=== PATIENT | female | born 1955 | race Caucasian/White ===

== ENCOUNTER → 2016-04-07 | Outpatient (CLI) | payer MEDICARE, OTHER ==
--- NOTE | 2016-04-07 12:29 | FL ---
EXAMINATION TYPE: FL barium swallow w video DATE OF EXAM: 04/07/2016 11:42 AM COMPARISON: NONE HISTORY: Cough, cerebral palsy. The patient was evaluated in the lateral projection during real-time fluoroscopy, during ingestion of barium mixed with solids and liquids. No aspiration or laryngeal penetration. See report from [facility].
== END | disposition home or self-care (01) ==
LOC: RADFLMAIN 10:54
PROVIDERS: ATTEND Family Medicine
DX: R05 Cough (principal); E66.9 Obesity, unspecified
CPT/HCPCS: 74230

== ENCOUNTER 2016-05-28 10:50 | Inpatient (IN) | payer MEDICARE, OTHER ==
[2016-05-28] MEDS ORDERED: SODIUM CHLORIDE 0.9% 1,000 ML IV STA (11:36)
--- NOTE | 2016-05-28 12:16 | ED ---
General Adult HPI - General Chief complaint: Recheck/Abnormal Lab/Rx Stated complaint: SENT BY TO CHECK LIVER ENZYMES Time Seen by Provider: 05/28/16 11:35 Source: family, RN notes reviewed, old records reviewed Mode of arrival: wheelchair Limitations: language barrier, physical limitation - History of Present Illness Initial comments: This is a 52-year-old female here for evaluation of abnormal outpatient lab tests. Is brought in for unknown elevated lab tests. Patient's primary caregiver, states that they were called this morning is patient will return yesterday and was found to be abnormal. Patient office in no acute distress, he also stated patient was told to stop the medication, spironolactone. The patient has stopped taking that medication at this time. Otherwise again no complaints - Related Data Home Medications Medication Instructions Recorded Confirmed Aspirin EC [Ecotrin Low Dose] 81 mg PO DAILY 05/28/16 05/28/16 Famotidine [Pepcid] 20 mg PO DAILY 05/28/16 05/28/16 Fluocinolone Acetonide Oil 5 drops LEFT EAR DAILY 05/28/16 05/28/16 [Fluocinolone Acetonide Oil (Otic)] Fluocinonide 0.05% [Fluocinonide] 1 applic TOPICAL DAILY 05/28/16 05/28/16 Furosemide [Lasix] 20 mg PO DAILY 05/28/16 05/28/16 Hydrocortisone 1% Lotion 1 applic TOPICAL HS 05/28/16 05/28/16 Ketoconazole 2% Shampoo [Nizoral] 1 applic TOPICAL Q3D 05/28/16 05/28/16 Multivitamins, Thera [Multivitamin 1 tab PO DAILY 05/28/16 05/28/16 (formulary)] Sertraline HCl [Zoloft] 50 mg PO HS 05/28/16 05/28/16 Spironolactone [Aldactone] 50 mg PO BID 05/28/16 05/28/16 Allergies Allergy/AdvReac Type Severity Reaction Status Date / Time corn Allergy Unknown Verified 05/28/16 12:06 Sulfa (Sulfonamide Allergy Unknown Verified 05/28/16 12:06 Antibiotics) Review of Systems ROS Statement: Those systems with pertinent positive or pertinent negative responses have been documented in the HPI. ROS Other: All systems not noted in ROS Statement are negative. Past Medical History Past Medical History: Heart Failure Additional Past Medical History / Comment(s): mental retardation, cerebral palsy , quadropalegia History of Any Multi-Drug Resistant Organisms: None Reported Past Psychological History: No Psychological Hx Reported Smoking Status: Never smoker Past Alcohol Use History: None Reported Past Drug Use History: None Reported General Exam Limitations: language barrier, physical limitation General appearance: alert, in no apparent distress Head exam: Present: atraumatic, normocephalic, normal inspection Eye exam: Present: normal appearance, PERRL, EOMI. Absent: scleral icterus, conjunctival injection, periorbital swelling ENT exam: Present: normal exam, mucous membranes moist Neck exam: Present: normal inspection. Absent: tenderness, meningismus, lymphadenopathy Respiratory exam: Present: normal lung sounds bilaterally. Absent: respiratory distress, wheezes, rales, rhonchi, stridor Cardiovascular Exam: Present: regular rate, normal rhythm, normal heart sounds. Absent: systolic murmur, diastolic murmur, rubs, gallop, clicks GI/Abdominal exam: Present: soft, normal bowel sounds. Absent: distended, tenderness, guarding, rebound, rigid Extremities exam: Present: normal inspection, full ROM, normal capillary refill. Absent: tenderness, pedal edema, joint swelling, calf tenderness Back exam: Present: normal inspection Neurological exam: Present: alert, oriented X3, CN II-XII intact Psychiatric exam: Present: normal affect, normal mood Skin exam: Present: warm, dry, intact, normal color. Absent: rash Course Vital Signs 05/28/16 11:04 Temperature 97.5 F L Pulse Rate 58 L Respiratory 20 Rate Blood Pressure 131/90 O2 Sat by Pulse 100 Oximetry - Reevaluation(s) Reevaluation #1: 05/28/16 12:15 Lab tests do reveal potassium of 6.1 05/28/16 12:15 Patient again re-encouraged to continue to stop spironolactone Medical Decision Making - Medical Decision Making 60 female here for evaluation of elevated potassium, patient's potassium has gone up 1 since prior check, patient hasn't also 0.1, patient be treated for hyperkalemia and admitted for recheck her potassium, continue to hold spironolactone - Lab Data Result diagrams: 05/28/16 12:08 05/28/16 12:08 Lab Results 04/05/17 04/05/17 Range/Units 12:08 12:08 WBC 7.3 (3.8-10.6) k/uL RBC 3.87 (3.80-5.40) m/uL Hgb 12.2 (11.4-16.0) gm/dL Hct 36.8 (34.0-46.0) % MCV 95.1 (80.0-100.0) fL MCH 31.5 (25.0-35.0) pg MCHC 33.1 (31.0-37.0) g/dL RDW 15.7 H (11.5-15.5) % Plt Count 246 (150-450) k/uL Sodium 138 (137-145) mmol/L Potassium 7.2 H* (3.5-5.1) mmol/L Chloride 100 (98-107) mmol/L Carbon Dioxide 26 (22-30) mmol/L Anion Gap 12 mmol/L BUN 49 H (7-17) mg/dL Creatinine 0.62 (0.52-1.04) mg/dL Est GFR (MDRD) Af Amer >60 (>60 ml/min/1.73 sqM) Est GFR (MDRD) Non-Af >60 (>60 ml/min/1.73 sqM) Glucose 83 (74-99) mg/dL Calcium 10.3 H (8.4-10.2) mg/dL Phosphorus 4.5 (2.5-4.5) mg/dL Magnesium 2.0 (1.6-2.3) mg/dL Total Bilirubin 0.8 (0.2-1.3) mg/dL AST 58 H (14-36) U/L ALT 48 (9-52) U/L Alkaline Phosphatase 111 (38-126) U/L Total Protein 8.1 (6.3-8.2) g/dL Albumin 4.3 (3.5-5.0) g/dL Disposition Clinical Impression: Hyperkalemia, Medication reaction Disposition: ADMITTED IP TO THIS HOSP Condition: Good Instructions: Hyperkalemia (ED) Referrals: Joseph Sol MD [Primary Care Provider] - 1-2 days
[2016-05-28 12:42] LABS: Basophils % (A) 1 %; Eosinophils % (A) 1 %; HCT 36.8 % (34.0-46.0); HDW 3.37; HGB 12.2 gm/dL (11.4-16.0); Luc # (Auto) 0.19; Luc % (Auto) 3; Lymphocytes % (A) 13 %; MCH 31.5 pg (25.0-35.0); MCHC 33.1 g/dL (31.0-37.0); MCV 95.1 fL (80.0-100.0); Mean Platelet Volume 9.3; Monocytes # (A) 1.3 k/uL (0-1.0); Monocytes % (A) 18 %; Neutrophils # (A) 4.8 k/uL (1.3-7.7); Neutrophils % (A) 66 %; RBC 3.87 m/uL (3.80-5.40); RDW 15.7 % (11.5-15.5); WBC 7.3 k/uL (3.8-10.6)
[2016-05-28 12:48] LABS: ALT 48 U/L (9-52); AST 58 U/L (14-36); Alkaline Phosphatase 111 U/L (38-126); Anion Gap 12 mmol/L; Blood Urea Nitrogen 49 mg/dL (7-17); Calcium 10.3 mg/dL (8.4-10.2); Carbon Dioxide 26 mmol/L (22-30); Chloride 100 mmol/L (98-107); Glucose 83 mg/dL (74-99); Manual Review Performed; Non-African American GFR(MDRD) >60 (>60 ml/min/1.73 sqM); Phosphorous 4.5 mg/dL (2.5-4.5); Sodium 138 mmol/L (137-145); Total Bilirubin 0.8 mg/dL (0.2-1.3); Total Protein 8.1 g/dL (6.3-8.2)
[2016-05-28 12:49] LABS: Potassium 7.2 mmol/L (3.5-5.1)
[2016-05-28] MEDS ORDERED: SODIUM POLYSTYRENE SULFONATE 15 GM/60 ML BOTTLE PO STA (12:51)
[2016-05-28] MEDS ORDERED: DEXTROSE 50%-WATER 50 ML SYRINGE IVP STA ×2 (12:51→15:56)
[2016-05-28] MEDS ORDERED: INSULIN REGULAR 100 UNIT/ML VIAL IV ONE (12:51)
[2016-05-28] MEDS ORDERED: CALCIUM GLUCONATE 1,000 MG in SODIUM CHLORIDE 0.9% 100 ML IVPB ONE (12:51)
[2016-05-28] MEDS ORDERED: SODIUM BICARB 8.4% 50 ML SYR (1 MEQ/ML) IV STA (12:51)
[2016-05-28] MEDS ORDERED: SODIUM CHLORIDE 0.9% 1,000 ML IV ONE ×2 (12:53→15:04)
[2016-05-28 12:54] LABS: Toxic Granulation Present
[2016-05-28 15:57] LABS: Glucose,Whole Blood 42 mg/dL (75-99)
[2016-05-28 16:26] LABS: Glucose,Whole Blood 160 mg/dL (75-99)
[2016-05-28 16:26] LABS: Glucose,Whole Blood 229 mg/dL (75-99)
[2016-05-28 16:33] LABS: Glucose,Whole Blood 120 mg/dL (75-99)
--- NOTE | 2016-05-28 16:58 | XR ---
EXAMINATION TYPE: XR chest 1V portable DATE OF EXAM: 05/28/2016 4:50 PM COMPARISON: NONE INDICATION: History of cerebral palsy shortness of breath and congestive heart failure TECHNIQUE: Single frontal view of the chest is obtained. FINDINGS: The heart size is mildly prominent. The pulmonary vasculature is prominent. There is diffuse increased lung markings. Early pulmonary edema could be considered. Clinical correla tion is recommended. IMPRESSION: 1. Clinical correlation recommended for early congestive heart failure.
[2016-05-28 17:06] LABS: Glucose,Whole Blood 87 mg/dL (75-99)
[2016-05-28] MEDS ORDERED: HYDROCORTISONE SUCCINATE 100 MG/2 ML VIAL IV STA (17:26)
[2016-05-28] MEDS ORDERED: methylPREDNISolone SOD SUCCI 125 MG/2 ML VIAL IV STA (17:26)
[2016-05-28 17:29] LABS: Basophils % (A) 0 %; CH 33.3; CHCM 34.5; Eosinophils % (A) 0 %; HCT 29.1 % (34.0-46.0); HDW 3.32; HGB 10.1 gm/dL (11.4-16.0); Luc # (Auto) 0.15; Luc % (Auto) 1; Lymphocytes # (A) 0.7 k/uL (1.0-4.8); Lymphocytes % (A) 6 %; MCH 33.6 pg (25.0-35.0); MCHC 34.6 g/dL (31.0-37.0); MCV 97.1 fL (80.0-100.0); Macrocytosis Slight; Mean Platelet Volume 8.4; Monocytes # (A) 0.5 k/uL (0-1.0); Monocytes % (A) 4 %; Neutrophils # (A) 9.6 k/uL (1.3-7.7); Neutrophils % (A) 88 %; RDW 15.5 % (11.5-15.5); WBC 10.9 k/uL (3.8-10.6); WBC (Perox) 10.81
[2016-05-28] MEDS ORDERED: EPINEPHrine 1 MG/ML 1 ML AMP IM STA (17:31)
[2016-05-28 17:32] LABS: ALT 40 U/L (9-52); AST 33 U/L (14-36); Alkaline Phosphatase 92 U/L (38-126); Anion Gap 10 mmol/L; Blood Urea Nitrogen 41 mg/dL (7-17); Carbon Dioxide 22 mmol/L (22-30); Chloride 107 mmol/L (98-107); Glucose 89 mg/dL (74-99); Magnesium 1.7 mg/dL (1.6-2.3); Non-African American GFR(MDRD) >60 (>60 ml/min/1.73 sqM); Potassium 5.2 mmol/L (3.5-5.1); Sodium 139 mmol/L (137-145); Total Bilirubin 0.4 mg/dL (0.2-1.3)
[2016-05-28] MEDS ORDERED: diphenhydrAMINE 50 MG/ML 1 ML VIAL IVP STA (18:02)
[2016-05-28] MEDS: EPINEPHrine 2 MG in DEXTROSE 5% IN WATER 250 ML IV SCH ×2 (18:54)
[2016-05-28] MEDS: PIPERACILLIN-TAZOBACTAM 3.375 GM in DEXTROSE/WATER 1 50ML.BAG IVPB SCH (19:13)
[2016-05-28] MEDS ORDERED: HYDROCORTISONE SUCCINATE 100 MG/2 ML VIAL IV SCH (20:00)
[2016-05-28] MEDS: FAMOTIDINE 20 MG/2 ML VIAL IV SCH (20:02)
--- NOTE | 2016-05-28 20:18 | P.CNPUL ---
History of Present Illness Consult date: 05/28/16 Chief complaint: Acute hypotension History of present illness: This is a 60-year-old female patient with history of cerebral palsy and she is morbidly obese who [facility]. The patient was referred to the burst department this afternoon because of abnormal blood work and labs. Specifically the patient had a elevated potassium. Upon arrival to the burst department, the patient was noted to have a potassium of 7.2. The rest of the electrolytes are within normal limits. BUN was slightly elevated at 49. The creatinine is at 0.62. Note that the patient was receiving Aldactone on an outpatient basis. The patient had some hyperacute T-wave changes on the EKG. The patient was also sinus bradycardia with a heart rate of 54. Based on this, the patient was given the hyperkalemia cocktail which included bicarb, D50 with insulin, calcium gluconate and Kayexalate. Following this cocktail, the patient developed an acute rash that involved entire body and she became acutely hypotensive. She was also having some increased wheezing. Based on that, acute anaphylactic reaction/ALLERGIC reaction was suspected and the patient was given epinephrine 0.3 mg IM. The rash subsequently improved yet the patient continued to be hypotensive with a systolic blood pressure in the mid 70s. The patient got moved to the intensive care unit. I was asked to. This patient this regard The patient was seen in the ICU. She had already received a total of 3 L of IV fluid in the form of normal saline. Most recent systolic blood pressure was in the mid 90s. It was very difficult to obtain any history from this patient due to her cerebral palsy. She did not seem to be in respiratory distress. No reported cardiac history or chest pain. No reported DVT or pulmonary embolism. The patient had no active rash on her body. No tongue swelling. No lip swelling. Prior history of drug ALLERGIES other than sulfa and the patient has not taken any sulfa medication no she has taken any antibiotics. She was noted to be hypothermic and the patient was given external warming. She is currently pulse oxing 98% on oxygen nasal cannula chest x-ray showed some mild congestion. Review of Systems ROS unobtainable: due to mental status Past Medical History Past Medical History: Heart Failure, Sleep Apnea/CPAP/BIPAP Additional Past Medical History / Comment(s): Mental retardation, cerebral palsy , quadriplegia, lower leg and pedal edema, RICHAR with CPAP use, bronchitis. History of Any Multi-Drug Resistant Organisms: None Reported Past Surgical History: Orthopedic Surgery Additional Past Surgical History / Comment(s): L shoulder surgery, L cheek cyst removed, D&C Past Anesthesia/Blood Transfusion Reactions: No Reported Reaction Past Psychological History: Depression Additional Psychological History / Comment(s): Pt resides at [facility]. She is nonambulatory and wheelchair bound. She has quadriplegia. She needs assist with ADLs but can feed herself with a scoop plate/spoon. She needs a cup with a handle. Her mother, Aleida is her legal guardian and is heading home from [place] today-should be to hospital 05/29/16 afternoon. Smoking Status: Never smoker Past Alcohol Use History: None Reported Past Drug Use History: None Reported - Past Family History Mother Family Medical History: No Reported History Additional Family Medical History / Comment(s): Mother is healthy. Medications and Allergies Home Medications Medication Instructions Recorded Confirmed Type Aspirin EC [Ecotrin Low Dose] 81 mg PO DAILY 05/28/16 05/28/16 History Famotidine [Pepcid] 20 mg PO DAILY 05/28/16 05/28/16 History Fluocinolone Acetonide Oil 5 drops LEFT EAR DAILY 05/28/16 05/28/16 History [Fluocinolone Acetonide Oil (Otic)] Fluocinonide 0.05% [Fluocinonide] 1 applic TOPICAL DAILY 05/28/16 05/28/16 History Furosemide [Lasix] 20 mg PO DAILY 05/28/16 05/28/16 History Hydrocortisone 1% Lotion 1 applic TOPICAL HS 05/28/16 05/28/16 History Ketoconazole 2% Shampoo [Nizoral] 1 applic TOPICAL Q3D 05/28/16 05/28/16 History Multivitamins, Thera [Multivitamin 1 tab PO DAILY 05/28/16 05/28/16 History (formulary)] Sertraline HCl [Zoloft] 50 mg PO HS 05/28/16 05/28/16 History Spironolactone [Aldactone] 50 mg PO BID 05/28/16 05/28/16 History Allergies Allergy/AdvReac Type Severity Reaction Status Date / Time corn Allergy Unknown Verified 05/28/16 12:06 Sulfa (Sulfonamide Allergy Unknown Verified 05/28/16 12:06 Antibiotics) Physical Exam Vitals: Vital Signs Temp Pulse Pulse Resp BP Pulse Ox 05/28/16 19:10 84 32 H 78/53 98 05/28/16 19:00 81 19 78/53 98 05/28/16 18:50 79 34 H 85/47 95 05/28/16 18:40 72 41 H 84/53 98 05/28/16 18:30 68 20 84/53 97 05/28/16 18:20 62 36 H 67/41 94 L 05/28/16 18:10 63 23 48/34 94 L 05/28/16 18:00 67 25 H 150/68 92 L 05/28/16 17:50 55 L 22 64/45 94 L 05/28/16 17:40 59 L 13 87/49 91 L 05/28/16 17:30 66 14 87/49 94 L 05/28/16 17:20 92.1 F L 64 23 81/49 94 L 05/28/16 17:10 64 15 95 05/28/16 17:00 66 05/28/16 16:58 69 05/28/16 15:47 95 F L 73 16 95 05/28/16 15:08 98.4 F 62 20 96/49 97 05/28/16 13:58 76 18 131/71 95 Intake and Output 05/28/16 05/28/16 05/28/16 06:59 14:59 22:59 Intake Total 2001.41 Output Total 280 Balance 1722.41 Intake: Intake, IV Titration 2001.41 Amount EPINEPHrine 2 mg In 4.41 Dextrose 5% in Water 250 ml @ 0.5 MCG/MIN 3.78 mls /hr IV .Q24H KIRK Rx#: [id number] Sodium Chloride 0.9% 1, 999 000 ml @ 999 mls/hr IV . Q1H1M ONE Rx#:[id number] Sodium Chloride 0.9% 1, 999 000 ml @ 999 mls/hr IV . Q1H1M STA Rx#:[id number] Output: Urine 280 Other: Voiding Method Indwelling Catheter Head exam was generally normal. There was no scleral icterus or corneal arcus. Mucous membranes were moist. Neck is short and supple and there is significant crowding of the posterior pharynx. There is no goiter or neck masses. Lungs sounds are diminished in lung bases bilaterally otherwise there are some few scattered expiratory wheezes.Cardiac exam revealed the PMI to be normally situated and sized. The rhythm was regular and no extrasystoles were noted during several minutes of auscultation. The first and second heart sounds were normal and physiologic splitting of the second heart sound was noted. There were no murmurs, rubs, clicks, or gallops. Abdomen is obese soft nontender there is no direct tenderness abundant since or guarding. Extremities ischemic process or clubbing. Neurologically no major motor function in lower extremities and the patient has complications of cerebral palsy and she's been bedridden for many years. Skin no evidence of any open wounds or ulcers or lesions. Results - Laboratory Findings CBC and BMP: 05/28/16 17:02 05/28/16 17:02 Abnormal lab findings: Abnormal Labs 05/28/16 05/28/16 05/28/16 13:35 15:47 16:00 WBC RBC Hgb Hct Neutrophils # Lymphocytes # Potassium 6.5 H* BUN Creatinine POC Glucose (mg/dL) 42 L 229 H Total Protein Albumin 05/28/16 05/28/16 05/28/16 16:14 16:31 17:02 WBC 10.9 H RBC 3.00 L Hgb 10.1 L Hct 29.1 L Neutrophils # 9.6 H Lymphocytes # 0.7 L Potassium BUN Creatinine POC Glucose (mg/dL) 160 H 120 H Total Protein Albumin 05/28/16 17:02 WBC RBC Hgb Hct Neutrophils # Lymphocytes # Potassium 5.2 H BUN 41 H Creatinine 0.50 L POC Glucose (mg/dL) Total Protein 6.0 L Albumin 3.0 L - Diagnostic Findings Chest x-ray: image reviewed Assessment and Plan Plan: Assessment 1 suspected acute anaphylactic reaction with a distributive shock with secondary hypotension. The patient is currently on a combination of IV fluids and pressors. We opted to put her on low-dose epinephrine to improve her systemic vascular resistance the blood pressure. Her baseline blood pressure is not known. 2 acute hyperkalemia probably related to Aldactone. The patient had some limited EKG changes at time of admission with hyperacute T waves which got treated in the patient's follow-up potassium level is down to 5.2. 3 morbid obesity 4 obstructive sleep apnea. 5 cerebral palsy 6 quadriplegia, bedridden 7 chronic lower extremity edema and questionable heart failure 8 hypothermia Plan Continue IV fluids at the rate of 100 mL an hour of normal saline. On a bit concerned of congestion heart failure knowing that the chest x-ray shows limited pulmonary vascular congestion. We'll monitor this and monitor the oxygenation. The patient is wheezing at this point and the patient will be given duoneb [id number]. The patient would have an echocardiographic testing in the morning. Continue epinephrine drip. Stop the hydrocortisone and give the patient IV Solu Medrol regarding acute anaphylactic reaction/ ALLERGIC reaction. Check cardiac enzymes. Check BNP level. DVT and GI prophylaxis. We'll continue to follow. Keep the patient in ICU to monitor blood pressure. Check thyroid function tests. 3
[2016-05-28] MEDS: methylPREDNISolone SOD SUCCI 125 MG/2 ML VIAL IV SCH (23:24)
[2016-05-29] MEDS: PIPERACILLIN-TAZOBACTAM 3.375 GM in DEXTROSE/WATER 1 50ML.BAG IVPB SCH ×3 (04:20→16:00)
[2016-05-29 05:08] LABS: Basophils % (A) 0 %; CH 32.8; CHCM 33.4; Eosinophils % (A) 0 %; HDW 3.26; HGB 10.6 gm/dL (11.4-16.0); Luc # (Auto) 0.04; Luc % (Auto) 0; Lymphocytes # (A) 0.3 k/uL (1.0-4.8); Lymphocytes % (A) 3 %; MCH 33.9 pg (25.0-35.0); MCHC 34.2 g/dL (31.0-37.0); Macrocytosis Slight; Mean Platelet Volume 7.8; Monocytes # (A) 0.2 k/uL (0-1.0); Monocytes % (A) 2 %; Neutrophils % (A) 94 %; RBC 3.13 m/uL (3.80-5.40); RDW 15.6 % (11.5-15.5); WBC 9.6 k/uL (3.8-10.6); WBC (Perox) 10.63
[2016-05-29 05:31] LABS: ALT 45 U/L (9-52); AST 31 U/L (14-36); Alkaline Phosphatase 108 U/L (38-126); Anion Gap 9 mmol/L; Blood Urea Nitrogen 29 mg/dL (7-17); Calcium 8.9 mg/dL (8.4-10.2); Carbon Dioxide 23 mmol/L (22-30); Chloride 109 mmol/L (98-107); Glucose 108 mg/dL (74-99); Magnesium 1.7 mg/dL (1.6-2.3); Non-African American GFR(MDRD) >60 (>60 ml/min/1.73 sqM); Potassium 4.8 mmol/L (3.5-5.1); Sodium 141 mmol/L (137-145); Total Bilirubin 0.3 mg/dL (0.2-1.3); Total Protein 6.3 g/dL (6.3-8.2)
--- NOTE | 2016-05-29 05:35 | HP ---
DATE OF ADMISSION: REASON FOR ADMISSION: Abnormal labs, was sent in from [facility]. This is a 60-year-old female who was sent in due to an abnormal elevation of potassium. Patient was noted to have a potassium greater than 7.1. Patient was on spironolactone prior to admission. This is apparently for a remote history of heart failure. Most of the history is obtained from the emergency room note. There was no prior documentation in our system. Patient thereafter was given insulin, dextrose, calcium gluconate and Kayexalate and triaged to the third floor. Patient immediately was noted to have hypoglycemia, hypotension, hypothermia and bradycardia. Patient was given 2 L of IV crystalloids on the third floor after an A Team was called. Thereafter, she was triaged to the intensive care unit. Patient was seen in the ICU, is still arousable, answers some questions. States that she feels weak. No allergic reactions were reported in the past. Patient was apparently in good health, was only brought to the hospital for the abnormal lab. Fourteen-point review of systems was done; none pertinent other than what was mentioned above. Medications include: 1. Aspirin. 2. Pepcid. 3. Otic. 4. Lasix. 5. Hydrocortisone. 6. Ketoconazole. 7. Multivitamin. 8. Zoloft. 9. Aldactone. ALLERGIES: CORN and SULFA. Medications above doses were reviewed and appropriately reconciled. Past medical history includes remote history of heart failure unknown if it systolic or diastolic; mental retardation, cerebral palsy, functional quadriplegia. SURGICAL HISTORY: None documented unsure if there was any procedures in the past. SOCIAL HISTORY: Currently lives at a foster care. Lifelong nonsmoker. No alcohol or illicit drug use genera. PHYSICAL EXAMINATION: Vitals include temperature 95, heart rate 73, respiratory rate 16, blood pressure during my evaluation is 80 systolic over 50 diastolic, saturating 95% on 2 L supplemental oxygen. GENERAL APPEARANCE: Some distress, slightly tachypneic. Neck is supple. No JVD. Pupils are equal, round, and react to light and accommodation. LUNGS: Some rhonchi mostly transmitted from the hypopharynx. Trace crackles appreciated at the bases. HEART: S1, S2 heard. Slightly bradycardic. No murmurs appreciated. ABDOMEN: Soft, diffusely tender to palpation. No organomegaly. EXTREMITIES: Trace edema appreciated diffusely unsure if this is chronic or acute. NEURO EXAM: Is able to move all 4 extremities; however, diminished strength in all extremities and this appears to the baseline from the previous documentation. Laboratory data include hemoglobin 10.1, hematocrit 29.1, white count of 10, platelets 160. Sodium 139, potassium 6.1 and 7.3 and currently 5.2. Bicarb 107. BUN 41, creatinine of 0.5. ASSESSMENT AND PLAN: 1. Hypotension that was associated with flushing and hypothermia. There is some signs suggestive of an acute anaphylactic reaction. Drugs that could be attributed to that were given prior were calcium gluconate, Kayexalate, insulin and dextrose. Unsure of the timing of each of the medications on review of APR. 2. Hyperkalemia. This is secondary to use of spironolactone which is discontinued and it is treated appropriately. 3. Moderate protein calorie malnutrition. 4. Cerebral palsy. 5. Functional quadriplegia. 6. Heart failure unknown if systolic or diastolic. 7. Gastroesophageal reflux disease. PLAN: With odd episode and the etiology and unknown allergy or anaphylactic history, patient will be given one dose of 0.3 mg epi, a dose of Solu-Medrol 100 mg IV and will be started on Solu-Cortef due to hypotension. Patient will also be started on Pepcid 20 mg IV q.12 hours. Will hold off on H1 blockers at this time. A total of 3 L of crystalloids were given from my direction as care was managed at bedside. Patient did show some improvement within. Will continue ICU monitoring. Heat Treat Supervisor will also be consulted. The patient appears to be critically ill. Patient's family was also informed at that this time. Patient is to be a FULL CODE until the family arrives. Thereafter another discussion is to be made according to their direction. Empirically, culture will also be done and a lactic acid was also sent. If there is any infectious etiology for the shock state. Will start the patient on Zosyn as the patient is critically ill and thereafter could be deescalated in the next 24 hours depending on the laboratory results and the initial cultures.
[2016-05-29] MEDS: methylPREDNISolone SOD SUCCI 125 MG/2 ML VIAL IV SCH ×3 (06:21→18:48)
[2016-05-29] MEDS: MAGNESIUM SULFATE-D5W PMX 1 GM in DEXTROSE/WATER 1 100ML.BAG IVPB SCH ×2 (06:57→08:37)
--- NOTE | 2016-05-29 07:29 | XR ---
EXAMINATION TYPE: XR chest 1V portable DATE OF EXAM: 05/29/2016 6:49 AM COMPARISON: 05/28/2016 INDICATION: CHF TECHNIQUE: Single frontal view of the chest is obtained. FINDINGS: The heart size is at the upper limits of normal for size.. The pulmonary vasculature is slightly prominent. Some mild increased lung markings are present may be improved from prior study. Clinical correlation for CHF is recommended. IMPRESSION: 1. Clinical correlation recommended for improving CHF.
[2016-05-29] MEDS: IPRATROPIUM-ALBUTEROL 3 ML NEB INHALATION SCH ×4 (09:12→20:58)
[2016-05-29] MEDS: FAMOTIDINE 20 MG/2 ML VIAL IV SCH ×2 (09:26→21:51)
[2016-05-29] MEDS: ENOXAPARIN 40 MG/0.4 ML SYRINGE SQ SCH (09:55)
--- NOTE | 2016-05-29 10:19 | ECHOF ---
Referral Reason:function MEASUREMENTS -------- HEIGHT: 149.9 cm WEIGHT: 80.3 kg BP: 100/55 RVIDd: 2.6 cm (< 3.3) IVSd: 1.1 cm (0.6 - 1.1) LVIDd: 3.5 cm (3.9 - 5.3) LVPWd: 0.9 cm (0.6 - 1.1) IVSs: 1.6 cm LVIDs: 2.3 cm LVPWs: 1.6 cm LA Diam: 2.7 cm (2.7 - 3.8) LAESV Index (A-L): 14.55 ml/m Ao Diam: 2.4 cm (2.0 - 3.7) AV Cusp: 1.3 cm (1.5 - 2.6) LA Diam: 2.7 cm (2.7 - 3.8) MV EXCURSION: 12.148 mm (> 18.000) MV EF SLOPE: 62 mm/s (70 - 150) EPSS: 0.4 cm MV E Patrice: 0.90 m/s MV DecT: 265 ms MV A Patrice: 1.18 m/s MV E/A Ratio: 0.76 RAP: 5.00 mmHg RVSP: 30.98 mmHg FINDINGS -------- Sinus rhythm. This was a technically difficult study with suboptimal views. Left ventricular wall thickness is normal. Overall left ventricular systolic function is normal with, an EF between 55 - 60 %. The diastolic filling pattern is normal for the age of the patient 10.38. The right ventricle is normal in size and function. Normal LA size by volume 22+/-6 ml/m2. The right atrium is normal in size. The aortic valve is trileaflet and appears structurally normal. Mild mitral annular calcification present. There is trace mitral regurgitation. Mild tricuspid regurgitation present. Right ventricular systolic pressure is normal at < 35 mmHg. Pulmonic valve appears structurally normal. The aortic root size is normal. IVC Not well visulized, due to Pt. Obesity. There is no pericardial effusion. CONCLUSIONS -------- 1. Sinus rhythm. 2. Mild mitral annular calcification present. 3. There is trace mitral regurgitation. 4. Mild tricuspid regurgitation present. 5. Right ventricular systolic pressure is normal at < 35 mmHg. 6. Pulmonic valve appears structurally normal. 7. The aortic root size is normal. 8. IVC Not well visulized, due to Pt. Obesity. 9. There is no pericardial effusion. 10. This was a technically difficult study with suboptimal views. 11. Left ventricular wall thickness is normal. 12. Overall left ventricular systolic function is normal with, an EF between 55 - 60 %. 13. The diastolic filling pattern is normal for the age of the patient 10.38 14. The right ventricle is normal in size and function. 15. Normal LA size by volume 22+/-6 ml/m2. 16. The right atrium is normal in size. 17. The aortic valve is trileaflet and appears structurally normal. CNC SET UP OPERATOR: Cathy Reed RDCS
[2016-05-29] MEDS ORDERED: FUROSEMIDE 10 MG/ML 2 ML VIAL IV ONE (15:25)
[2016-05-29] MEDS: SODIUM CHLORIDE 0.9% 1,000 ML IV SCH (16:00)
--- NOTE | 2016-05-29 17:44 | P.PN ---
Subjective This is a 60-year-old female patient with history of cerebral palsy and she is morbidly obese who lives in a halfway. The patient was referred to the burst department this afternoon because of abnormal blood work and labs. Specifically the patient had a elevated potassium. Upon arrival to the burst department, the patient was noted to have a potassium of 7.2. The rest of the electrolytes are within normal limits. BUN was slightly elevated at 49. The creatinine is at 0.62. Note that the patient was receiving Aldactone on an outpatient basis. The patient had some hyperacute T-wave changes on the EKG. The patient was also sinus bradycardia with a heart rate of 54. Based on this, the patient was given the hyperkalemia cocktail which included bicarb, D50 with insulin, calcium gluconate and Kayexalate. Following this cocktail, the patient developed an acute rash that involved entire body and she became acutely hypotensive. She was also having some increased wheezing. Based on that, acute anaphylactic reaction/ALLERGIC reaction was suspected and the patient was given epinephrine 0.3 mg IM. The rash subsequently improved yet the patient continued to be hypotensive with a systolic blood pressure in the mid 70s. The patient got moved to the intensive care unit. I was asked to. This patient this regard The patient was seen in the ICU. She had already received a total of 3 L of IV fluid in the form of normal saline. Most recent systolic blood pressure was in the mid 90s. It was very difficult to obtain any history from this patient due to her cerebral palsy. She did not seem to be in respiratory distress. No reported cardiac history or chest pain. No reported DVT or pulmonary embolism. The patient had no active rash on her body. No tongue swelling. No lip swelling. Prior history of drug ALLERGIES other than sulfa and the patient has not taken any sulfa medication no she has taken any antibiotics. She was noted to be hypothermic and the patient was given external warming. She is currently pulse oxing 98% on oxygen nasal cannula chest x-ray showed some mild congestion. On 05/29/2016 the patient is being seen in follow-up in the intensive care unit. The patient was admitted to the ICU because of a diffuse body rash and hypotension which was thought to be an ALLERGIC/anaphylactic reaction. During her ICU stay, the patient was given IV fluids. The patient also required pressors and he was placed on norepinephrine infusion. The highest dose was around 4 mics and ultimately the patient was weaned off the pressors and the pressors were discontinued more than 6 hours ago. Meanwhile, the patient is able to maintain adequate urine output. No reported body rash. No tongue swelling. No stridor. Chest x-ray from today shows some increased vascular markings and congestion. Patient is currently on high fraction 6 L/m nasal cannula and her pulse ox is around 93-94%. She is normothermic at this point and the hypothermia has recovered. She had swallow evaluation and she failed on 2 separate occasions. This is unusual for her knowing that the patient was able to swallow without any major difficulties. Neurologically, she is at her baseline according to the caregivers and her aunt who is at the bedside. She is able to speak of few sentences and interact with her family members. No open sores or wounds. She has developed some edema in lower extremities bilaterally and she would benefit from diuretics. The thyroid function tests came back normal. Hemoglobin stable at 10.6. The cardiac enzymes are also within normal limits. The echocardiogram was also completed and the patient is a preserved LV function without any significant valvular abnormalities. Objective - Vital Signs Vital signs: Vital Signs Temp 98.2 F 05/29/16 16:00 Pulse 108 H 05/29/16 17:00 Resp 16 05/29/16 17:00 BP 107/71 05/29/16 17:00 Pulse Ox 93 L 05/29/16 17:00 Intake & Output 05/28/16 05/29/16 05/29/16 18:59 06:59 18:59 Intake Total 2719.442 750 Output Total 2200 1215 Balance 519.442 -465 Weight 90.2 kg Intake: Intake, IV Titration 2719.442 750 Amount EPINEPHrine 2 mg In 71.442 Dextrose 5% in Water 250 ml @ 0.5 MCG/MIN 3.78 mls /hr IV .Q24H [facility] Rx#: [id number] Magnesium Sulfate-D5w Pmx 200 1 gm In Dextrose/Water 1 100ml.bag @ 100 mls/hr IVPB Q1H [facility] Rx#: [id number] Piperacillin-Tazobactam 3 50 .375 gm In Dextrose/Water 1 50ml.bag @ 12.5 mls/hr IVPB Q8HR [facility] Rx#: [id number] Sodium Chloride 0.9% 1, 650 460 000 ml @ 100 mls/hr IV . Q10H [facility] Rx#:[id number] Sodium Chloride 0.9% 1, 40 000 ml @ 20 mls/hr IV . Q24H [facility] Rx#:[id number] Sodium Chloride 0.9% 1, 999 000 ml @ 999 mls/hr IV . Q1H1M [facility] Rx#:[id number] Sodium Chloride 0.9% 1, 999 000 ml @ 999 mls/hr IV . Q1H1M [facility] Rx#:[id number] Output: Urine 2200 1215 Other: Voiding Method Indwelling Catheter Indwelling Catheter Indwelling Catheter - Exam Head exam was generally normal. There was no scleral icterus or corneal arcus. Mucous membranes were moist. Neck is short and supple and there is significant crowding of the posterior pharynx. There is no goiter or neck masses. Lungs sounds are diminished in lung bases bilaterally otherwise there are some few scattered expiratory wheezes.Cardiac exam revealed the PMI to be normally situated and sized. The rhythm was regular and no extrasystoles were noted during several minutes of auscultation. The first and second heart sounds were normal and physiologic splitting of the second heart sound was noted. There were no murmurs, rubs, clicks, or gallops. Abdomen is obese soft nontender there is no direct tenderness abundant since or guarding. Extremities ischemic process or clubbing. Neurologically no major motor function in lower extremities and the patient has complications of cerebral palsy and she's been bedridden for many years. Skin no evidence of any open wounds or ulcers or lesions. - Labs CBC & Chem 7: 05/29/16 04:44 05/29/16 04:44 Labs: Abnormal Lab Results - Last 24 Hours (Table) 05/28/16 05/29/16 05/29/16 Range/Units 17:02 04:44 04:44 RBC 3.13 L (3.80-5.40) m/uL Hgb 10.6 L (11.4-16.0) gm/dL Hct 31.0 L (34.0-46.0) % RDW 15.6 H (11.5-15.5) % Neutrophils # 9.0 H (1.3-7.7) k/uL Lymphocytes # 0.3 L (1.0-4.8) k/uL Potassium 5.2 H (3.5-5.1) mmol/L Chloride 109 H (98-107) mmol/L BUN 41 H 29 H (7-17) mg/dL Creatinine 0.50 L (0.52-1.04) mg/dL Glucose 108 H (74-99) mg/dL Total Protein 6.0 L (6.3-8.2) g/dL Albumin 3.0 L 3.3 L (3.5-5.0) g/dL Microbiology - Last 24 Hours (Table) 05/28/16 17:30 Urine Culture - Preliminary Urine,Catheterized Assessment and Plan Plan: Assessment 1 suspected acute anaphylactic reaction with a distributive shock with secondary hypotension. The patient is currently on a combination of IV fluids and pressors. We opted to put her on low-dose epinephrine to improve her systemic vascular resistance the blood pressure. Her baseline blood pressure is not known. On 05/29/2016, the patient was weaned off the pressors and currently she is maintaining a normal blood pressure. She has an adequate urine output. She has adequate mentation. The patient has developed some increased edema in lower extremities bilaterally and some in the upper extremities. The chest x- ray showed some pulmonary vessel congestion. Otherwise no fever, no hypothermia , no leukocytosis, no other major electrodes imbalance. Echocardiogram was noted and the results are essentially within normal limits. 2 acute hyperkalemia probably related to Aldactone, recovered 3 morbid obesity 4 obstructive sleep apnea. 5 cerebral palsy 6 quadriplegia, bedridden 7 chronic lower extremity edema without signs of congestion heart failure and echocardiogram showed a preserved LV function without pulmonary hypertension 8 hypothermia Plan Cut down the IV fluids to 50 mL an hour. Give the patient 20 mg of IV Lasix. Monitor the blood pressure. Monitored hemodynamics. Echocardiogram results were noted. No need for pressors at this point. Continued IV Solu-Medrol. Continue the empiric antibiotic coverage with IV Zosyn. The patient failed a swallow evaluation. This will be repeated in a.m. If she fails again, further workup will be needed including a CAT scan of the brain
[2016-05-29] MEDS: EPINEPHrine 2 MG in DEXTROSE 5% IN WATER 250 ML IV SCH ×2 (18:42)
[2016-05-29] MEDS: SERTRALINE 50 MG TAB PO SCH (21:51)
[2016-05-29] MEDS: FUROSEMIDE 10 MG/ML 2 ML VIAL IV SCH (21:51)
[2016-05-29] MEDS: KETOCONAZOLE 2% SHAMPOO 1 APPLIC/ML TOPICAL SCH (21:54)
[2016-05-30] MEDS: PIPERACILLIN-TAZOBACTAM 3.375 GM in DEXTROSE/WATER 1 50ML.BAG IVPB SCH ×4 (00:13→23:16)
[2016-05-30] MEDS: methylPREDNISolone SOD SUCCI 125 MG/2 ML VIAL IV SCH ×5 (00:13→23:15)
[2016-05-30 05:23] LABS: Appearance,Urine Clear (Clear); Bilirubin,Urine Negative (Negative); Glucose,Urine (UA) Negative (Negative); Ketones,Urine Negative (Negative); Leukocyte Esterase,Urine Negative (Negative); Nitrite,Urine Negative (Negative); Protein,Urine Negative (Negative); Specific Gravity,Urine 1.022 (1.001-1.035); UA Billing (MACRO vs. MICRO) CHEM; Urobilinogen,Urine <2.0 mg/dL (<2.0)
[2016-05-30 05:41] LABS: Basophils % (A) 0 %; CH 32.7; CHCM 32.3; Eosinophils % (A) 0 %; HCT 28.4 % (34.0-46.0); HDW 3.07; HGB 9.5 gm/dL (11.4-16.0); Hypochromasia Slight; Luc % (Auto) 1; Lymphocytes # (A) 0.4 k/uL (1.0-4.8); Lymphocytes % (A) 4 %; MCHC 33.4 g/dL (31.0-37.0); Macrocytosis Slight; Mean Platelet Volume 7.7; Monocytes # (A) 0.3 k/uL (0-1.0); Monocytes % (A) 3 %; Neutrophils # (A) 10.7 k/uL (1.3-7.7); Neutrophils % (A) 93 %; RBC 2.79 m/uL (3.80-5.40); RDW 15.7 % (11.5-15.5); WBC 11.5 k/uL (3.8-10.6); WBC (Perox) 11.77
[2016-05-30 06:09] LABS: Anion Gap 10 mmol/L; Blood Urea Nitrogen 26 mg/dL (7-17); Calcium 8.8 mg/dL (8.4-10.2); Carbon Dioxide 24 mmol/L (22-30); Chloride 109 mmol/L (98-107); Glucose 158 mg/dL (74-99); Magnesium 2.4 mg/dL (1.6-2.3); Non-African American GFR(MDRD) >60 (>60 ml/min/1.73 sqM); Sodium 143 mmol/L (137-145)
--- NOTE | 2016-05-30 08:33 | PN ---
DATE OF SERVICE: 05/29/2016 This is a 60-year-old woman who was admitted with respiratory difficulties, also hypotension and hypothermia, was thought to have acute anaphylactic reaction. The possibility of sepsis also a consideration. Patient continues to be hypotensive. Patient had an epinephrine drip last night. A 2-D echo was ordered. Patient remains slightly confused, slightly worse than the baseline and the 2-D echo showed ejection fraction about 55% to 60% and no significant wall abnormalities also. Otherwise, past medical history reviewed. REVIEW OF SYSTEMS: Could not be obtained at length because of the patient's baseline mental status. Current medications are reviewed, include DuoNeb q.i.d. and p.r.n., Lovenox 40 mg subQ daily, epinephrine drip, Pepcid 20 mg daily, Lasix, Solu-Medrol 60 IV q.6, Zosyn IV. PHYSICAL EXAM: Patient is alert, oriented x2. Pulse is 101, blood pressure 97/61, respirations 17, temperature is 98.4, pulse ox 94% on room air. HEENT: Conjunctivae normal, oral mucosa moist. Neck is no jugular venous enlargement. CARDIOVASCULAR: S1, S2, muffled. RESPIRATORY: Breath sounds diminished at bases, bilateral scattered rhonchi, no crackles. Abdomen is soft, obese, nontender. EXTREMITIES: Legs no swelling, no edema. NERVOUS SYSTEM: Unchanged. Labs are WBC is 9.6, hemoglobin is 10.6, sodium 140, potassium noted. Albumin is 3.3. TSH is 4.370. Troponins are noted. BNP is only 72. ASSESSMENT: 1. Hypotension and hypothermia and difficulty in breathing, possible acute anaphylactic reaction. 2. Possible aspiration pneumonia and sepsis with hypertension, septic shock and severe sepsis. 3. Hyperkalemia secondary to medication. 4. Moderate protein calorie malnutrition. 5. Cerebral palsy. 6. Functional quadriplegia. 7. History of heart failure. 8. History of gastroesophageal reflux disease. 9. Increased WBC. 10. Anemia, normocytic anemia of chronic disease. 11. History of sleep apnea. 12. History of CPAP usage. 13. History of depression, not otherwise specified. 14. FULL CODE. 15. Obesity, body mass index of 40.2. RECOMMENDATION: In this 60-year-old woman who presented with multiple medical issues, will monitor the patient closely, continue with the current medications, continue with the symptomatic treatment. I would recommend to continue monitor blood pressure closely. Patient is still on epinephrine drip; otherwise, continue the bronchodilators and broad-spectrum IV antibiotics. Follow cultures. Steroids have been ordered. Will check Accu-Cheks. Otherwise, continue to monitor cultures. The overall prognosis extremely guarded because of multiple complex medical issues. Further recommendations to follow. The patient also had hyperkalemia present on admission. Patient is being followed by Dr. Sol from [facility] in the outpatient setting.
[2016-05-30] MEDS: ENOXAPARIN 40 MG/0.4 ML SYRINGE SQ SCH (08:34)
[2016-05-30] MEDS: BETAMETHASONE DIPROPIONATE 0.05% CREAM 15 GM TUBE TOPICAL SCH (08:34)
[2016-05-30] MEDS: FAMOTIDINE 20 MG/2 ML VIAL IV SCH (08:34)
[2016-05-30] MEDS: HYDROCORTISONE 1% CREAM 30 GM TUBE TOPICAL SCH ×2 (08:34→20:20)
[2016-05-30] MEDS: FUROSEMIDE 10 MG/ML 2 ML VIAL IV SCH ×2 (08:34→20:19)
[2016-05-30] MEDS: MULTIVITAMINS, THERA 1 EACH TAB PO SCH (08:35)
[2016-05-30] MEDS: IPRATROPIUM-ALBUTEROL 3 ML NEB INHALATION SCH ×4 (08:53→20:01)
--- NOTE | 2016-05-30 10:23 | XR ---
EXAMINATION TYPE: XR chest 1V DATE OF EXAM: 05/30/2016 10:15 AM COMPARISON: 05/29/2016 HISTORY: 60-year-old female with hypoxia TECHNIQUE: Single frontal view of the chest is obtained. FINDINGS: Heart is mildly enlarged. Diffuse perihilar and interstitial opacities and patchy airspace opacity. N o significant pleural effusion seen on the frontal view. Findings are stable to slightly increased fr om prior. IMPRESSION: Correlate for slight worsening in patient's CHF and interstitial pulmonary edema.
--- NOTE | 2016-05-30 13:28 | P.PN ---
Subjective This is a 60-year-old female patient with history of cerebral palsy and she is morbidly obese who [place]. The patient was referred to the burst department this afternoon because of abnormal blood work and labs. Specifically the patient had a elevated potassium. Upon arrival to the burst department, the patient was noted to have a potassium of 7.2. The rest of the electrolytes are within normal limits. BUN was slightly elevated at 49. The creatinine is at 0.62. Note that the patient was receiving Aldactone on an outpatient basis. The patient had some hyperacute T-wave changes on the EKG. The patient was also sinus bradycardia with a heart rate of 54. Based on this, the patient was given the hyperkalemia cocktail which included bicarb, D50 with insulin, calcium gluconate and Kayexalate. Following this cocktail, the patient developed an acute rash that involved entire body and she became acutely hypotensive. She was also having some increased wheezing. Based on that, acute anaphylactic reaction/ALLERGIC reaction was suspected and the patient was given epinephrine 0.3 mg IM. The rash subsequently improved yet the patient continued to be hypotensive with a systolic blood pressure in the mid 70s. The patient got moved to the intensive care unit. I was asked to. This patient this regard The patient was seen in the ICU. She had already received a total of 3 L of IV fluid in the form of normal saline. Most recent systolic blood pressure was in the mid 90s. It was very difficult to obtain any history from this patient due to her cerebral palsy. She did not seem to be in respiratory distress. No reported cardiac history or chest pain. No reported DVT or pulmonary embolism. The patient had no active rash on her body. No tongue swelling. No lip swelling. Prior history of drug ALLERGIES other than sulfa and the patient has not taken any sulfa medication no she has taken any antibiotics. She was noted to be hypothermic and the patient was given external warming. She is currently pulse oxing 98% on oxygen nasal cannula chest x-ray showed some mild congestion. On 05/29/2016 the patient is being seen in follow-up in the intensive care unit. The patient was admitted to the ICU because of a diffuse body rash and hypotension which was thought to be an ALLERGIC/anaphylactic reaction. During her ICU stay, the patient was given IV fluids. The patient also required pressors and he was placed on norepinephrine infusion. The highest dose was around 4 mics and ultimately the patient was weaned off the pressors and the pressors were discontinued more than 6 hours ago. Meanwhile, the patient is able to maintain adequate urine output. No reported body rash. No tongue swelling. No stridor. Chest x-ray from today shows some increased vascular markings and congestion. Patient is currently on high fraction 6 L/m nasal cannula and her pulse ox is around 93-94%. She is normothermic at this point and the hypothermia has recovered. She had swallow evaluation and she failed on 2 separate occasions. This is unusual for her knowing that the patient was able to swallow without any major difficulties. Neurologically, she is at her baseline according to the caregivers and her aunt who is at the bedside. She is able to speak of few sentences and interact with her family members. No open sores or wounds. She has developed some edema in lower extremities bilaterally and she would benefit from diuretics. The thyroid function tests came back normal. Hemoglobin stable at 10.6. The cardiac enzymes are also within normal limits. The echocardiogram was also completed and the patient is a preserved LV function without any significant valvular abnormalities. On 05/30/2016, the patient is awake and alert. Chest x-ray still showing bibasilar pulmonary infiltrates and this raises the suspicion for pneumonia versus fluid overload. The patient is already on Lasix. The patient's sodium IV Zosyn. She is producing adequate amount of urine output. No hypotension. No major x-ray disturbance. No fever or chills. No further drop or change in mental status. Echo cardiac that was noted and the patient has a preserved LV function. She is awake and interactive. She is still on high flow oxygen 6 L per minute nasal cannula with a pulse ox ranging between 91-94%. Objective - Vital Signs Vital signs: Vital Signs Temp 98.5 F 05/30/16 05:00 Pulse 100 05/30/16 12:53 Resp 20 05/30/16 07:00 BP 115/57 05/30/16 07:00 Pulse Ox 94 L 05/30/16 07:00 Intake & Output 05/29/16 05/30/16 05/30/16 18:59 06:59 18:59 Intake Total 770 340 20 Output Total 1415 1238 45 Balance -645 -898 -25 Weight 90.2 kg Intake: Intake, IV Titration 770 340 20 Amount Magnesium Sulfate-D5w Pmx 200 1 gm In Dextrose/Water 1 100ml.bag @ 100 mls/hr IVPB Q1H [facility] Rx#: [id number] Piperacillin-Tazobactam 3 50 100 .375 gm In Dextrose/Water 1 50ml.bag @ 12.5 mls/hr IVPB Q8HR [facility] Rx#: [id number] Sodium Chloride 0.9% 1, 460 000 ml @ 100 mls/hr IV . Q10H [facility] Rx#:[id number] Sodium Chloride 0.9% 1, 60 240 20 000 ml @ 20 mls/hr IV . Q24H [facility] Rx#:[id number] Output: Urine 1415 1238 45 Other: Voiding Method Indwelling Catheter Indwelling Catheter - Exam Head exam was generally normal. There was no scleral icterus or corneal arcus. Mucous membranes were moist. Neck is short and supple and there is significant crowding of the posterior pharynx. There is no goiter or neck masses. Lungs sounds are diminished in lung bases bilaterally otherwise there are some few scattered expiratory wheezes.Cardiac exam revealed the PMI to be normally situated and sized. The rhythm was regular and no extrasystoles were noted during several minutes of auscultation. The first and second heart sounds were normal and physiologic splitting of the second heart sound was noted. There were no murmurs, rubs, clicks, or gallops. Abdomen is obese soft nontender there is no direct tenderness abundant since or guarding. Extremities ischemic process or clubbing. Neurologically no major motor function in lower extremities and the patient has complications of cerebral palsy and she's been bedridden for many years. Skin no evidence of any open wounds or ulcers or lesions. - Labs CBC & Chem 7: 05/30/16 05:06 05/30/16 05:06 Labs: Abnormal Lab Results - Last 24 Hours (Table) 05/30/16 05/30/16 Range/Units 05:06 05:06 WBC 11.5 H (3.8-10.6) k/uL RBC 2.79 L (3.80-5.40) m/uL Hgb 9.5 L (11.4-16.0) gm/dL Hct 28.4 L (34.0-46.0) % MCV 102.0 H (80.0-100.0) fL RDW 15.7 H (11.5-15.5) % Neutrophils # 10.7 H (1.3-7.7) k/uL Lymphocytes # 0.4 L (1.0-4.8) k/uL Chloride 109 H (98-107) mmol/L BUN 26 H (7-17) mg/dL Glucose 158 H (74-99) mg/dL Magnesium 2.4 H (1.6-2.3) mg/dL Microbiology - Last 24 Hours (Table) 05/30/16 05:05 Urine Culture - Preliminary Urine,Catheterized 05/28/16 17:30 Urine Culture - Final Urine,Catheterized 05/28/16 17:02 Blood Culture - Preliminary Blood No Growth after 24 hours Assessment and Plan Plan: Assessment 1 suspected acute anaphylactic reaction with a distributive shock with secondary hypotension. The patient is currently on a combination of IV fluids and pressors. We opted to put her on low-dose epinephrine to improve her systemic vascular resistance the blood pressure. Her baseline blood pressure is not known. On 05/29/2016, the patient was weaned off the pressors and currently she is maintaining a normal blood pressure. She has an adequate urine output. She has adequate mentation. The patient has developed some increased edema in lower extremities bilaterally and some in the upper extremities. The chest x- ray showed some pulmonary vessel congestion. Otherwise no fever, no hypothermia , no leukocytosis, no other major electrodes imbalance. Echocardiogram was noted and the results are essentially within normal limits. On 05/30/2016, the patient remains hemodynamically stable on no pressors. She is being diuresis knowing that she has developed significant amount of edema both in the upper and lower extremities. No hemodynamic instability. She is tolerating diuresis well and she has not developed any hypotension. 2 acute hyperkalemia probably related to Aldactone, recovered 3 morbid obesity 4 obstructive sleep apnea. 5 cerebral palsy 6 quadriplegia, bedridden 7 chronic lower extremity edema without signs of congestion heart failure and echocardiogram showed a preserved LV function without pulmonary hypertension 8 hypothermia 9 bilateral pulmonary infiltrates with some worsening in left lung base. Plan IV fluids to KVO. Continued IV Zosyn. Continued IV Lasix. Aspiration precautions. Wean off FiO2 as tolerated. Obtain a sputum Gram stain and culture. Transfer this patient to a medical surgical floor with telemetry. We' ll continue to follow make further recommendations based on the progress.
[2016-05-30] MEDS: SODIUM CHLORIDE 0.9% 1,000 ML IV SCH (18:55)
--- NOTE | 2016-05-30 19:12 | CT ---
EXAMINATION TYPE: CT brain wo con DATE OF EXAM: 05/30/2016 6:50 PM COMPARISON: NONE HISTORY: Medication reaction. History of cerebral palsy. Possible stroke. CT DLP: 925.00 mGycm Automated exposure control for dose reduction was used. FINDINGS: Ventricles are within normal limits. There is no mass effect nor midline shift. There is no sign of i ntracranial hemorrhage. The calvarium is intact. There is mild mucosal thickening in the ethmoid and sphenoid sinus. There is calcification in the posterior longitudinal ligament at the C2 level there i s probably upper cervical bony spinal stenosis. There are prominent sulci in the right posterior collin etal lobe and left mid parietal lobe consistent with focal atrophy or encephalomalacia. IMPRESSION: Mild sinusitis. No acute intracranial abnormality. Upper cervical bony spinal stenosis. There is foca l cortical thinning in the right posterior parietal lobe and left mid parietal lobe consistent with f ocal atrophy.
[2016-05-30] MEDS: SERTRALINE 50 MG TAB PO SCH (20:19)
[2016-05-30] MEDS: FAMOTIDINE 20 MG TAB PO SCH (20:19)
--- NOTE | 2016-05-30 20:24 | PN ---
DATE OF SERVICE: 05/30/2016 This 60-year-old woman was admitted with acute respiratory distress. She also had hypotension and hypothermia, possibly anaphylaxis also. Patient also had aspiration pneumonia and possible sepsis. Patient is being closely monitored. The most recent chest x-ray shows some worsening CHF and pulmonary edema. Dr. Hearn is following the patient closely. Patient had possible CHF, also. Past medical history reviewed. Review of systems could not be taken. The current medications are reviewed and include: 1. DuoNeb q.i.d. and p.r.n. 2. Betamethasone b.i.d. 3. Lovenox 40 mg subcutaneously daily. 4. Pepcid 20 mg b.i.d. 5. Lasix 20 mg IV b.i.d. 6. Hydrocortisone 1 application topically. 7. Nizoral 1 application q.3 days. 8. Solu-Medrol 60 IV q.6. 9. Multivitamins. 10. Zoloft 3.375 IV q.8. 11. Zoloft. PHYSICAL EXAMINATION: Pulse is 84. Blood pressure is 108/60. Respiration 20. Temperature 98.4, pulse ox 94% on 3 L. HEENT: Conjunctivae normal. NECK: No jugular venous distention. CARDIOVASCULAR SYSTEM: S1, S2 muffled. RESPIRATORY SYSTEM: Breath sounds diminished at the bases. A few scattered rhonchi and crackles. ABDOMEN: Soft, obese, non-tender. LEGS: Minimal edema. NERVOUS SYSTEM: Unchanged. LABS: WBC 11.5, hemoglobin 9.5. Sodium 143. Magnesium is 2.4. UA noted. The urine drug screen is negative. Influenza is negative. ASSESSMENT: 1. Hypotension with hypothermia and difficulty breathing, possibly acute anaphylaxic allergic reaction. 2. Possible aspiration pneumonia bilaterally with sepsis and hypotension, septic shock and severe sepsis. 3. Congestive heart failure with possible acute diastolic dysfunction. 4. Hyperkalemia secondary to medications. 5. Moderate protein-calorie malnutrition. 6. Cerebral palsy. 7. Change in mental status, metabolic encephalopathy, acute on chronic. 8. Functional quadriplegia. 9. History of congestive heart failure. 10. History of gastroesophageal reflux disease. 11. Increased white count. 12. Anemia, normocytic; anemia of chronic disease. 13. History of sleep apnea. 14. History of CPAP usage. 15. History of depression not otherwise specified. 16. Obesity; body mass index of 40.2. 17. FULL CODE. RECOMMENDATIONS AND DISCUSSION: I recommend to continue with the current medications, continue with the monitoring, symptomatic treatment. Otherwise, at this time I would recommend continuing with careful dose of Lasix, bronchodilators, empiric antibiotics. Also obtain a 2-D echo and a CT scan also to complete the workup. Further recommendations to follow.
[2016-05-31] MEDS: methylPREDNISolone SOD SUCCI 125 MG/2 ML VIAL IV SCH ×2 (05:25→11:48)
[2016-05-31] MEDS: IPRATROPIUM-ALBUTEROL 3 ML NEB INHALATION SCH ×4 (07:33→19:43)
[2016-05-31] MEDS: PIPERACILLIN-TAZOBACTAM 3.375 GM in DEXTROSE/WATER 1 50ML.BAG IVPB SCH ×3 (08:37→23:25)
[2016-05-31] MEDS: MULTIVITAMINS, THERA 1 EACH TAB PO SCH (08:38)
[2016-05-31] MEDS: FAMOTIDINE 20 MG TAB PO SCH ×2 (08:38→20:41)
[2016-05-31] MEDS: ENOXAPARIN 40 MG/0.4 ML SYRINGE SQ SCH (08:38)
[2016-05-31] MEDS: FUROSEMIDE 10 MG/ML 2 ML VIAL IV SCH ×2 (08:38→20:41)
[2016-05-31] MEDS: BETAMETHASONE DIPROPIONATE 0.05% CREAM 15 GM TUBE TOPICAL SCH (08:39)
[2016-05-31 09:21] LABS: Anisocytosis Slight; Basophils % (A) 0 %; CH 33.3; CHCM 32.6; Eosinophils % (A) 0 %; HCT 29.8 % (34.0-46.0); HDW 3.01; HGB 9.3 gm/dL (11.4-16.0); Luc # (Auto) 0.05; Luc % (Auto) 1; Lymphocytes # (A) 0.4 k/uL (1.0-4.8); Lymphocytes % (A) 4 %; MCHC 31.1 g/dL (31.0-37.0); Macrocytosis Moderate; Mean Platelet Volume 8.1; Monocytes # (A) 0.2 k/uL (0-1.0); Monocytes % (A) 2 %; Neutrophils # (A) 9.4 k/uL (1.3-7.7); Neutrophils % (A) 93 %; RBC 2.89 m/uL (3.80-5.40); WBC 10.2 k/uL (3.8-10.6)
[2016-05-31] MEDS: NON-FORMULARY DRUG (Fluocinolone Acetonide Oil [Fluocinolone Acetonide Oil (Otic)] 5 DROPS LEFT EAR SCH (09:23)
[2016-05-31 09:52] LABS: Anion Gap 10 mmol/L; Blood Urea Nitrogen 31 mg/dL (7-17); Calcium 8.9 mg/dL (8.4-10.2); Carbon Dioxide 29 mmol/L (22-30); Chloride 108 mmol/L (98-107); Glucose 183 mg/dL (74-99); Non-African American GFR(MDRD) >60 (>60 ml/min/1.73 sqM); Potassium 3.3 mmol/L (3.5-5.1); Sodium 147 mmol/L (137-145)
--- NOTE | 2016-05-31 12:29 | P.PN ---
Subjective This is a 60-year-old female patient with history of cerebral palsy and she is morbidly obese who lives in a intermediate. The patient was referred to the burst department this afternoon because of abnormal blood work and labs. Specifically the patient had a elevated potassium. Upon arrival to the burst department, the patient was noted to have a potassium of 7.2. The rest of the electrolytes are within normal limits. BUN was slightly elevated at 49. The creatinine is at 0.62. Note that the patient was receiving Aldactone on an outpatient basis. The patient had some hyperacute T-wave changes on the EKG. The patient was also sinus bradycardia with a heart rate of 54. Based on this, the patient was given the hyperkalemia cocktail which included bicarb, D50 with insulin, calcium gluconate and Kayexalate. Following this cocktail, the patient developed an acute rash that involved entire body and she became acutely hypotensive. She was also having some increased wheezing. Based on that, acute anaphylactic reaction/ALLERGIC reaction was suspected and the patient was given epinephrine 0.3 mg IM. The rash subsequently improved yet the patient continued to be hypotensive with a systolic blood pressure in the mid 70s. The patient got moved to the intensive care unit. I was asked to. This patient this regard The patient was seen in the ICU. She had already received a total of 3 L of IV fluid in the form of normal saline. Most recent systolic blood pressure was in the mid 90s. It was very difficult to obtain any history from this patient due to her cerebral palsy. She did not seem to be in respiratory distress. No reported cardiac history or chest pain. No reported DVT or pulmonary embolism. The patient had no active rash on her body. No tongue swelling. No lip swelling. Prior history of drug ALLERGIES other than sulfa and the patient has not taken any sulfa medication no she has taken any antibiotics. She was noted to be hypothermic and the patient was given external warming. She is currently pulse oxing 98% on oxygen nasal cannula chest x-ray showed some mild congestion. On 05/29/2016 the patient is being seen in follow-up in the intensive care unit. The patient was admitted to the ICU because of a diffuse body rash and hypotension which was thought to be an ALLERGIC/anaphylactic reaction. During her ICU stay, the patient was given IV fluids. The patient also required pressors and he was placed on norepinephrine infusion. The highest dose was around 4 mics and ultimately the patient was weaned off the pressors and the pressors were discontinued more than 6 hours ago. Meanwhile, the patient is able to maintain adequate urine output. No reported body rash. No tongue swelling. No stridor. Chest x-ray from today shows some increased vascular markings and congestion. Patient is currently on high fraction 6 L/m nasal cannula and her pulse ox is around 93-94%. She is normothermic at this point and the hypothermia has recovered. She had swallow evaluation and she failed on 2 separate occasions. This is unusual for her knowing that the patient was able to swallow without any major difficulties. Neurologically, she is at her baseline according to the caregivers and her aunt who is at the bedside. She is able to speak of few sentences and interact with her family members. No open sores or wounds. She has developed some edema in lower extremities bilaterally and she would benefit from diuretics. The thyroid function tests came back normal. Hemoglobin stable at 10.6. The cardiac enzymes are also within normal limits. The echocardiogram was also completed and the patient is a preserved LV function without any significant valvular abnormalities. On 05/30/2016, the patient is awake and alert. Chest x-ray still showing bibasilar pulmonary infiltrates and this raises the suspicion for pneumonia versus fluid overload. The patient is already on Lasix. The patient's sodium IV Zosyn. She is producing adequate amount of urine output. No hypotension. No major x-ray disturbance. No fever or chills. No further drop or change in mental status. Echo cardiac that was noted and the patient has a preserved LV function. She is awake and interactive. She is still on high flow oxygen 6 L per minute nasal cannula with a pulse ox ranging between 91-94%. The patient was seen again today 05/31/2016 in follow-up on the regular medical floor. Her mom is at the bedside. The patient has been stable and maintaining good O2 saturations in the 90s on 4 L/m per nasal cannula. She does seem to be taking shallow panting type respirations however. Her mom feels this is different than what she usually does. She has been maintained on IV Zosyn. Sputum culture is pending. Objective - Vital Signs Vital signs: Vital Signs Temp 99.3 F 05/31/16 07:19 Pulse 80 05/31/16 11:36 Resp 22 05/31/16 07:19 BP 124/66 05/31/16 07:19 Pulse Ox 91 L 05/31/16 07:19 Intake & Output 05/30/16 05/31/16 05/31/16 18:59 06:59 18:59 Intake Total 250.0 Output Total 1020 75 Balance -770.0 -75 Weight 84.5 kg Intake: Intake, IV Titration 250.0 Amount Piperacillin-Tazobactam 3 50.0 .375 gm In Dextrose/Water 1 50ml.bag @ 12.5 mls/hr IVPB Q8HR [facility] Rx#: [id number] Sodium Chloride 0.9% 1, 200 000 ml @ 20 mls/hr IV . Q24H [facility] Rx#:[id number] Output: Urine 1020 75 Other: Voiding Method Indwelling Catheter Incontinent Diaper Incontinent # Voids 1 - Exam Head exam was generally normal. There was no scleral icterus or corneal arcus. Mucous membranes were moist. Neck is short and supple and there is significant crowding of the posterior pharynx. There is no goiter or neck masses. Lungs sounds are diminished in lung bases bilaterally otherwise there are some few scattered expiratory wheezes.Cardiac exam revealed the PMI to be normally situated and sized. The rhythm was regular and no extrasystoles were noted during several minutes of auscultation. The first and second heart sounds were normal and physiologic splitting of the second heart sound was noted. There were no murmurs, rubs, clicks, or gallops. Abdomen is obese soft nontender there is no direct tenderness abundant since or guarding. Extremities ischemic process or clubbing. Neurologically no major motor function in lower extremities and the patient has complications of cerebral palsy and she's been bedridden for many years. Skin no evidence of any open wounds or ulcers or lesions. - Labs CBC & Chem 7: 05/31/16 08:37 05/31/16 08:37 Labs: Abnormal Lab Results - Last 24 Hours (Table) 05/31/16 05/31/16 Range/Units 08:37 08:37 RBC 2.89 L (3.80-5.40) m/uL Hgb 9.3 L (11.4-16.0) gm/dL Hct 29.8 L (34.0-46.0) % MCV 103.0 H (80.0-100.0) fL RDW 16.0 H (11.5-15.5) % Neutrophils # 9.4 H (1.3-7.7) k/uL Lymphocytes # 0.4 L (1.0-4.8) k/uL Sodium 147 H (137-145) mmol/L Potassium 3.3 L (3.5-5.1) mmol/L Chloride 108 H (98-107) mmol/L BUN 31 H (7-17) mg/dL Glucose 183 H (74-99) mg/dL Microbiology - Last 24 Hours (Table) 05/30/16 10:55 Gram Stain - Preliminary Sputum 05/28/16 17:02 Blood Culture - Preliminary Blood No Growth after 48 hours 05/30/16 05:05 Urine Culture - Preliminary Urine,Catheterized Assessment and Plan Plan: Assessment 1 suspected acute anaphylactic reaction with a distributive shock with secondary hypotension. The patient is currently on a combination of IV fluids and pressors. We opted to put her on low-dose epinephrine to improve her systemic vascular resistance the blood pressure. Her baseline blood pressure is not known. On 05/29/2016, the patient was weaned off the pressors and currently she is maintaining a normal blood pressure. She has an adequate urine output. She has adequate mentation. The patient has developed some increased edema in lower extremities bilaterally and some in the upper extremities. The chest x- ray showed some pulmonary vessel congestion. Otherwise no fever, no hypothermia , no leukocytosis, no other major electrodes imbalance. Echocardiogram was noted and the results are essentially within normal limits. On 05/30/2016, the patient remains hemodynamically stable on no pressors. She is being diuresis knowing that she has developed significant amount of edema both in the upper and lower extremities. No hemodynamic instability. She is tolerating diuresis well and she has not developed any hypotension. On 05/31/2016 she has been decreased to 4 L of high flow nasal cannula and maintaining good O2 saturations in the 90s. However she does have a short shallow respirations which is different as compared to her usual according to her mom was at the bedside. No leukocytosis. Current temp 99.3. Sputum cultures pending. 2 acute hyperkalemia probably related to Aldactone, recovered 3 morbid obesity 4 obstructive sleep apnea. 5 cerebral palsy 6 quadriplegia, bedridden 7 chronic lower extremity edema without signs of congestion heart failure and echocardiogram showed a preserved LV function without pulmonary hypertension 8 hypothermia 9 bilateral pulmonary infiltrates with some worsening in left lung base. Plan The patient was seen and evaluated by Dr. Hearn. We will repeat a chest x- ray today. She remains on aspiration precautions. We'll continue with antibiotics. We'll continue with bronchodilators. We'll discontinue her Solu- Medrol. Continue diuretics. We'll continue to follow.
--- NOTE | 2016-05-31 13:42 | XR ---
EXAMINATION TYPE: XR chest 1V DATE OF EXAM: 05/31/2016 1:06 PM COMPARISON: 05/30/2016 HISTORY: 60 year-old female follow-up CHF TECHNIQUE: Single frontal view of the chest is obtained. FINDINGS: Heart remains mildly enlarged. Diffuse interstitial and confluent airspace opacity persists and is sl ightly worsened. No significant pleural effusion seen on the frontal view. IMPRESSION: Worsening diffuse interstitial and airspace disease. Correlate for worsening pulmonary edema.
[2016-05-31] MEDS: SODIUM CHLORIDE 0.9% 1,000 ML IV SCH (16:50)
[2016-05-31] MEDS: HYDROCORTISONE 1% CREAM 30 GM TUBE TOPICAL SCH (20:41)
[2016-05-31] MEDS: SERTRALINE 50 MG TAB PO SCH (20:42)
[2016-06-01] MEDS: IPRATROPIUM-ALBUTEROL 3 ML NEB INHALATION SCH ×4 (07:14→19:13)
[2016-06-01] MEDS: PIPERACILLIN-TAZOBACTAM 3.375 GM in DEXTROSE/WATER 1 50ML.BAG IVPB SCH ×3 (07:59→23:17)
[2016-06-01] MEDS: ENOXAPARIN 40 MG/0.4 ML SYRINGE SQ SCH (08:05)
[2016-06-01] MEDS: FAMOTIDINE 20 MG TAB PO SCH ×2 (08:06→20:34)
[2016-06-01] MEDS: BETAMETHASONE DIPROPIONATE 0.05% CREAM 15 GM TUBE TOPICAL SCH (08:06)
[2016-06-01] MEDS: FUROSEMIDE 10 MG/ML 2 ML VIAL IV SCH (08:06)
[2016-06-01] MEDS: MULTIVITAMINS, THERA 1 EACH TAB PO SCH (08:06)
[2016-06-01 08:17] LABS: Anion Gap 8 mmol/L; Blood Urea Nitrogen 36 mg/dL (7-17); Calcium 8.6 mg/dL (8.4-10.2); Carbon Dioxide 34 mmol/L (22-30); Chloride 105 mmol/L (98-107); Glucose 89 mg/dL (74-99); Non-African American GFR(MDRD) >60 (>60 ml/min/1.73 sqM); Potassium 3.4 mmol/L (3.5-5.1); Sodium 147 mmol/L (137-145)
[2016-06-01 08:25] LABS: Basophils % (A) 0 %; CH 33.1; CHCM 32.5; Eosinophils % (A) 0 %; HCT 28.5 % (34.0-46.0); Luc # (Auto) 0.24; Luc % (Auto) 3; Lymphocytes # (A) 1.6 k/uL (1.0-4.8); Lymphocytes % (A) 17 %; MCH 32.5 pg (25.0-35.0); MCHC 31.7 g/dL (31.0-37.0); MCV 102.6 fL (80.0-100.0); Macrocytosis Moderate; Mean Platelet Volume 7.9; Monocytes # (A) 0.8 k/uL (0-1.0); Monocytes % (A) 8 %; Neutrophils # (A) 7.1 k/uL (1.3-7.7); Neutrophils % (A) 73 %; RBC 2.78 m/uL (3.80-5.40); RDW 15.7 % (11.5-15.5); WBC 9.7 k/uL (3.8-10.6); WBC (Perox) 10.35
--- NOTE | 2016-06-01 08:45 | XR ---
EXAMINATION TYPE: XR chest 1V portable DATE OF EXAM: 06/01/2016 8:35 AM Comparison: 05/31/2016 Clinical History: 60-year-old female follow-up CHF. Findings: The heart remains borderline to mildly enlarged. Continued diffuse interstitial and airspace opacitie s. No significant pleural effusion seen on the frontal view. Impression: Overall stable exam with diffuse bilateral interstitial and airspace disease. Correlate for continued pulmonary edema.
--- NOTE | 2016-06-01 11:05 | PN ---
DATE OF SERVICE: 05/31/2016 This 60-year-old woman was admitted with acute respiratory distress. Also had hypotension and possible anaphylaxis or aspiration pneumonia with sepsis. The patient was confused apparently to the baseline at this time. A CT scan did not show acute abnormalities. Most recent chest x-ray done today showed some worsening interstitial infiltrate also, worsening pulmonary edema is also a consideration. Dr. Hearn is following the patient closely. The patient was started on a small dose of IV Lasix at this time. PAST MEDICAL HISTORY: Reviewed. REVIEW OF SYSTEMS: Could not be taken. Current medications are reviewed and include: 1. DuoNeb q.i.d. and p.r.n. 2. Betamethasone. 3. Lovenox 40 mg. 4. Pepcid. 5. Lasix. 7. Zosyn. 8. Zoloft. PHYSICAL EXAMINATION: The patient is minimal verbal. Pulse 84, blood pressure 115/52, respirations 20, temperature 98.3, pulse ox 98% on 4 L. HEENT: Conjunctivae normal. Oral mucosa moist. NECK: No jugular venous distention. No carotid bruit. No lymph node enlargement. CARDIOVASCULAR: S1, S2 muffled. No S3, no S4. RESPIRATORY: Breath sounds diminished at the bases. Bilateral scattered rhonchi and crackles. ABDOMEN: Soft, nontender. LEGS: No edema. No swelling. LABS: WBC is 10.2, hemoglobin 9.3. Sodium 147, potassium 3.3. ASSESSMENT: 1. Hypertension with difficulty breathing possible acute anaphylaxis allergic reaction, present on admission. 2. Possible aspiration pneumonia bilaterally with sepsis and hypertension, septic shock and severe sepsis. 3. Congestive heart failure with possible acute diastolic dysfunction and acute exacerbation. 4. Hyperkalemia secondary to medications. 5. Moderate protein calorie malnutrition. 6. Cerebral palsy. 7. Change in mental status, metabolic encephalopathy, acute on chronic. 8. Functional quadriplegia. 9. History of congestive heart failure. 10. History of gastroesophageal reflux disease. 11. Increased WBC. 12. Anemia, normocytic anemia of chronic disease. 13. History of sleep apnea. 14. History of CPAP usage. 15. History of depression, not otherwise specified. 16. Obesity, body mass index of 40.2. 17. FULL CODE. RECOMMENDATIONS AND DISCUSSION: Recommend to continue current medications, continue with monitoring, symptomatic treatment. Continue diuresis. Continue the rest of the medications. Chest x-ray was reviewed personally. Closely follow with Dr. Hearn. Otherwise, repeat labs will be ordered. Prognosis guarded. Discussed with the family at the bedside. Understands and agrees. GRETEL
[2016-06-01] MEDS: methylPREDNISolone SOD SUCCI 40 MG/ML 1 ML VIAL IV SCH ×3 (15:14→23:17)
--- NOTE | 2016-06-01 16:15 | P.PN ---
Subjective his is a 60-year-old female patient with history of cerebral palsy and she is morbidly obese who lives in a fpc. The patient was referred to the burst department this afternoon because of abnormal blood work and labs. Specifically the patient had a elevated potassium. Upon arrival to the burst department, the patient was noted to have a potassium of 7.2. The rest of the electrolytes are within normal limits. BUN was slightly elevated at 49. The creatinine is at 0.62. Note that the patient was receiving Aldactone on an outpatient basis. The patient had some hyperacute T-wave changes on the EKG. The patient was also sinus bradycardia with a heart rate of 54. Based on this, the patient was given the hyperkalemia cocktail which included bicarb, D50 with insulin, calcium gluconate and Kayexalate. Following this cocktail, the patient developed an acute rash that involved entire body and she became acutely hypotensive. She was also having some increased wheezing. Based on that, acute anaphylactic reaction/ALLERGIC reaction was suspected and the patient was given epinephrine 0.3 mg IM. The rash subsequently improved yet the patient continued to be hypotensive with a systolic blood pressure in the mid 70s. The patient got moved to the intensive care unit. I was asked to. This patient this regard The patient was seen in the ICU. She had already received a total of 3 L of IV fluid in the form of normal saline. Most recent systolic blood pressure was in the mid 90s. It was very difficult to obtain any history from this patient due to her cerebral palsy. She did not seem to be in respiratory distress. No reported cardiac history or chest pain. No reported DVT or pulmonary embolism. The patient had no active rash on her body. No tongue swelling. No lip swelling. Prior history of drug ALLERGIES other than sulfa and the patient has not taken any sulfa medication no she has taken any antibiotics. She was noted to be hypothermic and the patient was given external warming. She is currently pulse oxing 98% on oxygen nasal cannula chest x-ray showed some mild congestion. On 05/29/2016 the patient is being seen in follow-up in the intensive care unit. The patient was admitted to the ICU because of a diffuse body rash and hypotension which was thought to be an ALLERGIC/anaphylactic reaction. During her ICU stay, the patient was given IV fluids. The patient also required pressors and he was placed on norepinephrine infusion. The highest dose was around 4 mics and ultimately the patient was weaned off the pressors and the pressors were discontinued more than 6 hours ago. Meanwhile, the patient is able to maintain adequate urine output. No reported body rash. No tongue swelling. No stridor. Chest x-ray from today shows some increased vascular markings and congestion. Patient is currently on high fraction 6 L/m nasal cannula and her pulse ox is around 93-94%. She is normothermic at this point and the hypothermia has recovered. She had swallow evaluation and she failed on 2 separate occasions. This is unusual for her knowing that the patient was able to swallow without any major difficulties. Neurologically, she is at her baseline according to the caregivers and her aunt who is at the bedside. She is able to speak of few sentences and interact with her family members. No open sores or wounds. She has developed some edema in lower extremities bilaterally and she would benefit from diuretics. The thyroid function tests came back normal. Hemoglobin stable at 10.6. The cardiac enzymes are also within normal limits. The echocardiogram was also completed and the patient is a preserved LV function without any significant valvular abnormalities. On 05/30/2016, the patient is awake and alert. Chest x-ray still showing bibasilar pulmonary infiltrates and this raises the suspicion for pneumonia versus fluid overload. The patient is already on Lasix. The patient's sodium IV Zosyn. She is producing adequate amount of urine output. No hypotension. No major x-ray disturbance. No fever or chills. No further drop or change in mental status. Echo cardiac that was noted and the patient has a preserved LV function. She is awake and interactive. She is still on high flow oxygen 6 L per minute nasal cannula with a pulse ox ranging between 91-94%. The patient was seen again today 05/31/2016 in follow-up on the regular medical floor. Her mom is at the bedside. The patient has been stable and maintaining good O2 saturations in the 90s on 4 L/m per nasal cannula. She does seem to be taking shallow panting type respirations however. Her mom feels this is different than what she usually does. She has been maintained on IV Zosyn. Sputum culture is pending. On 06/01/2016 the patient is being seen in follow-up. The patient is still on oxygen at 4 L/m nasal cannula and his saturations around 90%. Chest x-ray still showing diffuse but the pulmonary infiltrates. O2 sat condition essentially the same as yesterday. There is no worsening shortness of breath. Nevertheless there is no further improvement in her oxygenation and there is no further improvement in the chest x-ray findings. She is resting comfortably in bed. She is able to tolerate her food and there is no reported aspiration nor there has been any reported difficulty in swallowing food material. She is afebrile for now. Objective - Vital Signs Vital signs: Vital Signs Temp 98.3 F 06/01/16 16:11 Pulse 90 06/01/16 16:11 Resp 20 06/01/16 16:11 BP 105/61 06/01/16 16:11 Pulse Ox 91 L 06/01/16 16:11 Intake & Output 05/31/16 06/01/16 06/01/16 18:59 06:59 18:59 Weight 86 kg Other: Voiding Method Diaper Diaper Diaper Incontinent Incontinent Incontinent # Voids 3 2 4 # Bowel Movements 1 - Exam Head exam was generally normal. There was no scleral icterus or corneal arcus. Mucous membranes were moist. Neck is short and supple and there is significant crowding of the posterior pharynx. There is no goiter or neck masses. Lungs sounds are diminished in lung bases bilaterally otherwise there are some few scattered expiratory wheezes.Cardiac exam revealed the PMI to be normally situated and sized. The rhythm was regular and no extrasystoles were noted during several minutes of auscultation. The first and second heart sounds were normal and physiologic splitting of the second heart sound was noted. There were no murmurs, rubs, clicks, or gallops. Abdomen is obese soft nontender there is no direct tenderness abundant since or guarding. Extremities ischemic process or clubbing. Neurologically no major motor function in lower extremities and the patient has complications of cerebral palsy and she's been bedridden for many years. Skin no evidence of any open wounds or ulcers or lesions. - Labs CBC & Chem 7: 06/01/16 07:31 06/01/16 07:31 Labs: Abnormal Lab Results - Last 24 Hours (Table) 06/01/16 06/01/16 Range/Units 07:31 07:31 RBC 2.78 L (3.80-5.40) m/uL Hgb 9.0 L (11.4-16.0) gm/dL Hct 28.5 L (34.0-46.0) % MCV 102.6 H (80.0-100.0) fL RDW 15.7 H (11.5-15.5) % Sodium 147 H (137-145) mmol/L Potassium 3.4 L (3.5-5.1) mmol/L Carbon Dioxide 34 H (22-30) mmol/L BUN 36 H (7-17) mg/dL Microbiology - Last 24 Hours (Table) 05/30/16 10:55 Gram Stain - Final Sputum Sputum Culture - Final 05/28/16 17:02 Blood Culture - Preliminary Blood No Growth after 72 hours 05/30/16 05:05 Urine Culture - Final Urine,Catheterized Assessment and Plan Plan: Assessment 1 suspected acute anaphylactic reaction with a distributive shock with secondary hypotension, recovered 2 acute hyperkalemia probably related to Aldactone, recovered 3 morbid obesity 4 obstructive sleep apnea. 5 cerebral palsy 6 quadriplegia, bedridden 7 chronic lower extremity edema without signs of congestion heart failure and echocardiogram showed a preserved LV function without pulmonary hypertension 8 hypothermia 9 bilateral pulmonary infiltrates with hypoxic respiratory failure which has been the ongoing active issue on this patient. I suspect this may be a noncardiogenic pulmonary edema probably an acute lung injury type of pattern from either aspiration or an underlying pneumonia. The patient has been diuresed with IV Lasix with limited or modest improvement. She is also on IV Zosyn. Plan IV fluids to KVO. Continued IV Zosyn. Continued IV Lasix. Aspiration precautions. Wean off FiO2 as tolerated. Swallow evaluation the morning. Add IV Solu-Medrol. Repeat chest x-ray in the morning. The IV Lasix to 00 Mg Once a Day As the Patient Is Showing Some Signs of Hyponatremia and Prerenal Picture. We'll continue to follow.
[2016-06-01] MEDS: SODIUM CHLORIDE 0.9% 1,000 ML IV SCH (16:57)
--- NOTE | 2016-06-01 19:19 | PN ---
DATE OF SERVICE: 06/01/2016 This 60-year-old woman was admitted with acute possible acute anaphylaxis; also had aspiration pneumonia and possible CHF also. The patient was closely monitored since then and was improved significantly. The patient was able to breathe better. The chest x-ray showed significant lesions, probably slightly better. The patient has multimodality treatment. Dr. Hearn is following the patient closely. PAST MEDICAL HISTORY: Reviewed. REVIEW OF SYSTEMS: Could not be taken at length because of the patient's baseline mental status. Current medications are reviewed and include: 1. Tylenol 650. 2. DuoNeb q.i.d. and p.r.n. 3. Betamethasone daily. 4. Lovenox 40 mg subcu. 5. Pepcid 20 mg b.i.d. 6. Lasix 20 mg IV b.i.d. 7. Hydrocortisone topically. 9. Solu-Medrol 30 IV q6. 10. Zosyn 3.75 q6. 11. Zoloft. 12. P.r.n. medications. PHYSICAL EXAMINATION: Pulse is 75, blood pressure 117/70, respiratory rate 22, temperature 97.7, pulse ox 98% on is noted. HEENT: Conjunctivae normal. Oral mucosa moist. NECK: No jugular venous distention. No carotid bruit. No lymph node enlargement. CARDIOVASCULAR: S1, S2 muffled. No S3, no S4. RESPIRATORY: Breath sounds diminished at the bases. Bilateral scattered rhonchi and expiratory wheezing. ABDOMEN: Soft, nontender. LEGS: No edema. No swelling. LABS: WBC is 9.6, hemoglobin 9. Sodium 147, potassium 3.4. ASSESSMENT: 1. Hypotension with a rash with difficulty breathing, possible acute anaphylaxis and allergic reaction, present on admission. 2. Possible bilateral aspiration pneumonia with sepsis and hypotension, septic shock and severe sepsis. 3. Congestive heart failure with possible acute diastolic dysfunction and acute exacerbation with hypoxic respiratory failure. 4. Hyperkalemia secondary to medications. 5. Moderate protein calorie malnutrition. 6. Change in mental status, metabolic encephalopathy, multifactorial, acute on chronic. 7. Cerebral palsy. 8. Functional quadriplegia. 9. History of congestive heart failure. 10. History of gastroesophageal reflux disease. 11. Increased WBC. 12. Anemia, normocytic anemia of chronic disease. 13. History of sleep apnea. 14. History of CPAP usage. 15. History of depression, not otherwise specified. 16. Obesity, body mass index of 40.2. 17. FULL CODE. RECOMMENDATIONS AND DISCUSSION: This 60-year-old woman presents with multiple complex medical issues, monitor the patient closely, continue the current medication, continue symptomatic treatment. Seems like the patient has multifactorial etiology causing significant lung lesions in the chest x-ray. I would recommend at this point to continue the IV antibiotics, IV diuretics, monitor closely, further aspiration precautions and bronchodilators. Closely follow with Dr. Hearn. Prognosis guarded because of multiple complex medical issues. Discussed with the family. Further recommendations to follow. See orders for details. MTDD
[2016-06-01] MEDS: SERTRALINE 50 MG TAB PO SCH (20:34)
[2016-06-01] MEDS: HYDROCORTISONE 1% CREAM 30 GM TUBE TOPICAL SCH (20:34)
[2016-06-01] MEDS: KETOCONAZOLE 2% SHAMPOO 1 APPLIC/ML TOPICAL SCH (21:17)
[2016-06-01] MEDS: ACETAMINOPHEN TAB 325 MG TAB PO PRN (22:13)
[2016-06-02] MEDS: methylPREDNISolone SOD SUCCI 40 MG/ML 1 ML VIAL IV SCH ×4 (05:23→23:07)
--- NOTE | 2016-06-02 07:28 | XR ---
EXAMINATION TYPE: XR chest 1V DATE OF EXAM: 06/02/2016 7:22 AM COMPARISON: 06/01/2016 HISTORY: 60-year-old female with pneumonia and CHF, history of cerebral palsy TECHNIQUE: Single frontal view of the chest is obtained. FINDINGS: Heart remains related to mildly enlarged. Patchy and confluent bilateral diffuse airspace opacity per sists. No significant pleural effusion seen on the frontal view. IMPRESSION: Continued diffuse bilateral patchy and confluent airspace disease.
[2016-06-02] MEDS: PIPERACILLIN-TAZOBACTAM 3.375 GM in DEXTROSE/WATER 1 50ML.BAG IVPB SCH ×3 (07:55→23:06)
[2016-06-02] MEDS: MULTIVITAMINS, THERA 1 EACH TAB PO SCH (07:56)
[2016-06-02] MEDS: ENOXAPARIN 40 MG/0.4 ML SYRINGE SQ SCH (07:56)
[2016-06-02] MEDS: FAMOTIDINE 20 MG TAB PO SCH ×2 (07:56→21:03)
[2016-06-02] MEDS: BETAMETHASONE DIPROPIONATE 0.05% CREAM 15 GM TUBE TOPICAL SCH ×2 (07:56→21:04)
[2016-06-02] MEDS: ACETAMINOPHEN TAB 325 MG TAB PO PRN (07:58)
[2016-06-02] MEDS: IPRATROPIUM-ALBUTEROL 3 ML NEB INHALATION SCH ×4 (08:31→21:30)
[2016-06-02] MEDS ORDERED: FUROSEMIDE 10 MG/ML 2 ML VIAL IV SCH (09:00)
[2016-06-02 09:19] LABS: Anion Gap 12 mmol/L; Blood Urea Nitrogen 33 mg/dL (7-17); Calcium 8.7 mg/dL (8.4-10.2); Carbon Dioxide 29 mmol/L (22-30); Chloride 104 mmol/L (98-107); Glucose 166 mg/dL (74-99); Non-African American GFR(MDRD) >60 (>60 ml/min/1.73 sqM); Potassium 3.7 mmol/L (3.5-5.1); Sodium 145 mmol/L (137-145)
[2016-06-02 09:24] LABS: Basophils % (A) 0 %; CH 33.3; CHCM 32.1; Eosinophils % (A) 0 %; HCT 28.8 % (34.0-46.0); HDW 2.78; Hypochromasia Slight; Luc # (Auto) 0.04; Luc % (Auto) 1; Lymphocytes # (A) 0.4 k/uL (1.0-4.8); Lymphocytes % (A) 6 %; MCH 32.7 pg (25.0-35.0); MCHC 31.3 g/dL (31.0-37.0); MCV 104.4 fL (80.0-100.0); Macrocytosis Moderate; Mean Platelet Volume 7.8; Monocytes # (A) 0.2 k/uL (0-1.0); Monocytes % (A) 3 %; Neutrophils # (A) 6.5 k/uL (1.3-7.7); Neutrophils % (A) 90 %; RBC 2.76 m/uL (3.80-5.40); RDW 15.7 % (11.5-15.5); WBC 7.2 k/uL (3.8-10.6); WBC (Perox) 7.48
--- NOTE | 2016-06-02 15:08 | P.PN ---
Subjective Principal diagnosis: Acute noncardiogenic pulmonary edema and acute lung injury. his is a 60-year-old female patient with history of cerebral palsy and she is morbidly obese who lives in a residential. The patient was referred to the burst department this afternoon because of abnormal blood work and labs. Specifically the patient had a elevated potassium. Upon arrival to the burst department, the patient was noted to have a potassium of 7.2. The rest of the electrolytes are within normal limits. BUN was slightly elevated at 49. The creatinine is at 0.62. Note that the patient was receiving Aldactone on an outpatient basis. The patient had some hyperacute T-wave changes on the EKG. The patient was also sinus bradycardia with a heart rate of 54. Based on this, the patient was given the hyperkalemia cocktail which included bicarb, D50 with insulin, calcium gluconate and Kayexalate. Following this cocktail, the patient developed an acute rash that involved entire body and she became acutely hypotensive. She was also having some increased wheezing. Based on that, acute anaphylactic reaction/ALLERGIC reaction was suspected and the patient was given epinephrine 0.3 mg IM. The rash subsequently improved yet the patient continued to be hypotensive with a systolic blood pressure in the mid 70s. The patient got moved to the intensive care unit. I was asked to. This patient this regard The patient was seen in the ICU. She had already received a total of 3 L of IV fluid in the form of normal saline. Most recent systolic blood pressure was in the mid 90s. It was very difficult to obtain any history from this patient due to her cerebral palsy. She did not seem to be in respiratory distress. No reported cardiac history or chest pain. No reported DVT or pulmonary embolism. The patient had no active rash on her body. No tongue swelling. No lip swelling. Prior history of drug ALLERGIES other than sulfa and the patient has not taken any sulfa medication no she has taken any antibiotics. She was noted to be hypothermic and the patient was given external warming. She is currently pulse oxing 98% on oxygen nasal cannula chest x-ray showed some mild congestion. On 05/29/2016 the patient is being seen in follow-up in the intensive care unit. The patient was admitted to the ICU because of a diffuse body rash and hypotension which was thought to be an ALLERGIC/anaphylactic reaction. During her ICU stay, the patient was given IV fluids. The patient also required pressors and he was placed on norepinephrine infusion. The highest dose was around 4 mics and ultimately the patient was weaned off the pressors and the pressors were discontinued more than 6 hours ago. Meanwhile, the patient is able to maintain adequate urine output. No reported body rash. No tongue swelling. No stridor. Chest x-ray from today shows some increased vascular markings and congestion. Patient is currently on high fraction 6 L/m nasal cannula and her pulse ox is around 93-94%. She is normothermic at this point and the hypothermia has recovered. She had swallow evaluation and she failed on 2 separate occasions. This is unusual for her knowing that the patient was able to swallow without any major difficulties. Neurologically, she is at her baseline according to the caregivers and her aunt who is at the bedside. She is able to speak of few sentences and interact with her family members. No open sores or wounds. She has developed some edema in lower extremities bilaterally and she would benefit from diuretics. The thyroid function tests came back normal. Hemoglobin stable at 10.6. The cardiac enzymes are also within normal limits. The echocardiogram was also completed and the patient is a preserved LV function without any significant valvular abnormalities. On 05/30/2016, the patient is awake and alert. Chest x-ray still showing bibasilar pulmonary infiltrates and this raises the suspicion for pneumonia versus fluid overload. The patient is already on Lasix. The patient's sodium IV Zosyn. She is producing adequate amount of urine output. No hypotension. No major x-ray disturbance. No fever or chills. No further drop or change in mental status. Echo cardiac that was noted and the patient has a preserved LV function. She is awake and interactive. She is still on high flow oxygen 6 L per minute nasal cannula with a pulse ox ranging between 91-94%. The patient was seen again today 05/31/2016 in follow-up on the regular medical floor. Her mom is at the bedside. The patient has been stable and maintaining good O2 saturations in the 90s on 4 L/m per nasal cannula. She does seem to be taking shallow panting type respirations however. Her mom feels this is different than what she usually does. She has been maintained on IV Zosyn. Sputum culture is pending. On 06/01/2016 the patient is being seen in follow-up. The patient is still on oxygen at 4 L/m nasal cannula and his saturations around 90%. Chest x-ray still showing diffuse but the pulmonary infiltrates. O2 sat condition essentially the same as yesterday. There is no worsening shortness of breath. Nevertheless there is no further improvement in her oxygenation and there is no further improvement in the chest x-ray findings. She is resting comfortably in bed. She is able to tolerate her food and there is no reported aspiration nor there has been any reported difficulty in swallowing food material. She is afebrile for now. On 06/02/2016, patient is about the same, remains on 4 L nasal cannula, chest x- ray continues to show diffuse bilateral infiltrates. Hence I increased her diuretic dose today. No documented aspiration noted. CBC is relatively normal hemoglobin is 9 basic metabolic profile is normal. BUN is 33 creatinine 0.68. Objective - Vital Signs Vital signs: Vital Signs Temp 100.1 F H 06/02/16 08:00 Pulse 86 06/02/16 12:42 Resp 20 06/02/16 08:00 BP 115/71 06/02/16 08:00 Pulse Ox 91 L 06/02/16 08:00 Intake & Output 06/01/16 06/02/16 06/02/16 18:59 06:59 18:59 Weight 84.5 kg Other: Voiding Method Diaper Diaper Diaper Incontinent Incontinent Incontinent # Voids 4 1 3 # Bowel Movements 1 1 - Exam Head exam was generally normal. There was no scleral icterus or corneal arcus. Mucous membranes were moist. Neck is short and supple and there is significant crowding of the posterior pharynx. There is no goiter or neck masses. Lungs sounds are diminished in lung bases bilaterally otherwise there are some few scattered expiratory wheezes.Cardiac exam revealed the PMI to be normally situated and sized. The rhythm was regular and no extrasystoles were noted during several minutes of auscultation. The first and second heart sounds were normal and physiologic splitting of the second heart sound was noted. There were no murmurs, rubs, clicks, or gallops. Abdomen is obese soft nontender there is no direct tenderness abundant since or guarding. Extremities ischemic process or clubbing. Neurologically no major motor function in lower extremities and the patient has complications of cerebral palsy and she's been bedridden for many years. Skin no evidence of any open wounds or ulcers or lesions. - Labs CBC & Chem 7: 06/02/16 08:22 06/02/16 08:22 Labs: Abnormal Lab Results - Last 24 Hours (Table) 06/02/16 06/02/16 Range/Units 08:22 08:22 RBC 2.76 L (3.80-5.40) m/uL Hgb 9.0 L (11.4-16.0) gm/dL Hct 28.8 L (34.0-46.0) % MCV 104.4 H (80.0-100.0) fL RDW 15.7 H (11.5-15.5) % Lymphocytes # 0.4 L (1.0-4.8) k/uL BUN 33 H (7-17) mg/dL Glucose 166 H (74-99) mg/dL Microbiology - Last 24 Hours (Table) 05/28/16 17:02 Blood Culture - Preliminary Blood No Growth after 96 hours Assessment and Plan Plan: 1 bilateral pulmonary infiltrates with hypoxic respiratory failure which has been the ongoing active issue on this patient. I suspect this may be a noncardiogenic pulmonary edema probably an acute lung injury type of pattern from either aspiration or an underlying pneumonia. The patient has been diuresed with IV Lasix with limited or modest improvement. She is also on IV Zosyn. 2 suspected acute anaphylactic reaction with a distributive shock with secondary hypotension, recovered 3 acute hyperkalemia probably related to Aldactone, recovered 4 obstructive sleep apnea. 5 cerebral palsy 6 quadriplegia, bedridden 7 chronic lower extremity edema without signs of congestion heart failure and echocardiogram showed a preserved LV function without pulmonary hypertension 8 hypothermia Recommendation: Continue antibiotics, diuretics, aspiration precautions, wean FiO2 as tolerated, consider swallow evaluation. Time with Patient: Less than 30
--- NOTE | 2016-06-02 16:22 | CT ---
EXAMINATION TYPE: CT chest wo con DATE OF EXAM: 06/02/2016 4:16 PM COMPARISON: NONE HISTORY: pulm fibrosis CT DLP: 484.2 mGycm, Automated exposure control for dose reduction was used. CONTRAST: Performed injected with 0 mL of Omnipaque 300. TECHNIQUE: Axial images were obtained at 1 mm thick sections at 5 mm intervals. Reconstructed images are reviewed on the computer in the coronal plane. Exam is limited due to beam hardening artifact fr om EKG leads. FINDINGS: Portion of the thyroid visualized is normal. Diffuse patchy infiltrates within the bilateral lungs. Differential is nonspecific but could include pulmonary edema, ARDS, infectious etiologies. No enlarged mediastinal or hilar adenopathy is evident. The ascending aorta diameter at the level o f the main pulmonary artery is 3.3 cm. The main pulmonary artery diameter at the bifurcation is 3.[address] sections are obtained through the upper abdomen. Cholelithiasis is evident. IMPRESSIONS: 1. Patchy bilateral lung infiltrates. Correlate for pulmonary edema. Differential could include an in fectious etiology. ARDS may be present.
[2016-06-02] MEDS: SODIUM CHLORIDE 0.9% 1,000 ML IV SCH (19:03)
[2016-06-02] MEDS: FUROSEMIDE 10 MG/ML 4 ML VIAL IV SCH (21:03)
[2016-06-02] MEDS: SERTRALINE 50 MG TAB PO SCH (21:04)
[2016-06-02] MEDS: HYDROCORTISONE 1% CREAM 30 GM TUBE TOPICAL SCH ×2 (21:04→21:07)
[2016-06-03] MEDS: methylPREDNISolone SOD SUCCI 40 MG/ML 1 ML VIAL IV SCH ×4 (06:14→23:15)
[2016-06-03] MEDS: PIPERACILLIN-TAZOBACTAM 3.375 GM in DEXTROSE/WATER 1 50ML.BAG IVPB SCH ×3 (07:47→23:15)
[2016-06-03] MEDS: MULTIVITAMINS, THERA 1 EACH TAB PO SCH (07:47)
[2016-06-03] MEDS: FAMOTIDINE 20 MG TAB PO SCH ×2 (07:47→21:05)
[2016-06-03] MEDS: FUROSEMIDE 10 MG/ML 4 ML VIAL IV SCH ×2 (07:47→21:05)
[2016-06-03] MEDS: ENOXAPARIN 40 MG/0.4 ML SYRINGE SQ SCH (07:47)
[2016-06-03] MEDS: IPRATROPIUM-ALBUTEROL 3 ML NEB INHALATION SCH ×4 (09:48→20:01)
[2016-06-03 09:50] LABS: Basophils % (A) 0 %; CHCM 32.3; Eosinophils % (A) 0 %; HCT 28.1 % (34.0-46.0); Luc # (Auto) 0.16; Luc % (Auto) 2; Lymphocytes # (A) 0.8 k/uL (1.0-4.8); Lymphocytes % (A) 8 %; MCH 32.9 pg (25.0-35.0); MCV 102.9 fL (80.0-100.0); Macrocytosis Moderate; Mean Platelet Volume 7.7; Monocytes # (A) 0.4 k/uL (0-1.0); Monocytes % (A) 5 %; Neutrophils % (A) 85 %; RBC 2.73 m/uL (3.80-5.40); RDW 15.8 % (11.5-15.5); WBC 9.4 k/uL (3.8-10.6); WBC (Perox) 9.52
[2016-06-03 10:08] LABS: Anion Gap 12 mmol/L; Blood Urea Nitrogen 38 mg/dL (7-17); Calcium 9.1 mg/dL (8.4-10.2); Carbon Dioxide 32 mmol/L (22-30); Chloride 100 mmol/L (98-107); Glucose 125 mg/dL (74-99); Non-African American GFR(MDRD) >60 (>60 ml/min/1.73 sqM); Potassium 3.8 mmol/L (3.5-5.1); Sodium 144 mmol/L (137-145)
--- NOTE | 2016-06-03 10:13 | PN ---
DATE OF SERVICE: 06/02/2016 PRESENTING COMPLAINT: Short of breath. INTERVAL HISTORY: This is a patient with known cerebral palsy admitted with shortness of breath. The patient's mother is at bedside. The patient on this admission is rather acute. Patient was not requiring any oxygen at home. Having tolerating a diet. Patient has been requiring oxygen. Patient has been put on Lasix earlier, but patient's BNP is very low making at least cardiogenic pulmonary edema extremely unlikely. Patient does use a walker at the baseline. Review of systems attempted for constitutional, cardiovascular, GI, pulmonary. Current medications are reviewed including IV Zosyn. On examination, temperature 100.6, pulse 93, respirations 20, blood pressure 144/55, pulse ox 92% on 2 liters. GENERAL APPEARANCE: Lying in bed, tired-appearing but arousable. EYES: Pupils equal normal. NECK: JVD unable to assess. Mass not palpable. RESPIRATORY: Effort increased. LUNGS: Some scattered crackles. CARDIOVASCULAR: First and second sounds normal. No edema. ABDOMEN: Soft, nontender. Liver and spleen not palpable. PSYCHIATRY: Patient is answering some simple questions slowly. INVESTIGATIONS: White count 7.2, hemoglobin 9. Potassium 3.7. BUN 33, creatinine 0.68. Chest x-ray reviewed by me shows patchy infiltrates in a nonvascular pattern. ASSESSMENT: 1. Acute hypoxic respiratory failure, appears to be more likely acute lung injury, probably from recurrent aspiration. Highly doubt this to be fluid overload. Given that patient's BNP was only 72. 2. Hyperkalemia, improved. 3. Acute metabolic encephalopathy, underlying sepsis. 4. Chronic cerebral palsy. 5. Functional quadriplegia. 6. Gastroesophageal reflux disease. 7. Chronic sleep apnea. The patient does use CPAP. 8. Chronic depression, not otherwise specified. 9. Morbid obesity, body mass index 40.2. 10. CODE STATUS: FULL CODE. PLAN: Patient is already getting Zosyn and this may be more of a chemical pneumonitis and in that case, antibiotics really may not help. Will get a swallow evaluation by Speech Therapy and will discuss with Dr. Mendoza. Aspiration precautions are strongly to be maintained in the meantime. Continue with oxygen support. Overall prognosis guarded. Total time spent today was about 40 minutes with over 25 minutes discussion with the mother.
--- NOTE | 2016-06-03 11:44 | P.PN ---
Subjective This is a 60-year-old female patient with history of cerebral palsy and she is morbidly obese who lives in a fpc. The patient was referred to the burst department this afternoon because of abnormal blood work and labs. Specifically the patient had a elevated potassium. Upon arrival to the burst department, the patient was noted to have a potassium of 7.2. The rest of the electrolytes are within normal limits. BUN was slightly elevated at 49. The creatinine is at 0.62. Note that the patient was receiving Aldactone on an outpatient basis. The patient had some hyperacute T-wave changes on the EKG. The patient was also sinus bradycardia with a heart rate of 54. Based on this, the patient was given the hyperkalemia cocktail which included bicarb, D50 with insulin, calcium gluconate and Kayexalate. Following this cocktail, the patient developed an acute rash that involved entire body and she became acutely hypotensive. She was also having some increased wheezing. Based on that, acute anaphylactic reaction/ALLERGIC reaction was suspected and the patient was given epinephrine 0.3 mg IM. The rash subsequently improved yet the patient continued to be hypotensive with a systolic blood pressure in the mid 70s. The patient got moved to the intensive care unit. I was asked to. This patient this regard The patient was seen in the ICU. She had already received a total of 3 L of IV fluid in the form of normal saline. Most recent systolic blood pressure was in the mid 90s. It was very difficult to obtain any history from this patient due to her cerebral palsy. She did not seem to be in respiratory distress. No reported cardiac history or chest pain. No reported DVT or pulmonary embolism. The patient had no active rash on her body. No tongue swelling. No lip swelling. Prior history of drug ALLERGIES other than sulfa and the patient has not taken any sulfa medication no she has taken any antibiotics. She was noted to be hypothermic and the patient was given external warming. She is currently pulse oxing 98% on oxygen nasal cannula chest x-ray showed some mild congestion. On 05/29/2016 the patient is being seen in follow-up in the intensive care unit. The patient was admitted to the ICU because of a diffuse body rash and hypotension which was thought to be an ALLERGIC/anaphylactic reaction. During her ICU stay, the patient was given IV fluids. The patient also required pressors and he was placed on norepinephrine infusion. The highest dose was around 4 mics and ultimately the patient was weaned off the pressors and the pressors were discontinued more than 6 hours ago. Meanwhile, the patient is able to maintain adequate urine output. No reported body rash. No tongue swelling. No stridor. Chest x-ray from today shows some increased vascular markings and congestion. Patient is currently on high fraction 6 L/m nasal cannula and her pulse ox is around 93-94%. She is normothermic at this point and the hypothermia has recovered. She had swallow evaluation and she failed on 2 separate occasions. This is unusual for her knowing that the patient was able to swallow without any major difficulties. Neurologically, she is at her baseline according to the caregivers and her aunt who is at the bedside. She is able to speak of few sentences and interact with her family members. No open sores or wounds. She has developed some edema in lower extremities bilaterally and she would benefit from diuretics. The thyroid function tests came back normal. Hemoglobin stable at 10.6. The cardiac enzymes are also within normal limits. The echocardiogram was also completed and the patient is a preserved LV function without any significant valvular abnormalities. On 05/30/2016, the patient is awake and alert. Chest x-ray still showing bibasilar pulmonary infiltrates and this raises the suspicion for pneumonia versus fluid overload. The patient is already on Lasix. The patient's sodium IV Zosyn. She is producing adequate amount of urine output. No hypotension. No major x-ray disturbance. No fever or chills. No further drop or change in mental status. Echo cardiac that was noted and the patient has a preserved LV function. She is awake and interactive. She is still on high flow oxygen 6 L per minute nasal cannula with a pulse ox ranging between 91-94%. The patient was seen again today 05/31/2016 in follow-up on the regular medical floor. Her mom is at the bedside. The patient has been stable and maintaining good O2 saturations in the 90s on 4 L/m per nasal cannula. She does seem to be taking shallow panting type respirations however. Her mom feels this is different than what she usually does. She has been maintained on IV Zosyn. Sputum culture is pending. On 06/01/2016 the patient is being seen in follow-up. The patient is still on oxygen at 4 L/m nasal cannula and his saturations around 90%. Chest x-ray still showing diffuse but the pulmonary infiltrates. O2 sat condition essentially the same as yesterday. There is no worsening shortness of breath. Nevertheless there is no further improvement in her oxygenation and there is no further improvement in the chest x-ray findings. She is resting comfortably in bed. She is able to tolerate her food and there is no reported aspiration nor there has been any reported difficulty in swallowing food material. She is afebrile for now. On 06/02/2016, patient is about the same, remains on 4 L nasal cannula, chest x- ray continues to show diffuse bilateral infiltrates. Hence I increased her diuretic dose today. No documented aspiration noted. CBC is relatively normal hemoglobin is 9 basic metabolic profile is normal. BUN is 33 creatinine 0.68. The patient is seen again today 06/03/2016 in follow-up on the regular medical floor. Her mom remains at the bedside. The patient is awake and alert in no acute distress. She is due for a repeat swallow evaluation today. There remains concern regarding possible aspiration. She remains on Zosyn. Her most recent x-ray did reveal some diffuse bilateral infiltrates. Her diuretics were increased yesterday. Creatinine remains within normal limits. Her hemoglobin remains stable at 9.0. Objective - Vital Signs Vital signs: Vital Signs Temp 97.0 F L 06/03/16 07:00 Pulse 76 06/03/16 07:00 Resp 18 06/03/16 07:00 BP 111/63 06/03/16 07:00 Pulse Ox 92 L 06/03/16 07:00 Intake & Output 06/02/16 06/03/16 06/03/16 18:59 06:59 18:59 Weight 80.5 kg Other: Voiding Method Diaper Diaper Diaper Incontinent Incontinent Incontinent # Voids 3 2 # Bowel Movements 1 1 - Exam Head exam was generally normal. There was no scleral icterus or corneal arcus. Mucous membranes were moist. Neck is short and supple and there is significant crowding of the posterior pharynx. There is no goiter or neck masses. Lungs sounds are diminished in lung bases bilaterally otherwise there are some few scattered expiratory wheezes.Cardiac exam revealed the PMI to be normally situated and sized. The rhythm was regular and no extrasystoles were noted during several minutes of auscultation. The first and second heart sounds were normal and physiologic splitting of the second heart sound was noted. There were no murmurs, rubs, clicks, or gallops. Abdomen is obese soft nontender there is no direct tenderness abundant since or guarding. Extremities ischemic process or clubbing. Neurologically no major motor function in lower extremities and the patient has complications of cerebral palsy and she's been bedridden for many years. Skin no evidence of any open wounds or ulcers or lesions. - Labs CBC & Chem 7: 06/03/16 09:14 06/03/16 09:14 Labs: Abnormal Lab Results - Last 24 Hours (Table) 06/03/16 06/03/16 Range/Units 09:14 09:14 RBC 2.73 L (3.80-5.40) m/uL Hgb 9.0 L (11.4-16.0) gm/dL Hct 28.1 L (34.0-46.0) % MCV 102.9 H (80.0-100.0) fL RDW 15.8 H (11.5-15.5) % Neutrophils # 8.0 H (1.3-7.7) k/uL Lymphocytes # 0.8 L (1.0-4.8) k/uL Carbon Dioxide 32 H (22-30) mmol/L BUN 38 H (7-17) mg/dL Glucose 125 H (74-99) mg/dL Microbiology - Last 24 Hours (Table) 05/28/16 17:02 Blood Culture - Preliminary Blood No Growth after 120 hours Assessment and Plan Plan: Assessment 1 suspected acute anaphylactic reaction with a distributive shock with secondary hypotension. The patient is currently on a combination of IV fluids and pressors. We opted to put her on low-dose epinephrine to improve her systemic vascular resistance the blood pressure. Her baseline blood pressure is not known. Recovered. 2 acute hyperkalemia probably related to Aldactone, recovered 3 morbid obesity 4 obstructive sleep apnea. 5 cerebral palsy 6 quadriplegia, bedridden 7 chronic lower extremity edema without signs of congestion heart failure and echocardiogram showed a preserved LV function without pulmonary hypertension 8 hypothermia 9 bilateral pulmonary infiltrates. Plan The patient was seen and evaluated by Dr. Mendoza. She remains on aspiration precautions. We'll continue with antibiotics. We'll continue with bronchodilators. We will continue her Solu-Medrol. Continue diuretics. We will await results of the swallow evaluation. We'll continue to follow.
--- NOTE | 2016-06-03 11:49 | XR ---
EXAMINATION TYPE: XR chest 1V portable DATE OF EXAM: 06/03/2016 11:40 AM CLINICAL HISTORY: Difficulty breathing progress study. Pneumonia and CHF. History of cerebral palsy. TECHNIQUE: Single AP portable frontal view of the chest is obtained. COMPARISON: Chest x-ray from one day earlier FINDINGS: Underlying scoliosis is present. There is persistent cardiomegaly with bilateral opacities felt to reflect edema and/or infiltrates. Slight improvement is felt present versus prior. No large pleural effusion or pneumothorax is seen. IMPRESSION: Cardiomegaly with bilateral edema and/or infiltrates, some improvement is felt present pa rticularly left upper lobe and right lower lobes versus most recent prior.
--- NOTE | 2016-06-03 13:40 | CDI ---
In responding to this query, please exercise your independent professional judgment. The [facility] Coding Staff and Clinical Documentation Specialists appreciate your assistance in clarifying documentation, maintaining compliance with coding guidelines, accurately documenting patients condition and capturing severity of illness. The fact that a question is asked does not imply that any particular answer is desired or expected. Communication forms are a method of clarifying documentation and are not made part of the Legal Health Record. Thank you in advance for your clarification. Last Revision, December 2014 Arvind Car [address] [facility] [place] [address] Documentation Clarification Form Date: 06/03/2016 1:22:00 PM From: Nhung Bates RN, CCDS Admit Date: 05/28/2016 12:53:00 PM Patient Name: Nella Dowling Visit Number: [id number] Dr. Zeke Huang Sepsis was documented in the attending Progress Notes on 05/28 History/Risk Factors: CHF, CP, Functional Quadriplegia Clinical Indicators: H&P: "This is a 60-year-old female who was sent in due to an abnormal elevation of potassium. Patient was noted to have potassium greater than 7.1. . Patient immediately was noted to have hypoglycemia, hypotension, hypothermia and bradycardia. Patient was given 2 L of IV crystalloids on the third floor after an A Team was called. Thereafter, she was triaged to the intensive care unit." V/S on Admission: Temp 97.5, HR 58, RR 20, B/P 131/90, spo2 1005 ra V/S 05/28 1720: Temp 92.1, hr 55-64, RR 25-36, spo2 94% 4l Labs: WBC 7.3/10.9/9.6/11.5 Treatment: IVF Bolus IV Zosyn 3.375gm IVPB q 8 hrs Epi Gtt Definition of Present on Admission (POA): A diagnosis present at the time the order for admission to inpatient status was written. For each diagnosis, documentation must be clear to determine if the condition was present at the time of the patients inpatient admission or developed during the hospital stay. Please clarify in progress notes and discharge summary as to whether Sepsis was POA: Yes, the condition was present at the time of the order for inpatient admission. No, the condition was not present at the time of the order for inpatient admission. Clinically undetermined if the condition was present at the time of the order for inpatient admission. Please continue to document in your progress notes and discharge summary in order to capture severity of illness and risk of mortality. Include clinical findings that support your diagnosis. FYI: Press F11 to launch patient chart. GRETEL
[2016-06-03] MEDS: SODIUM CHLORIDE 0.9% 1,000 ML IV SCH (15:19)
--- NOTE | 2016-06-03 15:34 | FL ---
Modified barium swallow. HISTORY: Dysphagia. Modified barium swallow was performed with the department of speech pathology. The patient was prese nted with various consistencies of barium. There is no evidence for aspiration or penetration. Full report is to follow from the department of speech pathology. Impression: Normal study.
[2016-06-03] MEDS: SERTRALINE 50 MG TAB PO SCH (21:05)
[2016-06-03] MEDS: HYDROCORTISONE 1% CREAM 30 GM TUBE TOPICAL SCH (21:05)
--- NOTE | 2016-06-03 22:24 | PN ---
DATE OF SERVICE: 06/03/2016 PRESENTING COMPLAINT: Short of breath. INTERVAL HISTORY: Patient with cerebral palsy admitted with shortness of breath. Patient did have a repeat modified barium swallow today that did not show any obvious aspiration. Diet has been modified by Speech. Still felt to be possible aspiration. Patient may still have infective component ( ) for antibiotics. Discussed the case earlier with Dr. Mendoza from Pulmonary. Review of systems attempted for constitutional, cardiovascular, GI, pulmonary. Current medications are reviewed that include IV Zosyn and IV Lasix. On examination, temperature 97, pulse 76, respiration 18, blood pressure 101/63, pulse ox 92% on 4 L. GENERAL APPEARANCE: Lying in bed. A bit more awake but tired-appearing. EYES: Pupils equal. Conjunctivae normal. NECK: JVD unable to assess. Mass not palpable. RESPIRATORY: Effort increased. LUNGS: Basal crackles. CARDIOVASCULAR: First and second sounds normal. No edema. ABDOMEN: Soft, nontender. Liver and spleen not palpable. PSYCHIATRY: Answers simple questions. INVESTIGATIONS: Modified barium swallow negative for obvious aspiration. CT scan of the chest shows patchy bilateral lung infiltrates. ASSESSMENT: 1. Acute hypoxic respiratory failure; could be acute lung injury, including could be pneumonia with sepsis-like picture initially. Still recurrent aspiration cannot be ruled out. 2. Hyperkalemia, improving. 3. Acute metabolic encephalopathy from underlying sepsis, slowly improving. 4. Chronic cerebral palsy. 5. Functional quadriplegia. 6. Gastroesophageal reflux disease. 7. Chronic sleep apnea. Patient does use a CPAP. 8. Chronic depression not otherwise specified. 9. Morbid obesity; body mass index of 40.2. 10. CODE STATUS: FULL. PLAN: Continue with oxygen, Zosyn. If this is early ARDS, keeping the patient dry will help, as discussed with Dr. Mendoza. Aspiration precautions to be maintained. Feeding as per Speech. Care was discussed with the mother in detail. Prognosis guarded. Slow to respond.
[2016-06-04] MEDS: methylPREDNISolone SOD SUCCI 40 MG/ML 1 ML VIAL IV SCH ×4 (05:55→23:53)
[2016-06-04] MEDS: PIPERACILLIN-TAZOBACTAM 3.375 GM in DEXTROSE/WATER 1 50ML.BAG IVPB SCH ×3 (07:43→23:53)
[2016-06-04] MEDS: IPRATROPIUM-ALBUTEROL 3 ML NEB INHALATION SCH ×4 (08:01→20:12)
[2016-06-04] MEDS: MULTIVITAMINS, THERA 1 EACH TAB PO SCH (08:32)
[2016-06-04] MEDS: ENOXAPARIN 40 MG/0.4 ML SYRINGE SQ SCH (08:33)
[2016-06-04] MEDS: FAMOTIDINE 20 MG TAB PO SCH ×2 (08:33→20:40)
[2016-06-04] MEDS: BETAMETHASONE DIPROPIONATE 0.05% CREAM 15 GM TUBE TOPICAL SCH (08:33)
[2016-06-04] MEDS: FUROSEMIDE 10 MG/ML 4 ML VIAL IV SCH (08:33)
[2016-06-04 10:29] LABS: Basophils % (A) 0 %; CH 33.8; CHCM 32.7; Eosinophils % (A) 0 %; HCT 29.9 % (34.0-46.0); HDW 2.72; HGB 9.6 gm/dL (11.4-16.0); Luc # (Auto) 0.18; Luc % (Auto) 2; Lymphocytes # (A) 0.7 k/uL (1.0-4.8); Lymphocytes % (A) 6 %; MCH 33.3 pg (25.0-35.0); Macrocytosis Moderate; Mean Platelet Volume 7.8; Monocytes # (A) 0.5 k/uL (0-1.0); Monocytes % (A) 4 %; Neutrophils # (A) 10.4 k/uL (1.3-7.7); Neutrophils % (A) 88 %; RBC 2.87 m/uL (3.80-5.40); RDW 15.7 % (11.5-15.5); WBC 11.8 k/uL (3.8-10.6)
[2016-06-04 11:12] LABS: Anion Gap 13 mmol/L; Blood Urea Nitrogen 46 mg/dL (7-17); Calcium 9.3 mg/dL (8.4-10.2); Carbon Dioxide 33 mmol/L (22-30); Chloride 95 mmol/L (98-107); Glucose 157 mg/dL (74-99); Non-African American GFR(MDRD) >60 (>60 ml/min/1.73 sqM); Potassium 3.7 mmol/L (3.5-5.1); Sodium 141 mmol/L (137-145)
[2016-06-04 11:36] VITALS: BMI 31.4
--- NOTE | 2016-06-04 12:42 | P.PN ---
Subjective This is a 60-year-old female patient with history of cerebral palsy and she is morbidly obese who lives in a long term. The patient was referred to the burst department this afternoon because of abnormal blood work and labs. Specifically the patient had a elevated potassium. Upon arrival to the burst department, the patient was noted to have a potassium of 7.2. The rest of the electrolytes are within normal limits. BUN was slightly elevated at 49. The creatinine is at 0.62. Note that the patient was receiving Aldactone on an outpatient basis. The patient had some hyperacute T-wave changes on the EKG. The patient was also sinus bradycardia with a heart rate of 54. Based on this, the patient was given the hyperkalemia cocktail which included bicarb, D50 with insulin, calcium gluconate and Kayexalate. Following this cocktail, the patient developed an acute rash that involved entire body and she became acutely hypotensive. She was also having some increased wheezing. Based on that, acute anaphylactic reaction/ALLERGIC reaction was suspected and the patient was given epinephrine 0.3 mg IM. The rash subsequently improved yet the patient continued to be hypotensive with a systolic blood pressure in the mid 70s. The patient got moved to the intensive care unit. I was asked to. This patient this regard The patient was seen in the ICU. She had already received a total of 3 L of IV fluid in the form of normal saline. Most recent systolic blood pressure was in the mid 90s. It was very difficult to obtain any history from this patient due to her cerebral palsy. She did not seem to be in respiratory distress. No reported cardiac history or chest pain. No reported DVT or pulmonary embolism. The patient had no active rash on her body. No tongue swelling. No lip swelling. Prior history of drug ALLERGIES other than sulfa and the patient has not taken any sulfa medication no she has taken any antibiotics. She was noted to be hypothermic and the patient was given external warming. She is currently pulse oxing 98% on oxygen nasal cannula chest x-ray showed some mild congestion. On 05/29/2016 the patient is being seen in follow-up in the intensive care unit. The patient was admitted to the ICU because of a diffuse body rash and hypotension which was thought to be an ALLERGIC/anaphylactic reaction. During her ICU stay, the patient was given IV fluids. The patient also required pressors and he was placed on norepinephrine infusion. The highest dose was around 4 mics and ultimately the patient was weaned off the pressors and the pressors were discontinued more than 6 hours ago. Meanwhile, the patient is able to maintain adequate urine output. No reported body rash. No tongue swelling. No stridor. Chest x-ray from today shows some increased vascular markings and congestion. Patient is currently on high fraction 6 L/m nasal cannula and her pulse ox is around 93-94%. She is normothermic at this point and the hypothermia has recovered. She had swallow evaluation and she failed on 2 separate occasions. This is unusual for her knowing that the patient was able to swallow without any major difficulties. Neurologically, she is at her baseline according to the caregivers and her aunt who is at the bedside. She is able to speak of few sentences and interact with her family members. No open sores or wounds. She has developed some edema in lower extremities bilaterally and she would benefit from diuretics. The thyroid function tests came back normal. Hemoglobin stable at 10.6. The cardiac enzymes are also within normal limits. The echocardiogram was also completed and the patient is a preserved LV function without any significant valvular abnormalities. On 05/30/2016, the patient is awake and alert. Chest x-ray still showing bibasilar pulmonary infiltrates and this raises the suspicion for pneumonia versus fluid overload. The patient is already on Lasix. The patient's sodium IV Zosyn. She is producing adequate amount of urine output. No hypotension. No major x-ray disturbance. No fever or chills. No further drop or change in mental status. Echo cardiac that was noted and the patient has a preserved LV function. She is awake and interactive. She is still on high flow oxygen 6 L per minute nasal cannula with a pulse ox ranging between 91-94%. The patient was seen again today 05/31/2016 in follow-up on the regular medical floor. Her mom is at the bedside. The patient has been stable and maintaining good O2 saturations in the 90s on 4 L/m per nasal cannula. She does seem to be taking shallow panting type respirations however. Her mom feels this is different than what she usually does. She has been maintained on IV Zosyn. Sputum culture is pending. On 06/01/2016 the patient is being seen in follow-up. The patient is still on oxygen at 4 L/m nasal cannula and his saturations around 90%. Chest x-ray still showing diffuse but the pulmonary infiltrates. O2 sat condition essentially the same as yesterday. There is no worsening shortness of breath. Nevertheless there is no further improvement in her oxygenation and there is no further improvement in the chest x-ray findings. She is resting comfortably in bed. She is able to tolerate her food and there is no reported aspiration nor there has been any reported difficulty in swallowing food material. She is afebrile for now. On 06/02/2016, patient is about the same, remains on 4 L nasal cannula, chest x- ray continues to show diffuse bilateral infiltrates. Hence I increased her diuretic dose today. No documented aspiration noted. CBC is relatively normal hemoglobin is 9 basic metabolic profile is normal. BUN is 33 creatinine 0.68. The patient is seen again today 06/03/2016 in follow-up on the regular medical floor. Her mom remains at the bedside. The patient is awake and alert in no acute distress. She is due for a repeat swallow evaluation today. There remains concern regarding possible aspiration. She remains on Zosyn. Her most recent x-ray did reveal some diffuse bilateral infiltrates. Her diuretics were increased yesterday. Creatinine remains within normal limits. Her hemoglobin remains stable at 9.0. The patient is seen again today 06/04/2016 in follow-up on the regular medical floor. She remains awake and alert in no acute distress. A modified barium swallow revealed no evidence of aspiration. Her chest x-ray showed improvement. Sputum, urine and blood cultures were all negative. Objective - Vital Signs Vital signs: Vital Signs Temp 98.2 F 06/04/16 07:00 Pulse 84 06/04/16 11:14 Resp 24 06/04/16 07:00 BP 92/53 06/04/16 07:00 Pulse Ox 92 L 06/04/16 07:00 Intake & Output 06/03/16 06/04/16 06/04/16 18:59 06:59 18:59 Intake Total 360 Balance 360 Weight 70.5 kg 70.5 kg Intake: Intake, IV Titration 160 Amount Piperacillin-Tazobactam 3 50 .375 gm In Dextrose/Water 1 50ml.bag @ 12.5 mls/hr IVPB Q8HR [facility] Rx#: [id number] Sodium Chloride 0.9% 1, 110 000 ml @ 20 mls/hr IV . Q24H [facility] Rx#:[id number] Oral 200 Other: Voiding Method Diaper Diaper Diaper Incontinent Incontinent Incontinent # Voids 2 1 # Bowel Movements 1 - Exam Head exam was generally normal. There was no scleral icterus or corneal arcus. Mucous membranes were moist. Neck is short and supple and there is significant crowding of the posterior pharynx. There is no goiter or neck masses. Lungs sounds are diminished in lung bases bilaterally otherwise there are some few scattered expiratory wheezes.Cardiac exam revealed the PMI to be normally situated and sized. The rhythm was regular and no extrasystoles were noted during several minutes of auscultation. The first and second heart sounds were normal and physiologic splitting of the second heart sound was noted. There were no murmurs, rubs, clicks, or gallops. Abdomen is obese soft nontender there is no direct tenderness abundant since or guarding. Extremities ischemic process or clubbing. Neurologically no major motor function in lower extremities and the patient has complications of cerebral palsy and she's been bedridden for many years. Skin no evidence of any open wounds or ulcers or lesions. - Labs CBC & Chem 7: 06/04/16 09:37 06/04/16 09:37 Labs: Abnormal Lab Results - Last 24 Hours (Table) 06/04/16 06/04/16 Range/Units 09:37 09:37 WBC 11.8 H (3.8-10.6) k/uL RBC 2.87 L (3.80-5.40) m/uL Hgb 9.6 L (11.4-16.0) gm/dL Hct 29.9 L (34.0-46.0) % MCV 104.0 H (80.0-100.0) fL RDW 15.7 H (11.5-15.5) % Neutrophils # 10.4 H (1.3-7.7) k/uL Lymphocytes # 0.7 L (1.0-4.8) k/uL Chloride 95 L (98-107) mmol/L Carbon Dioxide 33 H (22-30) mmol/L BUN 46 H (7-17) mg/dL Glucose 157 H (74-99) mg/dL Microbiology - Last 24 Hours (Table) 05/28/16 17:02 Blood Culture - Final Blood No Growth after 144 hours Assessment and Plan Plan: Assessment 1 suspected acute anaphylactic reaction with a distributive shock with secondary hypotension. The patient is currently on a combination of IV fluids and pressors. We opted to put her on low-dose epinephrine to improve her systemic vascular resistance the blood pressure. Her baseline blood pressure is not known. Recovered. 2 acute hyperkalemia probably related to Aldactone, recovered 3 morbid obesity 4 obstructive sleep apnea utilizing CPAP. 5 cerebral palsy 6 quadriplegia, bedridden 7 chronic lower extremity edema without signs of congestion heart failure and echocardiogram showed a preserved LV function without pulmonary hypertension 8 hypothermia 9 bilateral pulmonary infiltrates. Plan The patient was seen and evaluated by Dr. Mendoza. She did have a normal modified barium swallow. Most recent x-ray showed improvement. She remains on diuretics. We will continue to titrate down her FiO2 as tolerated. We'll continue to follow.
[2016-06-04] MEDS: SODIUM CHLORIDE 0.9% 1,000 ML IV SCH (16:41)
--- NOTE | 2016-06-04 19:44 | PN ---
DATE OF SERVICE: 06/04/2016 PRESENTING COMPLAINT: Short of breath. INTERVAL HISTORY: This patient has cerebral palsy. She was admitted with shortness of breath. Modified barium swallow did not show any obvious aspiration. Patient is being fed a modified diet with supervision. Sitting up, following simple commands. Mother is at the bedside. Review of systems was attempted for constitutional, cardiovascular, GI, pulmonary; relevant findings as above. Current medications are reviewed that include IV Lasix and Zosyn. On examination, temperature 99.4, pulse 72, respiration 22, blood pressure 114/59, pulse ox 92% on 5 L. GENERAL APPEARANCE: Lying in bed. Lethargic but arousable. EYES: Pupils equal. Conjunctivae normal. NECK: JVD unable to assess. Mass not palpable. RESPIRATORY: Effort increased. LUNGS: Decreased breath sounds. CARDIOVASCULAR: First and second sounds normal. No edema. ABDOMEN: Soft, nontender. Liver and spleen not palpable. PSYCHIATRY: Answering simple questions. NEUROLOGICAL: Some contraction of the distal limbs. INVESTIGATIONS: White count 11.8, hemoglobin 9.6. Potassium 3.7. Bicarb 33. BUN 46. ASSESSMENT: 1. Acute hypoxic respiratory failure, probably acute lung injury; could be from pneumonia causing sepsis, present on admission. Aspiration entirely cannot be ruled out. 2. Hyperkalemia, improved. 3. Acute metabolic encephalopathy with underlying sepsis with some improvement. 4. Chronic cerebral palsy. 5. Functional quadriplegia. 6. Gastroesophageal reflux disease. 7. Chronic sleep apnea. Patient does use CPAP. 8. Chronic depression not otherwise specified. 9. Moderate obesity, body mass index of 40.2. 10. CODE STATUS: FULL. PLAN: Continue current medication and treatment plan. Care was discussed with her mother at the bedside. Patient has shown some improvement. Patient is becoming alkalotic. Will switch to p.o. Lasix.
[2016-06-04] MEDS: KETOCONAZOLE 2% SHAMPOO 1 APPLIC/ML TOPICAL SCH (20:38)
[2016-06-04] MEDS: HYDROCORTISONE 1% CREAM 30 GM TUBE TOPICAL SCH (20:39)
[2016-06-04] MEDS: SERTRALINE 50 MG TAB PO SCH (20:40)
[2016-06-05] MEDS: IPRATROPIUM-ALBUTEROL 3 ML NEB INHALATION SCH ×4 (08:29→20:53)
[2016-06-05] MEDS: methylPREDNISolone SOD SUCCI 40 MG/ML 1 ML VIAL IV SCH ×2 (08:44→16:43)
[2016-06-05] MEDS: BETAMETHASONE DIPROPIONATE 0.05% CREAM 15 GM TUBE TOPICAL SCH (08:44)
[2016-06-05] MEDS: PIPERACILLIN-TAZOBACTAM 3.375 GM in DEXTROSE/WATER 1 50ML.BAG IVPB SCH ×2 (08:44→16:43)
[2016-06-05] MEDS: FUROSEMIDE 40 MG TAB PO SCH (08:44)
[2016-06-05] MEDS: ENOXAPARIN 40 MG/0.4 ML SYRINGE SQ SCH (08:44)
[2016-06-05] MEDS: FAMOTIDINE 20 MG TAB PO SCH ×2 (08:44→21:39)
[2016-06-05] MEDS: MULTIVITAMINS, THERA 1 EACH TAB PO SCH (08:45)
[2016-06-05 09:11] LABS: Anion Gap 12 mmol/L; Blood Urea Nitrogen 41 mg/dL (7-17); Calcium 9.3 mg/dL (8.4-10.2); Carbon Dioxide 32 mmol/L (22-30); Chloride 98 mmol/L (98-107); Glucose 179 mg/dL (74-99); Non-African American GFR(MDRD) >60 (>60 ml/min/1.73 sqM); Potassium 3.6 mmol/L (3.5-5.1); Sodium 142 mmol/L (137-145)
--- NOTE | 2016-06-05 15:37 | P.PN ---
Subjective This is a 60-year-old female patient with history of cerebral palsy and she is morbidly obese who lives in a senior care. The patient was referred to the burst department this afternoon because of abnormal blood work and labs. Specifically the patient had a elevated potassium. Upon arrival to the burst department, the patient was noted to have a potassium of 7.2. The rest of the electrolytes are within normal limits. BUN was slightly elevated at 49. The creatinine is at 0.62. Note that the patient was receiving Aldactone on an outpatient basis. The patient had some hyperacute T-wave changes on the EKG. The patient was also sinus bradycardia with a heart rate of 54. Based on this, the patient was given the hyperkalemia cocktail which included bicarb, D50 with insulin, calcium gluconate and Kayexalate. Following this cocktail, the patient developed an acute rash that involved entire body and she became acutely hypotensive. She was also having some increased wheezing. Based on that, acute anaphylactic reaction/ALLERGIC reaction was suspected and the patient was given epinephrine 0.3 mg IM. The rash subsequently improved yet the patient continued to be hypotensive with a systolic blood pressure in the mid 70s. The patient got moved to the intensive care unit. I was asked to. This patient this regard The patient was seen in the ICU. She had already received a total of 3 L of IV fluid in the form of normal saline. Most recent systolic blood pressure was in the mid 90s. It was very difficult to obtain any history from this patient due to her cerebral palsy. She did not seem to be in respiratory distress. No reported cardiac history or chest pain. No reported DVT or pulmonary embolism. The patient had no active rash on her body. No tongue swelling. No lip swelling. Prior history of drug ALLERGIES other than sulfa and the patient has not taken any sulfa medication no she has taken any antibiotics. She was noted to be hypothermic and the patient was given external warming. She is currently pulse oxing 98% on oxygen nasal cannula chest x-ray showed some mild congestion. On 05/29/2016 the patient is being seen in follow-up in the intensive care unit. The patient was admitted to the ICU because of a diffuse body rash and hypotension which was thought to be an ALLERGIC/anaphylactic reaction. During her ICU stay, the patient was given IV fluids. The patient also required pressors and he was placed on norepinephrine infusion. The highest dose was around 4 mics and ultimately the patient was weaned off the pressors and the pressors were discontinued more than 6 hours ago. Meanwhile, the patient is able to maintain adequate urine output. No reported body rash. No tongue swelling. No stridor. Chest x-ray from today shows some increased vascular markings and congestion. Patient is currently on high fraction 6 L/m nasal cannula and her pulse ox is around 93-94%. She is normothermic at this point and the hypothermia has recovered. She had swallow evaluation and she failed on 2 separate occasions. This is unusual for her knowing that the patient was able to swallow without any major difficulties. Neurologically, she is at her baseline according to the caregivers and her aunt who is at the bedside. She is able to speak of few sentences and interact with her family members. No open sores or wounds. She has developed some edema in lower extremities bilaterally and she would benefit from diuretics. The thyroid function tests came back normal. Hemoglobin stable at 10.6. The cardiac enzymes are also within normal limits. The echocardiogram was also completed and the patient is a preserved LV function without any significant valvular abnormalities. On 05/30/2016, the patient is awake and alert. Chest x-ray still showing bibasilar pulmonary infiltrates and this raises the suspicion for pneumonia versus fluid overload. The patient is already on Lasix. The patient's sodium IV Zosyn. She is producing adequate amount of urine output. No hypotension. No major x-ray disturbance. No fever or chills. No further drop or change in mental status. Echo cardiac that was noted and the patient has a preserved LV function. She is awake and interactive. She is still on high flow oxygen 6 L per minute nasal cannula with a pulse ox ranging between 91-94%. The patient was seen again today 05/31/2016 in follow-up on the regular medical floor. Her mom is at the bedside. The patient has been stable and maintaining good O2 saturations in the 90s on 4 L/m per nasal cannula. She does seem to be taking shallow panting type respirations however. Her mom feels this is different than what she usually does. She has been maintained on IV Zosyn. Sputum culture is pending. On 06/01/2016 the patient is being seen in follow-up. The patient is still on oxygen at 4 L/m nasal cannula and his saturations around 90%. Chest x-ray still showing diffuse but the pulmonary infiltrates. O2 sat condition essentially the same as yesterday. There is no worsening shortness of breath. Nevertheless there is no further improvement in her oxygenation and there is no further improvement in the chest x-ray findings. She is resting comfortably in bed. She is able to tolerate her food and there is no reported aspiration nor there has been any reported difficulty in swallowing food material. She is afebrile for now. On 06/02/2016, patient is about the same, remains on 4 L nasal cannula, chest x- ray continues to show diffuse bilateral infiltrates. Hence I increased her diuretic dose today. No documented aspiration noted. CBC is relatively normal hemoglobin is 9 basic metabolic profile is normal. BUN is 33 creatinine 0.68. The patient is seen again today 06/03/2016 in follow-up on the regular medical floor. Her mom remains at the bedside. The patient is awake and alert in no acute distress. She is due for a repeat swallow evaluation today. There remains concern regarding possible aspiration. She remains on Zosyn. Her most recent x-ray did reveal some diffuse bilateral infiltrates. Her diuretics were increased yesterday. Creatinine remains within normal limits. Her hemoglobin remains stable at 9.0. The patient is seen again today 06/04/2016 in follow-up on the regular medical floor. She remains awake and alert in no acute distress. A modified barium swallow revealed no evidence of aspiration. Her chest x-ray showed improvement. Sputum, urine and blood cultures were all negative. The patient is seen again today 06/05/2016 in follow-up on the regular medical floor. She is awake and alert in no acute distress. She is answering yes no questions appropriately. Her mom remains at the bedside. She feels she is doing better today as compared to yesterday. She is tolerating a liquid diet. She is still on 5 L/m per nasal cannula to maintain O2 saturations in the 90s. She is utilizing her CPAP at night. Objective - Vital Signs Vital signs: Vital Signs Temp 97.7 F 06/05/16 07:00 Pulse 84 06/05/16 08:42 Resp 24 06/05/16 08:00 BP 117/67 06/05/16 07:00 Pulse Ox 93 L 06/05/16 08:30 Intake & Output 06/04/16 06/05/16 06/05/16 18:59 06:59 18:59 Intake Total 120 Balance 120 Weight 70.5 kg 77.5 kg Intake: Oral 120 Other: Voiding Method Incontinent Incontinent Incontinent # Voids 1 2 1 # Bowel Movements 1 - Exam Head exam was generally normal. There was no scleral icterus or corneal arcus. Mucous membranes were moist. Neck is short and supple and there is significant crowding of the posterior pharynx. There is no goiter or neck masses. Lungs sounds are diminished in lung bases bilaterally otherwise there are some few scattered expiratory wheezes.Cardiac exam revealed the PMI to be normally situated and sized. The rhythm was regular and no extrasystoles were noted during several minutes of auscultation. The first and second heart sounds were normal and physiologic splitting of the second heart sound was noted. There were no murmurs, rubs, clicks, or gallops. Abdomen is obese soft nontender there is no direct tenderness abundant since or guarding. Extremities ischemic process or clubbing. Neurologically no major motor function in lower extremities and the patient has complications of cerebral palsy and she's been bedridden for many years. Skin no evidence of any open wounds or ulcers or lesions. - Labs CBC & Chem 7: 06/04/16 09:37 06/05/16 08:30 Labs: Abnormal Lab Results - Last 24 Hours (Table) 06/05/16 Range/Units 08:30 Carbon Dioxide 32 H (22-30) mmol/L BUN 41 H (7-17) mg/dL Glucose 179 H (74-99) mg/dL Assessment and Plan Plan: Assessment 1 suspected acute anaphylactic reaction with a distributive shock with secondary hypotension. The patient is currently on a combination of IV fluids and pressors. We opted to put her on low-dose epinephrine to improve her systemic vascular resistance the blood pressure. Her baseline blood pressure is not known. Recovered. 2 acute hyperkalemia probably related to Aldactone, recovered 3 morbid obesity 4 obstructive sleep apnea utilizing CPAP. 5 cerebral palsy 6 quadriplegia, bedridden 7 chronic lower extremity edema without signs of congestion heart failure and echocardiogram showed a preserved LV function without pulmonary hypertension 8 hypothermia 9 bilateral pulmonary infiltrates. Plan The patient was seen and evaluated by Dr. Mendzoa. She did have a normal modified barium swallow which did not reveal any evidence of aspiration. Would recommend continued aspiration precautions. Most recent x-ray showed improvement. She remains on oral diuretics. We will continue to titrate down her FiO2 as tolerated. We'll continue to follow.
--- NOTE | 2016-06-05 21:06 | PN ---
DATE OF SERVICE: 06/05/2016 PRESENTING COMPLAINT: Short of breath. INTERVAL HISTORY: This patient with cerebral palsy, admitted to the hospital with acute lung injury, probably infectious etiology as modified barium swallow has been negative x2 once previously. Patient is eating a modified diet, supervised, sitting up, following simple commands. Mother at the bedside. Spoke to the speech therapist. Patient is eating well. Review of systems attempted. Current medications are reviewed that include IV Zosyn and IV Solu-Medrol. On examination, temperature 99.1, pulse 69, respiratory rate 24, blood pressure 114/70, pulse ox 93% on 5 liters. GENERAL APPEARANCE: Propped in bed, more awake. EYES: Pupils equal. Conjunctivae normal. NECK: JVD not raised. Mass not palpable. RESPIRATORY: Effort increased. LUNGS: Decreased breath sounds. CARDIOVASCULAR: First and second sounds normal. No edema. ABDOMEN: Soft, nontender. PSYCHIATRY: Following commands. INVESTIGATIONS: Potassium 3.6. ASSESSMENT: 1. Acute hypoxic failure, probably from acute lung injury could be from pneumonia, status post sepsis, present on admission. 2. Hyperkalemia, improving. 3. Acute metabolic encephalopathy from sepsis with improvement. 4. Cerebral palsy. 5. Functional quadriplegia. 6. Gastroesophageal reflux disease. 7. Chronic sleep apnea. The patient does use CPAP. 8. Chronic depression, not otherwise specified. 9. Morbid obesity, body mass index 40.2. 10. CODE STATUS: FULL. PLAN: Care was discussed with mother at the bedside. Continue current medication and treatment plan. Follow with pulmonary.
[2016-06-05] MEDS: SERTRALINE 50 MG TAB PO SCH (21:39)
[2016-06-05] MEDS: HYDROCORTISONE 1% CREAM 30 GM TUBE TOPICAL SCH (21:40)
[2016-06-06] MEDS ORDERED: methylPREDNISolone SOD SUCCI 40 MG/ML 1 ML VIAL ONE
[2016-06-06] MEDS: PIPERACILLIN-TAZOBACTAM 3.375 GM in DEXTROSE/WATER 1 50ML.BAG IVPB SCH ×4 (06:08→23:25)
[2016-06-06] MEDS: methylPREDNISolone SOD SUCCI 40 MG/ML 1 ML VIAL IV SCH ×4 (06:08→23:25)
[2016-06-06] MEDS: SODIUM CHLORIDE 0.9% 1,000 ML IV SCH ×2 (06:30→17:49)
[2016-06-06] MEDS: ENOXAPARIN 40 MG/0.4 ML SYRINGE SQ SCH (07:37)
[2016-06-06] MEDS: FUROSEMIDE 40 MG TAB PO SCH (07:37)
[2016-06-06] MEDS: BETAMETHASONE DIPROPIONATE 0.05% CREAM 15 GM TUBE TOPICAL SCH (07:37)
[2016-06-06] MEDS: FAMOTIDINE 20 MG TAB PO SCH ×2 (07:37→20:31)
[2016-06-06] MEDS: MULTIVITAMINS, THERA 1 EACH TAB PO SCH (07:37)
--- NOTE | 2016-06-06 07:56 | XR ---
EXAMINATION TYPE: XR chest 1V portable DATE OF EXAM: 06/06/2016 7:21 AM HISTORY: pneumonia. REFERENCE: Previous study dated 06/03/2016. FINDINGS: There continues to be alveolar airspace disease bilaterally. The heart is enlarged. Pleural spaces are clear. IMPRESSION: FINDINGS MOST CONSISTENT WITH CONGESTIVE HEART FAILURE. THE OVERALL APPEARANCE IS VERY SIMILAR TO PRE VIOUS.
[2016-06-06] MEDS: IPRATROPIUM-ALBUTEROL 3 ML NEB INHALATION SCH ×4 (08:35→19:12)
--- NOTE | 2016-06-06 13:48 | P.PN ---
Subjective This is a 60-year-old female patient with history of cerebral palsy and she is morbidly obese who lives in a nursing home. The patient was referred to the burst department this afternoon because of abnormal blood work and labs. Specifically the patient had a elevated potassium. Upon arrival to the burst department, the patient was noted to have a potassium of 7.2. The rest of the electrolytes are within normal limits. BUN was slightly elevated at 49. The creatinine is at 0.62. Note that the patient was receiving Aldactone on an outpatient basis. The patient had some hyperacute T-wave changes on the EKG. The patient was also sinus bradycardia with a heart rate of 54. Based on this, the patient was given the hyperkalemia cocktail which included bicarb, D50 with insulin, calcium gluconate and Kayexalate. Following this cocktail, the patient developed an acute rash that involved entire body and she became acutely hypotensive. She was also having some increased wheezing. Based on that, acute anaphylactic reaction/ALLERGIC reaction was suspected and the patient was given epinephrine 0.3 mg IM. The rash subsequently improved yet the patient continued to be hypotensive with a systolic blood pressure in the mid 70s. The patient got moved to the intensive care unit. I was asked to. This patient this regard The patient was seen in the ICU. She had already received a total of 3 L of IV fluid in the form of normal saline. Most recent systolic blood pressure was in the mid 90s. It was very difficult to obtain any history from this patient due to her cerebral palsy. She did not seem to be in respiratory distress. No reported cardiac history or chest pain. No reported DVT or pulmonary embolism. The patient had no active rash on her body. No tongue swelling. No lip swelling. Prior history of drug ALLERGIES other than sulfa and the patient has not taken any sulfa medication no she has taken any antibiotics. She was noted to be hypothermic and the patient was given external warming. She is currently pulse oxing 98% on oxygen nasal cannula chest x-ray showed some mild congestion. On 05/29/2016 the patient is being seen in follow-up in the intensive care unit. The patient was admitted to the ICU because of a diffuse body rash and hypotension which was thought to be an ALLERGIC/anaphylactic reaction. During her ICU stay, the patient was given IV fluids. The patient also required pressors and he was placed on norepinephrine infusion. The highest dose was around 4 mics and ultimately the patient was weaned off the pressors and the pressors were discontinued more than 6 hours ago. Meanwhile, the patient is able to maintain adequate urine output. No reported body rash. No tongue swelling. No stridor. Chest x-ray from today shows some increased vascular markings and congestion. Patient is currently on high fraction 6 L/m nasal cannula and her pulse ox is around 93-94%. She is normothermic at this point and the hypothermia has recovered. She had swallow evaluation and she failed on 2 separate occasions. This is unusual for her knowing that the patient was able to swallow without any major difficulties. Neurologically, she is at her baseline according to the caregivers and her aunt who is at the bedside. She is able to speak of few sentences and interact with her family members. No open sores or wounds. She has developed some edema in lower extremities bilaterally and she would benefit from diuretics. The thyroid function tests came back normal. Hemoglobin stable at 10.6. The cardiac enzymes are also within normal limits. The echocardiogram was also completed and the patient is a preserved LV function without any significant valvular abnormalities. On 05/30/2016, the patient is awake and alert. Chest x-ray still showing bibasilar pulmonary infiltrates and this raises the suspicion for pneumonia versus fluid overload. The patient is already on Lasix. The patient's sodium IV Zosyn. She is producing adequate amount of urine output. No hypotension. No major x-ray disturbance. No fever or chills. No further drop or change in mental status. Echo cardiac that was noted and the patient has a preserved LV function. She is awake and interactive. She is still on high flow oxygen 6 L per minute nasal cannula with a pulse ox ranging between 91-94%. The patient was seen again today 05/31/2016 in follow-up on the regular medical floor. Her mom is at the bedside. The patient has been stable and maintaining good O2 saturations in the 90s on 4 L/m per nasal cannula. She does seem to be taking shallow panting type respirations however. Her mom feels this is different than what she usually does. She has been maintained on IV Zosyn. Sputum culture is pending. On 06/01/2016 the patient is being seen in follow-up. The patient is still on oxygen at 4 L/m nasal cannula and his saturations around 90%. Chest x-ray still showing diffuse but the pulmonary infiltrates. O2 sat condition essentially the same as yesterday. There is no worsening shortness of breath. Nevertheless there is no further improvement in her oxygenation and there is no further improvement in the chest x-ray findings. She is resting comfortably in bed. She is able to tolerate her food and there is no reported aspiration nor there has been any reported difficulty in swallowing food material. She is afebrile for now. On 06/02/2016, patient is about the same, remains on 4 L nasal cannula, chest x- ray continues to show diffuse bilateral infiltrates. Hence I increased her diuretic dose today. No documented aspiration noted. CBC is relatively normal hemoglobin is 9 basic metabolic profile is normal. BUN is 33 creatinine 0.68. The patient is seen again today 06/03/2016 in follow-up on the regular medical floor. Her mom remains at the bedside. The patient is awake and alert in no acute distress. She is due for a repeat swallow evaluation today. There remains concern regarding possible aspiration. She remains on Zosyn. Her most recent x-ray did reveal some diffuse bilateral infiltrates. Her diuretics were increased yesterday. Creatinine remains within normal limits. Her hemoglobin remains stable at 9.0. The patient is seen again today 06/04/2016 in follow-up on the regular medical floor. She remains awake and alert in no acute distress. A modified barium swallow revealed no evidence of aspiration. Her chest x-ray showed improvement. Sputum, urine and blood cultures were all negative. The patient is seen again today 06/05/2016 in follow-up on the regular medical floor. She is awake and alert in no acute distress. She is answering yes no questions appropriately. Her mom remains at the bedside. She feels she is doing better today as compared to yesterday. She is tolerating a liquid diet. She is still on 5 L/m per nasal cannula to maintain O2 saturations in the 90s. She is utilizing her CPAP at night. The patient is seen again today 06/06/2016 in follow-up. She continues to improve daily. She is maintaining good O2 saturations in the 90s now on 4 L/m per nasal cannula. Her chest x-ray is overall stable. She remains more alert and interactive today. Objective - Vital Signs Vital signs: Vital Signs Temp 96.9 F L 06/06/16 07:59 Pulse 72 06/06/16 12:20 Resp 20 06/06/16 08:00 BP 101/71 06/06/16 07:59 Pulse Ox 91 L 06/06/16 07:59 Intake & Output 06/05/16 06/06/16 06/06/16 18:59 06:59 18:59 Intake Total 120 240 Balance 120 240 Weight 78 kg Intake: Oral 120 240 Other: Voiding Method Incontinent Incontinent Incontinent # Voids 3 1 # Bowel Movements 1 0 - Exam Head exam was generally normal. There was no scleral icterus or corneal arcus. Mucous membranes were moist. Neck is short and supple and there is significant crowding of the posterior pharynx. There is no goiter or neck masses. Lungs sounds are diminished in lung bases bilaterally otherwise there are some few scattered expiratory wheezes.Cardiac exam revealed the PMI to be normally situated and sized. The rhythm was regular and no extrasystoles were noted during several minutes of auscultation. The first and second heart sounds were normal and physiologic splitting of the second heart sound was noted. There were no murmurs, rubs, clicks, or gallops. Abdomen is obese soft nontender there is no direct tenderness abundant since or guarding. Extremities ischemic process or clubbing. Neurologically no major motor function in lower extremities and the patient has complications of cerebral palsy and she's been bedridden for many years. Skin no evidence of any open wounds or ulcers or lesions. - Labs CBC & Chem 7: 06/04/16 09:37 06/05/16 08:30 Assessment and Plan Plan: Assessment 1 suspected acute anaphylactic reaction with a distributive shock with secondary hypotension. Recovered. 2 acute hyperkalemia probably related to Aldactone, recovered 3 morbid obesity 4 obstructive sleep apnea utilizing CPAP. 5 cerebral palsy 6 quadriplegia, bedridden 7 chronic lower extremity edema without signs of congestion heart failure and echocardiogram showed a preserved LV function without pulmonary hypertension 8 hypothermia 9 bilateral pulmonary infiltrates. Plan The patient was seen and evaluated by Dr. Mendoza. Most recent x-ray remains stable. We will continue to titrate down her FiO2 as tolerated. May need to continue with home oxygen to go along with her CPAP.
[2016-06-06] MEDS: SERTRALINE 50 MG TAB PO SCH (20:31)
[2016-06-06] MEDS: HYDROCORTISONE 1% CREAM 30 GM TUBE TOPICAL SCH (20:31)
--- NOTE | 2016-06-06 22:29 | PN ---
DATE OF SERVICE: 06/06/2016 PRESENTING COMPLAINT: Short of breath. INTERVAL HISTORY: This patient with cerebral palsy admitted with acute lung injury felt to be now infectious etiology. Patient is day by day getting better. Oxygen requirement is coming down. Mother is feeding her. Review of systems is attempted. Current medications include: 1. IV Zosyn and 2. IV Solu-Medrol. On examination, temperature 97.5, pulse 56, respirations 22, blood pressure 92/50, pulse ox 92% on 5L. GENERAL APPEARANCE: Lying in bed, more awake, said hello as soon as I walked in. EYES: Pupils equal. Conjunctivae normal. NECK: JVD not raised. Mass not palpable. RESPIRATORY: Effort increased. LUNGS: Diminished breath sounds. CARDIOVASCULAR: First and second sounds normal. No edema. ABDOMEN: Soft, nontender. Liver and spleen not palpable. PSYCHIATRY: Following commands. INVESTIGATIONS: Potassium 3.6, bicarb 32, BUN 41, creatinine 0.73. ASSESSMENT: 1. Acute hypoxic failure, probably acute lung injury, could be from pneumonia status post sepsis, present on admission. 2. Hyperkalemia, improved. 3. Acute metabolic encephalopathy from sepsis with much improvement. 4. Cerebral palsy. 5. Functional quadriplegia. 6. Gastroesophageal reflux disease. 7. Chronic sleep apnea. The patient does use a continuous positive airway pressure. 8. Chronic depression, not otherwise specified. 9. Moderate obesity, body mass index of 40.2. 10. CODE STATUS FULL. PLAN: Care was discussed with mother at the bedside. Continue current medication and treatment plan. Follow.
[2016-06-07] MEDS: IPRATROPIUM-ALBUTEROL 3 ML NEB INHALATION SCH ×4 (06:53→19:51)
[2016-06-07] MEDS: methylPREDNISolone SOD SUCCI 40 MG/ML 1 ML VIAL IV SCH ×3 (08:22→23:48)
[2016-06-07] MEDS: MULTIVITAMINS, THERA 1 EACH TAB PO SCH (08:23)
[2016-06-07] MEDS: FUROSEMIDE 20 MG TAB PO SCH (08:23)
[2016-06-07] MEDS: FAMOTIDINE 20 MG TAB PO SCH ×2 (08:23→20:59)
[2016-06-07] MEDS: ENOXAPARIN 40 MG/0.4 ML SYRINGE SQ SCH (08:23)
[2016-06-07] MEDS: PIPERACILLIN-TAZOBACTAM 3.375 GM in DEXTROSE/WATER 1 50ML.BAG IVPB SCH ×3 (08:23→23:48)
[2016-06-07] MEDS: BETAMETHASONE DIPROPIONATE 0.05% CREAM 15 GM TUBE TOPICAL SCH ×2 (08:23→08:25)
[2016-06-07 08:33] LABS: Anisocytosis Slight; Basophils % (A) 0 %; CH 34.2; CHCM 34.7; Eosinophils % (A) 0 %; HCT 28.3 % (34.0-46.0); HDW 2.99; HGB 9.9 gm/dL (11.4-16.0); Luc # (Auto) 0.07; Luc % (Auto) 1; Lymphocytes # (A) 0.6 k/uL (1.0-4.8); Lymphocytes % (A) 5 %; MCH 34.5 pg (25.0-35.0); MCHC 34.8 g/dL (31.0-37.0); MCV 99.1 fL (80.0-100.0); Macrocytosis Slight; Mean Platelet Volume 7.8; Monocytes # (A) 0.5 k/uL (0-1.0); Monocytes % (A) 4 %; Neutrophils # (A) 11.9 k/uL (1.3-7.7); Neutrophils % (A) 91 %; RBC 2.86 m/uL (3.80-5.40); RDW 16.2 % (11.5-15.5); WBC 13.2 k/uL (3.8-10.6); WBC (Perox) 13.32
[2016-06-07 09:20] LABS: Anion Gap 10 mmol/L; Blood Urea Nitrogen 35 mg/dL (7-17); Carbon Dioxide 29 mmol/L (22-30); Chloride 102 mmol/L (98-107); Glucose 153 mg/dL (74-99); Non-African American GFR(MDRD) >60 (>60 ml/min/1.73 sqM); Potassium 3.7 mmol/L (3.5-5.1); Sodium 141 mmol/L (137-145)
--- NOTE | 2016-06-07 12:14 | P.PN ---
Subjective This is a 60-year-old female patient with history of cerebral palsy and she is morbidly obese who lives in a longterm. The patient was referred to the burst department this afternoon because of abnormal blood work and labs. Specifically the patient had a elevated potassium. Upon arrival to the burst department, the patient was noted to have a potassium of 7.2. The rest of the electrolytes are within normal limits. BUN was slightly elevated at 49. The creatinine is at 0.62. Note that the patient was receiving Aldactone on an outpatient basis. The patient had some hyperacute T-wave changes on the EKG. The patient was also sinus bradycardia with a heart rate of 54. Based on this, the patient was given the hyperkalemia cocktail which included bicarb, D50 with insulin, calcium gluconate and Kayexalate. Following this cocktail, the patient developed an acute rash that involved entire body and she became acutely hypotensive. She was also having some increased wheezing. Based on that, acute anaphylactic reaction/ALLERGIC reaction was suspected and the patient was given epinephrine 0.3 mg IM. The rash subsequently improved yet the patient continued to be hypotensive with a systolic blood pressure in the mid 70s. The patient got moved to the intensive care unit. I was asked to. This patient this regard The patient was seen in the ICU. She had already received a total of 3 L of IV fluid in the form of normal saline. Most recent systolic blood pressure was in the mid 90s. It was very difficult to obtain any history from this patient due to her cerebral palsy. She did not seem to be in respiratory distress. No reported cardiac history or chest pain. No reported DVT or pulmonary embolism. The patient had no active rash on her body. No tongue swelling. No lip swelling. Prior history of drug ALLERGIES other than sulfa and the patient has not taken any sulfa medication no she has taken any antibiotics. She was noted to be hypothermic and the patient was given external warming. She is currently pulse oxing 98% on oxygen nasal cannula chest x-ray showed some mild congestion. On 05/29/2016 the patient is being seen in follow-up in the intensive care unit. The patient was admitted to the ICU because of a diffuse body rash and hypotension which was thought to be an ALLERGIC/anaphylactic reaction. During her ICU stay, the patient was given IV fluids. The patient also required pressors and he was placed on norepinephrine infusion. The highest dose was around 4 mics and ultimately the patient was weaned off the pressors and the pressors were discontinued more than 6 hours ago. Meanwhile, the patient is able to maintain adequate urine output. No reported body rash. No tongue swelling. No stridor. Chest x-ray from today shows some increased vascular markings and congestion. Patient is currently on high fraction 6 L/m nasal cannula and her pulse ox is around 93-94%. She is normothermic at this point and the hypothermia has recovered. She had swallow evaluation and she failed on 2 separate occasions. This is unusual for her knowing that the patient was able to swallow without any major difficulties. Neurologically, she is at her baseline according to the caregivers and her aunt who is at the bedside. She is able to speak of few sentences and interact with her family members. No open sores or wounds. She has developed some edema in lower extremities bilaterally and she would benefit from diuretics. The thyroid function tests came back normal. Hemoglobin stable at 10.6. The cardiac enzymes are also within normal limits. The echocardiogram was also completed and the patient is a preserved LV function without any significant valvular abnormalities. On 05/30/2016, the patient is awake and alert. Chest x-ray still showing bibasilar pulmonary infiltrates and this raises the suspicion for pneumonia versus fluid overload. The patient is already on Lasix. The patient's sodium IV Zosyn. She is producing adequate amount of urine output. No hypotension. No major x-ray disturbance. No fever or chills. No further drop or change in mental status. Echo cardiac that was noted and the patient has a preserved LV function. She is awake and interactive. She is still on high flow oxygen 6 L per minute nasal cannula with a pulse ox ranging between 91-94%. The patient was seen again today 05/31/2016 in follow-up on the regular medical floor. Her mom is at the bedside. The patient has been stable and maintaining good O2 saturations in the 90s on 4 L/m per nasal cannula. She does seem to be taking shallow panting type respirations however. Her mom feels this is different than what she usually does. She has been maintained on IV Zosyn. Sputum culture is pending. On 06/01/2016 the patient is being seen in follow-up. The patient is still on oxygen at 4 L/m nasal cannula and his saturations around 90%. Chest x-ray still showing diffuse but the pulmonary infiltrates. O2 sat condition essentially the same as yesterday. There is no worsening shortness of breath. Nevertheless there is no further improvement in her oxygenation and there is no further improvement in the chest x-ray findings. She is resting comfortably in bed. She is able to tolerate her food and there is no reported aspiration nor there has been any reported difficulty in swallowing food material. She is afebrile for now. On 06/02/2016, patient is about the same, remains on 4 L nasal cannula, chest x- ray continues to show diffuse bilateral infiltrates. Hence I increased her diuretic dose today. No documented aspiration noted. CBC is relatively normal hemoglobin is 9 basic metabolic profile is normal. BUN is 33 creatinine 0.68. The patient is seen again today 06/03/2016 in follow-up on the regular medical floor. Her mom remains at the bedside. The patient is awake and alert in no acute distress. She is due for a repeat swallow evaluation today. There remains concern regarding possible aspiration. She remains on Zosyn. Her most recent x-ray did reveal some diffuse bilateral infiltrates. Her diuretics were increased yesterday. Creatinine remains within normal limits. Her hemoglobin remains stable at 9.0. The patient is seen again today 06/04/2016 in follow-up on the regular medical floor. She remains awake and alert in no acute distress. A modified barium swallow revealed no evidence of aspiration. Her chest x-ray showed improvement. Sputum, urine and blood cultures were all negative. The patient is seen again today 06/05/2016 in follow-up on the regular medical floor. She is awake and alert in no acute distress. She is answering yes no questions appropriately. Her mom remains at the bedside. She feels she is doing better today as compared to yesterday. She is tolerating a liquid diet. She is still on 5 L/m per nasal cannula to maintain O2 saturations in the 90s. She is utilizing her CPAP at night. The patient is seen again today 06/06/2016 in follow-up. She continues to improve daily. She is maintaining good O2 saturations in the 90s now on 4 L/m per nasal cannula. Her chest x-ray is overall stable. She remains more alert and interactive today. The patient is seen again today 06/07/2016 in follow-up in the regular medical floor. She continues to become more awake and alert and interactive. When asked she does deny that she has any shortness of breath. She does have a loose nonproductive cough. She remains on 4 L/m per nasal cannula. She is maintaining O2 saturations in the low 90s. She is afebrile. Hemodynamically stable. She denies any pain. Objective - Vital Signs Vital signs: Vital Signs Temp 97.7 F 06/07/16 07:00 Pulse 50 L 06/07/16 11:00 Resp 22 06/07/16 07:00 BP 115/67 06/07/16 07:00 Pulse Ox 92 L 06/07/16 07:00 Intake & Output 06/06/16 06/07/16 06/07/16 18:59 06:59 18:59 Intake Total 300 Balance 300 Weight 78.5 kg Intake: Oral 300 Other: Voiding Method Incontinent Incontinent # Voids 2 1 - Exam GENERAL EXAM: Alert, comfortable in no apparent distress. HEAD: Normocephalic. EYES: Normal reaction of pupils, equal size. NOSE: Clear with pink turbinates. THROAT: There is crowding the posterior pharynx. No erythema or exudates. NECK: Short. No masses, no JVD. CHEST: No chest wall deformity. LUNGS: Equal air entry with few scattered rhonchi.. CVS: S1 and S2 normal with no audible murmurs, regular rhythm. ABDOMEN: No hepatosplenomegaly, normal bowel sounds, no guarding or rigidity. Extremities: Contractures. Trace peripheral edema. Peripheral pulses are intact. - Labs CBC & Chem 7: 06/07/16 08:04 06/07/16 08:04 Labs: Abnormal Lab Results - Last 24 Hours (Table) 06/07/16 06/07/16 Range/Units 08:04 08:04 WBC 13.2 H (3.8-10.6) k/uL RBC 2.86 L (3.80-5.40) m/uL Hgb 9.9 L (11.4-16.0) gm/dL Hct 28.3 L (34.0-46.0) % RDW 16.2 H (11.5-15.5) % Neutrophils # 11.9 H (1.3-7.7) k/uL Lymphocytes # 0.6 L (1.0-4.8) k/uL BUN 35 H (7-17) mg/dL Glucose 153 H (74-99) mg/dL Assessment and Plan Plan: Assessment 1 suspected acute anaphylactic reaction with a distributive shock with secondary hypotension. Recovered. 2 acute hyperkalemia probably related to Aldactone, recovered 3 morbid obesity 4 obstructive sleep apnea utilizing CPAP. 5 cerebral palsy 6 quadriplegia, bedridden 7 chronic lower extremity edema without signs of congestion heart failure and echocardiogram showed a preserved LV function without pulmonary hypertension 8 hypothermia 9 bilateral pulmonary infiltrates. Plan The patient was seen and evaluated by Dr. Mendoza. We will continue to titrate down her FiO2 as tolerated. She remains on bronchodilators, IV Solu-Medrol, Zosyn and diuretics. She has been slow to progress. May need to continue with home oxygen to go along with her CPAP.
[2016-06-07] MEDS: SODIUM CHLORIDE 0.9% 1,000 ML IV SCH (15:21)
[2016-06-07] MEDS: KETOCONAZOLE 2% SHAMPOO 1 APPLIC/ML TOPICAL SCH (20:59)
[2016-06-07] MEDS: HYDROCORTISONE 1% CREAM 30 GM TUBE TOPICAL SCH (20:59)
[2016-06-07] MEDS: SERTRALINE 50 MG TAB PO SCH (20:59)
[2016-06-08] MEDS: IPRATROPIUM-ALBUTEROL 3 ML NEB INHALATION SCH ×4 (08:00→19:49)
[2016-06-08] MEDS: BETAMETHASONE DIPROPIONATE 0.05% CREAM 15 GM TUBE TOPICAL SCH (08:16)
[2016-06-08] MEDS: PIPERACILLIN-TAZOBACTAM 3.375 GM in DEXTROSE/WATER 1 50ML.BAG IVPB SCH ×2 (08:17→16:10)
[2016-06-08] MEDS: ENOXAPARIN 40 MG/0.4 ML SYRINGE SQ SCH (08:17)
[2016-06-08] MEDS: FUROSEMIDE 20 MG TAB PO SCH (08:18)
[2016-06-08] MEDS: MULTIVITAMINS, THERA 1 EACH TAB PO SCH (08:18)
[2016-06-08] MEDS: methylPREDNISolone SOD SUCCI 40 MG/ML 1 ML VIAL IV SCH ×2 (08:18→16:11)
[2016-06-08] MEDS: FAMOTIDINE 20 MG TAB PO SCH ×2 (08:18→20:56)
--- NOTE | 2016-06-08 08:46 | PN ---
DATE OF SERVICE: 06/07/2016 PRESENTING COMPLAINT: Short of breath. INTERVAL HISTORY: Patient with cerebral palsy, presented with acute lung injury felt not to be infectious. Improvement is slow. Propped up, said "hello" again when I walked in the room. Patient is being fed lunch by her mother. Pat is down to 4 liters of oxygen. Review of systems was attempted. Current medications include IV Zosyn, p.o. Lasix, IV Solu-Medrol. On examination, temperature is 97.5, pulse 88, respiration 18, blood pressure 109/62, pulse ox 94% on 4 liters. GENERAL APPEARANCE: Sitting up, more awake. EYES: Pupils equal. Conjunctivae normal. NECK: JVD not raised. Mass not palpable. RESPIRATORY: Effort increased. LUNGS: Decreased breath sounds. CARDIOVASCULAR: First and second sounds normal. No edema. ABDOMEN: Soft, nontender. Liver and spleen not palpable. PSYCHIATRY: Awake following commands. INVESTIGATIONS: White count 13.2, hemoglobin 9.9. Potassium 3.7. ASSESSMENT: 1. Acute hypoxic respiratory failure probably from acute lung injury likely pneumonia causing sepsis on presentation. 2. Hyperkalemia, improved. 3. Acute metabolic encephalopathy from sepsis with much improvement. 4. Cerebral palsy. 5. Functional quadriplegia. 6. Gastroesophageal reflux disease. 7. Chronic sleep apnea. Patient does use a CPAP machine. 8. Chronic depression, not otherwise specified. 9. Moderate obesity, body mass index 40.2. 10. CODE STATUS is FULL. PLAN: Continue medication and treatment plan. Oxygen at 4-L is being scaled back. I expect another day or 2 in the hospital.
--- NOTE | 2016-06-08 11:07 | P.PN ---
Subjective Principal diagnosis: Acute noncardiogenic pulmonary edema and acute lung injury. This is a 60-year-old female patient with history of cerebral palsy and she is morbidly obese [place]. The patient was referred to the burst department this afternoon because of abnormal blood work and labs. Specifically the patient had a elevated potassium. Upon arrival to the burst department, the patient was noted to have a potassium of 7.2. The rest of the electrolytes are within normal limits. BUN was slightly elevated at 49. The creatinine is at 0.62. Note that the patient was receiving Aldactone on an outpatient basis. The patient had some hyperacute T-wave changes on the EKG. The patient was also sinus bradycardia with a heart rate of 54. Based on this, the patient was given the hyperkalemia cocktail which included bicarb, D50 with insulin, calcium gluconate and Kayexalate. Following this cocktail, the patient developed an acute rash that involved entire body and she became acutely hypotensive. She was also having some increased wheezing. Based on that, acute anaphylactic reaction/ALLERGIC reaction was suspected and the patient was given epinephrine 0.3 mg IM. The rash subsequently improved yet the patient continued to be hypotensive with a systolic blood pressure in the mid 70s. The patient got moved to the intensive care unit. I was asked to. This patient this regard The patient was seen in the ICU. She had already received a total of 3 L of IV fluid in the form of normal saline. Most recent systolic blood pressure was in the mid 90s. It was very difficult to obtain any history from this patient due to her cerebral palsy. She did not seem to be in respiratory distress. No reported cardiac history or chest pain. No reported DVT or pulmonary embolism. The patient had no active rash on her body. No tongue swelling. No lip swelling. Prior history of drug ALLERGIES other than sulfa and the patient has not taken any sulfa medication no she has taken any antibiotics. She was noted to be hypothermic and the patient was given external warming. She is currently pulse oxing 98% on oxygen nasal cannula chest x-ray showed some mild congestion. On 05/29/2016 the patient is being seen in follow-up in the intensive care unit. The patient was admitted to the ICU because of a diffuse body rash and hypotension which was thought to be an ALLERGIC/anaphylactic reaction. During her ICU stay, the patient was given IV fluids. The patient also required pressors and he was placed on norepinephrine infusion. The highest dose was around 4 mics and ultimately the patient was weaned off the pressors and the pressors were discontinued more than 6 hours ago. Meanwhile, the patient is able to maintain adequate urine output. No reported body rash. No tongue swelling. No stridor. Chest x-ray from today shows some increased vascular markings and congestion. Patient is currently on high fraction 6 L/m nasal cannula and her pulse ox is around 93-94%. She is normothermic at this point and the hypothermia has recovered. She had swallow evaluation and she failed on 2 separate occasions. This is unusual for her knowing that the patient was able to swallow without any major difficulties. Neurologically, she is at her baseline according to the caregivers and her aunt who is at the bedside. She is able to speak of few sentences and interact with her family members. No open sores or wounds. She has developed some edema in lower extremities bilaterally and she would benefit from diuretics. The thyroid function tests came back normal. Hemoglobin stable at 10.6. The cardiac enzymes are also within normal limits. The echocardiogram was also completed and the patient is a preserved LV function without any significant valvular abnormalities. On 05/30/2016, the patient is awake and alert. Chest x-ray still showing bibasilar pulmonary infiltrates and this raises the suspicion for pneumonia versus fluid overload. The patient is already on Lasix. The patient's sodium IV Zosyn. She is producing adequate amount of urine output. No hypotension. No major x-ray disturbance. No fever or chills. No further drop or change in mental status. Echo cardiac that was noted and the patient has a preserved LV function. She is awake and interactive. She is still on high flow oxygen 6 L per minute nasal cannula with a pulse ox ranging between 91-94%. The patient was seen again today 05/31/2016 in follow-up on the regular medical floor. Her mom is at the bedside. The patient has been stable and maintaining good O2 saturations in the 90s on 4 L/m per nasal cannula. She does seem to be taking shallow panting type respirations however. Her mom feels this is different than what she usually does. She has been maintained on IV Zosyn. Sputum culture is pending. On 06/01/2016 the patient is being seen in follow-up. The patient is still on oxygen at 4 L/m nasal cannula and his saturations around 90%. Chest x-ray still showing diffuse but the pulmonary infiltrates. O2 sat condition essentially the same as yesterday. There is no worsening shortness of breath. Nevertheless there is no further improvement in her oxygenation and there is no further improvement in the chest x-ray findings. She is resting comfortably in bed. She is able to tolerate her food and there is no reported aspiration nor there has been any reported difficulty in swallowing food material. She is afebrile for now. On 06/02/2016, patient is about the same, remains on 4 L nasal cannula, chest x- ray continues to show diffuse bilateral infiltrates. Hence I increased her diuretic dose today. No documented aspiration noted. CBC is relatively normal hemoglobin is 9 basic metabolic profile is normal. BUN is 33 creatinine 0.68. The patient is seen again today 06/03/2016 in follow-up on the regular medical floor. Her mom remains at the bedside. The patient is awake and alert in no acute distress. She is due for a repeat swallow evaluation today. There remains concern regarding possible aspiration. She remains on Zosyn. Her most recent x-ray did reveal some diffuse bilateral infiltrates. Her diuretics were increased yesterday. Creatinine remains within normal limits. Her hemoglobin remains stable at 9.0. The patient is seen again today 06/04/2016 in follow-up on the regular medical floor. She remains awake and alert in no acute distress. A modified barium swallow revealed no evidence of aspiration. Her chest x-ray showed improvement. Sputum, urine and blood cultures were all negative. The patient is seen again today 06/05/2016 in follow-up on the regular medical floor. She is awake and alert in no acute distress. She is answering yes no questions appropriately. Her mom remains at the bedside. She feels she is doing better today as compared to yesterday. She is tolerating a liquid diet. She is still on 5 L/m per nasal cannula to maintain O2 saturations in the 90s. She is utilizing her CPAP at night. The patient is seen again today 06/06/2016 in follow-up. She continues to improve daily. She is maintaining good O2 saturations in the 90s now on 4 L/m per nasal cannula. Her chest x-ray is overall stable. She remains more alert and interactive today. The patient is seen again today 06/07/2016 in follow-up in the regular medical floor. She continues to become more awake and alert and interactive. When asked she does deny that she has any shortness of breath. She does have a loose nonproductive cough. She remains on 4 L/m per nasal cannula. She is maintaining O2 saturations in the low 90s. She is afebrile. Hemodynamically stable. She denies any pain. Reevaluated on , patient is basically about the same, her last chest x- ray did not show significant improvement, patient continues to have bilateral interstitial infiltrates, I am becoming more convinced that this is a noncardiogenic pulmonary edema, and a picture of acute lung injury. Could very well be related to aspiration. However patient passed the swallow evaluation tests. Objective - Vital Signs Vital signs: Vital Signs Temp 96.9 F L 06/08/16 07:00 Pulse 68 06/08/16 08:12 Resp 18 06/08/16 07:00 BP 99/55 06/08/16 07:00 Pulse Ox 94 L 06/08/16 08:02 Intake & Output 06/07/16 06/08/16 06/08/16 18:59 06:59 18:59 Intake Total 200 Balance 200 Weight 79 kg Intake: Oral 200 Other: # Voids 3 1 1 - Exam Head exam was generally normal. There was no scleral icterus or corneal arcus. Mucous membranes were moist. Neck is short and supple and there is significant crowding of the posterior pharynx. There is no goiter or neck masses. Lungs sounds are diminished in lung bases bilaterally otherwise there are some few scattered expiratory wheezes.Cardiac exam revealed the PMI to be normally situated and sized. The rhythm was regular and no extrasystoles were noted during several minutes of auscultation. The first and second heart sounds were normal and physiologic splitting of the second heart sound was noted. There were no murmurs, rubs, clicks, or gallops. Abdomen is obese soft nontender there is no direct tenderness abundant since or guarding. Extremities ischemic process or clubbing. Neurologically no major motor function in lower extremities and the patient has complications of cerebral palsy and she's been bedridden for many years. Skin no evidence of any open wounds or ulcers or lesions. - Labs CBC & Chem 7: 06/07/16 08:04 06/07/16 08:04 Assessment and Plan Plan: 1 suspected acute anaphylactic reaction with a distributive shock with secondary hypotension. Recovered. 2 acute hyperkalemia probably related to Aldactone, recovered 3 morbid obesity 4 obstructive sleep apnea utilizing CPAP. 5 cerebral palsy 6 quadriplegia, bedridden 7 chronic lower extremity edema without signs of congestion heart failure and echocardiogram showed a preserved LV function without pulmonary hypertension 8 hypothermia 9 bilateral pulmonary infiltrates. Strongly suspect acute lung injury, patient is a poor candidate for bronchoscopy without having to intubate the patient. We 'll repeat chest x-ray in a.m., consider discharge planning over the next couple of days. Time with Patient: Less than 30
[2016-06-08] MEDS: SODIUM CHLORIDE 0.9% 1,000 ML IV SCH (16:10)
[2016-06-08] MEDS: ACETAMINOPHEN TAB 325 MG TAB PO PRN (16:41)
[2016-06-08] MEDS: SERTRALINE 50 MG TAB PO SCH (20:56)
[2016-06-08] MEDS: HYDROCORTISONE 1% CREAM 30 GM TUBE TOPICAL SCH (20:57)
[2016-06-08] MEDS: predniSONE 20 MG TAB PO SCH (20:59)
[2016-06-08] MEDS: AMOXIC-POT CLAV 875-125MG 1 EACH TAB PO SCH (20:59)
[2016-06-09] MEDS: IPRATROPIUM-ALBUTEROL 3 ML NEB INHALATION SCH ×2 (07:08→11:48)
--- NOTE | 2016-06-09 08:08 | PN ---
DATE OF SERVICE: 06/08/2016 PRESENTING COMPLAINT: Short of breath. INTERVAL HISTORY: This patient with cerebral palsy presented with acute lung injury felt to be infectious, responded well to steroids, antibiotics. Eating rather well. Mother at the bedside. Oxygen is on 4 L. Review of systems is attempted. Current medications include IV Zosyn, p.o. Lasix, IV Solu-Medrol. On examination, temperature 97.9, pulse 76, respiration 18, blood pressure 113/63, pulse ox 93% on 4 L. GENERAL APPEARANCE: Lying in bed, propped up, awake. EYES: Pupils equal. Conjunctivae normal. NECK: JVD not raised. Mass not palpable. RESPIRATORY: Effort increased. LUNGS: Decreased breath sounds. CARDIOVASCULAR: First and second sounds normal. No edema. ABDOMEN: Soft, nontender. Liver and spleen not palpable. PSYCHIATRY: Awake, following commands. INVESTIGATIONS: White count 13.2, hemoglobin 9.9. Potassium 3.7, bicarb 29. ASSESSMENT: 1. Acute hypoxic respiratory failure, probably from acute lung injury likely pneumonia causing sepsis on presentation, now clinically improving. 2. Hyperkalemia improved. 3. Acute metabolic encephalopathy from sepsis, resolved. 4. Cerebral palsy. 5. Functional quadriplegia. 6. Gastroesophageal reflux disease. 7. Chronic sleep apnea. Patient does use CPAP. 8. Chronic depression, not otherwise specified. 9. Moderate obesity, body mass index of 40.2. 10. CODE STATUS: FULL. PLAN: Care was discussed with the mother. Will repeat a chest x-ray in the morning. Will switch the patient to oral prednisone. Patient now been afebrile. Will also switch to oral Augmentin and will also discontinue the Lasix. Get a chest x-ray in the morning. We are looking for discharge probably in the next 24 hours.
[2016-06-09 08:16] VITALS: BP 95/52; RESP 19; TEMP 98.1
[2016-06-09] MEDS: BETAMETHASONE DIPROPIONATE 0.05% CREAM 15 GM TUBE TOPICAL SCH (08:35)
[2016-06-09] MEDS: predniSONE 20 MG TAB PO SCH (08:39)
[2016-06-09] MEDS: FAMOTIDINE 20 MG TAB PO SCH (08:39)
[2016-06-09] MEDS: ENOXAPARIN 40 MG/0.4 ML SYRINGE SQ SCH (08:39)
[2016-06-09] MEDS: MULTIVITAMINS, THERA 1 EACH TAB PO SCH (08:40)
[2016-06-09] MEDS: AMOXIC-POT CLAV 875-125MG 1 EACH TAB PO SCH (08:40)
--- NOTE | 2016-06-09 09:05 | XR ---
EXAMINATION TYPE: XR chest 1V portable DATE OF EXAM: 06/09/2016 8:59 AM Comparison: 06/06/2016 Clinical History: 60-year-old female follow-up pneumonia Findings: Patient is tilted towards the right. Left heart margin is more difficult to visualize suggesting slig ht worsening in airspace disease just adjacent. Patchy and confluent airspace opacity persists throug hout the remainder of the lungs. No significant pleural effusion seen. Impression: Diffuse bilateral airspace disease, stable to slightly worsened.
[2016-06-09 09:43] LABS: Anisocytosis Slight; Basophils # (A) 0.1 k/uL (0-0.2); Basophils % (A) 0 %; CH 34.2; Eosinophils % (A) 0 %; HCT 27.2 % (34.0-46.0); HDW 2.89; HGB 9.1 gm/dL (11.4-16.0); Luc # (Auto) 0.25; Luc % (Auto) 2; Lymphocytes # (A) 0.6 k/uL (1.0-4.8); Lymphocytes % (A) 5 %; MCH 34.8 pg (25.0-35.0); MCHC 33.3 g/dL (31.0-37.0); Macrocytosis Moderate; Mean Platelet Volume 7.4; Monocytes # (A) 0.4 k/uL (0-1.0); Monocytes % (A) 3 %; Neutrophils # (A) 10.7 k/uL (1.3-7.7); Neutrophils % (A) 89 %; RDW 16.9 % (11.5-15.5); WBC (Perox) 12.41
[2016-06-09 09:44] LABS: MCV 104.4 fL (80.0-100.0)
[2016-06-09 11:58] VITALS: PULSE 76
--- NOTE | 2016-06-09 12:38 | P.PN ---
Subjective Progress note dated 06/09/2016 60-year-old female with a diagnosis of pneumonia. She's got bilateral interstitial infiltrates. This is likely representing either acute lung injury and/or aspiration. The patient's could be discharged today. The patient looks stable. I met her mother in the room today. She seems to be not having any distress. She looks better clinically than her x-ray looks. Her current chest x-rays evaluated today. Objective - Vital Signs Vital signs: Vital Signs Temp 98.1 F 06/09/16 07:00 Pulse 76 06/09/16 11:57 Resp 19 06/09/16 07:00 BP 95/52 06/09/16 07:00 Pulse Ox 88 L 06/09/16 11:24 Intake & Output 06/08/16 06/09/16 06/09/16 18:59 06:59 18:59 Intake Total 400 250 Output Total 2 Balance 398 250 Weight 78 kg Intake: Oral 400 250 Output: Urine 2 Other: Voiding Method Incontinent # Voids 1 2 1 # Bowel Movements 1 0 1 - Exam No acute distress, difficult to evaluate her orientation because of her mental status. HEENT examination is grossly unremarkable. Mixed membranes are moist. Neck supple. Full range of motion. No adenopathy or thyromegaly. Neck veins are flat. Cardiovascular examination reveals regular rhythm rate. Heart sounds are distant. No distinct murmur noted. Lungs reveal a few scattered rhonchi. No wheezes. No crackles. Breath sounds are equal bilaterally. Abdomen soft bowel sounds are heard. Extremities are intact. - Labs CBC & Chem 7: 06/09/16 08:20 06/07/16 08:04 Labs: Abnormal Lab Results - Last 24 Hours (Table) 06/09/16 Range/Units 08:20 WBC 12.0 H (3.8-10.6) k/uL RBC 2.60 L (3.80-5.40) m/uL Hgb 9.1 L (11.4-16.0) gm/dL Hct 27.2 L (34.0-46.0) % MCV 104.4 H D (80.0-100.0) fL RDW 16.9 H (11.5-15.5) % Neutrophils # 10.7 H (1.3-7.7) k/uL Lymphocytes # 0.6 L (1.0-4.8) k/uL Assessment and Plan (1) Anaphylaxis Status: Acute (2) Cerebral palsy Status: Acute (3) Sleep apnea Status: Acute (4) Quadriplegia Status: Acute (5) Hyperkalemia Status: Acute Plan: Plan dated 06/09/2016 The patient will likely be discharged home today. No additional recommendations are made. Patient seems stable. Fact clinically she looks better than her x-ray.Patient patient was considered for bronchoscopy by Dr. Mendoza but it's unlikely that the patient will be able to tolerate that at this time. We'll continue to follow as needed. Medications x-rays and labs are reviewed. Time with Patient: Less than 30
[2016-06-10] MEDS ORDERED: LACTATED RINGERS 1,000 ML IV SCH (05:06)
--- NOTE | 2016-06-10 10:24 | DS ---
DATE OF ADMISSION: 05/28/2016 DATE OF DISCHARGE: 06/09/2016 FINAL DIAGNOSES: 1. Acute hypoxic respiratory failure, probably acute lung injury from pneumonia, causing sepsis present on admission. 2. Hyperkalemia. 3. Acute metabolic encephalopathy from sepsis on admission, resolved. 4. Cerebral palsy. 5. Functional quadriplegia. 6. Gastroesophageal reflux disease. 7. Chronic sleep apnea, patient does use CPAP 8. Chronic depression, not otherwise specified. 9. Moderate obesity, body mass index of 40.2. 10. CODE STATUS: FULL. HOSPITAL COURSE: This very pleasant cerebral palsy with functional quadriplegia admitted with acute lung injury pattern, given steroids, antibiotics. Pressure was very high but oxygen did come down to 4 L at the time of discharge and that was clinical improvement. Patient did have a modified barium swallow once now and one previously, both came out to be negative. It is felt to be acute injury, probably from infection. On exam, lungs decreased breath sounds. CARDIOVASCULAR: First and second sounds normal. Patient at the baseline, able to follow commands and speaks slow. Mother is very involved in the care, extremely pleasant lady who aids all the feeding. At the time of discharge, patient's pulse ox was 91% on 4 L, she does drop to 88% on 3 L. Hemoglobin is 9.1. CONSULTATION: Dr. Mendoza/Dr. Matthews from pulmonary who okayed her to be discharged. DISCHARGE MEDICATIONS: 1. Aspirin 81 mg a day. 2. Pepcid 20 mg a day. 3. Fluocinolone 5 drops to left ear daily. 4. Lidex 0.05% topical daily. 5. Hydrocortisone 1% topical q.h.s. 6. Ketoconazole topical q.3 days. 7. Multivitamin 1 tablet p.o. daily. 8. Zoloft 50 mg p.o. q.h.s. 9. Augmentin 875 one tablet q.12 ten tablets. 10. Aldactone 50 mg p.o. daily. 11. Prednisone taper. 12. Home oxygen 4 L at all times. Follow up with Dr. Mendoza in one week. Follow up with Dr. Sol [facility] in 3 days. Reglan. MARINELLI planning more than 35 minutes.
== END 2016-06-09 14:28 | disposition home health service (06) | DRG 871 ==
LOC: EC 10:50 → 3SUR 12:53 → 6ICU 17:02 → 4MS4W 05-30 23:18
PROVIDERS: ADMIT Hospitalist; ATTEND Hospitalist
DX: A41.9 Sepsis, unspecified organism (principal); G93.41 Metabolic encephalopathy; J96.01 Acute respiratory failure with hypoxia; J69.0 Pneumonitis due to inhalation of food and vomit; R65.21 Severe sepsis with septic shock; R53.2 Functional quadriplegia; I50.32 Chronic diastolic (congestive) heart failure; E44.0 Moderate protein-calorie malnutrition; T88.6XXA Anaphylactic reaction due to adverse effect of correct drug or medicament properly administered, initial encounter; Z68.41 Body mass index [BMI] 40.0-44.9, adult; I11.0 Hypertensive heart disease with heart failure; E66.01 Morbid (severe) obesity due to excess calories; E87.5 Hyperkalemia; E16.2 Hypoglycemia, unspecified; D63.8 Anemia in other chronic diseases classified elsewhere; F32.9 Major depressive disorder, single episode, unspecified; F79 Unspecified intellectual disabilities; G47.33 Obstructive sleep apnea (adult) (pediatric); G80.9 Cerebral palsy, unspecified; K21.9 Gastro-esophageal reflux disease without esophagitis; T50.995A Adverse effect of other drugs, medicaments and biological substances, initial encounter; Z79.899 Other long term (current) drug therapy; Z99.3 Dependence on wheelchair
CPT/HCPCS: 36415; 70450; 71010; 71250; 74230; 80048; 80053; 80306; 81003; 82550; 83605; 83735; 83880; 84100; 84132; 84443; 84484; 85025; 87040; 87070; 87086; 87205; 87502; 93005; 93306; 94640; 94660; 94760; 96365; 96375; 99285

== ENCOUNTER 2016-07-29 19:33 | Emergency (ER) | payer MEDICARE, OTHER ==
[2016-07-29] MEDS ORDERED: HYDROmorphone 1 MG/ML 1 ML SYRINGE IVP STA (20:09)
--- NOTE | 2016-07-29 20:18 | ED ---
General Adult HPI - General Stated complaint: lower back pain Time Seen by Provider: 07/29/16 19:51 Source: patient, RN notes reviewed Mode of arrival: EMS Limitations: no limitations - History of Present Illness Initial comments: 61 yo female presents to the emergency department with a chief complaint of back pain. The patient was being transferred from the lifting the chair and after she got on the chair she states that her back started to hurt. Patient is not currently complaining of back pain which is unusual. They seem a touch was more to the right side of the back in the midline. He states that she has a history of heart failure she has history of fever to the hospital with global reviewed. He states that she is unable to walk or ambulate by herself. Basically were concerned due to the fact she complains of back pains and they gave her Tylenol which helped the pain as well. They should be. The patient has had no nausea vomiting fever or chills and changes in bowel or bladder habits. The patient denies any other pain the patient is unable to give a history however the history is taken from the patient's pediatric psychiatrist her. - Related Data Home Medications Medication Instructions Recorded Confirmed Aspirin EC [Ecotrin Low Dose] 81 mg PO DAILY 05/28/16 07/29/16 Famotidine [Pepcid] 20 mg PO DAILY 05/28/16 07/29/16 Fluocinolone Acetonide Oil 5 drops LEFT EAR DAILY 05/28/16 07/29/16 [Fluocinolone Acetonide Oil (Otic)] Fluocinonide 0.05% [Lidex 0.05% 1 applic TOPICAL DAILY 05/28/16 07/29/16 cream] Hydrocortisone 1% Lotion 1 applic TOPICAL HS 05/28/16 07/29/16 Ketoconazole 2% Shampoo [Nizoral] 1 applic TOPICAL Q3D 05/28/16 07/29/16 Multivitamins, Thera [Multivitamin 1 tab PO DAILY 05/28/16 07/29/16 (formulary)] ALPRAZolam [Xanax] 0.25 mg PO TID PRN 07/29/16 07/29/16 Bumetanide [Bumex] 1 mg PO DAILY 07/29/16 07/29/16 Cholestyramine (with Sugar) 4 gm PO BID 07/29/16 07/29/16 [Cholestyramine Packet] Previous Rx's Medication Instructions Recorded Spironolactone [Aldactone] 50 mg PO DAILY #0 06/09/16 Bumetanide [Bumex] 1.5 mg PO DAILY #10 tablet 07/29/16 Hydrocodone/Acetaminophen [[place] 1 each PO Q6HR PRN #20 tab 07/29/16 5-325] Allergies Allergy/AdvReac Type Severity Reaction Status Date / Time corn Allergy Unknown Verified 07/29/16 20:10 Sulfa (Sulfonamide Allergy Unknown Verified 07/29/16 20:10 Antibiotics) GI coctail Allergy Anaphylaxis Uncoded 07/29/16 20:12 Review of Systems ROS Statement: Those systems with pertinent positive or pertinent negative responses have been documented in the HPI. ROS Other: All systems not noted in ROS Statement are negative. Past Medical History Past Medical History: Heart Failure, Sleep Apnea/CPAP/BIPAP Additional Past Medical History / Comment(s): cog impaired, cerebral palsy, quadriplegia, lower leg and pedal edema, RICHAR with CPAP use, bronchitis. History of Any Multi-Drug Resistant Organisms: None Reported Past Surgical History: Orthopedic Surgery Additional Past Surgical History / Comment(s): L shoulder surgery, L cheek cyst removed, D&C Past Anesthesia/Blood Transfusion Reactions: No Reported Reaction Past Psychological History: Depression Additional Psychological History / Comment(s): Pt resides at [facility]. She is nonambulatory and wheelchair bound. She has quadriplegia. She needs assist with ADLs but can feed herself with a scoop plate/spoon. She needs a cup with a handle. Her mother, Aleida is her legal guardian and is heading home from [place] today-should be to hospital 05/29/16 afternoon. Smoking Status: Never smoker Past Alcohol Use History: None Reported Past Drug Use History: None Reported - Past Family History Mother Family Medical History: No Reported History Additional Family Medical History / Comment(s): Mother is healthy. General Exam Limitations: no limitations General appearance: alert, in no apparent distress Head exam: Present: atraumatic, normocephalic, normal inspection Eye exam: Present: normal appearance, PERRL, EOMI. Absent: scleral icterus, conjunctival injection, periorbital swelling ENT exam: Present: normal exam, mucous membranes moist Neck exam: Present: normal inspection. Absent: tenderness, meningismus, lymphadenopathy Respiratory exam: Present: normal lung sounds bilaterally. Absent: respiratory distress, wheezes, rales, rhonchi, stridor Cardiovascular Exam: Present: regular rate, normal rhythm, normal heart sounds. Absent: systolic murmur, diastolic murmur, rubs, gallop, clicks GI/Abdominal exam: Present: distended, normal bowel sounds. Absent: tenderness , guarding, rebound, rigid Back exam: Present: normal inspection, tenderness (Over the lower lumbar area and over the right paraspinal region.). Absent: full ROM (Unable to assess due to patient unable to sit up by herself), muscle spasm, rash noted Neurological exam: Present: alert Skin exam: Present: warm, dry, intact, normal color. Absent: rash Course Vital Signs 07/29/16 19:35 Temperature 96.3 F L Pulse Rate 77 Respiratory 20 Rate Blood Pressure 128/95 Medical Decision Making - Medical Decision Making 61-year-old female presents emergency department chief complaint of low back pain. At this time the patient's CAT scan is reviewed as well as blood work. This time patient does appear to have swelling in the subcutaneous area of the low back which is consistent plan patient is having pain. This time we will increase the patient's medication to help tried to relieve some of the swelling. IV Lasix for she does as well as pain medication for back pain. At this time we discussed follow-up with a Dr. rodriguez parameters all the family patient's questions. They stated that they understood and management plan. They will be discharged. This case was staffed with Dr. Lozano. - Lab Data Result diagrams: 07/29/16 20:42 07/29/16 20:42 Lab Results 07/29/16 07/29/16 07/29/16 Range/Units 20:42 20:42 20:42 WBC 14.0 H (3.8-10.6) k/uL RBC 3.16 L (3.80-5.40) m/uL Hgb 10.4 L (11.4-16.0) gm/dL Hct 31.6 L (34.0-46.0) % MCV 99.9 (80.0-100.0) fL MCH 32.7 (25.0-35.0) pg MCHC 32.8 (31.0-37.0) g/dL RDW 17.0 H (11.5-15.5) % Plt Count 117 L D (150-450) k/uL Neutrophils % 91 % Lymphocytes % 3 % Monocytes % 4 % Eosinophils % 0 % Basophils % 0 % Neutrophils # 12.8 H (1.3-7.7) k/uL Lymphocytes # 0.4 L (1.0-4.8) k/uL Monocytes # 0.5 (0-1.0) k/uL Eosinophils # 0.1 (0-0.7) k/uL Basophils # 0.0 (0-0.2) k/uL Hypochromasia Slight Poikilocytosis Slight Anisocytosis Slight Macrocytosis Slight PT (9.0-12.0) sec INR (<1.1) APTT (22.0-30.0) sec Sodium 136 L (137-145) mmol/L Potassium 5.5 H (3.5-5.1) mmol/L Chloride 104 (98-107) mmol/L Carbon Dioxide 24 (22-30) mmol/L Anion Gap 8 mmol/L BUN 27 H (7-17) mg/dL Creatinine 0.42 L (0.52-1.04) mg/dL Est GFR (MDRD) Af Amer >60 (>60 ml/min/1.73 sqM) Est GFR (MDRD) Non-Af >60 (>60 ml/min/1.73 sqM) Glucose 99 (74-99) mg/dL Plasma Lactic Acid Nate 0.9 (0.7-2.0) mmol/L Calcium 9.5 (8.4-10.2) mg/dL Total Bilirubin 0.4 (0.2-1.3) mg/dL AST 43 H (14-36) U/L ALT 54 H (9-52) U/L Alkaline Phosphatase 84 (38-126) U/L Troponin I (0.000-0.034) ng/mL NT-Pro-B Natriuret Pep pg/mL Total Protein 6.6 (6.3-8.2) g/dL Albumin 3.9 (3.5-5.0) g/dL Amylase 56 (30-110) U/L Lipase 156 (23-300) U/L Urine Color Urine Appearance (Clear) Urine pH (5.0-8.0) Ur Specific [place] (1.001-1.035) Urine Protein (Negative) Urine Glucose (UA) (Negative) Urine Ketones (Negative) Urine Blood (Negative) Urine Nitrite (Negative) Urine Bilirubin (Negative) Urine Urobilinogen (<2.0) mg/dL Ur Leukocyte Esterase (Negative) Urine RBC (0-5) /hpf Urine WBC (0-5) /hpf Ur Squamous Epith Cells (0-4) /hpf Hyaline Casts (0-2) /lpf Urine Mucus (None) /hpf 07/29/16 07/29/16 07/29/16 Range/Units 20:42 20:42 20:42 WBC (3.8-10.6) k/uL RBC (3.80-5.40) m/uL Hgb (11.4-16.0) gm/dL Hct (34.0-46.0) % MCV (80.0-100.0) fL MCH (25.0-35.0) pg MCHC (31.0-37.0) g/dL RDW (11.5-15.5) % Plt Count (150-450) k/uL Neutrophils % % Lymphocytes % % Monocytes % % Eosinophils % % Basophils % % Neutrophils # (1.3-7.7) k/uL Lymphocytes # (1.0-4.8) k/uL Monocytes # (0-1.0) k/uL Eosinophils # (0-0.7) k/uL Basophils # (0-0.2) k/uL Hypochromasia Poikilocytosis Anisocytosis Macrocytosis PT 10.2 (9.0-12.0) sec INR 1.0 (<1.1) APTT 26.0 (22.0-30.0) sec Sodium (137-145) mmol/L Potassium (3.5-5.1) mmol/L Chloride (98-107) mmol/L Carbon Dioxide (22-30) mmol/L Anion Gap mmol/L BUN (7-17) mg/dL Creatinine (0.52-1.04) mg/dL Est GFR (MDRD) Af Amer (>60 ml/min/1.73 sqM) Est GFR (MDRD) Non-Af (>60 ml/min/1.73 sqM) Glucose (74-99) mg/dL Plasma Lactic Acid Nate (0.7-2.0) mmol/L Calcium (8.4-10.2) mg/dL Total Bilirubin (0.2-1.3) mg/dL AST (14-36) U/L ALT (9-52) U/L Alkaline Phosphatase (38-126) U/L Troponin I <0.012 (0.000-0.034) ng/mL NT-Pro-B Natriuret Pep 78 pg/mL Total Protein (6.3-8.2) g/dL Albumin (3.5-5.0) g/dL Amylase (30-110) U/L Lipase (23-300) U/L Urine Color Urine Appearance (Clear) Urine pH (5.0-8.0) Ur Specific [place] (1.001-1.035) Urine Protein (Negative) Urine Glucose (UA) (Negative) Urine Ketones (Negative) Urine Blood (Negative) Urine Nitrite (Negative) Urine Bilirubin (Negative) Urine Urobilinogen (<2.0) mg/dL Ur Leukocyte Esterase (Negative) Urine RBC (0-5) /hpf Urine WBC (0-5) /hpf Ur Squamous Epith Cells (0-4) /hpf Hyaline Casts (0-2) /lpf Urine Mucus (None) /hpf 07/29/16 Range/Units 20:55 WBC (3.8-10.6) k/uL RBC (3.80-5.40) m/uL Hgb (11.4-16.0) gm/dL Hct (34.0-46.0) % MCV (80.0-100.0) fL MCH (25.0-35.0) pg MCHC (31.0-37.0) g/dL RDW (11.5-15.5) % Plt Count (150-450) k/uL Neutrophils % % Lymphocytes % % Monocytes % % Eosinophils % % Basophils % % Neutrophils # (1.3-7.7) k/uL Lymphocytes # (1.0-4.8) k/uL Monocytes # (0-1.0) k/uL Eosinophils # (0-0.7) k/uL Basophils # (0-0.2) k/uL Hypochromasia Poikilocytosis Anisocytosis Macrocytosis PT (9.0-12.0) sec INR (<1.1) APTT (22.0-30.0) sec Sodium (137-145) mmol/L Potassium (3.5-5.1) mmol/L Chloride (98-107) mmol/L Carbon Dioxide (22-30) mmol/L Anion Gap mmol/L BUN (7-17) mg/dL Creatinine (0.52-1.04) mg/dL Est GFR (MDRD) Af Amer (>60 ml/min/1.73 sqM) Est GFR (MDRD) Non-Af (>60 ml/min/1.73 sqM) Glucose (74-99) mg/dL Plasma Lactic Acid Nate (0.7-2.0) mmol/L Calcium (8.4-10.2) mg/dL Total Bilirubin (0.2-1.3) mg/dL AST (14-36) U/L ALT (9-52) U/L Alkaline Phosphatase (38-126) U/L Troponin I (0.000-0.034) ng/mL NT-Pro-B Natriuret Pep pg/mL Total Protein (6.3-8.2) g/dL Albumin (3.5-5.0) g/dL Amylase (30-110) U/L Lipase (23-300) U/L Urine Color Yellow Urine Appearance Cloudy H (Clear) Urine pH 5.0 (5.0-8.0) Ur Specific [place] 1.017 (1.001-1.035) Urine Protein Negative (Negative) Urine Glucose (UA) Negative (Negative) Urine Ketones Trace H (Negative) Urine Blood Negative (Negative) Urine Nitrite Negative (Negative) Urine Bilirubin Negative (Negative) Urine Urobilinogen <2.0 (<2.0) mg/dL Ur Leukocyte Esterase Negative (Negative) Urine RBC 2 (0-5) /hpf Urine WBC 1 (0-5) /hpf Ur Squamous Epith Cells 1 (0-4) /hpf Hyaline Casts 1 (0-2) /lpf Urine Mucus Rare H (None) /hpf - EKG Data -: EKG Interpreted by Me 07/29/16 20:54 normal sinus rhythm 71 bpm, normal axis, no atopy, no S-T depressions or elevations, Disposition Clinical Impression: Leukocytosis, Hyperkalemia, Back pain, Edema Disposition: HOME SELF-CARE Condition: Stable Instructions: Leg Edema (ED), Edema (ED) Additional Instructions: Please use medication as discussed. Please follow up with family doctor if symptoms have not improved over the next two days. Please return to the emergency room if your symptoms increase or worsen or for any other concerns. Prescriptions: Bumetanide [Bumex] 1.5 mg PO DAILY #10 tablet Hydrocodone/Acetaminophen [[place] 5-325] 1 each PO Q6HR PRN #20 tab PRN Reason: Pain Referrals: Joseph Sol MD [Primary Care Provider] - 1-2 days Time of Disposition: 22:24
[2016-07-29 21:02] LABS: Anisocytosis Slight; Basophils % (A) 0 %; CH 32.5; CHCM 32.8; Eosinophils # (A) 0.1 k/uL (0-0.7); Eosinophils % (A) 0 %; HCT 31.6 % (34.0-46.0); HDW 3.93; HGB 10.4 gm/dL (11.4-16.0); Hypochromasia Slight; Luc # (Auto) 0.23; Luc % (Auto) 2; Lymphocytes # (A) 0.4 k/uL (1.0-4.8); Lymphocytes % (A) 3 %; MCH 32.7 pg (25.0-35.0); MCHC 32.8 g/dL (31.0-37.0); MCV 99.9 fL (80.0-100.0); Macrocytosis Slight; Mean Platelet Volume 9.5; Monocytes # (A) 0.5 k/uL (0-1.0); Monocytes % (A) 4 %; Neutrophils # (A) 12.8 k/uL (1.3-7.7); Neutrophils % (A) 91 %; Poikilocytosis Slight; RBC 3.16 m/uL (3.80-5.40); WBC (Perox) 14.86
[2016-07-29 21:11] LABS: Prothrombin Time 10.2 sec (9.0-12.0)
[2016-07-29 21:16] LABS: Appearance,Urine Cloudy (Clear); Bilirubin,Urine Negative (Negative); Glucose,Urine (UA) Negative (Negative); Ketones,Urine Trace (Negative); Leukocyte Esterase,Urine Negative (Negative); Mucus,Urine Rare /hpf; Nitrite,Urine Negative (Negative); Particle Count 3200; Protein,Urine Negative (Negative); RBC,Urine 2 /hpf (0-5); Specific Gravity,Urine 1.017 (1.001-1.035); Squamous Epithelial Cell,Urine 1 /hpf (0-4); UA Billing (MACRO vs. MICRO) MICRO; Urobilinogen,Urine <2.0 mg/dL (<2.0); WBC,Urine 1 /hpf (0-5)
--- NOTE | 2016-07-29 21:30 | CT ---
EXAMINATION TYPE: CT abdomen pelvis wo con DATE OF EXAM: 07/29/2016 COMPARISON: NONE HISTORY: Patient complains of back pain tonight. CT DLP: 1062.00 mGycm Automated exposure control for dose reduction was used. TECHNIQUE: Helical acquisition of images was performed from the lung bases through the pelvis. FINDINGS: There is some mild pleural thickening at the left posterior lung base. There is coarse interstitial i nfiltrate in the lower lobes. Heart is enlarged. Liver shows no focal defect. There are calcified gallstones. Spleen and pancreas appear normal. There is no adrenal mass. Kidneys have normal size and contour. There is no hydronephrosis. There is no re troperitoneal adenopathy. There is no ascites. Bladder distends smoothly. I see no intestinal wall th ickening. There are no dilated loops. Appendix is not seen. There is no sign of appendicitis. There a re spondylotic changes in the thoracic and lumbar spine. IMPRESSION: CALCIFIED GALLSTONES. NO DILATED DUCTS. NO SIGN OF RENAL STONE OR OBSTRUCTION. NO SIGN OF ACUTE ABDOM EN AND PELVIS. MILD SUBCUTANEOUS EDEMA NOTED OVER THE LOWER LUMBAR SPINE.
[2016-07-29 21:33] LABS: ALT 54 U/L (9-52); AST 43 U/L (14-36); Alkaline Phosphatase 84 U/L (38-126); Amylase 56 U/L (30-110); Anion Gap 8 mmol/L; Blood Urea Nitrogen 27 mg/dL (7-17); Calcium 9.5 mg/dL (8.4-10.2); Carbon Dioxide 24 mmol/L (22-30); Chloride 104 mmol/L (98-107); Glucose 99 mg/dL (74-99); Non-African American GFR(MDRD) >60 (>60 ml/min/1.73 sqM); Potassium 5.5 mmol/L (3.5-5.1); Sodium 136 mmol/L (137-145); Total Bilirubin 0.4 mg/dL (0.2-1.3); Total Protein 6.6 g/dL (6.3-8.2)
[2016-07-29] MEDS ORDERED: FUROSEMIDE 10 MG/ML 4 ML VIAL IV STA (22:25)
[2016-07-29] MEDS ORDERED: HYDROcodone/APAP 5-325MG 1 EACH TAB PO STA (22:25)
[2016-07-29 22:54] VITALS: RESP 20
[2016-07-29 23:32] VITALS: BP 104/67; PULSE 79; TEMP 96.7
== END 2016-07-29 23:50 | disposition home or self-care (01) ==
LOC: EC 19:33
DX: E87.5 Hyperkalemia (principal); D72.829 Elevated white blood cell count, unspecified; M54.5 Low back pain; R60.0 Localized edema; Z88.2 Allergy status to sulfonamides; Z91.018 Allergy to other foods; Z91.09 Other allergy status, other than to drugs and biological substances; Z79.82 Long term (current) use of aspirin; Z79.899 Other long term (current) drug therapy
CPT/HCPCS: 99284; 96374; 96375; 36415; 93005; 83880; 80053; 82150; 83605; 83690; 84484; 85025; 85610; 85730; 81001; 87040; 87086; 74176; J1940; J1170

== ENCOUNTER 2016-08-11 09:45 | Inpatient (IN) | payer MEDICARE, OTHER ==
[2016-08-11] MEDS ORDERED: SODIUM CHLORIDE 0.9% 1,000 ML IV STA (10:10)
[2016-08-11] MEDS ORDERED: RX INFO: IV CONTRAST WAS GIVEN 1 EACH MISC MISCELLANE PRN (10:10)
[2016-08-11] MEDS ORDERED: SODIUM CHLORIDE 0.9% 500 ML IV STA (10:10)
[2016-08-11] MEDS ORDERED: MORPHINE SULFATE 4 MG/ML SYRINGE IV STA (10:10)
--- NOTE | 2016-08-11 10:12 | ED ---
General Adult HPI - General Chief complaint: Chest Pain Stated complaint: Chest and Back Pain Time Seen by Provider: 08/11/16 09:47 Source: patient, EMS, RN notes reviewed, old records reviewed Mode of arrival: EMS - History of Present Illness Initial comments: This is a 61-year-old female here for evaluation of chest pain. Patient has anterior chest pain back pain and shortness of breath. Patient has history of mS, complaining of back pain worsening shortness of breath. Patient does have CHF, CT negative for PE. Patient will be admitted for evaluation regarding CHF and treatment. Pain control. - Related Data Home Medications Medication Instructions Recorded Confirmed Aspirin EC [Ecotrin Low Dose] 81 mg PO DAILY 05/28/16 08/11/16 Famotidine [Pepcid] 20 mg PO DAILY 05/28/16 08/11/16 Fluocinolone Acetonide Oil 5 drops LEFT EAR BID 05/28/16 08/11/16 [Fluocinolone Acetonide Oil (Otic)] Ketoconazole 2% Shampoo [Nizoral] 1 applic TOPICAL Q3D 05/28/16 08/11/16 Multivitamins, Thera [Multivitamin 1 tab PO DAILY 05/28/16 08/11/16 (formulary)] Cholestyramine (with Sugar) 4 gm PO BID 07/29/16 08/11/16 [Cholestyramine Packet] Desonide 0.05% Lotion 1 applic TOPICAL HS 08/11/16 08/11/16 Fluticasone Nasal [place] [Flonase 1 spray EA NOSTRIL DAILY 08/11/16 08/11/16 Nasal [place]] Ibuprofen [Motrin] 400 mg PO Q6HR PRN 08/11/16 08/11/16 Propylene Glycol/Peg 400/Pf 1 drop BOTH EYES TID 08/11/16 08/11/16 [Systane 0.3-0.4% Eye Drops] diphenhydrAMINE HCL [Benadryl] 25 mg PO Q6H PRN 08/11/16 08/11/16 Previous Rx's Medication Instructions Recorded Spironolactone [Aldactone] 50 mg PO DAILY #0 06/09/16 Bumetanide [Bumex] 1.5 mg PO DAILY #10 tablet 07/29/16 Allergies Allergy/AdvReac Type Severity Reaction Status Date / Time corn Allergy Unknown Verified 08/11/16 11:28 Sulfa (Sulfonamide Allergy Unknown Verified 08/11/16 11:28 Antibiotics) GI coctail Allergy Anaphylaxis Uncoded 07/29/16 20:12 Review of Systems ROS Statement: Those systems with pertinent positive or pertinent negative responses have been documented in the HPI. ROS Other: All systems not noted in ROS Statement are negative. Past Medical History Past Medical History: Heart Failure, Sleep Apnea/CPAP/BIPAP Additional Past Medical History / Comment(s): cog impaired, cerebral palsy, quadriplegia, lower leg and pedal edema, RICHAR with CPAP use, bronchitis. History of Any Multi-Drug Resistant Organisms: None Reported Past Surgical History: Orthopedic Surgery Additional Past Surgical History / Comment(s): L shoulder surgery, L cheek cyst removed, D&C Past Anesthesia/Blood Transfusion Reactions: No Reported Reaction Past Psychological History: Depression Smoking Status: Never smoker Past Alcohol Use History: None Reported Past Drug Use History: None Reported - Past Family History Mother Family Medical History: No Reported History Additional Family Medical History / Comment(s): Mother is healthy. General Exam Limitations: altered mental status General appearance: alert, in no apparent distress Head exam: Present: atraumatic, normocephalic, normal inspection Eye exam: Present: normal appearance, PERRL, EOMI. Absent: scleral icterus, conjunctival injection, periorbital swelling ENT exam: Present: normal exam, mucous membranes moist Neck exam: Present: normal inspection. Absent: tenderness, meningismus, lymphadenopathy Respiratory exam: Present: normal lung sounds bilaterally, rales, decreased breath sounds, prolonged expiratory. Absent: respiratory distress, wheezes, rhonchi, stridor Cardiovascular Exam: Present: regular rate, normal rhythm, normal heart sounds. Absent: systolic murmur, diastolic murmur, rubs, gallop, clicks GI/Abdominal exam: Present: soft, normal bowel sounds. Absent: distended, tenderness, guarding, rebound, rigid Extremities exam: Present: normal inspection, full ROM, normal capillary refill. Absent: tenderness, pedal edema, joint swelling, calf tenderness Back exam: Present: normal inspection Neurological exam: Present: alert, oriented X3, CN II-XII intact Psychiatric exam: Present: normal affect, normal mood Skin exam: Present: warm, dry, intact, normal color. Absent: rash Course Vital Signs 08/11/16 08/11/16 08/11/16 09:53 10:00 10:30 Temperature 98.5 F 98.5 F 98.0 F Pulse Rate 98 97 95 Respiratory 16 16 16 Rate Blood Pressure 170/113 170/113 110/67 O2 Sat by Pulse 98 96 97 Oximetry 08/11/16 12:16 Temperature Pulse Rate 91 Respiratory 18 Rate Blood Pressure 119/58 O2 Sat by Pulse 95 Oximetry - Reevaluation(s) Reevaluation #1: 08/11/16 12:31 Patient is improving with oxygen therapy, and pain control. EKG Findings - EKG Comments: EKG Findings:: EKG shows normal sinus rhythm a rhythm rate of 99, MA 132, QRS 90 , QTC 420 Medical Decision Making - Medical Decision Making 61 female ER for evaluation of weakness. Chest pain, back pain, shortness of breath. Patient has CHF, patient will be admitted for evaluation by cardiology regarding CHF and back pain, chest pain. - Lab Data Result diagrams: 08/11/16 10:05 08/11/16 10:05 Lab Results 08/11/16 08/11/16 08/11/16 Range/Units 10:05 10:05 10:05 WBC 9.0 (3.8-10.6) k/uL RBC 2.75 L (3.80-5.40) m/uL Hgb 8.7 L (11.4-16.0) gm/dL Hct 26.9 L (34.0-46.0) % MCV 97.7 (80.0-100.0) fL MCH 31.7 (25.0-35.0) pg MCHC 32.5 (31.0-37.0) g/dL RDW 18.4 H (11.5-15.5) % Plt Count 414 D (150-450) k/uL Neutrophils % 73 % Lymphocytes % 14 % Monocytes % 8 % Eosinophils % 2 % Basophils % 0 % Neutrophils # 6.6 (1.3-7.7) k/uL Lymphocytes # 1.2 (1.0-4.8) k/uL Monocytes # 0.7 (0-1.0) k/uL Eosinophils # 0.1 (0-0.7) k/uL Basophils # 0.0 (0-0.2) k/uL Hypochromasia Slight Poikilocytosis Moderate Anisocytosis Slight Macrocytosis Slight PT (9.0-12.0) sec INR (<1.1) APTT (22.0-30.0) sec D-Dimer (<0.60) mg/L FEU Sodium 139 (137-145) mmol/L Potassium 4.9 (3.5-5.1) mmol/L Chloride 101 (98-107) mmol/L Carbon Dioxide 27 (22-30) mmol/L Anion Gap 11 mmol/L BUN 20 H (7-17) mg/dL Creatinine 0.53 (0.52-1.04) mg/dL Est GFR (MDRD) Af Amer >60 (>60 ml/min/1.73 sqM) Est GFR (MDRD) Non-Af >60 (>60 ml/min/1.73 sqM) Glucose 99 (74-99) mg/dL Calcium 9.6 (8.4-10.2) mg/dL Magnesium 2.1 (1.6-2.3) mg/dL Total Bilirubin 0.7 (0.2-1.3) mg/dL AST 28 (14-36) U/L ALT 54 H (9-52) U/L Alkaline Phosphatase 269 H (38-126) U/L Total Creatine Kinase <20 L (30-135) U/L CK-MB (CK-2) 1.5 (0.0-2.4) ng/mL CK-MB (CK-2) Rel Index 0.0 Troponin I <0.012 (0.000-0.034) ng/mL Total Protein 6.6 (6.3-8.2) g/dL Albumin 3.6 (3.5-5.0) g/dL Lipase 83 (23-300) U/L 08/11/ Range/Units 10:05 WBC (3.8-10.6) k/uL RBC (3.80-5.40) m/uL Hgb (11.4-16.0) gm/dL Hct (34.0-46.0) % MCV (80.0-100.0) fL MCH (25.0-35.0) pg MCHC (31.0-37.0) g/dL RDW (11.5-15.5) % Plt Count (150-450) k/uL Neutrophils % % Lymphocytes % % Monocytes % % Eosinophils % % Basophils % % Neutrophils # (1.3-7.7) k/uL Lymphocytes # (1.0-4.8) k/uL Monocytes # (0-1.0) k/uL Eosinophils # (0-0.7) k/uL Basophils # (0-0.2) k/uL Hypochromasia Poikilocytosis Anisocytosis Macrocytosis PT 9.9 (9.0-12.0) sec INR 1.0 (<1.1) APTT 26.7 (22.0-30.0) sec D-Dimer 4.69 H (<0.60) mg/L FEU Sodium (137-145) mmol/L Potassium (3.5-5.1) mmol/L Chloride (98-107) mmol/L Carbon Dioxide (22-30) mmol/L Anion Gap mmol/L BUN (7-17) mg/dL Creatinine (0.52-1.04) mg/dL Est GFR (MDRD) Af Amer (>60 ml/min/1.73 sqM) Est GFR (MDRD) Non-Af (>60 ml/min/1.73 sqM) Glucose (74-99) mg/dL Calcium (8.4-10.2) mg/dL Magnesium (1.6-2.3) mg/dL Total Bilirubin (0.2-1.3) mg/dL AST (14-36) U/L ALT (9-52) U/L Alkaline Phosphatase (38-126) U/L Total Creatine Kinase (30-135) U/L CK-MB (CK-2) (0.0-2.4) ng/mL CK-MB (CK-2) Rel Index Troponin I (0.000-0.034) ng/mL Total Protein (6.3-8.2) g/dL Albumin (3.5-5.0) g/dL Lipase (23-300) U/L - Radiology Data Radiology results: report reviewed (CT positive for CHF), image reviewed Disposition Clinical Impression: Back pain, Chest pain, CHF (congestive heart failure) Disposition: ADMITTED IP TO THIS [facility] Condition: Fair Referrals: Joseph Sol MD [Primary Care Provider] - 1-2 days
--- NOTE | 2016-08-11 10:59 | CT ---
EXAMINATION TYPE: CT angio chest DATE OF EXAM: 08/11/2016 10:49 AM COMPARISON: NONE HISTORY: Shortness of breath CT DLP: 508.9 mGycm Automated exposure control for dose reduction was used. CONTRAST: CTA scan of the thorax is performed with IV Contrast, patient injected with 100 mL of Omnipaque 350, pulmonary embolism protocol. . FINDINGS: Severe respiratory motion resulting in nearly nondiagnostic exam for pulmonary embolism. Devine boptimal opacification of pulmonary arteries There is a large left-sided pleural effusion and small p ericardial effusion with evidence of cardiomegaly. Bilateral areas of consolidation are seen however motion artifact limits exam. CHF with debris in the differential diagnosis. Hypertrophic and degenera tive change of the spine. Aorta of normal caliber. There are multiple gallstones. IMPRESSION: 1. SEVERE MOTION ARTIFACT AND SUBOPTIMAL ENHANCEMENT PULMONARY ARTERIES RESULTS IN NONDIAGNOSTIC ASSE SSMENT FOR PULMONARY EMBOLISM 2. LARGE LEFT PLEURAL EFFUSION WITH BILATERAL AREAS OF CONSOLIDATION AND GROUNDGLASS CHANGES CORRELAT E FOR PNEUMONIA VERSUS CHF. 3. CHOLELITHIASIS 4. SMALL PERICARDIAL EFFUSION
[2016-08-11 11:21] LABS: ALT 54 U/L (9-52); AST 28 U/L (14-36); Alkaline Phosphatase 269 U/L (38-126); Anion Gap 11 mmol/L; Anisocytosis Slight; Basophils % (A) 0 %; Blood Urea Nitrogen 20 mg/dL (7-17); CH 32.4; CHCM 33.4; Calcium 9.6 mg/dL (8.4-10.2); Carbon Dioxide 27 mmol/L (22-30); Chloride 101 mmol/L (98-107); Eosinophils # (A) 0.1 k/uL (0-0.7); Eosinophils % (A) 2 %; Glucose 99 mg/dL (74-99); HCT 26.9 % (34.0-46.0); HDW 4.03; HGB 8.7 gm/dL (11.4-16.0); Hypochromasia Slight; Luc # (Auto) 0.32; Luc % (Auto) 4; Lymphocytes # (A) 1.2 k/uL (1.0-4.8); Lymphocytes % (A) 14 %; MCH 31.7 pg (25.0-35.0); MCHC 32.5 g/dL (31.0-37.0); MCV 97.7 fL (80.0-100.0); Macrocytosis Slight; Magnesium 2.1 mg/dL (1.6-2.3); Mean Platelet Volume 7.5; Monocytes # (A) 0.7 k/uL (0-1.0); Monocytes % (A) 8 %; Neutrophils # (A) 6.6 k/uL (1.3-7.7); Neutrophils % (A) 73 %; Non-African American GFR(MDRD) >60 (>60 ml/min/1.73 sqM); Poikilocytosis Moderate; Potassium 4.9 mmol/L (3.5-5.1); RBC 2.75 m/uL (3.80-5.40); RDW 18.4 % (11.5-15.5); Sodium 139 mmol/L (137-145); Total Bilirubin 0.7 mg/dL (0.2-1.3); Total Protein 6.6 g/dL (6.3-8.2); WBC (Perox) 9.46
[2016-08-11 11:28] LABS: Creatine Kinase <20 U/L (30-135)
[2016-08-11 11:37] LABS: Partial Thromboplastin Time 26.7 sec (22.0-30.0); Prothrombin Time 9.9 sec (9.0-12.0)
[2016-08-11 11:41] LABS: Creatine Kinase MB 1.5 ng/mL (0.0-2.4); Troponin I <0.012 ng/mL (0.000-0.034)
[2016-08-11] MEDS ORDERED: NITROGLYCERIN SL TABS 0.4 MG TAB SUBLINGUAL PRN (12:21)
[2016-08-11] MEDS ORDERED: ASPIRIN 81 MG CHEW PO STA (12:26)
[2016-08-11] MEDS ORDERED: FUROSEMIDE 10 MG/ML 4 ML VIAL IV STA (12:29)
[2016-08-11] MEDS ORDERED: diphenhydrAMINE 25 MG CAP PO PRN (14:23)
[2016-08-11] MEDS ORDERED: IBUPROFEN 400 MG TAB PO PRN (14:23)
[2016-08-11 16:03] LABS: Creatine Kinase <20 U/L (30-135)
[2016-08-11 16:17] LABS: Creatine Kinase MB 1.3 ng/mL (0.0-2.4); Troponin I <0.012 ng/mL (0.000-0.034)
[2016-08-11] MEDS ORDERED: NON-FORMULARY DRUG (Fluocinolone Acetonide Oil [Fluocinolone Acetonide Oil (Otic)] 5 DROPS LEFT EAR SCH (21:00)
[2016-08-11] MEDS: CHOLESTYRAMINE (WITH SUGAR) 4 GM PACKET PO SCH (21:06)
[2016-08-11] MEDS: HYDROCORTISONE 1% CREAM 30 GM TUBE TOPICAL SCH (21:06)
[2016-08-11] MEDS: FUROSEMIDE 10 MG/ML 4 ML VIAL IV SCH (21:06)
[2016-08-11 22:44] LABS: Creatine Kinase <20 U/L (30-135)
[2016-08-11 22:56] LABS: Troponin I <0.012 ng/mL (0.000-0.034)
--- NOTE | 2016-08-12 07:23 | XR ---
EXAMINATION TYPE: XR chest 1V portable DATE OF EXAM: 08/12/2016 HISTORY: pneumonia. REFERENCE: Previous study dated 06/09/2016. FINDINGS: There is improved aeration of both hemithoraces. There continues to be left basilar airspac e disease. I suspect a small left effusion. There is mild vascular congestion. The heart is enlarged. IMPRESSION: IMPROVED AERATION, BOTH LUNGS.
[2016-08-12 07:31] LABS: Cholesterol 179 mg/dL (<200); HDL Cholesterol 59 mg/dL (40-60); Triglycerides 85 mg/dL (<150)
--- NOTE | 2016-08-12 08:40 | HP ---
DATE OF ADMISSION: 08/11/2016 PRESENTING COMPLAINT: Short of breath. HISTORY OF PRESENTING COMPLAINT: This is a pleasant 61-year-old patient who was here in May of this year. At that time, she had pneumonia with sepsis and had hypoxic respiratory failure. Patient has at her baseline stable conditions including cerebral palsy, functional quadriplegia, GERD, Sleep apnea, does not use CPAP, chronic depression. Patient's mother who is an extremely nice lady involved in the care of the patient, taking care of her at all times. The patient is now brought in with shortness of breath, slight cough, decreased appetite, occasional low back pain, neck pain. Patient herself can only speak a few words here and there and is able to follow commands. REVIEW OF SYSTEMS: CONSTITUTIONAL: Tired. HEENT: None. RESPIRATORY: As above. CARDIOVASCULAR: Questionable chest pain. GASTROINTESTINAL: None. GENITOURINARY: None. MUSCULOSKELETAL: Lower back pain. DERMATOLOGICAL: None. HEMATOLOGIC: None. LYMPHATICS: None. PSYCHIATRY: Patient is slow. NEUROLOGICAL: Weakness in all 4 limbs. PAST MEDICAL HISTORY: Cerebral palsy, functional quadriplegia, GERD, sleep apnea, depression, ( ) obesity, pneumonia. PAST SURGICAL HISTORY: Orthopedic surgery, left shoulder surgery. SOCIAL HISTORY: The patient lives at [facility], pretty much wheelchair bound. Needs assistance with ADLs, but is able to feed herself with a scoop like spoon. Needs a cup with a handle. Patient's mother Aleida is the legal guardian. No smoking. No alcohol. FAMILY HISTORY: Reviewed, noncontributory to the presentation per mother. HOME MEDICATIONS: 1. Benadryl 25 mg q.6 p.r.n. 2. Aldactone 50 mg a day. 3. Systane 0.3- 0.4% eyedrops one drop to both eyes t.i.d. 4. Multivitamin 1 tablet p.o. daily. 5. Nizoral 2% shampoo topical q.3 days. 6. Motrin 400 mg p.o. q.6 p.r.n. 7. Flonase one spray each nostril daily. 8. Otic 5 drops left ear b.i.d. 9. Pepcid 20 mg p.o. daily. 10. Desonide 0.5% one application topically q.h.s. 11. Cholestyramine 4 grams p.o. b.i.d. 12. Bumex 1.5 mg p.o. daily. 13. Aspirin 81 mg p.o. daily. ALLERGIES: CORN, SULFA, GI COCKTAIL. ON EXAMINATION: VITAL SIGNS ON PRESENTATION: Temperature 98.5, pulse 98, respirations 16, blood pressure 170/113, repeat blood pressure was 110/67, pulse ox 97% on 3 L. GENERAL APPEARANCE: Well built, lying in bed, awake. BMI of 38.4. EYES: Pupils equal. Conjunctivae normal. HEENT: External appearance of nose and ears normal. Oral cavity normal. NECK: Short, thick. JVD unable to assess. RESPIRATORY: Effort increased. LUNGS: Diminished breath sounds. CARDIOVASCULAR: First and second sounds normal. Mild edema. ABDOMEN: Soft, nontender. Liver and spleen not palpable. LYMPHATIC: No lymph nodes palpable in the neck or axillae. PSYCHIATRY: Patient is able to follow simple commands. Somewhat low appearing. NEUROLOGICAL: Weakness especially of the lower extremities compared to the upper extremities, but weak, but patient is able to move her upper extremities, ( ) grossly preserved. INVESTIGATIONS: White count 9, hemoglobin 8.7. Potassium 4.9, BUN 20, creatinine 0.53. Troponin negative. Chest CTA severe motion artifact, large left pleural effusion with bilateral areas of consolidation and ground-glass changes and gallstones. ASSESSMENT: 1. This is a patient who presents with shortness of breath, found to have a large left pleural effusion with bilateral areas of consolidation and ground-glass changes. Patient may be silently aspirating. The patient's last 2-D echocardiogram in May showed an EF of 55% to 60%. 2. Cerebral palsy with functional quadriplegia. 3. Gastroesophageal reflux disease. 4. Chronic sleep apnea. 5. Chronic depression. 6. Morbid obesity, body mass index close to 40. PLAN: At this point cardiology and pulmonary consultations are done. Will check patient's BNP. Home medications are resumed . Oxygen will be supplemented. Care was discussed with the mother at the bedside. Will get a portable chest x-ray. This patient was seen by me in the 377, bed 1, yesterday evening that is 08/11/2016, which is my date of service.
[2016-08-12] MEDS ORDERED: NON-FORMULARY DRUG (Aspirin Ec 81 MG) PO SCH (09:00)
[2016-08-12] MEDS: FUROSEMIDE 10 MG/ML 4 ML VIAL IV SCH ×2 (10:32→20:53)
[2016-08-12] MEDS: MULTIVITAMINS, THERA 1 EACH TAB PO SCH (10:32)
[2016-08-12] MEDS: KETOCONAZOLE 2% SHAMPOO 1 APPLIC/ML TOPICAL SCH (10:32)
[2016-08-12] MEDS: SPIRONOLACTONE 25 MG TAB PO SCH (10:32)
[2016-08-12] MEDS: FAMOTIDINE 20 MG TAB PO SCH (10:32)
[2016-08-12] MEDS: CHOLESTYRAMINE (WITH SUGAR) 4 GM PACKET PO SCH ×2 (10:32→20:53)
[2016-08-12] MEDS: ARTIFICIAL TEARS-HYPROMELLOSE DROPS 15 ML BTL BOTH EYES SCH ×4 (11:18→20:53)
--- NOTE | 2016-08-12 12:02 | US ---
EXAMINATION TYPE: US chest DATE OF EXAM: 08/12/2016 COMPARISON: NONE CLINICAL HISTORY: Left pleural effusion with marking if indicated. Technical limitations, patient unable to sit upright, exam performed with patient lying on her right side with help from Aide and RN EXAM MEASUREMENTS: Left Pleural Effusion fluid pocket: 8.2 cm Left skin to fluid thickness: 3.9 cm Left side marked for possible thoracentesis outside the dept. Pulmonologists are able to review the images in the patient?s EMR. IMPRESSIONS: Left pleural effusion
[2016-08-12] MEDS: FLUTICASONE 50MCG/SPRAY NASAL 16GM EA NOSTRIL SCH (12:38)
--- NOTE | 2016-08-12 15:13 | CONS ---
DATE OF CONSULTATION: Mrs. Dowling is a 61-year-old female with history of cerebral palsy who presented the emergency room with back discomfort and chest discomfort. The history is obtained from her and her mother. The discomfort is worse when she takes a deep breath. She was seen in the emergency room recently for back discomfort. She was in the hospital in May with respiratory distress and at that time underwent an echocardiogram that showed a preserved left ventricular size and systolic function with an with mild tricuspid regurgitation and normal right-sided pressure. Patient is not active physically because of cerebral palsy but has no prior history of cardiac disease. She has no history of myocardial infarction. There is questionable history of congestive heart failure. She has chronic peripheral edema that is on and off. She has no dizziness, palpitation or syncope. She has no prior history of diabetes. She is a nonsmoker. Her lipid is not available. Her medications include: Benadryl, Aldactone 50 mg daily, fluticasone, Pepcid, cholestyramine, Bumex 1.5 mg daily and aspirin once a day. REVIEW OF SYSTEMS: RESPIRATORY SYSTEM: She has dyspnea on exertion. No recent wheezing. GI: No recent GI bleeding. No peptic ulcer disease. SYSTEM: No dysuria or hematuria. NERVOUS SYSTEM: She has cerebral palsy. PHYSICAL EXAMINATION: A 61-year-old female, alert, answering questions. Blood pressure 105/57 with a heart in the 80s. HEAD: Normocephalic. EYES: Sclerae anicteric. NECK: No bruit. LUNGS: Clear to auscultation anteriorly with mild decreased in breath sounds at the bases. HEART: Regular rate rhythm. S1, S2, no S3, no rub appreciated. ABDOMEN: Soft, nontender, positive bowel sounds. EXTREMITIES: 2+ edema. Lab data revealed a BUN and creatinine 20 and 0.53. Troponin less than 0.012. Cholesterol 179, LDL of 103, hemoglobin of 8.7. EKG revealed a sinus mechanism with no acute ST segment changes. IMPRESSION: 1. Chest discomfort, atypical for ischemic heart disease, appears to be musculoskeletal in etiology. 2. Back discomfort. 3. History of cerebral palsy. 4. Chronic peripheral edema. 5. Anemia. RECOMMENDATION: From the cardiac standpoint, I see no evidence of any significant cardiac abnormality. I would not recommend any cardiac work-up at this time. Patient has been receiving diuretics and apparently when she received high dose of diuretics in the past she had hypotension. Will see her on an as needed basis. Please feel free to call us for any questions.
[2016-08-12] MEDS: CLINDAMYCIN 300 MG in DEXTROSE 5% IN WATER 50 ML IVPB SCH ×4 (17:23→23:45)
[2016-08-12] MEDS: ASPIRIN 325 MG TAB PO SCH (17:24)
--- NOTE | 2016-08-12 18:51 | PN ---
DATE OF SERVICE: 08/12/2016 PRESENTING COMPLAINT: Short of breath. INTERVAL HISTORY: This is a patient with multiple problems admitted with shortness of breath and found to have pleural effusion, infiltrates with question about possible aspiration pneumonia, pulmonary was consulted. Awaiting their input. The patient ate a small amount today. Consisted of a pur?ed diet. Mother is at the bedside. Review of systems done for constitutional, cardiovascular, GI, pulmonary; relevant findings as above. Current medications are reviewed. On examination, temperature 98.1, pulse 95, respiratory rate 18, blood pressure 100/57, pulse 92% on 2 L. GENERAL APPEARANCE: Lying in bed, tired appearing. EYES: Pupils equal. Conjunctivae normal. NECK: JVD unable to assess. Mass not palpable. RESPIRATORY: Effort increased. LUNGS: Decreased breath sounds. CARDIOVASCULAR: First and second sounds normal. No edema. ABDOMEN: Soft, nontender. Liver and spleen not palpable. PSYCHIATRY: Awake, answering simple questions. NEUROLOGICAL: Unchanged. INVESTIGATIONS: Troponin is negative. ProBNP is 421. ASSESSMENT: 1. Large pleural effusions bilateral areas of consolidation, ground glass changes, question about silent aspiration. ProBNP is come back to 424. 2. Cerebral palsy with functional quadriplegia. 3. Gastroesophageal reflux disease. 4. Chronic sleep apnea. 5. Chronic depression. 6. Morbid obesity; body mass index of 38.4. 7. Medical debility. Patient is pretty much in bed, bed bound, dependent. PLAN: Patient put on IV Lasix earlier, diuresing to that. Will await input from pulmonary. ( ) the patient's clindamycin until have formal input from pulmonary and go from there. Care was discussed with the mother at the bedside.
[2016-08-12] MEDS: HYDROCORTISONE 1% CREAM 30 GM TUBE TOPICAL SCH (20:53)
[2016-08-12] MEDS: MORPHINE SULFATE 4 MG/ML SYRINGE IV PRN (23:49)
[2016-08-13] MEDS: CLINDAMYCIN 300 MG in DEXTROSE 5% IN WATER 50 ML IVPB SCH ×6 (06:01→18:02)
--- NOTE | 2016-08-13 09:38 | P.PN ---
Subjective Progress Note Dated 08/13/2016 61-year-old Handicapped Female Admitted with a Diagnosis of Chest Pain Shortness of Breath and Heart Failure. We're Consulted for a Left-Sided Pleural Effusion. She Does Have a Significant Effusion on the Left Side. The Patient Had a Chest X-Ray in Another Chest X-Ray Was Ordered for Today. It'll Be Difficult to Do Her Because of the Fact That She's Handicapping May Take Number People to Sit Upright so We Can Do the Procedure. We Probably Will Try to Do That Either Today or Tomorrow. Doesn't Appear by Chest X-Ray That Much Improvement in Her Left-Sided Effusion. She Herself Cannot Really Give Any History. The Mother Gives Most of the History and States That She Is Said Doing Better from the Breathing Standpoint. She Does Not Appear to Be in Any Distress Just to Look at Her Physically. Objective - Vital Signs Vital signs: Vital Signs Temp 98.3 F 08/13/16 08:00 Pulse 87 08/13/16 08:00 Resp 16 08/13/16 08:00 BP 116/58 08/13/16 08:00 Pulse Ox 91 L 08/13/16 08:00 Intake & Output 08/12/16 08/13/16 08/13/16 18:59 06:59 18:59 Intake Total 300 300 Balance 300 300 Weight 80.5 kg Intake: Oral 300 300 Other: Voiding Method Diaper Diaper Diaper # Voids 1 3 # Bowel Movements 1 - Exam No acute distress, no respiratory distress. HEENT examination is grossly unremarkable. Mucous membranes are moist. Nasal O2 in place. Neck supple. Full range of motion. No adenopathy or thyromegaly. Cardiovascular examination reveals regular rhythm rate. S1-S2 normal. No distinct murmur. Heart sounds are distant. Lungs reveal few scattered bibasilar crackles. Some dullness at the left base. No rhonchi. No wheezes. Abdomen soft bowel sounds are heard. Extremities are intact. Slight edema. No cyanosis or clubbing. Skin is without rash. Neurologic examination is not easy to perform. - Labs CBC & Chem 7: 08/11/16 10:05 08/11/16 10:05 Assessment and Plan (1) Pleural effusion Status: Acute (2) CHF (congestive heart failure) Status: Acute (3) Chest pain Status: Acute (4) Cerebral palsy Status: Acute (5) Sleep apnea Status: Acute Plan: Plan dated 08/13/2016 The patient will likely end up needing a thoracentesis on the left side. We'll get an informed consent. We'll make sure she's not had any blood thinners or platelet Dr. Kitchen antiplatelet drugs. The patient will have to be set up at the bedside. I have by nurse practitioner help me with the procedure. Additional recommendations suggestions are forthcoming. Prognosis is guarded. Time with Patient: Greater than 30
[2016-08-13] MEDS: CHOLESTYRAMINE (WITH SUGAR) 4 GM PACKET PO SCH ×2 (09:52→20:12)
[2016-08-13] MEDS: ARTIFICIAL TEARS-HYPROMELLOSE DROPS 15 ML BTL BOTH EYES SCH ×3 (09:52→20:13)
[2016-08-13] MEDS: FUROSEMIDE 10 MG/ML 4 ML VIAL IV SCH ×2 (09:53→22:44)
[2016-08-13] MEDS: FAMOTIDINE 20 MG TAB PO SCH (09:53)
[2016-08-13] MEDS: SPIRONOLACTONE 25 MG TAB PO SCH (09:54)
[2016-08-13] MEDS: MULTIVITAMINS, THERA 1 EACH TAB PO SCH (09:54)
[2016-08-13] MEDS: FLUTICASONE 50MCG/SPRAY NASAL 16GM EA NOSTRIL SCH (10:10)
--- NOTE | 2016-08-13 10:30 | XR ---
EXAMINATION TYPE: XR chest 1V portable DATE OF EXAM: 08/13/2016 CLINICAL HISTORY: Difficulty breathing and pleural effusion progress study. TECHNIQUE: Single AP portable frontal view of the chest is obtained. COMPARISON: Chest x-ray from one day earlier. CT chest from 2 days ago. FINDINGS: There is persistent cardiomegaly with central vascular congestion. There is persistent mod erate to large size left pleural effusion with associated left lung atelectasis and/or consolidation. Right lung is clear. Underlying scoliotic curvature may be exaggerated by positioning. IMPRESSION: Overall stable findings, cardiomegaly with fairly moderate central vascular congestion a nd moderate to large size left pleural effusion all redemonstrated.
--- NOTE | 2016-08-13 10:34 | P.CNPUL ---
History of Present Illness Consult date: 08/12/16 Requesting physician: Zeke Huang Reason for consult: abnormal CXR/CT Chief complaint: Chest pain, shortness of breath. History of present illness: This is a very pleasant 61-year-old female patient who resides in adult foster care setting. She is followed by Dr. Sol a visiting physician. She has a history of cerebral palsy with quadriplegia, congestive heart failure, obstructive sleep apnea utilizing CPAP, cognitive impairment. She was brought in yesterday 08/11/2016 with complaints of chest discomfort and shortness of breath. Her chest x-ray revealed evidence of a left pleural effusion. CT angiogram revealed severe motion artifact but nondiagnostic for pulmonary embolism. There is a large left pleural effusion with bilateral areas of consolidation and ground glass changes consistent with either pneumonia versus congestive heart failure. The patient herself is a poor historian however the patient's mother is at the bedside. She feels so the patient does have more shallow respirations then usual. She is requiring 3 L/m per nasal cannula to maintain O2 saturations in the 90s. She's been afebrile. Hemodynamically stable. No leukocytosis. Her hemoglobin was 8.7. Troponins were negative 3. ProBNP 421. Patient is incontinent and no accurate output recorded. Review of Systems ROS unobtainable: due to mental status Past Medical History Past Medical History: Heart Failure, Pneumonia, Sleep Apnea/CPAP/BIPAP Additional Past Medical History / Comment(s): cog impaired, cerebral palsy, quadriplegia, lower leg and pedal edema, RICHAR with CPAP use, bronchitis, acute respiratory failure with pneumonia/sepsis. History of Any Multi-Drug Resistant Organisms: None Reported Past Surgical History: Orthopedic Surgery Additional Past Surgical History / Comment(s): L shoulder surgery, L cheek cyst removed, D&C Past Anesthesia/Blood Transfusion Reactions: No Reported Reaction Smoking Status: Never smoker - Past Family History Mother Family Medical History: No Reported History Additional Family Medical History / Comment(s): Mother is healthy. Medications and Allergies Home Medications Medication Instructions Recorded Confirmed Type Aspirin EC [Ecotrin Low Dose] 81 mg PO DAILY 05/28/16 08/11/16 History Famotidine [Pepcid] 20 mg PO DAILY 05/28/16 08/11/16 History Fluocinolone Acetonide Oil 5 drops LEFT EAR BID 05/28/16 08/11/16 History [Fluocinolone Acetonide Oil (Otic)] Ketoconazole 2% Shampoo [Nizoral] 1 applic TOPICAL Q3D 05/28/16 08/11/16 History Multivitamins, Thera [Multivitamin 1 tab PO DAILY 05/28/16 08/11/16 History (formulary)] Cholestyramine (with Sugar) 4 gm PO BID 07/29/16 08/11/16 History [Cholestyramine Packet] Desonide 0.05% Lotion 1 applic TOPICAL HS 08/11/16 08/11/16 History Fluticasone Nasal [place] [Flonase 1 spray EA NOSTRIL DAILY 08/11/16 08/11/16 History Nasal [place]] Ibuprofen [Motrin] 400 mg PO Q6HR PRN 08/11/16 08/11/16 History Propylene Glycol/Peg 400/Pf 1 drop BOTH EYES TID 08/11/16 08/11/16 History [Systane 0.3-0.4% Eye Drops] diphenhydrAMINE HCL [Benadryl] 25 mg PO Q6H PRN 08/11/16 08/11/16 History Allergies Allergy/AdvReac Type Severity Reaction Status Date / Time corn Allergy Unknown Verified 08/11/16 11:28 Sulfa (Sulfonamide Allergy Unknown Verified 08/11/16 11:28 Antibiotics) GI coctail Allergy Anaphylaxis Uncoded 07/29/16 20:12 Physical Exam Vitals: Vital Signs Temp Pulse Resp BP Pulse Ox 08/13/16 10:14 93 L 08/13/16 08:00 98.3 F 87 16 116/58 91 L 08/13/16 04:00 99.1 F 88 18 93/61 94 L 08/13/16 00:00 99.7 F H 90 16 104/59 94 L 08/12/16 20:00 99.7 F H 95 20 111/60 96 08/12/16 16:00 98.3 F 92 18 90/63 92 L 08/12/16 12:19 98.1 F 105 H 18 100/56 92 L Intake and Output 08/12/16 08/13/16 08/13/16 22:59 06:59 14:59 Intake Total 200 300 Balance 200 300 Intake: Oral 200 300 Other: Voiding Method Diaper Diaper Diaper # Voids 3 3 1 # Bowel Movements 1 GENERAL EXAM: Alert, comfortable in no apparent distress. HEAD: Normocephalic. EYES: Normal reaction of pupils, equal size. NOSE: Clear with pink turbinates. THROAT: There is crowding of the posterior pharynx. No erythema or exudates. NECK: Short. No masses, no JVD. CHEST: No chest wall deformity. LUNGS: Equal air entry crackles in the posterior bases, diminished more so on the left. CVS: S1 and S2 normal with no audible murmurs, regular rhythm. ABDOMEN: Obese, normal bowel sounds, no guarding or rigidity. Extremities: Her is trace peripheral edema. No clubbing, no cyanosis. There is complications of cerebral palsy and the patient is mainly bedridden. Results - Laboratory Findings CBC and BMP: 08/11/16 10:05 08/11/16 10:05 PT/INR, D-dimer PT 9.9 sec (9.0-12.0) 08/11/16 10:05 INR 1.0 (<1.1) 08/11/16 10:05 D-Dimer 4.69 mg/L FEU (<0.60) H 08/11/16 10:05 Abnormal lab findings: Abnormal Labs 08/11/16 08/11/16 08/11/16 10:05 10:05 10:05 RBC 2.75 L Hgb 8.7 L Hct 26.9 L RDW 18.4 H D-Dimer BUN 20 H ALT 54 H Alkaline Phosphatase 269 H Total Creatine Kinase <20 L LDL Cholesterol, Calc 08/11/16 08/11/16 08/11/16 10:05 15:35 21:59 RBC Hgb Hct RDW D-Dimer 4.69 H BUN ALT Alkaline Phosphatase Total Creatine Kinase <20 L <20 L LDL Cholesterol, Calc 08/12/16 06:43 RBC Hgb Hct RDW D-Dimer BUN ALT Alkaline Phosphatase Total Creatine Kinase LDL Cholesterol, Calc 103 H - Diagnostic Findings Chest x-ray: image reviewed CT scan - chest: image reviewed Assessment and Plan Plan: Impression: #1 Acute hypoxic respiratory failure secondary to left pleural effusion and bilateral areas of consolidation and groundglass changes secondary to suspected acute exacerbation of chronic diastolic congestive heart failure. Pneumonia remains in the differential. #2 Obstructive sleep apnea, utilizing CPAP. #3 Morbid obesity. #4 Cerebral palsy. #5 Quadriplegia, bedridden. #6 Chronic lower extremity edema secondary to diastolic congestive heart failure. Plan: The patient was seen and evaluated by Dr. Matthews. Her chest x-ray and CAT scan and labs were reviewed. We'll go ahead and order an ultrasound of the left chest. Thoracentesis would be difficult in this patient based on positioning and body habitus. Continue with diuretics in the interim. Into new empiric antibiotics in the form of clindamycin. We'll repeat a chest x-ray in the a.m. The plan of care was discussed with the patient's mother who is at the bedside and she is in agreement. We will continue to follow and make further recommendations based on her clinical status. Time with Patient: Greater than 30
[2016-08-13] MEDS: ASPIRIN 325 MG TAB PO SCH (10:35)
--- NOTE | 2016-08-13 11:50 | XR ---
EXAMINATION TYPE: XR chest 1V portable DATE OF EXAM: 08/13/2016 COMPARISON: NONE INDICATION: Post left thoracentesis TECHNIQUE: Single frontal view of the chest is obtained. FINDINGS: The heart size is normal. The pulmonary vasculature is normal. Small left pleural effusion remains. This is diminished. No pneumothorax is evident. EKG leads overli e the chest IMPRESSION: 1. No pneumothorax postthoracentesis. 2. Small left pleural effusion
[2016-08-13 12:10] LABS: Total Protein 6.2 g/dL (6.3-8.2)
[2016-08-13 14:11] LABS: RBC, Body Fluid 3980 /uL
[2016-08-13 14:14] LABS: Body Fluid Comment Many Mesothelial
[2016-08-13] MEDS: MORPHINE SULFATE 4 MG/ML SYRINGE IV PRN ×4 (14:27→20:09)
[2016-08-13 18:55] LABS: Amorphous Sediment,Urine Rare /hpf; Appearance,Urine Turbid (Clear); Bacteria,Urine Moderate /hpf; Bilirubin,Urine Negative (Negative); Glucose,Urine (UA) Negative (Negative); Ketones,Urine Negative (Negative); Leukocyte Esterase,Urine Large (Negative); Mucus,Urine Occasional /hpf; Nitrite,Urine Negative (Negative); Particle Count 184173; Protein,Urine Trace (Negative); RBC,Urine 134 /hpf (0-5); Specific Gravity,Urine 1.011 (1.001-1.035); Squamous Epithelial Cell,Urine 4 /hpf (0-4); UA Billing (MACRO vs. MICRO) MICRO; Urobilinogen,Urine <2.0 mg/dL (<2.0); WBC,Urine 76 /hpf (0-5)
[2016-08-13 18:56] LABS: Glucose, BF Source Pleural Fluid; LDH, Body Fluid Source Pleural Fluid; T. Protein, Body Fluid Source Pleural Fluid; Total Protein, Body Fluid 4200 mg/dL
[2016-08-13] MEDS: LEVALBUTEROL NEB (CONC) 1.25 MG/0.5 ML AMP INHALATION SCH (19:46)
[2016-08-13] MEDS: IPRATROPIUM 0.5 MG/2.5 ML NEBU INHALATION SCH (19:46)
[2016-08-13] MEDS: HYDROCORTISONE 1% CREAM 30 GM TUBE TOPICAL SCH (20:13)
[2016-08-13] MEDS ORDERED: HYDROmorphone 1 MG/ML 1 ML SYRINGE IVP PRN (21:32)
[2016-08-13] MEDS ORDERED: HYDROmorphone 1 MG/ML 1 ML SYRINGE IVP STA (21:33)
[2016-08-13] MEDS: ONDANSETRON 4 MG/2 ML VIAL IVP PRN (21:41)
--- NOTE | 2016-08-13 22:58 | PN ---
DATE OF SERVICE: 08/13/2016 This 61-year-old woman who was admitted with a large pleural effusion and bilateral consultation. closely monitored. Dr. Matthews performed a thoracocentesis and patient shortness of breath much better. Repeat chest x-ray reporting significant improvement. The CT scan of the chest was negative for pulmonary embolism. The patient is being closely monitored. Past medical history reviewed. Review of systems: CARDIOVASCULAR: No angina or palpitations. RESPIRATORY: As mentioned earlier. GI: No nausea. : No dysuria. CENTRAL NERVOUS SYSTEM: No numbness or weakness. Current medications are reviewed and include: 1. Artificial tears. 2. Aspirin 320 mg daily. 3. Questran 4 grams p.o. b.i.d. 4. Clindamycin. 5. Benadryl 25 mg q.6h p.r.n. 6. Pepcid 20 mg daily. 7. Flonase. 8. Lasix 40 mg b.i.d. 9. Hydrocortisone 1%. 10. Motrin 400 mg q6h p.r.n. 11. Nizoral. 12. Morphine sulfate. 13. Multivitamins. 14. Nitrostat. 15. Aldactone. PHYSICAL EXAMINATION: The patient is alert and oriented times three. Pulse 72. Blood pressure 118/68. Respiratory rate 18. Temperature 97.9. Pulse on 94% on 2 L. HEENT: Conjunctivae normal. Oral mucosa most. NECK: No jugular venous distention. No carotid bruit. No lymph node enlargement. CARDIOVASCULAR: S1, S2 muffled. RESPIRATORY: Breath sounds diminished at the bases. Bilateral scattered rhonchi and crackles. ABDOMEN: Soft and nontender. No mass palpable. LEGS: No edema. No swelling. Nervous system: Unchanged. Diffusely weak. LABS: WBC 9, hemoglobin 8.7. ASSESSMENT: 1. Left pleural effusion bilateral areas of consolidation. Possibly gram-negative pneumonia with acute hypoxic respiratory failure. 2. Congestive heart failure, acute exacerbation, with acute on chronic diastolic congestive heart failure. 3. Status post thoracocentesis. 4. Sleep apnea on CPAP. 5. Morbid obesity. 6. Cerebral palsy. 7. Quadriplegia, functional, bedridden. 8. Chronic lower extremity edema secondary to diastolic heart failure. 9. Medical debility. 10. History of cerebral palsy. 11. Anemia, normocytic anemia of chronic disease. 12. Increased get d-dimer without any evidence of pulmonary embolism. 13. Increased alkaline phosphatase. 14. Increased LDL. 15. FULL CODE. RECOMMENDATIONS AND DISCUSSION: This 61-year-old woman who presented with multiple complex medical issues, we will monitor the patient closely, continue the current medications. Continue symptomatic treatment. We would also recommend continue with diuretics. Continue with the rest of the medications. Continue with empiric antibiotics. Closely follow with Dr. Matthews, DVT prophylaxis. Further recommendations to follow. Prognosis guarded. MTDD
--- NOTE | 2016-08-13 23:01 | PCN ---
DATE OF PROCEDURE: PROCEDURE: Left thoracentesis. PREOPERATIVE DIAGNOSIS: Left pleural effusion. POSTOPERATIVE DIAGNOSIS: Left pleural effusion. There was informed consent and universal timeout. A time-out was completed verifying correct patient, procedure, site, positioning, and implant (s) or special equipment if applicable. Ultrasound guidance was used and appropriate fluid pocket was identified and marked. Patient was positioned, prepped and draped in usual sterile fashion. Lidocaine was used to anesthetize the area. A Thoracentesis catheter was introduced into the pleural space and fluid was removed. Blood loss was none. A chest x-ray was ordered to evaluate for pneumothorax. Total Fluid Removed: 600 mL from the left pleural space. Color of Fluid: Yellow. Fluid was sent for appropriate laboratory tests, including cytology, microbiology and chemistry. Patient tolerated the procedure well and there were no immediate complications. A chest x-ray will be done after the procedure to make sure there was no complication. The patient seemed to tolerate it pretty well. We needed a number of people in the room just to position her. After that was accomplished, though, we were able to drain 600 mL of yellow fluid from the left pleural space. There was no immediate complication. The patient tolerated the procedure well. Chest x-ray was ordered. A Band-Aid was placed over the site.
[2016-08-14] MEDS: CLINDAMYCIN 300 MG in DEXTROSE 5% IN WATER 50 ML IVPB SCH ×8 (01:00→18:11)
[2016-08-14] MEDS: ARTIFICIAL TEARS-HYPROMELLOSE DROPS 15 ML BTL BOTH EYES SCH ×3 (08:05→21:56)
[2016-08-14] MEDS: SPIRONOLACTONE 25 MG TAB PO SCH (08:05)
[2016-08-14] MEDS: CHOLESTYRAMINE (WITH SUGAR) 4 GM PACKET PO SCH ×2 (08:05→21:55)
[2016-08-14] MEDS: FUROSEMIDE 10 MG/ML 4 ML VIAL IV SCH ×2 (08:05→21:55)
[2016-08-14] MEDS: FLUTICASONE 50MCG/SPRAY NASAL 16GM EA NOSTRIL SCH (08:05)
[2016-08-14] MEDS: ASPIRIN 325 MG TAB PO SCH (08:06)
[2016-08-14] MEDS: FAMOTIDINE 20 MG TAB PO SCH (08:06)
[2016-08-14] MEDS: IPRATROPIUM 0.5 MG/2.5 ML NEBU INHALATION SCH ×4 (09:23→20:18)
[2016-08-14] MEDS: LEVALBUTEROL NEB (CONC) 1.25 MG/0.5 ML AMP INHALATION SCH ×4 (09:23→20:18)
[2016-08-14] MEDS: MULTIVITAMINS, THERA 1 EACH TAB PO SCH (11:59)
[2016-08-14] MEDS: ONDANSETRON 4 MG/2 ML VIAL IVP PRN ×2 (13:15→21:55)
--- NOTE | 2016-08-14 15:51 | PN ---
This patient is a 61-year-old mentally handicapped female with a left-sided pleural effusion. She had a thoracentesis done yesterday. About 600 mL of fluid was removed. The procedure went well, without a hitch. She is feeling better. The fluid analysis is underway. No cough. No wheezing. ( ) shortness of breath, since she is pretty much bedridden. No chest complaints, though. No chest pain. No fever. No chills; nothing like that. Her mother gives most of the history. I did talk to her today and yesterday. Current vital signs are reviewed. Her temperature is 96, heart rate 80, respiratory rate 21, blood pressure 116/70, mean 85, 3-liter saturation 93%. Appears in no acute distress. HEENT examination is grossly unremarkable. Mucous membranes are moist. No oral lesions. NECK: Supple. Full range of motion. No adenopathy or thyromegaly. Cardiovascular examination reveals regular rhythm and rate. S1, S2 normal. No S3, S4 or murmur. Lungs reveal diminished breath sounds at the left base. No crackles or wheezes. ABDOMEN: Obese. Bowel sounds are heard. Extremities are intact. No significant edema. Skin is without rash. Labs are reviewed. No new labs today other than the urine from yesterday which suggested bladder infection. The pleural fluid analysis showed the pleural fluid to be yellow and cloudy. There were 3980 RBCs, 690 nucleated cells, 60 PMNs, 40% mononuclear cells. Glucose level was 125. The fluid protein was 4200 mg or 4.2 grams and the LDH was high at 294. This was suggestive of an exudate. I will have to wait for the additional results. Cytology is currently pending. ASSESSMENT: 1. Left pleural effusion, status post left thoracentesis, with 600 mL of exudative fluid removed. 2. History of congestive heart failure. 3. Chest pain. 4. Cerebral palsy. 5. History of sleep apnea syndrome. PLAN: Will await the results of the analysis. No additional recommendations are made. She seems relatively comfortable. I did speak to her mother today about what the fluid will be sent for. She understands. Additional recommendations and suggestions are forthcoming.
[2016-08-14] MEDS: LEVOFLOXACIN 500MG-D5W PMX 500 MG in DEXTROSE/WATER 1 100ML.BAG IVPB SCH (15:57)
[2016-08-14] MEDS: PANTOPRAZOLE 40 MG/10 ML VIAL IVP SCH (16:02)
[2016-08-14] MEDS: MORPHINE SULFATE 4 MG/ML SYRINGE IV PRN (18:10)
--- NOTE | 2016-08-14 20:19 | PN ---
DATE OF SERVICE: 08/14/2016 This 61-year-old woman was admitted with left-sided pleural effusion and congestive heart failure. She is improving slightly. The patient is still tired. The pleural fluid culture results are awaited at this time. No chest pain or palpitations. On exam, alert, oriented x3. Pulse is 98, blood pressure 116/70, respirations 20, temperature 98.6, pulse ox 90% on 3 L. HEENT: Conjunctivae normal. NECK: No JVD. CARDIOVSCULAR:S1 and S2 muffled. LUNGS: Breath sounds diminished at the bases. Few scattered rhonchi and crackles. ABDOMEN: Soft, obese. EXTREMITIES: Legs no edema. NERVOUS SYSTEMS: Unchanged. LABS: UA noted, possible urinary tract infection. ASSESSMENT: 1. Left-sided pleural effusion with bilateral areas of consolidation, possibly gram-negative pneumonia with acute hypoxic respiratory failure, present on admission. 2. Congestive heart failure, acute exacerbation, with acute on chronic diastolic congestive heart failure. 3. Urinary tract infection. 4. Status post thoracentesis on the left sided. 5. Sleep apnea on CPAP. 6. Morbid obesity. 7. History of cerebral palsy. 8. Quadriplegia, functional, bedridden. 9. History of chronic lower extremity edema secondary to diastolic congestive heart failure. 10. Medical debility. 11. History of cerebral palsy. 12. History of anemia, normocytic anemia of chronic disease. 13. Increased D-dimer without any evidence of pulmonary embolus. 14. Increased alkaline phosphatase. 15. Increased LDH. 16. FULL CODE. RECOMMENDATIONS AND DISCUSSION: This 61-year-old woman who presented with multiple complex medical issues, we will monitor the patient closely. Continue the current medications and symptomatic treatment. Otherwise, at this time I recommend broad-spectrum IV antibiotics. Continue with the rest of the medications. Further recommendations to follow.
[2016-08-14] MEDS: HYDROCORTISONE 1% CREAM 30 GM TUBE TOPICAL SCH (21:55)
[2016-08-15] MEDS: CLINDAMYCIN 300 MG in DEXTROSE 5% IN WATER 50 ML IVPB SCH ×8 (00:07→18:02)
[2016-08-15] MEDS: IPRATROPIUM-ALBUTEROL 3 ML NEB INHALATION SCH ×4 (07:28→19:17)
[2016-08-15] MEDS: ARTIFICIAL TEARS-HYPROMELLOSE DROPS 15 ML BTL BOTH EYES SCH ×3 (09:12→22:27)
[2016-08-15] MEDS: ASPIRIN 325 MG TAB PO SCH (09:12)
[2016-08-15] MEDS: FLUTICASONE 50MCG/SPRAY NASAL 16GM EA NOSTRIL SCH (09:13)
[2016-08-15] MEDS: FUROSEMIDE 10 MG/ML 4 ML VIAL IV SCH ×2 (09:13→22:29)
[2016-08-15] MEDS: CHOLESTYRAMINE (WITH SUGAR) 4 GM PACKET PO SCH ×2 (09:13→22:29)
[2016-08-15] MEDS: SPIRONOLACTONE 25 MG TAB PO SCH (09:14)
[2016-08-15] MEDS: KETOCONAZOLE 2% SHAMPOO 1 APPLIC/ML TOPICAL SCH (09:14)
[2016-08-15] MEDS: PANTOPRAZOLE 40 MG/10 ML VIAL IVP SCH (09:14)
[2016-08-15] MEDS: MORPHINE SULFATE 4 MG/ML SYRINGE IV PRN ×2 (09:30→16:28)
--- NOTE | 2016-08-15 10:20 | P.PN ---
Subjective This is a very pleasant 61-year-old female patient who resides in adult foster care setting. She is followed by Dr. Sol a visiting physician. She has a history of cerebral palsy with quadriplegia, congestive heart failure, obstructive sleep apnea utilizing CPAP, cognitive impairment. She was brought in yesterday 08/11/2016 with complaints of chest discomfort and shortness of breath. Her chest x-ray revealed evidence of a left pleural effusion. CT angiogram revealed severe motion artifact but nondiagnostic for pulmonary embolism. There is a large left pleural effusion with bilateral areas of consolidation and ground glass changes consistent with either pneumonia versus congestive heart failure. The patient herself is a poor historian however the patient's mother is at the bedside. She feels so the patient does have more shallow respirations then usual. She is requiring 3 L/m per nasal cannula to maintain O2 saturations in the 90s. She's been afebrile. Hemodynamically stable. No leukocytosis. Her hemoglobin was 8.7. Troponins were negative 3. ProBNP 421. Patient is incontinent and no accurate output recorded. The patient is seen again today 08/15/2016 in follow-up on the regular medical floor. She remains awake and alert. She does have continued complaints of back pain. She denies any worsening shortness of breath at this time. She is status post thoracentesis. The fluid is exudative in nature with a protein of 4.2 and LDH greater than 200. Cultures thus far negative. Cytology is negative. She is maintaining good O2 saturations in the mid 90s on 3 L/m per nasal cannula. She remains afebrile. Currently on clindamycin and Levaquin. Objective - Vital Signs Vital signs: Vital Signs Temp 97.4 F L 08/15/16 07:00 Pulse 68 08/15/16 07:45 Resp 16 08/15/16 07:28 BP 109/57 08/15/16 08:30 Pulse Ox 95 08/15/16 07:00 Intake & Output 08/14/16 08/15/16 08/15/16 18:59 06:59 18:59 Intake Total 120 Balance 120 Weight 80.5 kg 82.5 kg Intake: Oral 120 Other: Voiding Method Diaper Diaper # Voids 2 1 1 # Bowel Movements 0 - Exam No acute distress, no respiratory distress. HEENT examination is grossly unremarkable. Mucous membranes are moist. Nasal O2 in place. Neck supple. Full range of motion. No adenopathy or thyromegaly. Cardiovascular examination reveals regular rhythm rate. S1-S2 normal. No distinct murmur. Heart sounds are distant. Lungs reveal few scattered bibasilar crackles. Some dullness at the left base. No rhonchi. No wheezes. Abdomen soft bowel sounds are heard. Extremities are intact. Slight edema. No cyanosis or clubbing. Skin is without rash. Neurologic examination is not easy to perform. - Labs CBC & Chem 7: 08/11/16 10:05 08/11/16 10:05 Labs: Microbiology - Last 24 Hours (Table) 08/13/16 09:00 Gram Stain - Preliminary Pleural Fluid Body Fluid Culture - Preliminary Assessment and Plan Plan: Impression: #1 Acute hypoxic respiratory failure secondary to left pleural effusion and bilateral areas of consolidation and groundglass changes secondary to suspected acute exacerbation of chronic diastolic congestive heart failure. Pneumonia remains in the differential. It is status post left thoracentesis fluid of which is exudative. Cultures are negative. Cytology is negative. #2 Obstructive sleep apnea, utilizing CPAP. #3 Morbid obesity. #4 Cerebral palsy. #5 Quadriplegia, bedridden. #6 Chronic lower extremity edema secondary to diastolic congestive heart failure. Plan: The patient was seen and evaluated by Dr. Matthews. Continue with her current medications including bronchodilators, antibiotics and diuretics. We will continue to follow and make further recommendations based on her clinical status.
[2016-08-15] MEDS: MULTIVITAMINS, THERA 1 EACH TAB PO SCH (11:10)
[2016-08-15 11:37] LABS: Anisocytosis Slight; Basophils % (A) 0 %; CH 31.9; CHCM 33.2; Eosinophils % (A) 0 %; HCT 23.8 % (34.0-46.0); HDW 4.24; HGB 7.9 gm/dL (11.4-16.0); Hypochromasia Slight; Luc # (Auto) 0.25; Luc % (Auto) 3; Lymphocytes # (A) 0.6 k/uL (1.0-4.8); Lymphocytes % (A) 8 %; MCH 32.3 pg (25.0-35.0); MCHC 33.3 g/dL (31.0-37.0); MCV 96.8 fL (80.0-100.0); Macrocytosis Slight; Mean Platelet Volume 7.4; Monocytes # (A) 0.7 k/uL (0-1.0); Monocytes % (A) 8 %; Neutrophils # (A) 6.8 k/uL (1.3-7.7); Neutrophils % (A) 81 %; Poikilocytosis Moderate; RBC 2.46 m/uL (3.80-5.40); RDW 17.5 % (11.5-15.5); WBC 8.4 k/uL (3.8-10.6); WBC (Perox) 9.04
[2016-08-15 11:54] LABS: Anion Gap 13 mmol/L; Blood Urea Nitrogen 26 mg/dL (7-17); Calcium 8.7 mg/dL (8.4-10.2); Carbon Dioxide 32 mmol/L (22-30); Chloride 92 mmol/L (98-107); Glucose 114 mg/dL (74-99); Non-African American GFR(MDRD) >60 (>60 ml/min/1.73 sqM); Potassium 3.8 mmol/L (3.5-5.1); Sodium 137 mmol/L (137-145)
[2016-08-15] MEDS: LEVOFLOXACIN 500MG-D5W PMX 500 MG in DEXTROSE/WATER 1 100ML.BAG IVPB SCH (16:28)
[2016-08-15] MEDS ORDERED: HYDROmorphone 1 MG/ML 1 ML SYRINGE IVP PRN (17:01)
[2016-08-15] MEDS: ONDANSETRON 4 MG/2 ML VIAL IVP PRN ×2 (18:02→22:29)
--- NOTE | 2016-08-15 18:46 | PN ---
DATE OF SERVICE: 08/15/2016 This 61-year-old woman with past medical history of multiple medical problems admitted with left-sided pleural effusion. The patient had thoracocentesis. The patient also had some difficulty in swallowing also. Vomiting was also noted. Modified barium swallow showed no aspiration. Cytology from the pleural fluid showing mesothelial cells and no malignant cells are noted. The patient was also running mild fever. PAST MEDICAL HISTORY: Reviewed. Review of systems could not be taken. The patient is stuporous. Current medications are reviewed and include: 1. DuoNeb q.i.d. and p.r.n. 2. Artificial Tears. 3. Aspirin 325 mg. 4. Questran 4 grams. 5. Clindamycin. 6. Benadryl. 7. Flonase. 8. Lasix. 9. Dilaudid. 10. Desyrel. 11. Levaquin. 12. Multivitamin. 13. Nitrostat. 14. Zofran 15. Protonix. 16. Aldactone. PHYSICAL EXAMINATION: The patient is alert and oriented x3. Temperature 100 degrees. Pulse is 90, blood pressure 119/50, respirations 18, pulse ox 98% on 3-L. HEENT: Conjunctivae normal. NECK: No jugular venous distention. CARDIOVASCULAR: S1 and S2. RESPIRATORY: Breath sounds diminished at the bases. A few scattered rhonchi and crackles. ABDOMEN: Soft, obese, nontender. No mass palpable. LEGS: No edema, no swelling. NERVOUS SYSTEM: Higher function as mentioned. Moves all four limbs. No focal motor deficits. LYMPHATIC: No lymphadenopathy in the neck, axillae or groin. SKIN: No ulcer, rash or bleeding. LABS: Sodium 130, potassium 3.8, hemoglobin 7.9. ASSESSMENT: 1. Left-sided pleural effusion with bilateral areas of consolidation possibly gram-negative pneumonia with acute hypoxic respiratory failure, present on admission. 2. Congestive heart failure, acute exacerbation, acute on chronic diastolic congestive heart failure. 3. Dysphagia for evaluation, rule out esophageal stricture. 4. Urinary tract infection. 5. Status post thoracocentesis of the left side. 6. Sleep apnea on CPAP. 7. Morbid obesity. 8. History of cerebral palsy. 9. Quadriplegia functional, bedridden. 10. Fever for evaluation, possibly secondary to pneumonia. 11. History of chronic lower extremity edema secondary to diastolic congestive heart failure, chronic. 12. Medical debility. 13. History of cerebral palsy. 14. History of anemia, normocytic anemia of chronic disease. 15. Increased d-dimer without any evidence of pulmonary embolism. 16. Increased alkaline phosphatase. 17. Increased ALT. 18. FULL CODE. RECOMMENDATIONS AND DISCUSSION: I recommend to continue the current medications, continue monitoring and symptomatic treatment. We will obtain Gastroenterology evaluation, otherwise continue with broad-spectrum IV antibiotics. Otherwise, closely follow with pulmonary. Further recommendations to follow. Continue the current medications including antibiotics. Guarded prognosis. Further recommendations to follow.
[2016-08-15] MEDS: HYDROCORTISONE 1% CREAM 30 GM TUBE TOPICAL SCH (22:29)
[2016-08-16] MEDS: CLINDAMYCIN 300 MG in DEXTROSE 5% IN WATER 50 ML IVPB SCH ×8 (01:19→19:15)
[2016-08-16] MEDS: IPRATROPIUM-ALBUTEROL 3 ML NEB INHALATION SCH ×4 (08:00→19:27)
[2016-08-16] MEDS ORDERED: PANTOPRAZOLE 40 MG TABLET PO SCH (09:00)
[2016-08-16 10:17] LABS: Anion Gap 11 mmol/L; Blood Urea Nitrogen 25 mg/dL (7-17); Calcium 8.9 mg/dL (8.4-10.2); Carbon Dioxide 36 mmol/L (22-30); Chloride 91 mmol/L (98-107); Glucose 104 mg/dL (74-99); Non-African American GFR(MDRD) >60 (>60 ml/min/1.73 sqM); Potassium 3.8 mmol/L (3.5-5.1); Sodium 138 mmol/L (137-145)
--- NOTE | 2016-08-16 12:37 | CONS ---
DATE OF CONSULTATION: 08/16/2016. REASON FOR CONSULTATION: Nausea and vomiting since yesterday. HISTORY OF PRESENT ILLNESS: The patient is a 61-year-old white female with a history of cerebral palsy, functional quadriplegia, severe GERD, and sleep apnea, admitted to the hospital because of some shortness of breath, decreased appetite, not feeling well for the last few days duration. She is in a prison. The reason we were consulted is because of nausea and vomiting since yesterday. Apparently she underwent a swallow evaluation by speech pathologist yesterday and she had some significant gagging. Following that, she had several episodes of emesis. According to her mother who cares for her, she has been having some issues with swallowing on and off for the last 2 months' duration. The patient denies any abdominal pain. Reports no heartburn. Denies any dysphagia or odynophagia. This morning her mother was trying to give her some Boost through a straw and she has been able to swallow slightly with no recurrence of her symptoms. PAST MEDICAL HISTORY: Significant for cerebral palsy, recent episode of pneumonia with hypoxic respiratory failure for which she was hospitalized for 10 days in May, history of GERD, sleep apnea, chronic depression, functional quadriplegia. Medications at home: 1. Benadryl. 2. Aldactone. 3. Multivitamins. 4. Motrin. 5. Flonase. 6. Pepcid. 7. ( ) 8. Bumex. 9. Aspirin. SOCIAL HISTORY: Lives in a prison. Presently wheelchair bound and mostly bedbound. FAMILY HISTORY: Unremarkable. PAST SURGICAL HISTORY: Left shoulder surgery. ALLERGIES: SULFA and GI COCKTAIL. SOCIAL HISTORY: No smoking or alcohol use. FAMILY HISTORY: Unremarkable. REVIEW OF SYSTEMS: CARDIOPULMONARY: She denies any chest pain or shortness of breath. GENITOURINARY: No dysuria or hematuria. MUSCULOSKELETAL: Functional quadriplegia. NEUROLOGY: Cerebral palsy. ENDOCRINE: Unremarkable. PSYCHIATRY: Anxiety, depression. ENT/VISION: Unremarkable. CONSTITUTIONAL: No recent weight loss. No fevers, chills or night sweats. HEMATOLOGY: Unremarkable. On physical examination, she appears comfortable, in no apparent distress. Vitals as are stable. Blood pressure 128/73, pulse 65, temperature 99. HEENT: Examination unremarkable. Conjunctivae pink. Sclerae anicteric. Oral cavity, no lesions. NECK: No JVD or lymph enlargement. CHEST: Clear to auscultation. HEART: Regular rate and rhythm. ABDOMEN: Soft. Bowel sounds are positive. It was nontender, nondistended. EXTREMITIES: No pedal edema. SKIN: No rashes. NEUROLOGIC: Alert and oriented. No focal deficits. LABS: WBC 8.4, hemoglobin 7.9, platelets are normal. Basic metabolic panel is within normal limits. IMPRESSION: This is a lady with history of cerebral palsy and functional quadriplegia who is mostly bedridden, was admitted to the hospital with shortness of breath and not feeling well; however, since yesterday just prior to discharge she was complaining of nausea and vomiting, and had about 3 episodes of emesis. She was subsequently started on Zofran and this morning still remains nauseated. She denies any abdominal pain. She has been complaining of occasional dysphagia also, but no odynophagia. Her symptoms are probably related to GERD and part of it could be medication related. RECOMMENDATIONS: 1. Advised to continue with Zofran 4 mg every 6 hours. 2. Started back on pureed diet. 3. Continue Protonix 40 mg every 12 hours. We will follow her closely and at this time, I do not plan on any endoscopic intervention unless she has progressively worsening symptoms. For now we will continue with symptomatic and supportive care and follow her closely. Thank you for this consultation.
--- NOTE | 2016-08-16 12:45 | PN ---
This is a 61-year-old mentally handicapped female who came in with pleural effusion. She is feeling better. Her major issue is chronic back pain. No shortness of breath. She is status post thoracentesis. The fluid was an exudate. Cultures are negative. Cytology was negative. She is maintaining good saturations on 3 liters nasal cannula. The patient has no other respiratory complaints at this time. She does have a history of sleep apnea syndrome, morbid obesity, cerebral palsy, quadriplegia and chronic lower extremity edema. Current vital signs are reviewed. Temperature is 99.1, heart rate 80, respiratory rate 22, blood pressure 128/73, mean 91, 3 liters saturation 95%. Appears in no acute distress. HEENT examination is grossly unremarkable. Mucous membranes are moist. No oral lesions. Neck is supple. Full range of motion. No adenopathy or thyromegaly. Neck veins are flat. Cardiovascular examination reveals distant heart sounds. S1, S2 normal. No distinct murmur. No S3, S4. Lungs reveal relatively clear breath sounds. A few scattered rhonchi. No wheezes or crackles. Abdomen is soft. Bowel sounds are heard. No masses or tenderness. Extremities are intact. There is no cyanosis, clubbing, or edema. Labs are reviewed. Sodium and potassium normal. Chloride is 91, CO2 of 36, BUN and creatinine 25 and 0.71. Microbiology thus far is completely negative. Microbiology is negative. ASSESSMENT: 1. Shortness of breath, secondary to congestive heart failure with hypoxemic respiratory failure. 2. Doubt significant pneumonia. 3. Obstructive sleep apnea syndrome, currently on nocturnal CPAP. 4. Morbid obesity. 5. Cerebral palsy. 6. Quadriplegia with diffuse extremity weakness and core muscle strength weakness. 7. Chronic lower extremity edema. PLAN: The patient seemed to be doing relatively well. I noted discharge back in the patient's reports. It may that she is going to be discharged. I am not sure of that. Cytology of the fluid was negative. Microbiology is currently negative or pending. It was an exudate. Will continue to follow. Prognosis is guarded.
[2016-08-16] MEDS: FUROSEMIDE 10 MG/ML 4 ML VIAL IV SCH ×2 (14:18→21:38)
[2016-08-16] MEDS: CHOLESTYRAMINE (WITH SUGAR) 4 GM PACKET PO SCH ×2 (14:18→21:38)
[2016-08-16] MEDS: ASPIRIN 325 MG TAB PO SCH (14:18)
[2016-08-16] MEDS: SPIRONOLACTONE 25 MG TAB PO SCH (14:20)
[2016-08-16] MEDS: FLUTICASONE 50MCG/SPRAY NASAL 16GM EA NOSTRIL SCH (14:20)
[2016-08-16] MEDS: ARTIFICIAL TEARS-HYPROMELLOSE DROPS 15 ML BTL BOTH EYES SCH ×3 (14:20→21:39)
[2016-08-16] MEDS: MULTIVITAMINS, THERA 1 EACH TAB PO SCH (14:21)
[2016-08-16] MEDS: ONDANSETRON 4 MG TAB PO SCH ×2 (14:21→18:00)
[2016-08-16] MEDS: LEVOFLOXACIN 500MG-D5W PMX 500 MG in DEXTROSE/WATER 1 100ML.BAG IVPB SCH (18:00)
[2016-08-16] MEDS: MORPHINE SULFATE 4 MG/ML SYRINGE IV PRN (19:57)
--- NOTE | 2016-08-16 20:07 | PN ---
This 61 -year-old woman was admitted to the hospital with left-sided pleural effusion, and as well as area of consolidation, also had some swallowing difficulties. The patient has baseline cerebral palsy. Dr. Wray is evaluating the patient today and recommended continue Zofran and continue to follow. PAST MEDICAL HISTORY: Reviewed. Review of systems could not be taken. Current medications are reviewed and include: 1. DuoNeb q.i.d. and p.r.n. 3. Aspirin 320 mg daily. 4. Questran. 5. Clindamycin. 6. Benadryl. 7. Flonase. 8. Lasix. 9. Dilaudid. 10. Nizoral. 11. Levaquin. 12. Nystatin. 13. Zofran. 14. Protonix. PHYSICAL EXAMINATION: Patient is stuporous. Pulse is 85, blood pressure 98/52, respiration 22. Temperature 97.7. Pulse ox 95% on 3 L. HEENT: Conjunctivae normal. NECK: No jugular venous distention. CARDIOVASCULAR: S1, S2 muffled. RESPIRATORY: Breath sounds diminished at the bases. A few scattered rhonchi and crackles. ABDOMEN: Soft, nontender. LEGS: No edema. No swelling. CENTRAL NERVOUS SYSTEM: No focal deficits. LABS: WBC 8.4, hemoglobin 7.9, hemoglobin last month was 12.2. UA noted. ASSESSMENT: 1. Left-sided pleural effusion with bilateral consolidation, possibly gram-negative pneumonia with acute hypoxic respiratory failure, present on admission. 2. Congestive heart failure, acute exacerbation, acute on chronic diastolic dysfunction. 3. Dysphagia rule out esophageal stricture. 4. Vomiting, possible acute gastritis. 5. Urinary tract infection. 6. Status post thoracocentesis on the left side. 7. Sleep apnea on CPAP. 8. Morbid obesity. 9. History of cerebral palsy. 10. Change in mental status, metabolic encephalopathy, acute, multifactorial. 11. Quadriplegia functional bedridden. 12. Fever for evaluation. Possible secondary to pneumonia. 13. History of chronic lower extremity edema secondary to diastolic congestive heart failure, chronic. 14. Medical debility. 15. History of cerebral palsy. 16. Anemia, normocytic anemia of chronic disease with probably some acute component. 17. Increased d-dimer without any evidence of pulmonary embolism. 18. Increased alkaline phosphatase. 19. Increased ALT. 20. FULL CODE. RECOMMENDATIONS AND DISCUSSION: Continue current medications and treatment. Otherwise, I would recommend to hold aspirin at this time. Continue with Protonix. Other than that symptomatic treatment provided. Dietary adjustment recommended by Dr. Wray will be followed. The prognosis is guarded because of multiple complex medical issues. Further recommendations to follow. Discussed with the family at length and the patient is not symptomatically better I would strongly favor endoscopy and further work-up as well. Further recommendations to follow. MTDD
[2016-08-16] MEDS: HYDROCORTISONE 1% CREAM 30 GM TUBE TOPICAL SCH (21:38)
[2016-08-16] MEDS: PANTOPRAZOLE 40 MG/10 ML VIAL IVP SCH (21:38)
[2016-08-17] MEDS: CLINDAMYCIN 300 MG in DEXTROSE 5% IN WATER 50 ML IVPB SCH ×8 (01:06→18:20)
[2016-08-17] MEDS: ONDANSETRON 4 MG TAB PO SCH ×3 (01:07→17:06)
[2016-08-17] MEDS: IPRATROPIUM-ALBUTEROL 3 ML NEB INHALATION SCH ×5 (07:44→20:28)
[2016-08-17] MEDS: ARTIFICIAL TEARS-HYPROMELLOSE DROPS 15 ML BTL BOTH EYES SCH ×3 (08:44→21:46)
[2016-08-17] MEDS: CHOLESTYRAMINE (WITH SUGAR) 4 GM PACKET PO SCH ×2 (08:44→21:47)
[2016-08-17] MEDS: FLUTICASONE 50MCG/SPRAY NASAL 16GM EA NOSTRIL SCH (08:44)
[2016-08-17] MEDS: FUROSEMIDE 10 MG/ML 4 ML VIAL IV SCH ×2 (08:44→21:39)
[2016-08-17] MEDS: SPIRONOLACTONE 25 MG TAB PO SCH (08:45)
[2016-08-17] MEDS: PANTOPRAZOLE 40 MG/10 ML VIAL IVP SCH ×2 (08:45→21:39)
[2016-08-17] MEDS: MORPHINE SULFATE 4 MG/ML SYRINGE IV PRN (10:02)
--- NOTE | 2016-08-17 12:59 | XR ---
EXAMINATION TYPE: XR chest 1V portable DATE OF EXAM: 08/17/2016 COMPARISON: Prior chest x-ray 08/13/2016 HISTORY: Shortness of breath TECHNIQUE: Single frontal view of the chest is obtained. FINDINGS: Patient is rotated. The heart is markedly enlarged. Lung volumes are low. Bilateral airspa ce disease suspected. Retrocardiac density is suspected. IMPRESSION: Cardiomegaly, findings could be indicative of congestive heart failure, correlate to exc lude pneumonia with associated effusion. Follow-up is recommended. Limited exam.
--- NOTE | 2016-08-17 13:07 | PN ---
DATE OF SERVICE: 08/17/2016 The patient is a 61 -year-old white female with a history of cerebral palsy and functional quadriplegia admitted to the hospital with shortness of breath. While she was being discharged from the hospital, she started having some episodes of nausea, vomiting and hence, we were consulted. She is presently on IV Zofran q.6 hours as well as Protonix 40 mg twice daily. She had a few episodes of nausea, vomiting 3 days ago, but yesterday she had only one episode. She is able to tolerate diet, but she has been eating much lesser quantity. Mother at the bedside caring for her. No abdominal pain this morning. No episodes of nausea, vomiting. On physical examination, vital signs are stable. Blood pressure is 107/57, pulse 92, temperature 97.7. HEENT: Unremarkable. Conjunctivae pink. Sclerae anicteric. Oral cavity, no lesions. NECK: No JVD or lymph node enlargement. CHEST: Clear to auscultation. HEART: Regular rate and rhythm. ABDOMEN: Soft. Bowel sounds are positive. No organomegaly. EXTREMITIES: No pedal edema. SKIN: No rashes. NEURO: Awake but very sleepy. LABS: None available today. IMPRESSION: Nausea and vomiting, for the last 2 days' duration most likely medication related and possibly compounded by gastroesophageal reflux disease. She is doing much better today and able to tolerate some of her diet well. RECOMMENDATIONS: 1. Continue pur?ed diet. 2. Continue with Protonix as well as Zofran. 3. If she continues to have persistent symptoms, we will consider an upper endoscopy tomorrow. 4. I asked the nurse to notify me if there is any change in her symptoms. Thank you for this consultation.
--- NOTE | 2016-08-17 13:37 | PN ---
61-year-old female who is mentally handicapped. She came with him in with a diagnosis of shortness of breath and pleural effusion. The patient is feeling better. She did undergo a thoracentesis. Fluid was exudative in nature. Cultures and cytology were both negative. She is maintaining good saturations on 2 to 3 liters nasal cannula. Her major issues include chronic back pain. She does have a history of sleep apnea syndrome, morbid obesity, cerebral palsy and chronic lower extremity edema. Current vital signs are stable. Temperature 97.7, heart rate 78, respiratory rate 22, blood pressure 107/57, mean 73, 3 liters saturation 99%. Appears in no acute distress. Lying almost flat. HEENT examination is grossly unremarkable. Mucous membranes are moist. No oral lesions. Neck is supple. Full range of motion. No adenopathy or thyromegaly. Neck veins are flat. Cardiovascular examination reveals regular rhythm and rate. S1, S2 normal. No distinct murmur. No S3, S4. Lungs are relatively clear. A few scattered rhonchi. No wheezes or crackles. Abdomen is soft. Bowel sounds are heard. No masses. Extremities are intact. No cyanosis, clubbing, or edema. Skin without rash. Lab data is reviewed. Nothing new to report. No new x-rays to report. ASSESSMENT: 1. Shortness of breath, likely secondary to congestive heart failure with hypoxemic respiratory failure and pleural effusion, status post thoracentesis. 2. Doubt significant pneumonia. 3. Sleep apnea, currently on nocturnal CPAP. 4. Morbid obesity. 5. Cerebral palsy. 6. Quadriplegia with diffuse extremity weakness and core muscle strength weakness. 7. Chronic lower extremity edema, improved. PLAN: Will continue to follow. The patient may be discharged. Not sure when. Will continue to watch the patient closely. Microbiology thus far is all negative from the pleural fluid. Medications are reviewed.
[2016-08-17] MEDS: MULTIVITAMINS, THERA 1 EACH TAB PO SCH (13:49)
[2016-08-17] MEDS: SODIUM CHLORIDE 0.9% 1,000 ML IV SCH (13:49)
[2016-08-17] MEDS ORDERED: IPRATROPIUM-ALBUTEROL 3 ML NEB ONE (16:00)
[2016-08-17] MEDS: LEVOFLOXACIN 500MG-D5W PMX 500 MG in DEXTROSE/WATER 1 100ML.BAG IVPB SCH (17:05)
--- NOTE | 2016-08-17 19:22 | CT ---
EXAMINATION TYPE: CT ChestAbdPelvis wo con DATE OF EXAM: 08/17/2016 COMPARISON: July 2016 HISTORY: Nausea and vomiting. CT DLP: 1527.10 mGycm. Automated Exposure Control for Dose Reduction was Utilized. TECHNIQUE: CT scan of the thorax, abdomen and pelvis is performed without IV contrast. FINDINGS: There is a moderate size left pleural effusion. Heart appears enlarged. There is diffuse edema in bot h lung louie. There is no right-sided pleural effusion. There is a small pericardial effusion. I see no focal liver defect. There are small calcified gallstones. Spleen appears normal. There is no pancreatic mass. There is no retroperitoneal adenopathy. There is no evidence of a pelvic mass. Blad hyun distends smoothly. I see no intestinal wall thickening. There are no dilated loops. There is a th oracolumbar levoscoliosis. Exam is limited by the lack of any contrast. I see no mediastinal adenopathy. There is no sign of pneumoperitoneum. There is no sign of appendicit is. There is no evidence of bowel obstruction. IMPRESSION: Large left pleural effusion and mild to moderate pericardial effusion. This appears simil ar to old CT scan of the chest of 08/11/2016. There are extensive bilateral pulmonary infiltrates dionna lar to last exam consistent with RDS and fibrosis. No evidence of acute abnormality within the abdomen and pelvis. Calcified gallstones. Abdomen and pel vis appear not significantly different than last exam of 07/29/2016.
[2016-08-17] MEDS: HYDROCORTISONE 1% CREAM 30 GM TUBE TOPICAL SCH (21:46)
[2016-08-18] MEDS: ONDANSETRON 4 MG TAB PO SCH ×3 (00:05→16:26)
--- NOTE | 2016-08-18 07:11 | PN ---
DATE OF SERVICE: 08/17/2016 This 61-year-old woman was admitted with left-sided pleural effusion, also awaiting consultation, had swallowing difficulties also. The patient continues to be stuporous. The patient is being closely monitored. The most recent chest x-ray done today, which was personally reviewed by me shows significant bilateral infiltrates, possibly CHF versus aspiration pneumonia. The patient is closely monitored at this time. The patient is seen by Gastroenterology and as well as Pulmonary also. The patient is on IV Lasix also. PAST MEDICAL HISTORY: Reviewed. REVIEW OF SYSTEMS: Could not be taken, the patient stuporous. Current medications are reviewed and include: 1. DuoNeb q.i.d. and p.r.n. 2. Artificial Tears. 3. Questran. 4. Clindamycin. 5. Benadryl. 6. Flonase. 7. Lasix. 8. Nizoral. 9. Levaquin. 10. Nitrostat. 11. Zofran. 12. Protonix. 13. Aldactone. PHYSICAL EXAM: The pulse is 78, blood pressure 120/64, respirations 22, temperature 97.8, pulse ox 98% on 2 L. HEENT: Conjunctivae normal. NECK: No jugular venous distension. CARDIOVASCULAR: S1, S2, muffled. RESPIRATORY: Breath sounds diminished at the bases, bilateral scattered rhonchi, no crackles. ABDOMEN: Soft, obese, nontender. LEGS: No edema, no swelling. NERVOUS SYSTEM: No focal deficts. LABS: WBC 8.8, hemoglobin is 7.9. UA noted. ASSESSMENT: 1. Left-sided pleural effusion with a bilateral consolidation, possibly gram-negative pneumonia with acute hypoxic respiratory failure, present on admission. 2. Change in mental status with metabolic encephalopathy, multifactorial, acute on chronic. 3. Congestive heart failure acute exacerbation, with acute on chronic diastolic dysfunction. 4. Dysphagia, rule out esophageal stricture or peptic ulcer disease. 5. Vomiting, rule out acute gastritis. 6. Urinary tract infection. 7. Status post thoracocentesis on the left side. 8. Sleep apnea, on CPAP. 9. Morbid obesity. 10. Cerebral palsy. 11. Change in mental status with metabolic encephalopathy, acute, multifactorial. 12. Quadriplegia, functional bedridden. 13. Fever, possibly secondary to pneumonia, present on admission. 14. History of chronic lower extremity edema secondary to diastolic congestive heart failure, chronic. 15. Medical debility. 16. History of cerebral palsy. 17. Anemia, normocytic anemia of chronic disease with some probably some acute component. 18. Increased d-dimer without any evidence of pulmonary embolism. 19. Increased alkaline phosphatase. 20. Increased ALT. 21. FULL CODE. RECOMMENDATION: Recommend to continue with the current medications and symptomatic treatment. I would recommend to continue the aspiration precautions. I would also recommend a CAT scan of the chest and abdomen also. Add Zosyn to the current regimen. Otherwise, proton inhibitors. Dr. Wray's input appreciated. Guarded prognosis. Further recommendations to follow. MTDD
[2016-08-18] MEDS: IPRATROPIUM-ALBUTEROL 3 ML NEB INHALATION SCH ×4 (08:05→20:16)
[2016-08-18] MEDS: SPIRONOLACTONE 25 MG TAB PO SCH (08:19)
[2016-08-18] MEDS: PANTOPRAZOLE 40 MG/10 ML VIAL IVP SCH ×2 (08:19→21:11)
[2016-08-18] MEDS: KETOCONAZOLE 2% SHAMPOO 1 APPLIC/ML TOPICAL SCH (08:19)
[2016-08-18] MEDS: FUROSEMIDE 10 MG/ML 4 ML VIAL IV SCH ×2 (08:19→21:12)
[2016-08-18] MEDS: FLUTICASONE 50MCG/SPRAY NASAL 16GM EA NOSTRIL SCH (08:20)
[2016-08-18] MEDS: ARTIFICIAL TEARS-HYPROMELLOSE DROPS 15 ML BTL BOTH EYES SCH ×3 (08:20→21:11)
[2016-08-18] MEDS: CHOLESTYRAMINE (WITH SUGAR) 4 GM PACKET PO SCH ×2 (08:20→21:12)
[2016-08-18] MEDS: MULTIVITAMINS, THERA 1 EACH TAB PO SCH (11:49)
[2016-08-18] MEDS: PIPERACILLIN-TAZOBACTAM 3.375 GM in DEXTROSE/WATER 1 50ML.BAG IVPB SCH ×3 (12:45→23:26)
[2016-08-18] MEDS: SODIUM CHLORIDE 0.9% 1,000 ML IV SCH (12:45)
--- NOTE | 2016-08-18 15:13 | PN ---
DATE OF SERVICE: 08/18/2016 Patient is from 61-year-old pleasant lady with cerebral palsy, functional quadriplegia, admitted to the hospital with pneumonia and on broad-spectrum antibiotics. For the last 3 days she has been having intermittent nausea, vomiting, dysphagia, not able to eat and decreased appetite. She is on Zofran and IV Protonix, still continues to remain symptomatic. Her mother who is at the bedside who is caring for her is very concerned about her not able to eat and apparently she is gagging and choking while she is eating. She does complain of chest pain, denies any odynophagia. On physical examination, she appears comfortable, in no apparent distress. Vitals signs are stable. Blood pressure is 130/82, pulse rate 88 per minute. HEENT EXAMINATION: Unremarkable. Conjunctivae are pink. Sclerae nonicteric. Oral cavity, no lesions. NECK: No JVD or lymph node enlargement. Chest was clear to auscultation. HEART: Regular rate and rhythm. Abdomen is soft. Bowel sounds are positive. No organomegaly. EXTREMITIES: No pedal edema. NEURO: Awake, oriented to name and place, not to time. No labs available from today. IMPRESSION: 1. Persistent nausea, vomiting, some dysphagia for the last few days duration. No improvement with empiric PPI therapy for possible gastroesophageal reflux disease. She continues to have gagging and choking episodes with solid food. 2. Pneumonia, on broad-spectrum antibiotics. 3. Cerebral palsy and functional quadriplegia. RECOMMENDATIONS: Will proceed with an upper endoscopy tomorrow. Discussed with the patient's mother who is at the bedside, agreeable to the plan. In the meantime, continue with current medications and continue with small frequent meals and will follow her closely.
[2016-08-18] MEDS: LEVOFLOXACIN 500MG-D5W PMX 500 MG in DEXTROSE/WATER 1 100ML.BAG IVPB SCH (16:25)
--- NOTE | 2016-08-18 17:06 | P.PN ---
Subjective Date of service 08/18/2016. Personal being dictated for Dr. Schreiber. Interval history: Is a 61-year-old female resident of [facility] with cerebral palsy, quadriplegia, functional-bedridden admitted with left-sided pleural effusion, possibly bilateral pneumonia, acute hypoxic respiratory failure, dysphagia and multiple other medical issues. Maintained on Zosyn , Levaquin, nebulized bronchodilators, Lasix IV. Continues on Zofran and IV Protonix, currently refusing to eat, and refusing medications. Minimally conversing. Evaluated by GI and patient is scheduled for EGD tomorrow. Denies chest pain, palpitations. Past medical history reviewed Review of systems Unable to obtain: Active Medications Albuterol/Ipratropium (Duoneb 0.5 Mg-3 Mg/3 Ml Soln) 3 ml INHALATION RT-QID [facility] Last Admin: 08/18/16 16:22 Dose: 3 ml Artificial Tears (Artificial Tear Drops) 1 drops BOTH EYES TID [facility] Last Admin: 08/18/16 16:27 Dose: 1 drops Cholestyramine Resin (Questran) 4 gm PO BID [facility] Last Admin: 08/18/16 08:20 Dose: 4 gm Diphenhydramine HCl (Benadryl) 25 mg PO Q6H PRN PRN Reason: Allergy Symptoms Fluticasone Propionate (Flonase Nasal [place]) 1 spray EA NOSTRIL DAILY [facility] Last Admin: 08/18/16 08:20 Dose: 1 spray Furosemide (Lasix) 40 mg IV Q12HR [facility] Last Admin: 08/18/16 08:19 Dose: 40 mg Hydrocortisone (Hydrocortisone 1% Cream) 1 applic TOPICAL HS [facility] Last Admin: 08/17/16 21:46 Dose: 1 applic Hydromorphone HCl (Dilaudid) 0.25 mg IVP Q6HR PRN PRN Reason: Pain Levofloxacin 500 mg/ IV (Solution) 100 mls @ 100 mls/hr IVPB Q24H [facility] Last Admin: 08/18/16 16:25 Dose: 100 mls/hr Sodium Chloride (Saline 0.9%) 1,000 mls @ 20 mls/hr IV .Q24H [facility] Last Admin: 08/18/16 12:45 Dose: Not Given Piperacillin/Tazobactam/ (Dextrose 3.375 gm/ IV Solution) 50 mls @ 12.5 mls/hr IVPB Q8HR [facility] Last Admin: 08/18/16 12:45 Dose: 12.5 mls/hr Ketoconazole (Nizoral) 1 applic TOPICAL Q3D [facility] Last Admin: 08/18/16 08:19 Dose: 1 applic Morphine Sulfate (Morphine Sulfate (Inj)) 4 mg IV Q4HR PRN PRN Reason: Chest Pain Last Admin: 08/17/16 10:02 Dose: 4 mg Multivitamins (Theragran) 1 each PO DAILY@1200 [facility] Last Admin: 08/18/16 11:49 Dose: Not Given Nitroglycerin (Nitrostat) 0.4 mg SUBLINGUAL Q5M PRN PRN Reason: Chest Pain Ondansetron HCl (Zofran) 4 mg IVP Q6HR PRN PRN Reason: Nausea And Vomiting Last Admin: 08/15/16 22:29 Dose: 4 mg Ondansetron HCl (Zofran) 4 mg PO Q8HR [facility] Last Admin: 08/18/16 16:26 Dose: 4 mg Pantoprazole Sodium (Protonix) 40 mg IVP BID [facility] Last Admin: 08/18/16 08:19 Dose: 40 mg Spironolactone (Aldactone) 50 mg PO DAILY [facility] Last Admin: 08/18/16 08:19 Dose: 50 mg Objective - Vital Signs Vital signs: Vital Signs Temp 99.2 F 08/18/16 15:00 Pulse 76 08/18/16 16:33 Resp 18 08/18/16 15:00 BP 100/58 08/18/16 15:00 Pulse Ox 93 L 08/18/16 15:00 Intake & Output 08/17/16 08/18/16 08/18/16 18:59 06:59 18:59 Weight 83 kg Other: Voiding Method Diaper Diaper Incontinent Incontinent Incontinent # Voids 3 1 3 # Bowel Movements 2 - Exam PHYSICAL EXAM: VITAL SIGNS: As above GENERAL: [Sitting up in bed, no acute distress] HEENT: [Pupils equal conjunctiva normal.] NECK: [Supple, no JVD] RESPIRATORY EFFORT:[ Normal] LUNGS: [Bilateral bases diminished, scattered rhonchi throughout, no wheezing, no crackles] CARDIOVASCULAR[ regular S1 and S2, no murmurs rubs or gallops, no edema] GI: [Abdomen soft, obese, nontender, positive bowel sounds. No guarding, no rigidity] PSYCH/NEURO: [Alert and oriented -1-2, confused, currently uncooperative refusing meds - Labs CBC & Chem 7: 08/15/16 11:08 08/16/16 09:19 Labs: Microbiology - Last 24 Hours (Table) 08/13/16 09:00 Gram Stain - Final Pleural Fluid Body Fluid Culture - Final Assessment and Plan Plan: 1. [ Large Left sided pleural effusion with bilateral consolidation, possibly gram-negative pneumonia]. Small Pericardial effusion similar to prior scan. 2. [ Acute hypoxic respiratory failure, present on admission, secondary to the above]. 3. [ Change in mental status with acute on chronic metabolic encephalopathy, multifactorial]. 4. [ Acute on chronic congestive heart failure exacerbation, diastolic dysfunction]. 5. [ Dysphagia, rule out esophageal stricture or peptic ulcer disease]. 6. [ Vomiting, rule out acute gastritis]. 7. [ Acute UTI]. 8. Status post left-sided thoracentesis, no cytologically malignant cells identified. 9. Sleep apnea on CPAP 10. Morbid obesity, BMI 39.6 11. Cerebral palsy 12. Quadriplegia, functional, bedridden 13. Fever possibly secondary to pneumonia, present on admission. 14. History of chronic lower extremity edema secondary to diastolic CHF 15. Medical debility 16. Anemia, normocytic of chronic disease with probably some acute component 17. Increased d-dimer without evidence of PE 18. Increased LFTs 19. Calcified gallstones per CT Plan: Continue on current medication regime , Zosyn, monitoring and symptomatic treatment. Pleural cultures pending .Strict aspiration precautions with head of bed up 45, discussed with staff. Scheduled for EGD tomorrow with GI. Mother at bedside and updated on plan of care, questions and concerns addressed. Prognosis guarded, given multiple complex medical issues. The impression and plan of care has been dictated as directed. : I performed a H&P examination of this patient and discussed the same with the dictator. I agree with the dictator's note. Any additional findings/opinions/ etc. will be noted.
[2016-08-18] MEDS: ONDANSETRON 4 MG/2 ML VIAL IVP PRN ×2 (17:43→23:26)
--- NOTE | 2016-08-18 18:12 | P.PN ---
Subjective This is a very pleasant 61-year-old female patient who resides in adult foster care setting. She is followed by Dr. Sol a visiting physician. She has a history of cerebral palsy with quadriplegia, congestive heart failure, obstructive sleep apnea utilizing CPAP, cognitive impairment. She was brought in yesterday 08/11/2016 with complaints of chest discomfort and shortness of breath. Her chest x-ray revealed evidence of a left pleural effusion. CT angiogram revealed severe motion artifact but nondiagnostic for pulmonary embolism. There is a large left pleural effusion with bilateral areas of consolidation and ground glass changes consistent with either pneumonia versus congestive heart failure. The patient herself is a poor historian however the patient's mother is at the bedside. She feels so the patient does have more shallow respirations then usual. She is requiring 3 L/m per nasal cannula to maintain O2 saturations in the 90s. She's been afebrile. Hemodynamically stable. No leukocytosis. Her hemoglobin was 8.7. Troponins were negative 3. ProBNP 421. Patient is incontinent and no accurate output recorded. The patient is seen again today 08/15/2016 in follow-up on the regular medical floor. She remains awake and alert. She does have continued complaints of back pain. She denies any worsening shortness of breath at this time. She is status post thoracentesis. The fluid is exudative in nature with a protein of 4.2 and LDH greater than 200. Cultures thus far negative. Cytology is negative. She is maintaining good O2 saturations in the mid 90s on 3 L/m per nasal cannula. She remains afebrile. Currently on clindamycin and Levaquin. On 08/18/2016 the patient is being seen in follow-up. The patient is resting comfortably in bed. Note that the patient had a thoracentesis of the left lung and subsequent chest x-rays showed reaccumulation of some of the pleural effusion. This was seen on the CAT scan of the chest abdomen and pelvis that was performed and the CAT scan showed a moderate-sized right-sided pleural effusion, bilateral pulmonary infiltrates and the CAT scan of the abdomen and pelvis was essentially unremarkable. There is obvious kyphoscoliosis of the thoracolumbar spine with levoscoliosis. Note that the pleural effusion was a exudate and the cytology was negative for malignancy. The patient is having some difficulties with swallowing and she is going to have an EGD tomorrow done by Dr. Kelly. Objective - Vital Signs Vital signs: Vital Signs Temp 99.2 F 08/18/16 15:00 Pulse 76 08/18/16 16:33 Resp 18 08/18/16 15:00 BP 100/58 08/18/16 15:00 Pulse Ox 93 L 08/18/16 15:00 Intake & Output 08/17/16 08/18/16 08/18/16 18:59 06:59 18:59 Weight 83 kg Other: Voiding Method Diaper Diaper Incontinent Incontinent Incontinent # Voids 3 1 3 # Bowel Movements 2 - Exam No acute distress, no respiratory distress. HEENT examination is grossly unremarkable. Mucous membranes are moist. Nasal O2 in place. Neck supple. Full range of motion. No adenopathy or thyromegaly. Cardiovascular examination reveals regular rhythm rate. S1-S2 normal. No distinct murmur. Heart sounds are distant. Lungs reveal few scattered bibasilar crackles. Some dullness at the left base. No rhonchi. No wheezes. There is an obvious levoscoliosis of the thoracolumbar spine. Breath sounds are diminished in the left lung base. Abdomen soft bowel sounds are heard. Extremities are intact. Slight edema. No cyanosis or clubbing. Skin is without rash. Neurologic examination is not easy to perform. - Labs CBC & Chem 7: 08/15/16 11:08 08/16/16 09:19 Assessment and Plan Plan: Impression: #1 Acute hypoxic respiratory failure, rule out secondary to recurrent aspiration. The patient is currently being investigated with an EGD that is scheduled to be done for tomorrow. Meanwhile, the patient went into a thoracentesis of the left lung and the pleural fluid was aspirated and the fluid cytology was negative for malignancy. The fluid itself was an exudate. Rule out parapneumonic effusion post aspiration. #2 Obstructive sleep apnea, utilizing CPAP. #3 Morbid obesity. #4 Cerebral palsy. #5 Quadriplegia, bedridden. #6 Chronic lower extremity edema secondary to diastolic congestive heart failure. #7 thoracolumbar levoscoliosis #8 dysphagia, awaiting EGD #9 chronic anemia, normocytic PLAN Continue the Zosyn as a broad-spectrum antibiotic coverage in conjunction with Levaquin. Aspiration precaution. Continue diuresis. EGD in a.m. We'll follow.
--- NOTE | 2016-08-18 19:00 | PN ---
DATE OF SERVICE: 08/18/2016 This 61 -year-old woman who was admitted with left-sided pleural effusion, bilateral consolidation being closely monitored. The patient continues to have shortness of breath and some change in mental status. Seen and evaluated the patient along with nurse practitioner. Please refer to the nurse practitioner notes and impression documented as a scribe for further information. Prognosis guarded. Discussed with family. Further recommendations to follow.
[2016-08-18] MEDS: HYDROCORTISONE 1% CREAM 30 GM TUBE TOPICAL SCH (21:11)
[2016-08-19] MEDS: ONDANSETRON 4 MG TAB PO SCH ×3 (00:11→15:20)
[2016-08-19] MEDS: ONDANSETRON 4 MG/2 ML VIAL IVP PRN ×2 (05:44→23:20)
[2016-08-19] MEDS: CHOLESTYRAMINE (WITH SUGAR) 4 GM PACKET PO SCH ×2 (07:30→21:02)
[2016-08-19] MEDS: SPIRONOLACTONE 25 MG TAB PO SCH (07:30)
[2016-08-19] MEDS: FUROSEMIDE 10 MG/ML 4 ML VIAL IV SCH ×2 (07:35→21:02)
[2016-08-19] MEDS: PANTOPRAZOLE 40 MG/10 ML VIAL IVP SCH ×2 (07:35→21:02)
[2016-08-19] MEDS: PIPERACILLIN-TAZOBACTAM 3.375 GM in DEXTROSE/WATER 1 50ML.BAG IVPB SCH ×3 (07:35→23:20)
[2016-08-19] MEDS: FLUTICASONE 50MCG/SPRAY NASAL 16GM EA NOSTRIL SCH (07:39)
[2016-08-19] MEDS: ARTIFICIAL TEARS-HYPROMELLOSE DROPS 15 ML BTL BOTH EYES SCH ×3 (07:39→21:02)
[2016-08-19] MEDS: IPRATROPIUM-ALBUTEROL 3 ML NEB INHALATION SCH ×4 (08:07→19:33)
[2016-08-19] MEDS: MULTIVITAMINS, THERA 1 EACH TAB PO SCH (11:28)
--- NOTE | 2016-08-19 14:02 | P.PN ---
Subjective Date of service 08/19/2016. Personal being dictated for Dr. Schreiber. Interval history: Is a 61-year-old female resident of [facility] with cerebral palsy, quadriplegia, functional-bedridden admitted with left-sided pleural effusion S/P thorancenteis with cytology negative for malignancy, possibly bilateral pneumonia, acute hypoxic respiratory failure, dysphagia and multiple other medical issues. CT of abdomen and pelvis reported similar findings to CT scan of 08/11/2016 including large left pleural effusion, mild to moderate pericardial effusion, extensive bilateral pulmonary infiltrates, abdomen and pelvis nonacute. Continues on Zosyn , Levaquin, nebulized bronchodilators, Lasix IV. Persistent nausea with 1 episode of emesis yesterday , maintained on Zofran and IV Protonix. Awaiting EGD today with GI. Denies chest pain, palpitations. T-max 99.2. Systolic blood pressures currently in the high 80s to 90s, maintaining MAP of 65. Past medical history reviewed Review of systems Unable to obtain: Active Medications Generic Name Dose Route Start Last Admin Trade Name Freq PRN Reason Stop Dose Admin Albuterol/Ipratropium 3 ml 08/15/16 08:00 08/19/16 11:03 Duoneb 0.5 Mg-3 Mg/3 Ml Soln INHALATION 3 ml RT-QID [facility] Administration Artificial Tears 1 drops 08/12/16 09:00 08/19/16 07:39 Artificial Tear Drops BOTH EYES 1 drops TID [facility] Administration Cholestyramine Resin 4 gm 08/11/16 21:00 08/19/16 07:30 Questran PO Not Given BID [facility] Diphenhydramine HCl 25 mg 08/11/16 14:23 Benadryl PO Q6H PRN Allergy Symptoms Fluticasone Propionate 1 spray 08/12/16 09:00 08/19/16 07:39 Flonase Nasal [place] EA NOSTRIL 1 spray DAILY [facility] Administration Furosemide 40 mg 08/11/16 21:00 08/19/16 07:35 Lasix IV 40 mg Q12HR [facility] Administration Hydrocortisone 1 applic 08/11/16 21:00 08/18/16 21:11 Hydrocortisone 1% Cream TOPICAL 1 applic HS [facility] Administration Hydromorphone HCl 0.25 mg 08/15/16 17:01 Dilaudid IVP Q6HR PRN Pain Levofloxacin 500 mg/ IV 100 mls @ 100 mls/hr 08/14/16 16:00 08/18/16 16:25 Solution IVPB 100 mls/hr Q24H [facility] Administration Sodium Chloride 1,000 mls @ 20 mls/hr 08/17/16 12:45 08/18/16 12:45 Saline 0.9% IV Not Given .Q24H [facility] Piperacillin/Tazobactam/ 50 mls @ 12.5 mls/hr 08/18/16 12:08 08/19/16 07:35 Dextrose 3.375 gm/ IV Solution IVPB 12.5 mls/hr Q8HR [facility] Administration Lactated Ringer's 1,000 mls @ 20 mls/hr 08/18/16 17:30 Lactated Ringers IV .Q24H [facility] Ketoconazole 1 applic 08/12/16 09:00 08/18/16 08:19 Nizoral TOPICAL 1 applic Q3D [facility] Administration Morphine Sulfate 4 mg 08/11/16 12:26 08/17/16 10:02 Morphine Sulfate (Inj) IV 4 mg Q4HR PRN Administration Chest Pain Multivitamins 1 each 08/12/16 12:00 08/19/16 11:28 Theragran PO Not Given DAILY@1200 [facility] Nitroglycerin 0.4 mg 08/11/16 12:21 Nitrostat SUBLINGUAL Q5M PRN Chest Pain Ondansetron HCl 4 mg 08/13/16 21:32 08/19/16 05:44 Zofran IVP 4 mg Q6HR PRN Administration Nausea And Vomiting Ondansetron HCl 4 mg 08/16/16 10:45 08/19/16 07:30 Zofran PO Not Given Q8HR [facility] Pantoprazole Sodium 40 mg 08/16/16 21:00 08/19/16 07:35 Protonix IVP 40 mg BID [facility] Administration Spironolactone 50 mg 08/12/16 09:00 08/19/16 07:30 Aldactone PO Not Given DAILY [facility] Objective - Vital Signs Vital signs: Vital Signs Temp 98.9 F 08/19/16 07:00 Pulse 76 08/19/16 11:16 Resp 22 08/19/16 07:00 BP 89/54 08/19/16 07:00 Pulse Ox 95 08/19/16 08:10 Intake & Output 08/18/16 08/19/16 08/19/16 18:59 06:59 18:59 Weight 83 kg 76.5 kg Other: Voiding Method Incontinent Incontinent Incontinent # Voids 3 2 - Exam PHYSICAL EXAM: VITAL SIGNS: As above GENERAL: [Sitting up in bed, no acute distress] HEENT: [Pupils equal conjunctiva normal.] NECK: [Supple, no JVD] RESPIRATORY EFFORT:[ Normal] LUNGS: [Bilateral bases diminished, scattered rhonchi throughout, no wheezing, occasional scattered fine crackles] CARDIOVASCULAR[ regular S1 and S2, no murmurs rubs or gallops, trace edema] GI: [Abdomen soft, obese, nontender, positive bowel sounds. No guarding, no rigidity] PSYCH/NEURO: [Alert and oriented -1-2, pleasantly confused. - Labs CBC & Chem 7: 08/15/16 11:08 08/16/16 09:19 Assessment and Plan Plan: 1. [ Large Left sided pleural effusion with bilateral consolidation, possibly gram-negative pneumonia,small Pericardial effusion similar to prior scan. 2. [ Acute hypoxic respiratory failure, present on admission, secondary to the above]. 3. [ Change in mental status with acute on chronic metabolic encephalopathy, multifactorial]. 4. [ Acute on chronic congestive heart failure exacerbation, diastolic dysfunction]. 5. [ Dysphagia, rule out esophageal stricture or peptic ulcer disease]. 6. [ Vomiting, rule out acute gastritis]. 7. [ Acute UTI]. 8. Status post left-sided thoracentesis, no cytologically malignant cells identified. 9. Sleep apnea on CPAP 10. Morbid obesity, BMI 39.6 11. Cerebral palsy 12. Quadriplegia, functional, bedridden 13. Fever possibly secondary to pneumonia, present on admission. 14. History of chronic lower extremity edema secondary to diastolic CHF 15. Medical debility 16. Anemia, normocytic of chronic disease with probably some acute component 17. Increased d-dimer without evidence of PE 18. Increased LFTs 19. Calcified gallstones per CT Plan: Continue on current medication regime , Zosyn, Lasix, monitoring and symptomatic treatment. Pleural cultures pending .Strict aspiration precautions. EGD pending. Prognosis guarded, given multiple complex medical issues. The impression and plan of care has been dictated as directed. : Meir performed a H&P examination of this patient and discussed the same with the dictator. I agree with the dictator's note. Any additional findings/opinions/ etc. will be noted.
[2016-08-19] MEDS: SODIUM CHLORIDE 0.9% 1,000 ML IV SCH (14:03)
[2016-08-19] MEDS ORDERED: IV FLUID CONTINUATION 1,000 ML IV ONE (14:03)
[2016-08-19] MEDS ORDERED: MIDAZOLAM 2 MG/2 ML VIAL ONE (14:12)
[2016-08-19] MEDS ORDERED: PROPOFOL 10 MG/ML 20 ML VIAL IV ONE (14:12)
[2016-08-19] MEDS ORDERED: LIDOCAINE 1% INJ 10MG/ML (20 ML MDV) ONE (14:12)
[2016-08-19] MEDS ORDERED: PHENYLEPHRINE-0.9% NACL SYG 1 MG/10 ML SYRINGE ONE (14:12)
--- NOTE | 2016-08-19 14:39 | P.PCN ---
Date of Procedure: 08/19/16 Preoperative Diagnosis: Postoperative Diagnosis: Procedure(s) Performed: Procedure: Esophagogastroduodenoscopy. Preoperative diagnosis: Nausea, vomiting, decreased appetite and difficulty swallowing. Postoperative diagnosis: 1. Small sliding hiatal hernia with no esophagitis or complicated reflux disease. 2. Normal stomach and duodenum. 3. No obvious abnormalities in the hypopharynx or cricopharyngeus area. Preparation and sedation: Was provided by anesthesia. Brief clinical history: The patient is a 61-year-old female with cerebral palsy and functional quadriplegia who was admitted to the hospital with pneumonia and is being treated with antibiotics. The patient has been having issues for the last 3 or 4 days with decreased appetite, nausea, vomiting and difficulties with swallowing. Because of her condition and inability to have a swallow evaluation, she was scheduled for this examination to rule out with confidence any pathology in the hypopharynx or upper GI tract. The details are summarized in the history and physical and dictated consultation and progress notes. Procedure: With the patient in the supine position and after informed consent and adequate sedation, I passed the Olympus-GIF 160 video upper endoscope through the cricopharyngeus down the esophagus. The hypopharynx and the area of the cricopharyngeus appeared healthy. GE junction was around 35 cm from the incisors and there was a small sliding hiatal hernia. The esophagus did not show any obvious abnormalities. The stomach was then insufflated with air and inspected in detail including the retroflex view in the cardia. There was no abnormalities noted in the stomach. Pyloric channel, duodenal bulb, post bulbar area and descending duodenum appeared within normal limits. The patient tolerated the procedure well. Plan: I discussed with the family the findings on this exam and the patient was reassured. Will allow a soft diet as tolerated. Further plans based on her course. Will continue to follow with interest. Implants: Indications for Procedure: Operative Findings: Description of Procedure:
[2016-08-19] MEDS: LEVOFLOXACIN 500MG-D5W PMX 500 MG in DEXTROSE/WATER 1 100ML.BAG IVPB SCH (15:06)
[2016-08-19] MEDS: LACTATED RINGERS 1,000 ML IV SCH ×2 (15:08→18:33)
[2016-08-19] MEDS ORDERED: diphenhydrAMINE 50 MG/ML 1 ML VIAL IVP PRN ×2 (19:10→19:15)
[2016-08-19] MEDS: HYDROCORTISONE 1% CREAM 30 GM TUBE TOPICAL SCH (21:02)
[2016-08-20] MEDS: ONDANSETRON 4 MG/2 ML VIAL IVP PRN
[2016-08-20] MEDS: ONDANSETRON 4 MG TAB PO SCH ×4 (01:52→23:11)
[2016-08-20] MEDS: IPRATROPIUM-ALBUTEROL 3 ML NEB INHALATION SCH ×4 (07:24→19:21)
[2016-08-20] MEDS: SPIRONOLACTONE 25 MG TAB PO SCH (08:24)
[2016-08-20] MEDS: FUROSEMIDE 10 MG/ML 4 ML VIAL IV SCH ×2 (08:25→20:45)
[2016-08-20] MEDS: CHOLESTYRAMINE (WITH SUGAR) 4 GM PACKET PO SCH ×2 (08:25→20:44)
[2016-08-20] MEDS: PIPERACILLIN-TAZOBACTAM 3.375 GM in DEXTROSE/WATER 1 50ML.BAG IVPB SCH ×3 (08:25→23:11)
[2016-08-20] MEDS: PANTOPRAZOLE 40 MG/10 ML VIAL IVP SCH ×2 (08:25→20:45)
[2016-08-20] MEDS: FLUTICASONE 50MCG/SPRAY NASAL 16GM EA NOSTRIL SCH (08:26)
[2016-08-20] MEDS: ARTIFICIAL TEARS-HYPROMELLOSE DROPS 15 ML BTL BOTH EYES SCH ×3 (08:26→20:46)
--- NOTE | 2016-08-20 08:33 | P.PN ---
Subjective Principal diagnosis: Nausea vomiting 61-year-old female status post EGD evaluation yesterday for evaluation of nausea been decreased appetite and difficulty swallowing. Findings of small sliding hiatal hernia with no evidence of complicated reflux disease. Normal- appearing stomach and duodenum. Mother at bedside this morning. Mother states she is now drinking and eating without emesis. Objective - Vital Signs Vital signs: Vital Signs Temp 96.8 F L 08/20/16 07:00 Pulse 80 08/20/16 07:40 Resp 18 08/20/16 07:00 BP 102/57 08/20/16 07:00 Pulse Ox 94 L 08/20/16 07:27 Intake & Output 08/19/16 08/20/16 08/20/16 18:59 06:59 18:59 Intake Total 100 Balance 100 Intake: IV 100 Other: Voiding Method Incontinent Incontinent # Voids 1 3 - Exam General appearance: The patient is alert, in no acute distress. Cerebral palsy. Nonverbal. HET: Head is normocephalic and atraumatic. Pupils are equal and reactive. Oropharynx is clear without lesions. Neck: Supple without lymphadenopathy. Trachea midline. Heart: S1 S2. Regular rate and rhythm. Lungs: No crackles or wheezes are heard. Abdomen: Soft, nontender, nondistended with bowel sounds. No peritoneal signs. No palpable organomegaly or masses. Extremities: Contractures. - Labs CBC & Chem 7: 08/15/16 11:08 08/16/16 09:19 Assessment and Plan Plan: Impression 1. Persistent nausea vomiting some dysphagia resolving status post EGD evaluation with no evidence of complicated reflux disease with normal-appearing stomach and duodenum now tolerating liquids and solid foods without nausea vomiting. 2. Cerebral palsy. Recommendations: 1. Continue GI prophylaxis. Small frequent meals. Aspiration precautions. No further workup at this time. We'll sign off. Assessment and plan a care discussed with Dr. Wray
[2016-08-20] MEDS ORDERED: ACETAMINOPHEN ORAL SUSP 160 MG/5 ML CUP PO PRN (11:21)
[2016-08-20 11:37] LABS: Anisocytosis Slight; Basophils # (A) 0.1 k/uL (0-0.2); Basophils % (A) 1 %; CH 31.3; CHCM 32.7; Eosinophils # (A) 0.4 k/uL (0-0.7); Eosinophils % (A) 5 %; HCT 27.2 % (34.0-46.0); HDW 4.09; HGB 8.5 gm/dL (11.4-16.0); Hypochromasia Moderate; Luc # (Auto) 0.32; Luc % (Auto) 4; Lymphocytes # (A) 0.7 k/uL (1.0-4.8); Lymphocytes % (A) 9 %; MCH 30.1 pg (25.0-35.0); MCHC 31.3 g/dL (31.0-37.0); MCV 96.2 fL (80.0-100.0); Macrocytosis Slight; Mean Platelet Volume 6.8; Monocytes # (A) 0.6 k/uL (0-1.0); Monocytes % (A) 7 %; Neutrophils % (A) 75 %; Poikilocytosis Moderate; RBC 2.82 m/uL (3.80-5.40); WBC (Perox) 8.24
[2016-08-20] MEDS: MULTIVITAMINS, THERA 1 EACH TAB PO SCH (12:05)
--- NOTE | 2016-08-20 12:07 | XR ---
EXAMINATION TYPE: XR chest 1V portable DATE OF EXAM: 08/20/2016 HISTORY: F/U. REFERENCE: Previous study dated 08/17/2016. FINDINGS: The head projects over the upper chest. The heart is enlarged. There is left basilar airspace disease. There is a small left effusion. The ov erall appearance has improved. IMPRESSION: IMPROVING CHANGES OF CONGESTIVE HEART FAILURE.
[2016-08-20] MEDS: SODIUM CHLORIDE 0.9% 1,000 ML IV SCH (13:52)
[2016-08-20] MEDS: LEVOFLOXACIN 500MG-D5W PMX 500 MG in DEXTROSE/WATER 1 100ML.BAG IVPB SCH (14:59)
--- NOTE | 2016-08-20 14:59 | P.PN ---
Subjective This is a very pleasant 61-year-old female patient who resides in adult foster care setting. She is followed by Dr. Sol a visiting physician. She has a history of cerebral palsy with quadriplegia, congestive heart failure, obstructive sleep apnea utilizing CPAP, cognitive impairment. She was brought in yesterday 08/11/2016 with complaints of chest discomfort and shortness of breath. Her chest x-ray revealed evidence of a left pleural effusion. CT angiogram revealed severe motion artifact but nondiagnostic for pulmonary embolism. There is a large left pleural effusion with bilateral areas of consolidation and ground glass changes consistent with either pneumonia versus congestive heart failure. The patient herself is a poor historian however the patient's mother is at the bedside. She feels so the patient does have more shallow respirations then usual. She is requiring 3 L/m per nasal cannula to maintain O2 saturations in the 90s. She's been afebrile. Hemodynamically stable. No leukocytosis. Her hemoglobin was 8.7. Troponins were negative 3. ProBNP 421. Patient is incontinent and no accurate output recorded. The patient is seen again today 08/15/2016 in follow-up on the regular medical floor. She remains awake and alert. She does have continued complaints of back pain. She denies any worsening shortness of breath at this time. She is status post thoracentesis. The fluid is exudative in nature with a protein of 4.2 and LDH greater than 200. Cultures thus far negative. Cytology is negative. She is maintaining good O2 saturations in the mid 90s on 3 L/m per nasal cannula. She remains afebrile. Currently on clindamycin and Levaquin. On 08/18/2016 the patient is being seen in follow-up. The patient is resting comfortably in bed. Note that the patient had a thoracentesis of the left lung and subsequent chest x-rays showed reaccumulation of some of the pleural effusion. This was seen on the CAT scan of the chest abdomen and pelvis that was performed and the CAT scan showed a moderate-sized right-sided pleural effusion, bilateral pulmonary infiltrates and the CAT scan of the abdomen and pelvis was essentially unremarkable. There is obvious kyphoscoliosis of the thoracolumbar spine with levoscoliosis. Note that the pleural effusion was a exudate and the cytology was negative for malignancy. The patient is having some difficulties with swallowing and she is going to have an EGD tomorrow done by Dr. Kelly. On 08/20/2016 the patient is being seen in follow-up. The patient is doing well. The patient has no specific complaints. The patient is able to sit up on a chair. The chest x-ray from today shows enlarged heart and left basilar airspace disease and small left-sided pleural effusion. Otherwise no oral chest x-ray pedis is improved considerably. The patient underwent EGD yesterday for symptoms of nausea and vomiting and decreased appetite and difficulty in swallowing. The patient was found to have a small sliding hernia with no evidence of esophagitis or complicated reflux disease. The stomach and the duodenum was within normal limits. For now she is gradually getting his diet and she is being closely monitored for any aspiration. She did have some diarrhea which seems to be subsiding and the patient remains on IV Zosyn. Stool for C. diff was negative. Objective - Vital Signs Vital signs: Vital Signs Temp 96.8 F L 08/20/16 07:00 Pulse 74 08/20/16 14:48 Resp 18 08/20/16 07:00 BP 102/57 08/20/16 07:00 Pulse Ox 94 L 08/20/16 07:27 Intake & Output 08/19/16 08/20/16 08/20/16 18:59 06:59 18:59 Intake Total 100 360 Balance 100 360 Intake: IV 100 360 Lactated Ringers 1,000 ml 160 @ 20 mls/hr IV .Q24H [facility] Rx#:[id number] Levofloxacin 500Mg-D5w 100 Pmx 500 mg In Dextrose/ Water 1 100ml.bag @ 100 mls/hr IVPB Q24H [facility] Rx#: [id number] Piperacillin-Tazobactam 3 100 .375 gm In Dextrose/Water 1 50ml.bag @ 12.5 mls/hr IVPB Q8HR [facility] Rx#: [id number] Other: Voiding Method Incontinent Incontinent # Voids 1 3 1 # Bowel Movements 1 - Exam No acute distress, no respiratory distress. HEENT examination is grossly unremarkable. Mucous membranes are moist. Nasal O2 in place. Neck supple. Full range of motion. No adenopathy or thyromegaly. Cardiovascular examination reveals regular rhythm rate. S1-S2 normal. No distinct murmur. Heart sounds are distant. Lungs reveal few scattered bibasilar crackles. Some dullness at the left base. No rhonchi. No wheezes. There is an obvious levoscoliosis of the thoracolumbar spine. Breath sounds are diminished in the left lung base. Abdomen soft bowel sounds are heard. Extremities are intact. Slight edema. No cyanosis or clubbing. Skin is without rash. Neurologic examination is not easy to perform. - Labs CBC & Chem 7: 08/20/16 11:07 08/16/16 09:19 Labs: Abnormal Lab Results - Last 24 Hours (Table) 08/20/16 Range/Units 11:07 RBC 2.82 L (3.80-5.40) m/uL Hgb 8.5 L (11.4-16.0) gm/dL Hct 27.2 L (34.0-46.0) % RDW 17.0 H (11.5-15.5) % Plt Count 569 H (150-450) k/uL Lymphocytes # 0.7 L (1.0-4.8) k/uL Assessment and Plan Plan: Impression: #1 Acute hypoxic respiratory failure, rule out secondary to recurrent aspiration. The EGD was completed and the patient had no evidence acute or any other significant abnormalities. The CAT scan of the abdomen and pelvis was also negative. The chest x-ray from today is showing improvement in CHF or volume status and a small left-sided pleural effusion which probably is a parapneumonic effusion. The patient is able to sit up on a chair. No signs of any significant respiratory distress at this point. No indication to repeat the thoracentesis on the left. #2 Obstructive sleep apnea, utilizing CPAP. #3 Morbid obesity. #4 Cerebral palsy. #5 Quadriplegia, bedridden. #6 Chronic lower extremity edema secondary to diastolic congestive heart failure. #7 thoracolumbar levoscoliosis #8 dysphagia, awaiting EGD #9 chronic anemia, normocytic PLAN Continue the Zosyn as a broad-spectrum antibiotic coverage in conjunction with Levaquin. Aspiration precaution. Continue diuresis. The volume status improved while the patient is on IV Lasix. The patient will continue the Zosyn and Levaquin. Chest x-ray from today shows improvement in CHF and a small left- sided pleural effusion. We'll continue to follow. No indication for repeating the thoracentesis on the left.
--- NOTE | 2016-08-20 15:40 | P.PN ---
Subjective Date of service 08/20/2016. Personal being dictated for Dr. Schreiber. Interval history: Is a 61-year-old female resident of [facility] with cerebral palsy, quadriplegia, functional-bedridden admitted with left-sided pleural effusion S/P thorancenteis,possibly bilateral aspiration pneumonia, acute hypoxic respiratory failure, dysphagia and multiple other medical issues. Maintained on Zosyn , Levaquin, nebulized bronchodilators, Lasix IV. Chest x- ray reporting improvement. Underwent EGD yesterday reporting small sliding hiatal hernia, no esophagitis or complicated reflux disease, normal stomach and duodenum; soft diet recommended. Consuming shakes with no nausea or vomiting. One loose stool, tested negative for C. difficile colitis. Denies chest pain, palpitations. Afebrile. Past medical history reviewed Review of systems Unable to obtain: Active Medications Acetaminophen (Tylenol Oral Susp) 650 mg PO Q4H PRN PRN Reason: Mild Pain Albuterol/Ipratropium (Duoneb 0.5 Mg-3 Mg/3 Ml Soln) 3 ml INHALATION RT-QID [facility] Last Admin: 08/20/16 14:48 Dose: 3 ml Artificial Tears (Artificial Tear Drops) 1 drops BOTH EYES TID [facility] Last Admin: 08/20/16 15:00 Dose: Not Given Cholestyramine Resin (Questran) 4 gm PO BID [facility] Last Admin: 08/20/16 08:25 Dose: 4 gm Diphenhydramine HCl (Benadryl) 25 mg PO Q6H PRN PRN Reason: Allergy Symptoms Diphenhydramine HCl (Benadryl) 25 mg IVP Q6HR PRN PRN Reason: Allergy Symptoms Last Admin: 08/19/16 22:05 Dose: 25 mg Fluticasone Propionate (Flonase Nasal [place]) 1 spray EA NOSTRIL DAILY [facility] Last Admin: 08/20/16 08:26 Dose: 1 spray Furosemide (Lasix) 40 mg IV Q12HR [facility] Last Admin: 08/20/16 08:25 Dose: 40 mg Hydrocortisone (Hydrocortisone 1% Cream) 1 applic TOPICAL HS [facility] Last Admin: 08/19/16 21:02 Dose: 1 applic Hydromorphone HCl (Dilaudid) 0.25 mg IVP Q6HR PRN PRN Reason: Pain Levofloxacin 500 mg/ IV (Solution) 100 mls @ 100 mls/hr IVPB Q24H [facility] Last Admin: 08/20/16 14:59 Dose: 100 mls/hr Piperacillin/Tazobactam/ (Dextrose 3.375 gm/ IV Solution) 50 mls @ 12.5 mls/hr IVPB Q8HR [facility] Last Admin: 08/20/16 08:25 Dose: 12.5 mls/hr Lactated Ringer's (Lactated Ringers) 1,000 mls @ 20 mls/hr IV .Q24H [facility] Last Admin: 08/19/16 18:33 Dose: Not Given Ketoconazole (Nizoral) 1 applic TOPICAL Q3D [facility] Last Admin: 08/18/16 08:19 Dose: 1 applic Morphine Sulfate (Morphine Sulfate (Inj)) 4 mg IV Q4HR PRN PRN Reason: Chest Pain Last Admin: 08/17/16 10:02 Dose: 4 mg Multivitamins (Theragran) 1 each PO DAILY@1200 [facility] Last Admin: 08/20/16 12:05 Dose: 1 each Nitroglycerin (Nitrostat) 0.4 mg SUBLINGUAL Q5M PRN PRN Reason: Chest Pain Ondansetron HCl (Zofran) 4 mg IVP Q6HR PRN PRN Reason: Nausea And Vomiting Last Admin: 08/20/16 00:00 Dose: 4 mg Ondansetron HCl (Zofran) 4 mg PO Q8HR [facility] Last Admin: 08/20/16 15:00 Dose: 4 mg Pantoprazole Sodium (Protonix) 40 mg IVP BID [facility] Last Admin: 08/20/16 08:25 Dose: 40 mg Spironolactone (Aldactone) 50 mg PO DAILY [facility] Last Admin: 08/20/16 08:24 Dose: 50 mg Objective - Vital Signs Vital signs: Vital Signs Temp 96.8 F L 08/20/16 07:00 Pulse 76 08/20/16 14:57 Resp 18 08/20/16 07:00 BP 102/57 08/20/16 07:00 Pulse Ox 94 L 08/20/16 07:27 Intake & Output 08/19/16 08/20/16 08/20/16 18:59 06:59 18:59 Intake Total 100 360 Balance 100 360 Intake: IV 100 360 Lactated Ringers 1,000 ml 160 @ 20 mls/hr IV .Q24H [facility] Rx#:[id number] Levofloxacin 500Mg-D5w 100 Pmx 500 mg In Dextrose/ Water 1 100ml.bag @ 100 mls/hr IVPB Q24H [facility] Rx#: [id number] Piperacillin-Tazobactam 3 100 .375 gm In Dextrose/Water 1 50ml.bag @ 12.5 mls/hr IVPB Q8HR [facility] Rx#: [id number] Other: Voiding Method Incontinent Incontinent # Voids 1 3 1 # Bowel Movements 1 - Exam PHYSICAL EXAM: VITAL SIGNS: As above GENERAL: [Sitting up in chair, no acute distress] HEENT: [Pupils equal conjunctiva normal. Oral Mucous membranes moist] NECK: [Supple, no JVD] RESPIRATORY EFFORT:[ Normal] LUNGS: [Diminished, Fine Bibasilar crackles, no rhonchi, no wheezing. CARDIOVASCULAR[ regular S1 and S2, no murmurs rubs or gallops, trace edema] GI: [Abdomen soft, obese, nontender, positive bowel sounds. No guarding, no rigidity] PSYCH/NEURO: [Alert and oriented -1-2, pleasantly confused. - Labs CBC & Chem 7: 08/20/16 11:07 08/16/16 09:19 Labs: Abnormal Lab Results - Last 24 Hours (Table) 08/20/16 Range/Units 11:07 RBC 2.82 L (3.80-5.40) m/uL Hgb 8.5 L (11.4-16.0) gm/dL Hct 27.2 L (34.0-46.0) % RDW 17.0 H (11.5-15.5) % Plt Count 569 H (150-450) k/uL Lymphocytes # 0.7 L (1.0-4.8) k/uL Assessment and Plan Plan: 1. [ Large Left sided pleural effusion with bilateral consolidation, possibly gram-negative pneumonia,small Pericardial effusion similar to prior scan, suspect recurrent aspiration. 2. [ Acute hypoxic respiratory failure, present on admission, secondary to the above]. 3. [ Change in mental status with acute on chronic metabolic encephalopathy, multifactorial]. 4. [ Acute on chronic congestive heart failure exacerbation, diastolic dysfunction, improving]. 5. [ Dysphagia, status post EGD reporting no evidence of complicated reflux disease, normal-appearing stomach and duodenum,sliding hiatal hernia. 6. [ Vomiting, rule out acute gastritis]. 7. [ Acute UTI]. 8. Status post left-sided thoracentesis, no cytologically malignant cells identified. 9. Sleep apnea on CPAP 10. Morbid obesity, BMI 39.6 11. Cerebral palsy 12. Quadriplegia, functional, bedridden 13. Fever possibly secondary to pneumonia, present on admission. 14. History of chronic lower extremity edema secondary to diastolic CHF 15. Medical debility 16. Anemia, normocytic of chronic disease with probably some acute component 17. Increased d-dimer without evidence of PE 18. Increased LFTs 19. Calcified gallstones per CT Plan: Continue on current medication regime , Zosyn, Levaquin, Lasix, monitoring and symptomatic treatment. Maintain Strict aspiration precautions.chest x-ray improving, continue on dual IV antibiotic therapy. No repeat thoracentesis recommended at this time per pulmonary. Prognosis guarded, given multiple complex medical issues. Maintain supportive care. The impression and plan of care has been dictated as directed. : I performed a H&P examination of this patient and discussed the same with the dictator. I agree with the dictator's note. Any additional findings/opinions/ etc. will be noted.
[2016-08-20] MEDS: LACTATED RINGERS 1,000 ML IV SCH (16:30)
[2016-08-20] MEDS: HYDROCORTISONE 1% CREAM 30 GM TUBE TOPICAL SCH (20:45)
[2016-08-21] MEDS: IPRATROPIUM-ALBUTEROL 3 ML NEB INHALATION SCH ×4 (08:13→19:25)
[2016-08-21] MEDS: ONDANSETRON 4 MG TAB PO SCH ×2 (08:44→17:13)
[2016-08-21] MEDS: PIPERACILLIN-TAZOBACTAM 3.375 GM in DEXTROSE/WATER 1 50ML.BAG IVPB SCH ×2 (08:44→17:11)
[2016-08-21] MEDS: FUROSEMIDE 10 MG/ML 4 ML VIAL IV SCH ×2 (08:45→20:51)
[2016-08-21] MEDS: FLUTICASONE 50MCG/SPRAY NASAL 16GM EA NOSTRIL SCH (08:45)
[2016-08-21] MEDS: ARTIFICIAL TEARS-HYPROMELLOSE DROPS 15 ML BTL BOTH EYES SCH ×3 (08:45→20:51)
[2016-08-21] MEDS: CHOLESTYRAMINE (WITH SUGAR) 4 GM PACKET PO SCH ×2 (08:45→20:52)
[2016-08-21] MEDS: KETOCONAZOLE 2% SHAMPOO 1 APPLIC/ML TOPICAL SCH (08:46)
[2016-08-21] MEDS: PANTOPRAZOLE 40 MG/10 ML VIAL IVP SCH ×2 (08:46→20:51)
[2016-08-21] MEDS: SPIRONOLACTONE 25 MG TAB PO SCH (08:46)
--- NOTE | 2016-08-21 09:34 | PN ---
DATE OF SERVICE: 08/19/2016 This 61-year-old woman admitted with multiple complex medical issues with left- sided pleural effusion and recurrent aspiration has EGD by Dr. Carey and EGD showed small sliding hiatal hernia with no esophagitis, normal stomach and ( ), no obvious abnormality. Seen and evaluated the patient along with the nurse practitioner. The patient also had a CAT scan of the abdomen and pelvis, which showed a left pleural effusion. Prognosis guarded. Discussed with family. Patient currently NO CODE. Further recommendations to follow. MTDD
[2016-08-21] MEDS: MULTIVITAMINS, THERA 1 EACH TAB PO SCH (14:35)
[2016-08-21 14:37] VITALS: BMI 34.8
[2016-08-21] MEDS: LEVOFLOXACIN 500MG-D5W PMX 500 MG in DEXTROSE/WATER 1 100ML.BAG IVPB SCH (15:56)
--- NOTE | 2016-08-21 16:07 | P.PN ---
Subjective This is a very pleasant 61-year-old female patient who resides in adult foster care setting. She is followed by Dr. Sol a visiting physician. She has a history of cerebral palsy with quadriplegia, congestive heart failure, obstructive sleep apnea utilizing CPAP, cognitive impairment. She was brought in yesterday 08/11/2016 with complaints of chest discomfort and shortness of breath. Her chest x-ray revealed evidence of a left pleural effusion. CT angiogram revealed severe motion artifact but nondiagnostic for pulmonary embolism. There is a large left pleural effusion with bilateral areas of consolidation and ground glass changes consistent with either pneumonia versus congestive heart failure. The patient herself is a poor historian however the patient's mother is at the bedside. She feels so the patient does have more shallow respirations then usual. She is requiring 3 L/m per nasal cannula to maintain O2 saturations in the 90s. She's been afebrile. Hemodynamically stable. No leukocytosis. Her hemoglobin was 8.7. Troponins were negative 3. ProBNP 421. Patient is incontinent and no accurate output recorded. The patient is seen again today 08/15/2016 in follow-up on the regular medical floor. She remains awake and alert. She does have continued complaints of back pain. She denies any worsening shortness of breath at this time. She is status post thoracentesis. The fluid is exudative in nature with a protein of 4.2 and LDH greater than 200. Cultures thus far negative. Cytology is negative. She is maintaining good O2 saturations in the mid 90s on 3 L/m per nasal cannula. She remains afebrile. Currently on clindamycin and Levaquin. On 08/18/2016 the patient is being seen in follow-up. The patient is resting comfortably in bed. Note that the patient had a thoracentesis of the left lung and subsequent chest x-rays showed reaccumulation of some of the pleural effusion. This was seen on the CAT scan of the chest abdomen and pelvis that was performed and the CAT scan showed a moderate-sized right-sided pleural effusion, bilateral pulmonary infiltrates and the CAT scan of the abdomen and pelvis was essentially unremarkable. There is obvious kyphoscoliosis of the thoracolumbar spine with levoscoliosis. Note that the pleural effusion was a exudate and the cytology was negative for malignancy. The patient is having some difficulties with swallowing and she is going to have an EGD tomorrow done by Dr. Kelly. On 08/20/2016 the patient is being seen in follow-up. The patient is doing well. The patient has no specific complaints. The patient is able to sit up on a chair. The chest x-ray from today shows enlarged heart and left basilar airspace disease and small left-sided pleural effusion. Otherwise no oral chest x-ray pedis is improved considerably. The patient underwent EGD yesterday for symptoms of nausea and vomiting and decreased appetite and difficulty in swallowing. The patient was found to have a small sliding hernia with no evidence of esophagitis or complicated reflux disease. The stomach and the duodenum was within normal limits. For now she is gradually getting his diet and she is being closely monitored for any aspiration. She did have some diarrhea which seems to be subsiding and the patient remains on IV Zosyn. Stool for C. diff was negative. On 08/21/2016 the patient is resting comfortably in bed. Her appetite is weak and she is not eating a whole lot. The mother was at the bedside says that she was able to take some shakes and applesauce today. The patient is not aspirating. She is resting comfortably in bed. Her cough is dry. She is still on IV Zosyn. No significant leukocytosis. No fever. As mentioned earlier, the pleural effusion itself is been smaller. EGD was completed. The white cell count is not elevated. She is using her CPAP overnight. Objective - Vital Signs Vital signs: Vital Signs Temp 97.0 F L 08/21/16 15:00 Pulse 80 08/21/16 15:45 Resp 16 08/21/16 15:00 BP 91/53 08/21/16 15:00 Pulse Ox 96 08/21/16 15:00 Intake & Output 08/20/16 08/21/16 08/21/16 18:59 06:59 18:59 Intake Total 360 250 Balance 360 250 Weight 73 kg Intake: IV 360 Lactated Ringers 1,000 ml 160 @ 20 mls/hr IV .Q24H [facility] Rx#:[id number] Levofloxacin 500Mg-D5w 100 Pmx 500 mg In Dextrose/ Water 1 100ml.bag @ 100 mls/hr IVPB Q24H [facility] Rx#: [id number] Piperacillin-Tazobactam 3 100 .375 gm In Dextrose/Water 1 50ml.bag @ 12.5 mls/hr IVPB Q8HR [facility] Rx#: [id number] Oral 250 Other: Voiding Method Incontinent Incontinent # Voids 1 2 3 # Bowel Movements 1 2 3 - Exam No acute distress, no respiratory distress. HEENT examination is grossly unremarkable. Mucous membranes are moist. Nasal O2 in place. Neck supple. Full range of motion. No adenopathy or thyromegaly. Cardiovascular examination reveals regular rhythm rate. S1-S2 normal. No distinct murmur. Heart sounds are distant. Lungs reveal few scattered bibasilar crackles. Some dullness at the left base. No rhonchi. No wheezes. There is an obvious levoscoliosis of the thoracolumbar spine. Breath sounds are diminished in the left lung base. Abdomen soft bowel sounds are heard. Extremities are intact. Slight edema. No cyanosis or clubbing. Skin is without rash. Neurologic examination is not easy to perform. - Labs CBC & Chem 7: 08/20/16 11:07 08/16/16 09:19 Assessment and Plan Plan: Impression: #1 Acute hypoxic respiratory failure, rule out secondary to recurrent aspiration. The EGD was completed and the patient had no evidence acute or any other significant abnormalities. The CAT scan of the abdomen and pelvis was also negative. The chest x-ray from today is showing improvement in CHF or volume status and a small left-sided pleural effusion which probably is a parapneumonic effusion. The patient is able to sit up on a chair. No signs of any significant respiratory distress at this point. No indication to repeat the thoracentesis on the left. #2 Obstructive sleep apnea, utilizing CPAP. #3 Morbid obesity. #4 Cerebral palsy. #5 Quadriplegia, bedridden. #6 Chronic lower extremity edema secondary to diastolic congestive heart failure. #7 thoracolumbar levoscoliosis #8 dysphagia, awaiting EGD #9 chronic anemia, normocytic PLAN Continue the Zosyn as a broad-spectrum antibiotic coverage in conjunction with Levaquin. Aspiration precaution. Continue diuresis. The volume status improved while the patient is on IV Lasix. The patient will continue the Zosyn and Levaquin. Continue CPAP therapy overnight. Encourage gradually increasing the oral intake as tolerated. Discharge planning as per medicine. Her condition is stable for now. As mentioned earlier there is no indication for repeating a thoracentesis on this patient for now.
[2016-08-21] MEDS: HYDROCORTISONE 1% CREAM 30 GM TUBE TOPICAL SCH (20:52)
[2016-08-22] MEDS: LACTATED RINGERS 1,000 ML IV SCH (01:37)
[2016-08-22] MEDS: PIPERACILLIN-TAZOBACTAM 3.375 GM in DEXTROSE/WATER 1 50ML.BAG IVPB SCH ×2 (01:37→08:42)
[2016-08-22] MEDS: ONDANSETRON 4 MG TAB PO SCH ×2 (01:37→08:44)
[2016-08-22 07:37] VITALS: BP 90/51; TEMP 97.3
[2016-08-22] MEDS: IPRATROPIUM-ALBUTEROL 3 ML NEB INHALATION SCH ×2 (08:27→12:25)
[2016-08-22] MEDS: MULTIVITAMINS, THERA 1 EACH TAB PO SCH (08:43)
[2016-08-22] MEDS: FLUTICASONE 50MCG/SPRAY NASAL 16GM EA NOSTRIL SCH (08:43)
[2016-08-22] MEDS: FUROSEMIDE 10 MG/ML 4 ML VIAL IV SCH (08:43)
[2016-08-22] MEDS: ARTIFICIAL TEARS-HYPROMELLOSE DROPS 15 ML BTL BOTH EYES SCH (08:43)
[2016-08-22] MEDS: CHOLESTYRAMINE (WITH SUGAR) 4 GM PACKET PO SCH (08:43)
[2016-08-22 08:44] VITALS: RESP 14
[2016-08-22] MEDS: SPIRONOLACTONE 25 MG TAB PO SCH (08:44)
[2016-08-22] MEDS ORDERED: PANTOPRAZOLE 40 MG TABLET PO SCH (09:00)
--- NOTE | 2016-08-22 09:32 | P.PN ---
Subjective Date of service 08/21/2016. Personal being dictated for Dr. Schreiber. Interval history: Is a 61-year-old female resident of [facility] with cerebral palsy, quadriplegia, functional-bedridden admitted with left-sided pleural effusion S/P thorancenteis,possibly bilateral aspiration pneumonia, acute hypoxic respiratory failure, dysphagia and multiple other medical issues. Significant clinical improvement on Zosyn , Levaquin, nebulized bronchodilators, Lasix IV. Afebrile, WBC normal. Diet intake slowly improving, consuming shakes and some soft foods. Nonproductive cough with no nausea or vomiting. Denies chest pain, palpitations. Past medical history reviewed Review of systems Unable to obtain: Active Medications Acetaminophen (Tylenol Oral Susp) 650 mg PO Q4H PRN PRN Reason: Mild Pain Albuterol/Ipratropium (Duoneb 0.5 Mg-3 Mg/3 Ml Soln) 3 ml INHALATION RT-QID [facility] Last Admin: 08/20/16 14:48 Dose: 3 ml Artificial Tears (Artificial Tear Drops) 1 drops BOTH EYES TID [facility] Last Admin: 08/20/16 15:00 Dose: Not Given Cholestyramine Resin (Questran) 4 gm PO BID [facility] Last Admin: 08/20/16 08:25 Dose: 4 gm Diphenhydramine HCl (Benadryl) 25 mg PO Q6H PRN PRN Reason: Allergy Symptoms Diphenhydramine HCl (Benadryl) 25 mg IVP Q6HR PRN PRN Reason: Allergy Symptoms Last Admin: 08/19/16 22:05 Dose: 25 mg Fluticasone Propionate (Flonase Nasal [place]) 1 spray EA NOSTRIL DAILY [facility] Last Admin: 08/20/16 08:26 Dose: 1 spray Furosemide (Lasix) 40 mg IV Q12HR [facility] Last Admin: 08/20/16 08:25 Dose: 40 mg Hydrocortisone (Hydrocortisone 1% Cream) 1 applic TOPICAL HS [facility] Last Admin: 08/19/16 21:02 Dose: 1 applic Hydromorphone HCl (Dilaudid) 0.25 mg IVP Q6HR PRN PRN Reason: Pain Levofloxacin 500 mg/ IV (Solution) 100 mls @ 100 mls/hr IVPB Q24H [facility] Last Admin: 08/20/16 14:59 Dose: 100 mls/hr Piperacillin/Tazobactam/ (Dextrose 3.375 gm/ IV Solution) 50 mls @ 12.5 mls/hr IVPB Q8HR [facility] Last Admin: 08/20/16 08:25 Dose: 12.5 mls/hr Lactated Ringer's (Lactated Ringers) 1,000 mls @ 20 mls/hr IV .Q24H [facility] Last Admin: 08/19/16 18:33 Dose: Not Given Ketoconazole (Nizoral) 1 applic TOPICAL Q3D [facility] Last Admin: 08/18/16 08:19 Dose: 1 applic Morphine Sulfate (Morphine Sulfate (Inj)) 4 mg IV Q4HR PRN PRN Reason: Chest Pain Last Admin: 08/17/16 10:02 Dose: 4 mg Multivitamins (Theragran) 1 each PO DAILY@1200 [facility] Last Admin: 08/20/16 12:05 Dose: 1 each Nitroglycerin (Nitrostat) 0.4 mg SUBLINGUAL Q5M PRN PRN Reason: Chest Pain Ondansetron HCl (Zofran) 4 mg IVP Q6HR PRN PRN Reason: Nausea And Vomiting Last Admin: 08/20/16 00:00 Dose: 4 mg Ondansetron HCl (Zofran) 4 mg PO Q8HR [facility] Last Admin: 08/20/16 15:00 Dose: 4 mg Pantoprazole Sodium (Protonix) 40 mg IVP BID [facility] Last Admin: 08/20/16 08:25 Dose: 40 mg Spironolactone (Aldactone) 50 mg PO DAILY [facility] Last Admin: 08/20/16 08:24 Dose: 50 mg Objective - Vital Signs Vital signs: Vital Signs Temp 97.0 F L 08/21/16 15:00 Pulse 73 08/21/16 16:00 Resp 16 08/21/16 16:00 BP 91/53 08/21/16 15:00 Pulse Ox 96 08/21/16 15:00 Intake & Output 08/20/16 08/21/16 08/21/16 18:59 06:59 18:59 Intake Total 360 250 Balance 360 250 Weight 73 kg Intake: IV 360 Lactated Ringers 1,000 ml 160 @ 20 mls/hr IV .Q24H [facility] Rx#:[id number] Levofloxacin 500Mg-D5w 100 Pmx 500 mg In Dextrose/ Water 1 100ml.bag @ 100 mls/hr IVPB Q24H [facility] Rx#: [id number] Piperacillin-Tazobactam 3 100 .375 gm In Dextrose/Water 1 50ml.bag @ 12.5 mls/hr IVPB Q8HR [facility] Rx#: [id number] Oral 250 Other: Voiding Method Incontinent Incontinent # Voids 1 2 3 # Bowel Movements 1 2 3 - Exam PHYSICAL EXAM: VITAL SIGNS: As above GENERAL: [Sitting up in bed, no acute distress] HEENT: [Pupils equal conjunctiva normal. Oral Mucous membranes moist] NECK: [Supple, no JVD] RESPIRATORY EFFORT:[ Normal] LUNGS: [Diminished, Fine scattered Bibasilar crackles, no rhonchi, no wheezing. CARDIOVASCULAR[ regular S1 and S2, no murmurs rubs or gallops, trace edema] GI: [Abdomen soft, obese, nontender, positive bowel sounds. No guarding, no rigidity] PSYCH/NEURO: [Alert and oriented -2, pleasantly confused, cooperative. - Labs CBC & Chem 7: 08/20/16 11:07 08/16/16 09:19 Assessment and Plan Plan: 1. [ Large Left sided pleural effusion with bilateral consolidation, possibly gram-negative pneumonia,small Pericardial effusion similar to prior scan, suspect recurrent aspiration. 2. [ Acute hypoxic respiratory failure, present on admission, secondary to the above]. 3. [ Change in mental status with acute on chronic metabolic encephalopathy, multifactorial]. 4. [ Acute on chronic congestive heart failure exacerbation, diastolic dysfunction, improving]. 5. [ Dysphagia, status post EGD reporting no evidence of complicated reflux disease, normal-appearing stomach and duodenum,sliding hiatal hernia. 6. [ Vomiting, rule out acute gastritis]. 7. [ Acute UTI]. 8. Status post left-sided thoracentesis, no cytologically malignant cells identified. 9. Sleep apnea on CPAP 10. Morbid obesity, BMI 39.6 11. Cerebral palsy 12. Quadriplegia, functional, bedridden 13. Fever possibly secondary to pneumonia, present on admission. 14. History of chronic lower extremity edema secondary to diastolic CHF 15. Medical debility 16. Anemia, normocytic of chronic disease with probably some acute component 17. Increased d-dimer without evidence of PE 18. Increased LFTs 19. Calcified gallstones per CT Plan: Continue on current medication regime , Zosyn, Levaquin, Lasix, monitoring and symptomatic treatment. Encourage oral intake. Maintain Strict aspiration precautions. Maintain dual IV antibiotic therapy. Discharge planning in progress for tomorrow. The impression and plan of care has been dictated as directed. : I performed a H&P examination of this patient and discussed the same with the dictator. I agree with the dictator's note. Any additional findings/opinions/ etc. will be noted.
[2016-08-22 10:09] LABS: Anisocytosis Slight; Basophils # (A) 0.1 k/uL (0-0.2); Basophils % (A) 1 %; CH 31.2; CHCM 33.2; Eosinophils # (A) 0.3 k/uL (0-0.7); Eosinophils % (A) 5 %; HCT 27.4 % (34.0-46.0); HGB 8.9 gm/dL (11.4-16.0); Hypochromasia Slight; Luc # (Auto) 0.16; Luc % (Auto) 3; Lymphocytes # (A) 0.8 k/uL (1.0-4.8); Lymphocytes % (A) 14 %; MCH 30.5 pg (25.0-35.0); MCHC 32.4 g/dL (31.0-37.0); MCV 94.3 fL (80.0-100.0); Monocytes # (A) 0.5 k/uL (0-1.0); Monocytes % (A) 7 %; Neutrophils # (A) 4.3 k/uL (1.3-7.7); Neutrophils % (A) 71 %; Poikilocytosis Moderate; RBC 2.91 m/uL (3.80-5.40); RDW 16.6 % (11.5-15.5); WBC (Perox) 6.23
[2016-08-22 10:25] LABS: Anion Gap 11 mmol/L; Blood Urea Nitrogen 26 mg/dL (7-17); Carbon Dioxide 37 mmol/L (22-30); Chloride 87 mmol/L (98-107); Glucose 139 mg/dL (74-99); Non-African American GFR(MDRD) 56 (>60 ml/min/1.73 sqM); Sodium 135 mmol/L (137-145)
[2016-08-22 11:18] VITALS: PULSE 79
[2016-08-22] MEDS ORDERED: POTASSIUM CHLORIDE ORAL LIQUID 40 MEQ/30 ML CUP PO SCH (12:00)
[2016-08-22] MEDS ORDERED: LEVOFLOXACIN 500 MG TAB PO SCH (16:00)
--- NOTE | 2016-08-23 09:52 | PN ---
DATE OF SERVICE: 08/20/16 This 61 year old woman was admitted with pleural effusion, possible pneumonia, is being closely monitored. Seen and evaluated the patient with the nurse practitioner. Please refer to the nurse practitioner notes and impression documented as a scribe. GI evaluation noted. Otherwise, the prognosis guarded because of multiple complex medical issues. Discussed with the family at length. The patient is currently NO CODE. Further recommendations to follow. MTDD
--- NOTE | 2016-08-23 17:48 | PN ---
DATE OF SERVICE: 08/21/2016 This 61-year-old woman who was admitted with a large left-sided pleural effusion also had significant shortness of breath. The patient's p.o. intake appears to be poor. I saw and evaluated the patient along with the nurse practitioner; please see the nurse practitioner's notes and impressions documented as a scribe for further information. The patient also had acute respiratory failure and recurrent aspiration also suspected. Overall prognosis guarded. Discussed with the family at length. Further recommendations to follow. MTDD
--- NOTE | 2016-08-30 08:50 | DS ---
FINAL DIAGNOSES: 1. Large left sided pleural effusion with bilateral consolidation, possibly gram negative pneumonia. 2. Small pericardial effusion, similar to prior scan, suspect recurrent aspiration. 3. Acute hypoxic respiratory failure, present on admission, secondary to the above. 4. Change in mental status, acute on chronic metabolic encephalopathy, multifactorial. 5. Acute on chronic congestive heart failure acute exacerbation acute diastolic dysfunction. 6. Dysphagia, status post EGD. Reporting no evidence of complicated reflux disease. 7. Vomiting possibly acute gastritis. 8. Acute urinary tract infection, present on admission. 9. Status post left sided thoracocentesis. No evidence of malignancy. 10. Morbid obesity. 11. Multiple medical issues. DISCHARGE DISPOSITION: The patient will be discharged in stable condition with guarded prognosis. Discharge total time 35 minutes. HISTORY OF PRESENT ILLNESS: This 61-year-old woman with a past medical history of multiple medical problems who was a resident of [facility] home was admitted with features of pleural effusion and as well as pneumonia. Patient was treated symptomatically, improved significantly, otherwise. On exam, the patient remains oriented x2. The p.o. intake is satisfactory. CARDIOVASCULAR: S1, S2 muffled. RESPIRATORY: Breath sounds are diminished at the bases. A few rhonchi. The patient was seen by multiple consultants including Dr. Wray and as well as Dr. Hearn. The care was also discussed. DISCHARGE ADVICE: 1. Diet is cardiac. 2. Activity limited until followup. 3. Follow up with Dr. Sol as advised and Dr. Matthews. 4. Home care is being arranged. Medications are as follows: 1. Augmentin 850 mg p.o. b.i.d. 2. Ecotrin 81 mg p.o. daily. 3. Cholestyramine 4 grams p.o. b.i.d. 4. Benadryl 25 mg q.h.s. p.r.n. 5. Pepcid 20 mg p.o. daily. 6. Fluocinolone 5 drops left ear. 7. Fluticasone spray. 8. Albuterol Atrovent updrafts q.i.d. and p.r.n. 9. Nizoral 1 application topical . 10. Multivitamins 1 p.o. daily. 11. Propylene glycol as before. 12. Aldactone 50 mg p.o. daily. Once again, the patient will be discharged in stable condition with guarded prognosis. Total time 35 minutes. MTDD
== END 2016-08-22 14:30 | disposition home health service (06) | DRG 177 ==
LOC: EC 09:45 → 3OBS 12:21 → UNDOADMOB 12:21 → 3OBS 15:35 → OBSVTOIN 08-12 01:00 → INTOOBSV 08-12 01:00 → EEVIPCON 08-12 01:00 → OBSVTOIN 08-14 08:45 → 3OBS 08-14 08:45 → 4MS4W 08-14 10:12 → 3OBS 08-14 10:12 → UNDODISIN 08-22 14:30
PROVIDERS: ADMIT Hospitalist; ATTEND Hospitalist
PROC: 0W9B3ZX Drainage of Left Pleural Cavity, Percutaneous Approach, Diagnostic (ICD-10-PCS; principal; 2016-08-13)
PROC: 0DJ08ZZ Inspection of Upper Intestinal Tract, Via Natural or Artificial Opening Endoscopic (ICD-10-PCS; 2016-08-19)
DX: J15.6 Pneumonia due to other Gram-negative bacteria (principal); I50.33 Acute on chronic diastolic (congestive) heart failure; J96.01 Acute respiratory failure with hypoxia; G93.41 Metabolic encephalopathy; R53.2 Functional quadriplegia; R13.10 Dysphagia, unspecified; G80.9 Cerebral palsy, unspecified; N39.0 Urinary tract infection, site not specified; I31.3 Pericardial effusion (noninflammatory); E66.01 Morbid (severe) obesity due to excess calories; I07.1 Rheumatic tricuspid insufficiency; M41.9 Scoliosis, unspecified; K29.00 Acute gastritis without bleeding; G47.33 Obstructive sleep apnea (adult) (pediatric); Z68.38 Body mass index [BMI] 38.0-38.9, adult; D63.8 Anemia in other chronic diseases classified elsewhere; F32.9 Major depressive disorder, single episode, unspecified; G89.29 Other chronic pain; K21.9 Gastro-esophageal reflux disease without esophagitis; K44.9 Diaphragmatic hernia without obstruction or gangrene; K80.80 Other cholelithiasis without obstruction; Z74.01 Bed confinement status; Z99.3 Dependence on wheelchair; Z79.82 Long term (current) use of aspirin; Z79.899 Other long term (current) drug therapy; Z88.8 Allergy status to other drugs, medicaments and biological substances; Z91.018 Allergy to other foods; Z88.2 Allergy status to sulfonamides
CPT/HCPCS: 36415; 43235; 71010; 71250; 71275; 74176; 76604; 80048; 80053; 80061; 81001; 82550; 82553; 82945; 83615; 83690; 83735; 83880; 84155; 84157; 84484; 85025; 85379; 85610; 85730; 87070; 87102; 87116; 87205; 87206; 87252; 87324; 87496; 87498; 87502; 87529; 87798; 88108; 88305; 89050; 93005; 94640; 94660; 94760; 96361; 96374; 96375; 99285

== ENCOUNTER → 2016-09-15 | Day surgery (SDC) | payer MEDICARE, OTHER ==
[2016-09-15 10:34] LABS: Mean Platelet Volume 8.1
[2016-09-15 11:11] VITALS: RESP 14; TEMP 97.5
[2016-09-15 11:45] VITALS: BP 127/83; PULSE 84
--- NOTE | 2016-09-15 12:06 | XR ---
EXAMINATION TYPE: XR chest 1V DATE OF EXAM: 09/15/2016 HISTORY: left pleural effusion s/p thoracentesis. REFERENCE: Previous study dated 08/20/2016. FINDINGS: The heart is enlarged. There is vascular congestion. There is a decrease in the amount of i nterstitial change. I could not exclude a small left effusion. IMPRESSION: IMPROVING CHANGES OF PULMONARY EDEMA.
[2016-09-15 15:11] LABS: RBC, Body Fluid 9500 /uL
[2016-09-15 15:16] LABS: Body Fluid Comment Few Mesothelial
--- NOTE | 2016-09-15 15:36 | US ---
EXAMINATION TYPE: US thoracentesis DATE OF EXAM: 09/15/2016 COMPARISON: Chest x-ray 08/20/2016, prior ultrasound chest 08/12/2016 HISTORY: Pleural effusion. FINDINGS: Maximal barrier technique was utilized. The skin overlying a suitable pocket of fluid was localized and the overlying skin prepped and draped. Lidocaine was used for local anesthesia. Ultras ound was used with sterile technique. A 5 [place] catheter over guide needle was advanced into the pl eural fluid collection using ultrasound guidance and the catheter advanced, needle removed. Approxim ately 0.36 liter(s) of serous fluid was removed. Catheter was withdrawn and hemostasis achieved. Th ere is no immediate complication. The patient discharged in stable condition without complication. IMPRESSION: STATUS POST ULTRASOUND GUIDED THORACENTESIS, POST PROCEDURE CHEST X-RAY PENDING. THIS NM OCEDURE WAS PERFORMED BY THE UNDERSIGNED. Specimen sent for laboratory analysis.
[2016-09-15 18:45] LABS: Cholesterol,BF Source Pleural Fluid; Glucose, BF Source Pleural Fluid; LDH, Body Fluid Source Pleural Fluid; T. Protein, Body Fluid Source Pleural Fluid; Total Protein, Body Fluid 5600 mg/dL
== END ==
LOC: RADPROMAIN 09:43
PROVIDERS: ATTEND Family Medicine
DX: J90 Pleural effusion, not elsewhere classified (principal)
CPT/HCPCS: 32555; 71010; 82465; 82945; 83615; 84157; 85049; 85610; 87070; 87075; 87205; 89050

== ENCOUNTER 2019-04-28 20:14 | Emergency (ER) | payer MEDICARE, OTHER ==
[2019-04-28 20:22] VITALS: BP 112/63; PULSE 80; RESP 18; TEMP 97.7
[2019-04-28] MEDS ORDERED: LIDOCAINE 1% INJ 10MG/ML (20 ML MDV) SQ ONE (20:29)
[2019-04-28] MEDS ORDERED: AMOXIC-POT CLAV 875MG STARTER PACK 2 TAB BTL PO STA (20:29)
[2019-04-28] MEDS ORDERED: DIPH,PERTUS(ACELL)TETVAC-LF 0.5 ML VIAL IM ONE (20:34)
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
== END 2019-04-28 21:59 | disposition home or self-care (01) ==
LOC: EC 20:14
DX: S62.600B Fracture of unspecified phalanx of right index finger, initial encounter for open fracture (principal); G80.9 Cerebral palsy, unspecified; G47.33 Obstructive sleep apnea (adult) (pediatric); I50.9 Heart failure, unspecified; F32.9 Major depressive disorder, single episode, unspecified; Z23 Encounter for immunization; Z79.899 Other long term (current) drug therapy; Z79.51 Long term (current) use of inhaled steroids; Z88.2 Allergy status to sulfonamides; Z91.018 Allergy to other foods; Z91.048 Other nonmedicinal substance allergy status; Y04.1XXA Assault by human bite, initial encounter; Z99.89 Dependence on other enabling machines and devices
CPT/HCPCS: 73140; 90715; 99283; 12001; 90471; J2001

== ENCOUNTER 2022-06-03 19:40 | Emergency (ER) | payer MEDICARE, OTHER ==
[2022-06-03 20:03] VITALS: BP 126/74; PULSE 82; TEMP 97.9
[2022-06-03] MEDS ORDERED: DIPH,PERTUS(ACELL)TETVAC-LF 0.5 ML VIAL IM ONE (20:22)
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
--- NOTE | 2022-06-03 21:23 | XR ---
EXAMINATION TYPE: XR foot complete RT DATE OF EXAM: 06/03/2022 9:16 PM INDICATION: Patient age:Female; 66 years old; Reason for study: pain; COMPARISON: None TECHNIQUE: The right foot was examined in the AP, oblique, and lateral projections. FINDINGS: Diffuse soft tissue swelling throughout the right foot along the dorsal and plantar surface. No defin itive evidence for osseous erosion. No subcutaneous gas visualized. No fracture visualized. 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 IMPRESSION: 1. Diffuse soft tissue swelling of the foot without evidence for osseous erosion or subcutaneous gas . Correlate for cellulitis. 2. No evidence of fracture.
[2022-06-03] MEDS ORDERED: LIDOCAINE 1% INJ 10MG/ML (30 ML VIAL-PF) SQ ONE (21:34)
[2022-06-03 22:20] VITALS: RESP 16
== END 2022-06-03 22:30 | disposition home or self-care (01) ==
LOC: EC 19:40
DX: S91.111A Laceration without foreign body of right great toe without damage to nail, initial encounter (principal); I50.9 Heart failure, unspecified; Z23 Encounter for immunization; Z88.2 Allergy status to sulfonamides; Z91.018 Allergy to other foods; Z79.899 Other long term (current) drug therapy; W26.8XXA Contact with other sharp object(s), not elsewhere classified, initial encounter
CPT/HCPCS: 99283; 90471; 12001; 73630; 90715; J2001

== ENCOUNTER 2022-07-23 14:20 | Inpatient (IN) | payer MEDICARE, OTHER ==
--- NOTE | 2022-07-23 15:54 | XR ---
EXAMINATION TYPE: XR chest 2V DATE OF EXAM: 07/23/2022 COMPARISON: Chest x-ray September 15, 2016 HISTORY: Difficulty in breathing TECHNIQUE: Frontal and lateral views of the chest are obtained. FINDINGS: Persistent low lung volumes with new multifocal bilateral opacities. No pleural effusion or pneumothorax seen bilaterally The cardiac silhouette size is upper limits of normal. Underlying sc oliosis is redemonstrated. IMPRESSION: There is new bilateral multifocal edema and/or infiltrates. COVID-19 infection is in the differential.
[2022-07-23 16:02] LABS: ALT 34 U/L (4-34); AST 38 U/L (14-36); African American GFR (CKD) >90 (>60 ml/min/1.73 sqM); Albumin 3.6 g/dL (3.5-5.0); Alkaline Phosphatase 98 U/L (38-126); Anion Gap 5 mmol/L; Blood Urea Nitrogen 18 mg/dL (7-17); Calcium 8.6 mg/dL (8.4-10.2); Carbon Dioxide 36 mmol/L (22-30); Chloride 95 mmol/L (98-107); Glucose 77 mg/dL (74-99); INR 0.9 (<1.2); Non-African American GFR(CKD) >90 (>60 ml/min/1.73 sqM); Potassium 4.3 mmol/L (3.5-5.1); Prothrombin Time 9.7 sec (9.0-12.0); Sodium 136 mmol/L (137-145); Total Bilirubin 0.5 mg/dL (0.2-1.3); Total Protein 6.5 g/dL (6.3-8.2)
[2022-07-23 16:14] LABS: Basophils % (A) 0 %; Eosinophils # (A) 0.1 k/uL (0-0.7); Eosinophils % (A) 2 %; HCT 28.1 % (34.0-46.0); HGB 9.9 gm/dL (11.4-16.0); Lymphocytes # (A) 0.7 k/uL (1.0-4.8); Lymphocytes % (A) 15 %; MCH 36.4 pg (25.0-35.0); MCHC 35.2 g/dL (31.0-37.0); MCV 103.7 fL (80.0-100.0); Macrocytosis Slight; Mean Platelet Volume 8.3; Monocytes # (A) 0.5 k/uL (0-1.0); Monocytes % (A) 11 %; Neutrophils # (A) 3.3 k/uL (1.3-7.7); Neutrophils % (A) 69 %; Platelet Count 184 k/uL (150-450); RBC 2.71 m/uL (3.80-5.40); RDW 14.3 % (11.5-15.5); WBC 4.8 k/uL (3.8-10.6)
[2022-07-23] MEDS ORDERED: cefTRIAXone IN SWFI 1,000 MG/10 ML SYRINGE IVP STA (16:49)
[2022-07-23] MEDS ORDERED: AZITHROMYCIN 500 MG in SODIUM CHLORIDE 0.9% 250 ML IVPB STA (16:49)
[2022-07-23] MEDS ORDERED: BUMETANIDE 0.25 MG/ML 4 ML VIAL IVP STA (16:50)
--- NOTE | 2022-07-23 17:18 | ED ---
SOB HPI - General Chief Complaint: Shortness of Breath Stated Complaint: sob Time Seen by Provider: 07/23/22 14:30 Source: EMS Mode of arrival: EMS Limitations: physical limitation - History of Present Illness Initial Comments: 67-year-old female past history of cerebral palsy, quadriplegia who presents to emergency department from [facility] home. They report that the patient has been short of breath and coughing today. She normally wears 2 L of oxygen for congestive heart failure. States that today her oxygen saturation was 88% on her 2 L. EMS was called. They deny that she's had any fevers. She has been getting breathing treatments without any improvement in her oxygenation. She is taking her water pill. They deny that her lower extremity edema is any worsening what it normally is. No sick contacts similar symptoms. No productive cough. No other alleviating, precipitating or modifying factors - Related Data Home Medications Medication Instructions Recorded Confirmed fluocinolone acetonide oiL 5 drops LEFT EAR BID 05/28/16 07/23/22 [fluocinolone acetonide oiL 0.01% (Otic)] Fluticasone Nasal [place] [Flonase 1 spr EA NOSTRIL DAILY 08/11/16 07/23/22 Nasal [place]] ALPRAZolam [Xanax] 0.5 mg PO BID PRN 07/23/22 07/23/22 Acetaminophen Tab [Tylenol] 1,000 mg PO Q4H PRN 07/23/22 07/23/22 Bumetanide [BUMEX] 1 mg PO BID 07/23/22 07/23/22 Divalproex Sodium [Depakote] 500 mg PO BID 07/23/22 07/23/22 Ferrous Sulfate [Iron (65 MG 325 mg PO DAILY 07/23/22 07/23/22 Elemental)] Ibuprofen [Motrin Ib] 400 mg PO Q6H PRN 07/23/22 07/23/22 Ipratropium-Albuterol Nebulize 3 ml INHALATION RT-TID 07/23/22 07/23/22 [Duoneb 0.5 mg-3 mg/3 ml Soln] Lactulose 20 gm PO BID 07/23/22 07/23/22 Multivit-Min/Iron Fum/Folic AC 1 tab PO DAILY 07/23/22 07/23/22 [One-A-Day Women's Complete Tab] Sennosides [Senokot] 17.2 mg PO HS 07/23/22 07/23/22 Spironolactone [Aldactone] 50 mg PO HS 07/23/22 07/23/22 Venlafaxine HCl [Effexor XR] 75 mg PO HS 07/23/22 07/23/22 bisacodyL [Dulcolax] 10 mg RECTAL DAILY PRN 07/23/22 07/23/22 diphenhydrAMINE [Benadryl] 25 - 50 mg PO Q6H PRN 07/23/22 07/23/22 guaiFENesin [guaiFENesin Oral 200 mg PO Q6H PRN 07/23/22 07/23/22 Solution] Previous Rx's Medication Instructions Recorded Aspirin EC [Ecotrin Low Dose] 81 mg PO DAILY #30 tablet. 08/22/16 Allergies Allergy/AdvReac Type Severity Reaction Status Date / Time corn Allergy Unknown Verified 07/23/22 17:53 Sulfa (Sulfonamide Allergy Unknown Verified 07/23/22 17:53 Antibiotics) GI coctail AdvReac Anaphylaxis Uncoded 07/23/22 17:53 Review of Systems ROS Statement: Those systems with pertinent positive or pertinent negative responses have been documented in the HPI. ROS Other: All systems not noted in ROS Statement are negative. Past Medical History Past Medical History: Heart Failure, Pneumonia, Sleep Apnea/CPAP/BIPAP Additional Past Medical History / Comment(s): cog impaired, cerebral palsy, quadriplegia, lower leg and pedal edema, RICHAR with CPAP use, bronchitis, acute respiratory failure with pneumonia/sepsis. History of Any Multi-Drug Resistant Organisms: None Reported Past Surgical History: Orthopedic Surgery Additional Past Surgical History / Comment(s): L shoulder surgery, L cheek cyst removed, D&C, recent thoracentesis Past Anesthesia/Blood Transfusion Reactions: No Reported Reaction Past Psychological History: Depression Smoking Status: Never smoker Past Alcohol Use History: None Reported Past Drug Use History: None Reported - Past Family History Mother Family Medical History: No Reported History Additional Family Medical History / Comment(s): Mother is healthy. Father Additional Family Medical History / Comment(s): from pulmonary fibrosis General Exam Limitations: physical limitation General appearance: alert, in no apparent distress Eye exam: Present: normal appearance, PERRL, EOMI. Absent: scleral icterus, conjunctival injection, periorbital swelling Neck exam: Present: normal inspection. Absent: tenderness, meningismus, lymphadenopathy Respiratory exam: Present: rales, decreased breath sounds Cardiovascular Exam: Present: regular rate, normal rhythm, normal heart sounds. Absent: systolic murmur, diastolic murmur, rubs, gallop, clicks Extremities exam: Present: other (Chronic contractures of upper extremities) Neurological exam: Present: alert Course Vital Signs 07/23/22 07/23/22 07/23/22 14:22 14:47 18:00 Temperature 98.2 F 98.3 F Pulse Rate 82 85 Pulse Rate [ Left] Respiratory 19 18 Rate Blood Pressure 117/52 120/76 Blood Pressure [Left Arm] O2 Sat by Pulse 91 L 93 L Oximetry 07/23/22 07/23/22 07/23/22 20:21 20:28 20:34 Temperature Pulse Rate 74 74 73 Pulse Rate [ Left] Respiratory 15 Rate Blood Pressure 86/51 Blood Pressure [Left Arm] O2 Sat by Pulse Oximetry 07/23/22 07/24/22 07/24/22 22:14 00:41 03:10 Temperature 98.5 F Pulse Rate 75 77 72 Pulse Rate [ Left] Respiratory 15 15 20 Rate Blood Pressure 133/98 142/86 Blood Pressure [Left Arm] O2 Sat by Pulse 100 95 Oximetry 07/24/22 07/24/22 07/24/22 03:20 05:52 08:14 Temperature Pulse Rate 90 92 86 Pulse Rate [ Left] Respiratory 18 18 Rate Blood Pressure 118/57 142/86 Blood Pressure [Left Arm] O2 Sat by Pulse 95 95 Oximetry 07/24/22 07/24/22 07/24/22 08:18 08:23 08:36 Temperature Pulse Rate 86 89 Pulse Rate [ Left] Respiratory 22 Rate Blood Pressure 142/86 Blood Pressure [Left Arm] O2 Sat by Pulse 96 Oximetry 07/24/22 07/24/22 07/24/22 10:00 11:00 11:48 Temperature Pulse Rate 80 84 75 Pulse Rate [ Left] Respiratory 18 18 Rate Blood Pressure 138/68 133/67 Blood Pressure [Left Arm] O2 Sat by Pulse 99 99 Oximetry 07/24/22 07/24/22 07/24/22 11:58 14:00 14:30 Temperature 97.9 F 98.2 F Pulse Rate 85 78 Pulse Rate [ 62 Left] Respiratory 18 18 Rate Blood Pressure 137/74 Blood Pressure 136/75 [Left Arm] O2 Sat by Pulse 97 99 Oximetry Medical Decision Making - Medical Decision Making Was pt. sent in by a medical professional or institution (ELKE Cody, READING COACH, urgent care, hospital, or retirement...) When possible be specific @ -[facility] home Did you speak to anyone other than the patient for history (EMS, parent, family, police, friend...)? What history was obtained from this source @ -yarn man provides history Did you review nursing and triage notes (agree or disagree)? Why? @ -I reviewed and agree with nursing and triage notes Were old charts reviewed (outside hosp., previous admission, EMS record, old EKG, old radiological studies, urgent care reports/EKG's, retirement records)? Report findings @ -No old charts were reviewed Differential Diagnosis (chest pain, altered mental status, abdominal pain women, abdominal pain men, vaginal bleeding, weakness, fever, dyspnea, syncope, headache, dizziness, GI bleed, back pain, seizure, CVA, palpatations, mental health, musculoskeletal)? @ -Differential Dyspnea: Coronary syndrome, arrhythmia, tamponade, asthma, COPD, pulmonary embolism, pneumonia, pneumothorax, pulmonary effusion, anaphylaxis, diabetic ketoacidosis, flailed chest, pulmonary contusion, diaphragmatic rupture, anemia, neuromuscular, this is not meant to be an all-inclusive list. EKG interpreted by me (3pts min.). @ -EKG interpreted by me demonstrates sinus rhythm with rate of 74. W[place] interval 129. QRS 100. QTC of 399. No acute ST segment elevations or depressions X-rays interpreted by me (1pt min.). @ -Yes chest x-ray demonstrates pulmonary edema CT interpreted by me (1pt min.). @ -None done U/S interpreted by me (1pt. min.). @ -None done What testing was considered but not performed or refused? (CT, X-rays, U/S, labs)? Why? @ -None What meds were considered but not given or refused? Why? @ -None Did you discuss the management of the patient with other professionals (pro fessionals i.e. ELKE Cody, READING COACH, lab, RT, psych nurse, licensed social worker, cellular phone repairer, teacher, diplomatic officer, rifle case repairer)? Give summary @ -Spoke with Dr. Miller Was smoking cessation discussed for >3mins.? @ -No Was critical care preformed (if so, how long)? @ -No Were there social determinants of health that impacted care today? How? (Homelessness, low income, unemployed, alcoholism, drug addiction, transportation, low edu. Level, literacy, decrease access to med. care, care home, rehab)? @ -Cerebral palsy and therefore patient cannot provide a history Was there de-escalation of care discussed even if they declined (Discuss DNR or withdrawal of care, Hospice)? DNR status @ -No What co-morbidities impacted this encounter? (DM, HTN, Smoking, COPD, CAD, Cancer, CVA, ARF, Chemo, Hep., AIDS, mental health diagnosis, sleep apnea, morbid obesity)? @ -Cerebral palsy, congestive heart failure, chronic respiratory insufficiency Was patient admitted / discharged? Hospital course, mention meds given and route, prescriptions, significant lab abnormalities, going to OR and other pe rtinent info. @ -Upon arrival patient was placed into room 18. No history of physical exam is performed. Patient does require 4 L of oxygen to maintain saturations of 90%. Laboratory studies were conducted and reviewed. BNP is 327. Covid is not detected. Chest x-ray demonstrates bilateral multifocal edema and/or infiltrates. Patient was given one dose of Rocephin and azithromycin. She is also given 1 mg of Bumex. Patient will be admitted. Spoke with Dr. Miller who agreed to admit the patient Undiagnosed new problem with uncertain prognosis? @ -Yes Drug Therapy requiring intensive monitoring for toxicity (Heparin, Nitro, Insulin, Cardizem)? @ -No Were any procedures done? @ -No Diagnosis/symptom? @ -Acute on chronic respiratory insufficiency, acute exacerbation of CHF Acute, or Chronic, or Acute on Chronic? @ -Acute on chronic Uncomplicated (without systemic symptoms) or Complicated (systemic symptoms)? @ -Complicated Side effects of treatment? @ -No Exacerbation, Progression, or Severe Exacerbation? @Yes exacerbation Poses a threat to life or bodily function? How? (Chest pain, [place], [place], pneumonia, PE, COPD, DKA, ARF, appy, cholecystitis, CVA, Diverticulitis, Homicidal, Suicidal, threat to staff... and all critical care pts) @ -Yes as patient does come in with respiratory insufficiency - Lab Data Result diagrams: 07/24/22 06:17 07/25/22 05:32 Lab Results 07/23/22 07/23/22 07/23/22 Range/Units 14:52 14:52 14:52 WBC 4.8 (3.8-10.6) k/uL RBC 2.71 L (3.80-5.40) m/uL Hgb 9.9 L (11.4-16.0) gm/dL Hct 28.1 L (34.0-46.0) % MCV 103.7 H (80.0-100.0) fL MCH 36.4 H (25.0-35.0) pg MCHC 35.2 (31.0-37.0) g/dL RDW 14.3 (11.5-15.5) % Plt Count 184 (150-450) k/uL MPV 8.3 Neutrophils % 69 % Lymphocytes % 15 % Monocytes % 11 % Eosinophils % 2 % Basophils % 0 % Neutrophils # 3.3 (1.3-7.7) k/uL Lymphocytes # 0.7 L (1.0-4.8) k/uL Monocytes # 0.5 (0-1.0) k/uL Eosinophils # 0.1 (0-0.7) k/uL Basophils # 0.0 (0-0.2) k/uL Macrocytosis Slight PT 9.7 (9.0-12.0) sec INR 0.9 (<1.2) APTT 27.0 (22.0-30.0) sec Sodium 136 L (137-145) mmol/L Potassium 4.3 (3.5-5.1) mmol/L Chloride 95 L (98-107) mmol/L Carbon Dioxide 36 H (22-30) mmol/L Anion Gap 5 mmol/L BUN 18 H (7-17) mg/dL Creatinine 0.60 (0.52-1.04) mg/dL Est GFR (CKD-EPI)AfAm >90 (>60 ml/min/1.73 sqM) Est GFR (CKD-EPI)NonAf >90 (>60 ml/min/1.73 sqM) Glucose 77 (74-99) mg/dL Plasma Lactic Acid Nate (0.7-2.0) mmol/L Calcium 8.6 (8.4-10.2) mg/dL Total Bilirubin 0.5 (0.2-1.3) mg/dL AST 38 H (14-36) U/L ALT 34 (4-34) U/L Alkaline Phosphatase 98 (38-126) U/L Troponin I (0.000-0.034) ng/mL NT-Pro-B Natriuret Pep pg/mL Total Protein 6.5 (6.3-8.2) g/dL Albumin 3.6 (3.5-5.0) g/dL Procalcitonin (0.02-0.09) ng/mL Influenza Type A (PCR) (Not Detectd) Influenza Type B (PCR) (Not Detectd) RSV (PCR) (Not Detectd) SARS-CoV-2 (PCR) (Not Detectd) 07/23/22 07/23/22 07/23/22 Range/Units 14:52 14:52 14:52 WBC (3.8-10.6) k/uL RBC (3.80-5.40) m/uL Hgb (11.4-16.0) gm/dL Hct (34.0-46.0) % MCV (80.0-100.0) fL MCH (25.0-35.0) pg MCHC (31.0-37.0) g/dL RDW (11.5-15.5) % Plt Count (150-450) k/uL MPV Neutrophils % % Lymphocytes % % Monocytes % % Eosinophils % % Basophils % % Neutrophils # (1.3-7.7) k/uL Lymphocytes # (1.0-4.8) k/uL Monocytes # (0-1.0) k/uL Eosinophils # (0-0.7) k/uL Basophils # (0-0.2) k/uL Macrocytosis PT (9.0-12.0) sec INR (<1.2) APTT (22.0-30.0) sec Sodium (137-145) mmol/L Potassium (3.5-5.1) mmol/L Chloride (98-107) mmol/L Carbon Dioxide (22-30) mmol/L Anion Gap mmol/L BUN (7-17) mg/dL Creatinine (0.52-1.04) mg/dL Est GFR (CKD-EPI)AfAm (>60 ml/min/1.73 sqM) Est GFR (CKD-EPI)NonAf (>60 ml/min/1.73 sqM) Glucose (74-99) mg/dL Plasma Lactic Acid Nate 0.7 (0.7-2.0) mmol/L Calcium (8.4-10.2) mg/dL Total Bilirubin (0.2-1.3) mg/dL AST (14-36) U/L ALT (4-34) U/L Alkaline Phosphatase (38-126) U/L Troponin I <0.012 (0.000-0.034) ng/mL NT-Pro-B Natriuret Pep 327 pg/mL Total Protein (6.3-8.2) g/dL Albumin (3.5-5.0) g/dL Procalcitonin (0.02-0.09) ng/mL Influenza Type A (PCR) (Not Detectd) Influenza Type B (PCR) (Not Detectd) RSV (PCR) (Not Detectd) SARS-CoV-2 (PCR) (Not Detectd) 07/23/22 07/23/22 Range/Units 14:52 15:30 WBC (3.8-10.6) k/uL RBC (3.80-5.40) m/uL Hgb (11.4-16.0) gm/dL Hct (34.0-46.0) % MCV (80.0-100.0) fL MCH (25.0-35.0) pg MCHC (31.0-37.0) g/dL RDW (11.5-15.5) % Plt Count (150-450) k/uL MPV Neutrophils % % Lymphocytes % % Monocytes % % Eosinophils % % Basophils % % Neutrophils # (1.3-7.7) k/uL Lymphocytes # (1.0-4.8) k/uL Monocytes # (0-1.0) k/uL Eosinophils # (0-0.7) k/uL Basophils # (0-0.2) k/uL Macrocytosis PT (9.0-12.0) sec INR (<1.2) APTT (22.0-30.0) sec Sodium (137-145) mmol/L Potassium (3.5-5.1) mmol/L Chloride (98-107) mmol/L Carbon Dioxide (22-30) mmol/L Anion Gap mmol/L BUN (7-17) mg/dL Creatinine (0.52-1.04) mg/dL Est GFR (CKD-EPI)AfAm (>60 ml/min/1.73 sqM) Est GFR (CKD-EPI)NonAf (>60 ml/min/1.73 sqM) Glucose (74-99) mg/dL Plasma Lactic Acid Nate (0.7-2.0) mmol/L Calcium (8.4-10.2) mg/dL Total Bilirubin (0.2-1.3) mg/dL AST (14-36) U/L ALT (4-34) U/L Alkaline Phosphatase (38-126) U/L Troponin I (0.000-0.034) ng/mL NT-Pro-B Natriuret Pep pg/mL Total Protein (6.3-8.2) g/dL Albumin (3.5-5.0) g/dL Procalcitonin 0.14 H (0.02-0.09) ng/mL Influenza Type A (PCR) Not Detected (Not Detectd) Influenza Type B (PCR) Not Detected (Not Detectd) RSV (PCR) Not Detected (Not Detectd) SARS-CoV-2 (PCR) Not Detected (Not Detectd) Disposition Clinical Impression: CHF (congestive heart failure) Disposition: ADMITTED IP TO THIS HOSP Condition: Stable Is patient prescribed a controlled substance at d/c from ED?: No Time of Disposition: 17:18 Decision to Admit Reason: Admit from EC Decision Date: 07/23/22 Decision Time: 17:18
[2022-07-23] MEDS ORDERED: NALOXONE 0.4 MG/ML 1 ML VIAL IV PRN (17:19)
[2022-07-23] MEDS ORDERED: ALPRAZolam 0.5 MG TAB PO PRN (18:10)
[2022-07-23] MEDS ORDERED: bisacodyL 10 MG SUPP RECTAL PRN (18:10)
[2022-07-23] MEDS ORDERED: ACETAMINOPHEN TAB 500 MG TAB PO PRN (18:10)
[2022-07-23] MEDS: IPRATROPIUM-ALBUTEROL 3 ML NEB INHALATION SCH (20:21)
[2022-07-23] MEDS: DIVALPROEX 500 MG TABLET.DR PO SCH (22:31)
[2022-07-23] MEDS: LACTULOSE 20 GM/30 ML CUP PO SCH (22:31)
[2022-07-23] MEDS: VENLAFAXINE HCL ER 75 MG CAP PO SCH (22:31)
[2022-07-23] MEDS: SENNOSIDES 8.6 MG TAB PO SCH (22:32)
[2022-07-23] MEDS: FLUOCINOLONE ACETONIDE OIL LEFT EAR SCH (23:05)
--- NOTE | 2022-07-24 00:25 | P.HPIM ---
History of Present Illness H&P Date: 07/23/22 Chief Complaint: SOB 67 year old female with CP, quadriplegia , CHF she is [facility] home resident , mother who is also the guardian at bedside providing the history , the patient unable to provide any meaningful history she was notified that the patient is having trouble breathing today , and her normal 2 L NC is not helping and despite breathing treatments her oxygen sat is remaining low around 88%. no reported fever or chest pain. staff reported that her leg swelling is no different than her normal swelling no report of any gi bleeding or urinary or bowel habit changes, no report of any sick contacts , no smoking or drugs Review of Systems ROS unobtainable: due to mental status Past Medical History Past Medical History: Heart Failure, Pneumonia, Sleep Apnea/CPAP/BIPAP Additional Past Medical History / Comment(s): cog impaired, cerebral palsy, quadriplegia, lower leg and pedal edema, RICHAR with CPAP use, bronchitis, acute respiratory failure with pneumonia/sepsis. History of Any Multi-Drug Resistant Organisms: None Reported Past Surgical History: Orthopedic Surgery Additional Past Surgical History / Comment(s): L shoulder surgery, L cheek cyst removed, D&C, recent thoracentesis Past Anesthesia/Blood Transfusion Reactions: No Reported Reaction Past Psychological History: Depression Smoking Status: Never smoker Past Alcohol Use History: None Reported Past Drug Use History: None Reported - Past Family History Mother Family Medical History: No Reported History Additional Family Medical History / Comment(s): Mother is healthy. Medications and Allergies Home Medications Medication Instructions Recorded Confirmed Type fluocinolone acetonide oiL 5 drops LEFT EAR BID 05/28/16 07/23/22 History [fluocinolone acetonide oiL 0.01% (Otic)] Fluticasone Nasal [place] [Flonase 1 spr EA NOSTRIL DAILY 08/11/16 07/23/22 History Nasal [place]] Aspirin EC [Ecotrin Low Dose] 81 mg PO DAILY #30 tablet.dr 08/22/16 07/23/22 Rx ALPRAZolam [Xanax] 0.5 mg PO BID PRN 07/23/22 07/23/22 History Acetaminophen Tab [Tylenol Tab] 1,000 mg PO Q4H PRN 07/23/22 07/23/22 History Bumetanide [Bumex] 1 mg PO BID 07/23/22 07/23/22 History Divalproex Sodium [Depakote] 500 mg PO BID 07/23/22 07/23/22 History Ferrous Sulfate [Feosol] 325 mg PO DAILY 07/23/22 07/23/22 History Ibuprofen [Motrin Ib] 400 mg PO Q6H PRN 07/23/22 07/23/22 History Ipratropium-Albuterol Nebulize 3 ml INHALATION RT-TID 07/23/22 07/23/22 History [Duoneb 0.5 mg-3 mg/3 ml Soln] Lactulose 20 gm PO BID 07/23/22 07/23/22 History Multivit-Min/Iron Fum/Folic AC 1 tab PO DAILY 07/23/22 07/23/22 History [One-A-Day Women's Complete Tab] Sennosides [Senokot] 17.2 mg PO HS 07/23/22 07/23/22 History Spironolactone [Aldactone] 50 mg PO HS 07/23/22 07/23/22 History Venlafaxine HCl [Effexor XR] 75 mg PO HS 07/23/22 07/23/22 History bisacodyL [Dulcolax] 10 mg RECTAL DAILY PRN 07/23/22 07/23/22 History diphenhydrAMINE [Benadryl] 25 - 50 mg PO Q6H PRN 07/23/22 07/23/22 History guaiFENesin [guaiFENesin Oral 200 mg PO Q6H PRN 07/23/22 07/23/22 History Solution] Allergies Allergy/AdvReac Type Severity Reaction Status Date / Time corn Allergy Unknown Verified 07/23/22 17:53 Sulfa (Sulfonamide Allergy Unknown Verified 07/23/22 17:53 Antibiotics) GI coctail AdvReac Anaphylaxis Uncoded 07/23/22 17:53 Physical Exam Vitals: Vital Signs Temp Pulse Resp BP Pulse Ox 07/23/22 20:21 74 07/23/22 18:00 98.3 F 85 18 120/76 93 L 07/23/22 14:47 19 07/23/22 14:22 98.2 F 82 117/52 91 L Intake and Output 07/23/22 07/23/22 07/23/22 06:59 14:59 22:59 Other: Weight 85.729 kg Constitutional: No acute distress, cooperative Eyes: Anicteric sclerae, moist conjunctiva, Pupils equal round reactive to light ENMT: NC/AT Oropharynx clear, no erythema, or exudates Neck: Supple, no masses, or JVD No carotid bruits No thyromegaly Lungs: inspiratory rales , otherwise good air entry throughout Clear to percussion Normal respiratory effort, no accessory muscle use Cardiovascular: Heart regular in rate and rhythm, No murmurs, gallops, or rubs +2 bilateral peripheral edema Abdominal: Soft Nontender, no guarding, rebound or rigidity Abdomen moving with respiration Normoactive bowel sounds No hepatomegaly, No splenomegaly No palpable mass No abdominal wall hernia noted Skin: Normal temperature, tone, texture, turgor Extremities: No digital cyanosis No clubbing Pedal pulses intact and symmetrical Radial pulses intact and symmetrical No calf tenderness Psychiatric: Alert and oriented to person, only Neuro unable to perform proper neuro exam due to patient developmental delays, she is quadriplegic, with some movement in her right upper extremity , b oth upper extremities are contracted, lower extremity with fasciculation Lymphatics: no palpable cervical or supraclavicular lymph nodes Results CBC & Chem 7: 07/23/22 14:52 07/23/22 14:52 Labs: Abnormal Lab Results - Last 24 Hours (Table) 07/23/22 07/23/22 Range/Units 14:52 14:52 RBC 2.71 L (3.80-5.40) m/uL Hgb 9.9 L (11.4-16.0) gm/dL Hct 28.1 L (34.0-46.0) % MCV 103.7 H (80.0-100.0) fL MCH 36.4 H (25.0-35.0) pg Lymphocytes # 0.7 L (1.0-4.8) k/uL Sodium 136 L (137-145) mmol/L Chloride 95 L (98-107) mmol/L Carbon Dioxide 36 H (22-30) mmol/L BUN 18 H (7-17) mg/dL AST 38 H (14-36) U/L Assessment and Plan Assessment: 67 year old female CP, quadriplegiA, CHF, presented with shortness of breath I discussed the case with ED doc, and I accepted the admission for acute CHF exacerbation with anticipated length of stay > 2 midnights acute on chronic hypoxic respiratory failure acute on chronic chf exacerbation (LVEF 2017 showed preserved ;left ventricular ejection fraction ) CP with quadriplegia plan monitor daily weight I/O check echo cardio consult IV diuresis with bumex IVP 1 mg BID ( sulfa allergy) spoon maker supplemental oxygen as needed to keep oxygen sat >94% continue spironolactone monitor vital signs fall precautions cardiac diet fluid restriction to 2 L daily patient received azithro and rocephine in the ED, will monitor off Antibiotics for now NO code DVT PPX heparin sc tid
[2022-07-24] MEDS: IPRATROPIUM-ALBUTEROL 3 ML NEB INHALATION SCH ×3 (08:14→19:50)
[2022-07-24] MEDS: FLUTICASONE 50MCG/SPRAY NASAL 16GM EA NOSTRIL SCH (08:24)
[2022-07-24] MEDS: LACTULOSE 20 GM/30 ML CUP PO SCH ×2 (08:25→21:43)
[2022-07-24] MEDS: BUMETANIDE 0.25 MG/ML 4 ML VIAL IVP SCH ×2 (08:25→21:43)
[2022-07-24] MEDS: ASPIRIN 81 MG PO SCH (08:26)
[2022-07-24] MEDS: FERROUS SULFATE 325 MG TAB PO SCH (08:26)
[2022-07-24] MEDS: DIVALPROEX 500 MG TABLET.DR PO SCH ×2 (08:26→21:43)
[2022-07-24 09:54] LABS: HGB 9.7 g/dL (12.0-15.0); MCH 35.5 pg (27.0-32.0); MCHC 32.3 g/dL (32.0-37.0); MCV 109.9 fL (80.0-97.0); Mean Platelet Volume 10.9 fL (9.5-12.2); NRBC Per 100 WBC 0 /100 WBCS (0.0-0.0); Platelet Count 185 X 10*3/uL (140-440); RBC 2.73 X 10*6/uL (4.10-5.20); RDW 14.5 % (11.5-14.5)
[2022-07-24 09:55] LABS: Basophils # (M) 0 X 10*3/uL (0.00-0.10); Eosinophils # (M) 0.14 X 10*3/uL (0.04-0.35); Lymphocytes # (M) 1.12 X 10*3/uL (0.90-5.00); Macrocytosis (M) 2+; Monocytes # (M) 0.49 X 10*3/uL (0.20-1.00); Myelocytes % 4 % (0-0); Neutrophils % (M) 70 %; Promyelocytes # (M) 0.07 k/uL (0); Promyelocytes % 1 % (0-0)
--- NOTE | 2022-07-24 09:59 | CA ---
Transthoracic Echo Report Name: Nella Dowling Age: 67 Gender: F : 1955 Exam Date: 07/24/2022 07:33 Exam Location: [facility] Ht (in): 59 Wt (lb): 189 Ordering Physician: Tylor Liz MD Attending/Referring Phys: Paste Up Copy Camera Operator Gloria Amor RDCS Procedure CPT: Indications: chf Cardiac Hx: Technical Quality: Fair Contrast 1: Total Dose (mL): Contrast 2: Total Dose (mL): MEASUREMENTS (Male / Female) Normal Values 2D ECHO LV Diastolic Diameter PLAX 4.6 cm 4.2 - 5.9 / 3.9 - 5.3 cm LV Systolic Diameter PLAX 3.3 cm IVS Diastolic Thickness 0.8 cm 0.6 - 1.0 / 0.6 - 0.9 cm LVPW Diastolic Thickness 0.8 cm 0.6 - 1.0 / 0.6 - 0.9 cm LV Relative Wall Thickness 0.3 RV Internal Dim ED PLAX 2.5 cm LA Systolic Diameter LX 3.0 cm 3.0 - 4.0 / 2.7 - 3.8 cm M-MODE Aortic Root Diameter MM 2.6 cm MV E Point Septal Separation 0.6 cm AV Cusp Separation MM 2.0 cm DOPPLER AV Peak Velocity 139.8 cm/s AV Peak Gradient 7.8 mmHg MV Area PHT 2.9 cm??? Mitral E Point Velocity 60.5 cm/s Mitral A Point Velocity 82.6 cm/s Mitral E to A Ratio 0.7 MV Deceleration Time 261.1 ms TR Peak Velocity 279.9 cm/s TR Peak Gradient 31.3 mmHg Right Ventricular Systolic Press 36.3 mmHg FINDINGS Left Ventricle Left ventricular ejection fraction is estimated at 55-60 %. Left ventricular cavity size normal. Left ventricular wall thickness normal. Right Ventricle Normal right ventricular size and function. Mild pulmonary hypertension. Right Atrium Normal right atrial size. Left Atrium Normal left atrial size. Mitral Valve Mitral valve not well visualized. Mild mitral regurgitation. Aortic Valve Trileaflet aortic valve. No aortic valve stenosis or regurgitation. Tricuspid Valve Structurally normal tricuspid valve. Mild tricuspid regurgitation. Pulmonic Valve Structurally normal pulmonic valve. Mild pulmonic regurgitation. Pericardium Normal pericardium. No pericardial effusion. Aorta Normal size aortic root and proximal ascending aorta. CONCLUSIONS Technically suboptimal study secondary to poor echo windows Left ventricular size and systolic function are normal Mild mitral regurgitation Previewed by: Dr. Haroon Wray MD (Electronically Signed) Final Date: 24 July 2022 09:59
[2022-07-24] MEDS: FLUOCINOLONE ACETONIDE OIL LEFT EAR SCH ×2 (10:06→21:44)
--- NOTE | 2022-07-24 11:25 | CONS ---
CONSULTATION CHIEF COMPLAINT: Shortness of breath. HISTORY OF PRESENT ILLNESS: Nella is a 67-year-old lady with history of cerebral palsy and COPD who is admitted to hospital with symptoms of shortness of breath. She is accompanied by her mother who is the guardian. She apparently had trouble breathing, and her O2 sats were around 88% in spite of the 2 L of nasal O2 that she was on. I have been consulted for a question of congestive heart failure. There is no history of leg edema, and we cannot get any other meaningful information from her. Her echocardiogram shows normal LV systolic function. BNP is normal at 327. A chest x-ray revealed multifocal infiltrate. Her physical exam did not reveal any crackles. I am not convinced that we are dealing with acute onset congestive heart failure. At the time of my evaluation, she appears comfortable at rest. PAST MEDICAL HISTORY: Significant for cerebral palsy. MEDICATIONS: Medications at home include Flonase, iron, Depakote, Bumex, aspirin, Benadryl, Dulcolax, Motrin, Effexor. ALLERGIES: Sulfa. FAMILY HISTORY: Negative for premature coronary artery disease. SOCIAL HISTORY: Unable to obtain from the patient. REVIEW OF SYSTEMS: Unable to obtain from the patient. PHYSICAL EXAMINATION: GENERAL: She is comfortable at rest. VITAL SIGNS: O2 saturation is 96% on 4 L. Afebrile. Heart rate is 86 beats per minute, blood pressure is 142/82, respiratory rate is 18. CHEST: Good air entry bilaterally. I do not hear any crackles or rhonchi. HEART: First and second heart sounds. No gallop. No murmur. ABDOMEN: Soft. EXTREMITIES: Exam did not reveal any edema. Peripheral pulses are palpable. LABORATORY DATA: Labs show that the hemoglobin is low at 9.7. Potassium is 4.3, creatinine is 0.6. Troponin is negative. BNP is 327. COVID test is negative. ASSESSMENT AND PLAN: Shortness of breath of unclear etiology. Agree with giving the Bumex and continuing rest of her medications. I do not see any clear evidence of heart failure at this time. Clinically, she does not have leg edema, does not have crackles, and her BNP is normal. Echo reveals normal LV function. I will follow the patient with interest with you. MMODL / IJN: [id number] /
[2022-07-24 12:03] LABS: African American GFR (CKD) 105.4 (60.0-200.0); Anion Gap 17.3 mmol/L (10.00-18.00); BUN/Creat Ratio 24.43 Ratio (12.00-20.00); Blood Urea Nitrogen 17.1 mg/dL (9.0-27.0); Calcium 9.1 mg/dL (8.7-10.3); Carbon Dioxide 27.7 mmol/L (20.0-27.5); Non-African American GFR(CKD) 90.9 (60.0-200.0); Potassium 4.4 mmol/L (3.5-5.5)
[2022-07-24 19:18] VITALS: RESP 16
[2022-07-24] MEDS ORDERED: SPIRONOLACTONE 25 MG TAB PO SCH (21:00)
[2022-07-24] MEDS: SENNOSIDES 8.6 MG TAB PO SCH (21:43)
[2022-07-24] MEDS: VENLAFAXINE HCL ER 75 MG CAP PO SCH (21:44)
--- NOTE | 2022-07-24 22:05 | P.PN ---
Progress Note - Text Progress Note Date: 07/24/22 Chief Complaint: SOB 67 year old female with CP, quadriplegia , CHF she is [facility] home resident , mother who is also the guardian at bedside providing the history , the patient unable to provide any meaningful history she was notified that the patient is having trouble breathing today , and her normal 2 L NC is not helping and despite breathing treatments her oxygen sat is remaining low around 88%. no reported fever or chest pain. staff reported that her leg swelling is no different than her normal swelling no report of any gi bleeding or urinary or bowel habit changes, no report of any sick contacts , no smoking or drugs July 24: I assumed care of the patient today. Family at the bedside. Patient did eat well. Some swelling is gone down. Respiratory symptoms are much better. Patient also really cannot communicate Active Medications Acetaminophen (Acetaminophen Tab 500 Mg Tab) 1,000 mg PO Q4H PRN PRN Reason: Fever and/ or Pain Albuterol/Ipratropium (Ipratropium-Albuterol 3 Ml Neb) 3 ml INHALATION RT-TID [facility] Last Admin: 07/24/22 19:50 Dose: 3 ml Alprazolam (Alprazolam 0.5 Mg Tab) 0.5 mg PO BID PRN PRN Reason: Anxiety Aspirin (Aspirin 81 Mg) 81 mg PO DAILY [facility] Last Admin: 07/24/22 08:26 Dose: 81 mg Bisacodyl (Bisacodyl 10 Mg Supp) 10 mg RECTAL DAILY PRN PRN Reason: Constipation Bumetanide (Bumetanide 0.25 Mg/Ml 4 Ml Vial) 1 mg IVP BID [facility] Last Admin: 07/24/22 21:43 Dose: 1 mg Divalproex Sodium (Divalproex 500 Mg Tablet.Dr) 500 mg PO BID [facility] Last Admin: 07/24/22 21:43 Dose: 500 mg Ferrous Sulfate (Ferrous Sulfate 325 Mg Tab) 325 mg PO DAILY [facility] Last Admin: 07/24/22 08:26 Dose: 325 mg Fluticasone Propionate (Fluticasone 50mcg/[place] Nasal 16gm) 1 spray EA NOSTRIL DAILY [facility] Last Admin: 07/24/22 08:24 Dose: 1 spray Lactulose (Lactulose 20 Gm/30 Ml Cup) 20 gm PO BID [facility] Last Admin: 07/24/22 21:43 Dose: 20 gm Naloxone HCl (Naloxone 0.4 Mg/Ml 1 Ml Vial) 0.2 mg IV Q2M PRN PRN Reason: Opioid Reversal Patient's Own ( Fluocinolone Acetonide Oil [ Fluocinolone Acetonide Oil 0.01% (Otic)] 2 5 drops LEFT EAR BID [facility] Last Admin: 07/24/22 21:44 Dose: Not Given Senna (Sennosides 8.6 Mg Tab) 17.[address] [facility] Last Admin: 07/24/22 21:43 Dose: 17.2 mg Spironolactone (Spironolactone 25 Mg Tab) [address] [facility] Last Admin: 07/24/22 21:43 Dose: 50 mg Venlafaxine HCl (Venlafaxine Hcl Er 75 Mg Cap) [address] [facility] Last Admin: 07/24/22 21:44 Dose: 75 mg Past Medical History Past Medical History: Heart Failure, Pneumonia, Sleep Apnea/CPAP/BIPAP Additional Past Medical History / Comment(s): cog impaired, cerebral palsy, quadriplegia, lower leg and pedal edema, RICHAR with CPAP use, bronchitis, acute respiratory failure with pneumonia/sepsis. History of Any Multi-Drug Resistant Organisms: None Reported Past Surgical History: Orthopedic Surgery Additional Past Surgical History / Comment(s): L shoulder surgery, L cheek cyst removed, D&C, recent thoracentesis Past Anesthesia/Blood Transfusion Reactions: No Reported Reaction Past Psychological History: Depression Smoking Status: Never smoker Past Alcohol Use History: None Reported Past Drug Use History: None Reported - Past Family History Mother Family Medical History: No Reported History Additional Family Medical History / Comment(s): Mother is healthy. Medications and Allergies Home Medications Medication Instructions Recorded Confirmed Type fluocinolone acetonide oiL 5 drops LEFT EAR BID 05/28/16 07/23/22 History [fluocinolone acetonide oiL 0.01% (Otic)] Fluticasone Nasal [place] [Flonase 1 spr EA NOSTRIL DAILY 08/11/16 07/23/22 History Nasal [place]] Aspirin EC [Ecotrin Low Dose] 81 mg PO DAILY #30 tablet. 08/22/16 07/23/22 Rx ALPRAZolam [Xanax] 0.5 mg PO BID PRN 07/23/22 07/23/22 History Acetaminophen Tab [Tylenol Tab] 1,000 mg PO Q4H PRN 07/23/22 07/23/22 History Bumetanide [Bumex] 1 mg PO BID 07/23/22 07/23/22 History Divalproex Sodium [Depakote] 500 mg PO BID 07/23/22 07/23/22 History Ferrous Sulfate [Feosol] 325 mg PO DAILY 07/23/22 07/23/22 History Ibuprofen [Motrin Ib] 400 mg PO Q6H PRN 07/23/22 07/23/22 History Ipratropium-Albuterol Nebulize 3 ml INHALATION RT-TID 07/23/22 07/23/22 History [Duoneb 0.5 mg-3 mg/3 ml Soln] Lactulose 20 gm PO BID 07/23/22 07/23/22 History Multivit-Min/Iron Fum/Folic AC 1 tab PO DAILY 07/23/22 07/23/22 History [One-A-Day Women's Complete Tab] Sennosides [Senokot] 17.2 mg PO HS 07/23/22 07/23/22 History Spironolactone [Aldactone] 50 mg PO HS 07/23/22 07/23/22 History Venlafaxine HCl [Effexor XR] 75 mg PO HS 07/23/22 07/23/22 History bisacodyL [Dulcolax] 10 mg RECTAL DAILY PRN 07/23/22 07/23/22 History diphenhydrAMINE [Benadryl] 25 - 50 mg PO Q6H PRN 07/23/22 07/23/22 History guaiFENesin [guaiFENesin Oral 200 mg PO Q6H PRN 07/23/22 07/23/22 History Solution] Allergies Allergy/AdvReac Type Severity Reaction Status Date / Time corn Allergy Unknown Verified 07/23/22 17:53 Sulfa (Sulfonamide Allergy Unknown Verified 07/23/22 17:53 Antibiotics) GI coctail AdvReac Anaphylaxis Uncoded 07/23/22 17:53 On examination: VITAL SIGNS: [98.1, 90, 16, 131/88, 97% on 2 L] GENERAL APPEARANCE: BMI 37.2, laying in bed awake comfortable HEENT: Normal external appearance of nose and ear. Oral cavity normal EYES: Pupils equal. Conjunctiva normal. NECK: JVD not raised. Mass not palpable. RESPIRATORY: Respiratory effort normal. Lungs trace breath sound CARDIOVASCULAR: First and second sounds normal. No edema. ABDOMEN: Soft. Liver and spleen not palpable. No tenderness. No mass palpable. PSYCHIATRY: Awake but not really would answer questions. Makes sounds. INVESTIGATIONS, reviewed in the clinical context: 2-D echocardiogram: EF 55-60% White count 7 hemoglobin 9.7 platelets were 85 potassium 4.4 creatinine 0.7 Procalcitonin 0.14 Valproic acid 48.7 Influenza type A, B, RSV, COVID-19: Not detected Assessment and plan: -acute on chronic hypoxic respiratory failure from CHF: Improving Oxygen supplement acute on chronic chf exacerbation (LVEF 2017 showed preserved ;left ventricular ejection fraction EF 55-60%) IV Bumex. Aldactone -Cerebral palsy with quadriplegia -Cordrey paresis -Obstructive sleep apnea does not use CPAP -Anxiety Xanax when necessary Discussed with the family at the bedside. Improving. Possible discharge tomorrow
[2022-07-25 06:35] LABS: African American GFR (CKD) 80 (>60 ml/min/1.73 sqM); Anion Gap 8 mmol/L; Blood Urea Nitrogen 24 mg/dL (7-17); Calcium 8.8 mg/dL (8.4-10.2); Carbon Dioxide 35 mmol/L (22-30); Chloride 98 mmol/L (98-107); Glucose 91 mg/dL (74-99); Non-African American GFR(CKD) 70 (>60 ml/min/1.73 sqM); Potassium 3.9 mmol/L (3.5-5.1); Sodium 141 mmol/L (137-145)
[2022-07-25 08:08] VITALS: BP 135/83; TEMP 98.5
[2022-07-25] MEDS: IPRATROPIUM-ALBUTEROL 3 ML NEB INHALATION SCH ×2 (08:18→12:29)
[2022-07-25] MEDS: ASPIRIN 81 MG PO SCH (08:49)
[2022-07-25] MEDS: DIVALPROEX 500 MG TABLET.DR PO SCH (08:49)
[2022-07-25] MEDS: LACTULOSE 20 GM/30 ML CUP PO SCH (08:49)
[2022-07-25] MEDS: FERROUS SULFATE 325 MG TAB PO SCH (08:49)
[2022-07-25] MEDS: FLUOCINOLONE ACETONIDE OIL LEFT EAR SCH (08:50)
[2022-07-25] MEDS: FLUTICASONE 50MCG/SPRAY NASAL 16GM EA NOSTRIL SCH (08:50)
[2022-07-25] MEDS: BUMETANIDE 0.25 MG/ML 4 ML VIAL IVP SCH (08:50)
[2022-07-25 12:39] VITALS: PULSE 82
--- NOTE | 2022-07-25 12:58 | PN ---
PROGRESS NOTE SUBJECTIVE: Nella is a 67-year-old lady with history of cerebral palsy, who was admitted to hospital with shortness of breath probably due to a combination of COPD and CHF exacerbations. Her LV function is normal on an echocardiogram. She is feeling better this morning, currently on aspirin, Bumex 1 mg IV b.i.d., which we can switch to p.o. now. OBJECTIVE: GENERAL: On exam, comfortable at rest. VITAL SIGNS: Stable. CHEST: Reveals occasional rhonchi bilaterally. HEART: Reveals first and second heart sounds. No gallop. EXTREMITIES: Reveals mild edema. Peripheral pulses are felt. LABORATORY DATA: Labs show that the hemoglobin is 9.7, potassium is 3.9, creatinine is 0.8. ASSESSMENT AND PLAN: Shortness of breath probably due to a combination of COPD and CHF exacerbations, which is a diastolic heart failure, acute on chronic. She is doing well now. Please switch the Bumex to p.o. We will see the patient on an as-needed basis and she does not need any cardiac followup. MMODL / IJN: [id number] /
--- NOTE | 2022-07-25 16:17 | P.DS ---
Providers Date of admission: 07/23/22 17:19 Expected date of discharge: 07/25/22 Attending physician: Zeke Huang Consults: 07/23/22 18:04 Consult Physician Urgent Consulting Provider: [facility] Consult Reason/Comments: acute chf exacerbation Do you want consulting provider notified?: Yes Primary care physician: Josemanuel Yusuf MD Hospital Course: Chief Complaint: SOB 67 year old female with CP, quadriplegia , CHF she is [facility]CF home resident , mother who is also the guardian at bedside providing the history , the patient unable to provide any meaningful history she was notified that the patient is having trouble breathing today , and her normal 2 L NC is not helping and despite breathing treatments her oxygen sat is remaining low around 88%. no reported fever or chest pain. staff reported that her leg swelling is no different than her normal swelling no report of any gi bleeding or urinary or bowel habit changes, no report of any sick contacts , no smoking or drugs July 24: I assumed care of the patient today. Family at the bedside. Patient did eat well. Some swelling is gone down. Respiratory symptoms are much better. Patient also really cannot communicate July 25: Again patient's family at the bedside. Eating well. Patient doing well according to them. Patient getting excited about going home. Hank wrap ordered. Past Medical History Past Medical History: Heart Failure, Pneumonia, Sleep Apnea/CPAP/BIPAP Additional Past Medical History / Comment(s): cog impaired, cerebral palsy, quadriplegia, lower leg and pedal edema, RICHAR with CPAP use, bronchitis, acute respiratory failure with pneumonia/sepsis. History of Any Multi-Drug Resistant Organisms: None Reported Past Surgical History: Orthopedic Surgery Additional Past Surgical History / Comment(s): L shoulder surgery, L cheek cyst removed, D&C, recent thoracentesis Past Anesthesia/Blood Transfusion Reactions: No Reported Reaction Past Psychological History: Depression Smoking Status: Never smoker Past Alcohol Use History: None Reported Past Drug Use History: None Reported - Past Family History Mother Family Medical History: No Reported History Additional Family Medical History / Comment(s): Mother is healthy. Medications and Allergies Home Medications Medication Instructions Recorded Confirmed Type fluocinolone acetonide oiL 5 drops LEFT EAR BID 05/28/16 07/23/22 History [fluocinolone acetonide oiL 0.01% (Otic)] Fluticasone Nasal [place] [Flonase 1 spr EA NOSTRIL DAILY 08/11/16 07/23/22 History Nasal [place]] Aspirin EC [Ecotrin Low Dose] 81 mg PO DAILY #30 tablet. 08/22/16 07/23/22 Rx ALPRAZolam [Xanax] 0.5 mg PO BID PRN 07/23/22 07/23/22 History Acetaminophen Tab [Tylenol Tab] 1,000 mg PO Q4H PRN 07/23/22 07/23/22 History Bumetanide [Bumex] 1 mg PO BID 07/23/22 07/23/22 History Divalproex Sodium [Depakote] 500 mg PO BID 07/23/22 07/23/22 History Ferrous Sulfate [Feosol] 325 mg PO DAILY 07/23/22 07/23/22 History Ibuprofen [Motrin Ib] 400 mg PO Q6H PRN 07/23/22 07/23/22 History Ipratropium-Albuterol Nebulize 3 ml INHALATION RT-TID 07/23/22 07/23/22 History [Duoneb 0.5 mg-3 mg/3 ml Soln] Lactulose 20 gm PO BID 07/23/22 07/23/22 History Multivit-Min/Iron Fum/Folic AC 1 tab PO DAILY 07/23/22 07/23/22 History [One-A-Day Women's Complete Tab] Sennosides [Senokot] 17.2 mg PO HS 07/23/22 07/23/22 History Spironolactone [Aldactone] 50 mg PO HS 07/23/22 07/23/22 History Venlafaxine HCl [Effexor XR] 75 mg PO HS 07/23/22 07/23/22 History bisacodyL [Dulcolax] 10 mg RECTAL DAILY PRN 07/23/22 07/23/22 History diphenhydrAMINE [Benadryl] 25 - 50 mg PO Q6H PRN 07/23/22 07/23/22 History guaiFENesin [guaiFENesin Oral 200 mg PO Q6H PRN 07/23/22 07/23/22 History Solution] Allergies Allergy/AdvReac Type Severity Reaction Status Date / Time corn Allergy Unknown Verified 07/23/22 17:53 Sulfa (Sulfonamide Allergy Unknown Verified 07/23/22 17:53 Antibiotics) GI coctail AdvReac Anaphylaxis Uncoded 07/23/22 17:53 On examination: VITAL SIGNS: [98.5, 91, 16, 135/83, 93% on 3 L] GENERAL APPEARANCE: BMI 37.2, laying in bed awake comfortable HEENT: Normal external appearance of nose and ear. Oral cavity normal EYES: Pupils equal. Conjunctiva normal. NECK: JVD not raised. Mass not palpable. RESPIRATORY: Respiratory effort normal. Lungs trace breath sound CARDIOVASCULAR: First and second sounds normal. No edema. ABDOMEN: Soft. Liver and spleen not palpable. No tenderness. No mass palpable. PSYCHIATRY: Awake but not really would answer questions. Makes sounds. INVESTIGATIONS, reviewed in the clinical context: 2-D echocardiogram: EF 55-60% White count 7 hemoglobin 9.7 platelets were 85 potassium 4.4 creatinine 0.7 Procalcitonin 0.14 Valproic acid 48.7 Influenza type A, B, RSV, COVID-19: Not detected Assessment and plan: -acute on chronic hypoxic respiratory failure from CHF: Better Oxygen supplement acute on chronic chf exacerbation (LVEF 2017 showed preserved ;left ventricular ejection fraction EF 55-60%): Improved H2 oral Bumex. Aldactone -Cerebral palsy with quadriplegia -Cordrey paresis -Obstructive sleep apnea does not use CPAP -Anxiety Xanax when necessary -DO NOT RESUSCITATE -Patient's guardian is his mother Aleida Discussed with the family at the bedside. Disposition: [facility] Patient Condition at Discharge: Stable Plan - Discharge Summary Discharge Rx Participant: No New Discharge Prescriptions: Continue fluocinolone acetonide oiL [fluocinolone acetonide oiL 0.01% (Otic)] 5 drops LEFT EAR BID Fluticasone Nasal [place] [Flonase Nasal [place]] 1 spr EA NOSTRIL DAILY Aspirin EC [Ecotrin Low Dose] 81 mg PO DAILY #30 tablet. Acetaminophen Tab [Tylenol] 1,000 mg PO Q4H PRN PRN Reason: Fever And/ Or Pain bisacodyL [Dulcolax] 10 mg RECTAL DAILY PRN PRN Reason: Constipation Spironolactone [Aldactone] 50 mg PO HS Multivit-Min/Iron Fum/Folic AC [One-A-Day Women's Complete Tab] 1 tab PO DAILY Lactulose 20 gm PO BID Ferrous Sulfate [Iron (65 MG Elemental)] 325 mg PO DAILY guaiFENesin [guaiFENesin Oral Solution] 200 mg PO Q6H PRN PRN Reason: Congestion/Cough diphenhydrAMINE [Benadryl] 25 - 50 mg PO Q6H PRN PRN Reason: Allergic Reaction Ibuprofen [Motrin Ib] 400 mg PO Q6H PRN PRN Reason: Pain ALPRAZolam [Xanax] 0.5 mg PO BID PRN PRN Reason: Anxiety Venlafaxine HCl [Effexor XR] 75 mg PO HS Sennosides [Senokot] 17.2 mg PO HS Ipratropium-Albuterol Nebulize [Duoneb 0.5 mg-3 mg/3 ml Soln] 3 ml INHALATION RT-TID Divalproex Sodium [Depakote] 500 mg PO BID Bumetanide [BUMEX] 1 mg PO BID Discharge Medication List fluocinolone acetonide oiL [fluocinolone acetonide oiL 0.01% (Otic)] 5 drops LEFT EAR BID 05/28/16 [History] Fluticasone Nasal [place] [Flonase Nasal [place]] 1 spr EA NOSTRIL DAILY 08/11/16 [History] Aspirin EC [Ecotrin Low Dose] 81 mg PO DAILY #30 tablet.dr 08/22/16 [Rx] ALPRAZolam [Xanax] 0.5 mg PO BID PRN 07/23/22 [History] Acetaminophen Tab [Tylenol] 1,000 mg PO Q4H PRN 07/23/22 [History] Bumetanide [BUMEX] 1 mg PO BID 07/23/22 [History] Divalproex Sodium [Depakote] 500 mg PO BID 07/23/22 [History] Ferrous Sulfate [Iron (65 MG Elemental)] 325 mg PO DAILY 07/23/22 [History] Ibuprofen [Motrin Ib] 400 mg PO Q6H PRN 07/23/22 [History] Ipratropium-Albuterol Nebulize [Duoneb 0.5 mg-3 mg/3 ml Soln] 3 ml INHALATION RT-TID 07/23/22 [History] Lactulose 20 gm PO BID 07/23/22 [History] Multivit-Min/Iron Fum/Folic AC [One-A-Day Women's Complete Tab] 1 tab PO DAILY 07/23/22 [History] Sennosides [Senokot] 17.2 mg PO HS 07/23/22 [History] Spironolactone [Aldactone] 50 mg PO HS 07/23/22 [History] Venlafaxine HCl [Effexor XR] 75 mg PO HS 07/23/22 [History] bisacodyL [Dulcolax] 10 mg RECTAL DAILY PRN 07/23/22 [History] diphenhydrAMINE [Benadryl] 25 - 50 mg PO Q6H PRN 07/23/22 [History] guaiFENesin [guaiFENesin Oral Solution] 200 mg PO Q6H PRN 07/23/22 [History] Follow up Appointment(s)/Referral(s): Josemanuel Yusuf MD [Primary Care Provider] - 1-2 days (The office will call with a follow up appointment) Discharge Disposition: HOME WITH HOME HEALTH SERVICES
== END 2022-07-25 12:45 | disposition home health service (06) | DRG 291 ==
LOC: EC 14:20 → 4SSUR 17:19 → 5NMEDONC 07-24 13:48
PROVIDERS: ADMIT Hospitalist; ATTEND Hospitalist
PROC: 3E0F7SF Introduction of Other Gas into Respiratory Tract, Via Natural or Artificial Opening (ICD-10-PCS; principal; 2022-07-23)
DX: I11.0 Hypertensive heart disease with heart failure (principal); G82.50 Quadriplegia, unspecified; I50.33 Acute on chronic diastolic (congestive) heart failure; J96.21 Acute and chronic respiratory failure with hypoxia; J44.0 Chronic obstructive pulmonary disease with (acute) lower respiratory infection; Z20.822 Contact with and (suspected) exposure to COVID-19; F32.A Depression, unspecified; Z66 Do not resuscitate; G47.33 Obstructive sleep apnea (adult) (pediatric); F41.9 Anxiety disorder, unspecified; K59.00 Constipation, unspecified; G80.9 Cerebral palsy, unspecified; G31.84 Mild cognitive impairment of uncertain or unknown etiology; I08.1 Rheumatic disorders of both mitral and tricuspid valves; J40 Bronchitis, not specified as acute or chronic; Z87.01 Personal history of pneumonia (recurrent); Z88.2 Allergy status to sulfonamides; Z91.02 Food additives allergy status
CPT/HCPCS: 36415; 71046; 80048; 80053; 80164; 83605; 83880; 84145; 84484; 85025; 85610; 85730; 87636; 93005; 93306; 94640; 94760; 96365; 96375; 96376; 99285

== ENCOUNTER 2023-03-20 17:36 | Emergency (ER) | payer MEDICARE, OTHER ==
[2023-03-20] MEDS ORDERED: MORPHINE SULFATE 2 MG/ML SYRINGE IV STA (18:20)
--- NOTE | 2023-03-20 19:13 | CT ---
EXAMINATION TYPE: CT abdomen pelvis wo con DATE OF EXAM: 03/20/2023 COMPARISON: 08/17/2016 INDICATION: abdominal pain, distention DLP: 984.7 mGycm, Automated exposure control for dose reduction was used. CONTRAST: 0 mL of Isovue 300. Study performed without Oral Contrast TECHNIQUE: Axial images were obtained from above the diaphragm to the pubic rami in the axial plane a t 5 mm thick sections. Reconstructed images are reviewed on the computer in the coronal plane. FINDINGS: Limited CT sections are obtained the lung bases. Minimal groundglass opacities are within the visual ized right lung base. This is nonspecific. Correlate for pulmonary edema or infection. CT ABDOMEN: Liver: Normal Spleen: Normal Pancreas: Normal Adrenal glands: The adrenal glands are normal. Gallbladder: Cholelithiasis Kidneys: No masses are evident. No hydronephrosis is present. No cysts are present. No renal stone s are evident. Aorta: Vascular calcification is within the aorta. Inferior vena cava: Normal. CT PELVIS: Fecal debris is seen in the colon. The study is without oral contrast limits bowel evaluation. Appendix: Not identified. No dilated tubular structure or inflammatory changes are evident. Urinary bladder: Normal. Genitourinary structures: Uterus is normal. Adnexa are unremarkable. Osseous structures: No suspicious lytic or sclerotic lesions. Scoliosis with convexity to the left is present. Degenerative disc changes present L5-S1. IMPRESSION: 1. 1. Moderate fecal retention. 2. Cholelithiasis. 3. Groundglass opacities at the right base. Correlate for infection or pulmonary edema. Atypical pneu monia could be considered.
[2023-03-20 19:14] LABS: Basophils % (A) 0 %; Eosinophils # (A) 0.1 k/uL (0-0.7); Eosinophils % (A) 2 %; HCT 33.1 % (34.0-46.0); HGB 12.3 gm/dL (11.4-16.0); Lymphocytes # (A) 1.4 k/uL (1.0-4.8); Lymphocytes % (A) 19 %; MCH 37.2 pg (25.0-35.0); MCV 100.7 fL (80.0-100.0); Macrocytosis Slight; Mean Platelet Volume 8.7; Monocytes # (A) 0.6 k/uL (0-1.0); Monocytes % (A) 9 %; Neutrophils # (A) 5.1 k/uL (1.3-7.7); Neutrophils % (A) 69 %; Platelet Count 194 k/uL (150-450); Poikilocytosis Slight; RBC 3.29 m/uL (3.80-5.40); RDW 14.2 % (11.5-15.5); WBC 7.4 k/uL (3.8-10.6)
[2023-03-20 19:34] LABS: ALT 50 U/L (4-34); AST 36 U/L (14-36); African American GFR (CKD) >90 (>60 ml/min/1.73 sqM); Albumin 4.1 g/dL (3.5-5.0); Alkaline Phosphatase 106 U/L (38-126); Amylase 47 U/L (30-110); Anion Gap 7 mmol/L; Blood Urea Nitrogen 30 mg/dL (7-17); Calcium 9.3 mg/dL (8.4-10.2); Carbon Dioxide 32 mmol/L (22-30); Chloride 94 mmol/L (98-107); Glucose 110 mg/dL (74-99); Lipase 68 U/L (23-300); Non-African American GFR(CKD) >90 (>60 ml/min/1.73 sqM); Potassium 4.6 mmol/L (3.5-5.1); Sodium 133 mmol/L (137-145); Total Bilirubin 0.4 mg/dL (0.2-1.3); Total Protein 7.5 g/dL (6.3-8.2)
--- NOTE | 2023-03-20 20:48 | ED ---
Abdominal Pain HPI - General Chief Complaint: Abdominal Pain Stated Complaint: Abd pain Time Seen by Provider: 03/20/23 17:39 Source: EMS Mode of arrival: EMS Limitations: physical limitation - History of Present Illness Initial Comments: This patient is 67-year-old woman who is here to have further evaluation of abdominal pain. The patient had been having pain earlier in the day and a visiting practitioner did obtain an x-ray which reportedly showed bowel obstruction and they were instructed to proceed to the emergency department. The patient did have bowel movement within the past 24 hours. No vomiting. MD Complaint: abdominal pain Onset/Timin -: days(s) Location: LLQ, RLQ Radiation: none Migration to: no migration Consistency: constant Improves With: nothing Worsens With: nothing Associated Symptoms: constipation - Related Data Home Medications Medication Instructions Recorded Confirmed Bumetanide [BUMEX] 1 mg PO BID 07/23/22 03/20/23 Divalproex Sodium [Depakote] 500 mg PO BID 07/23/22 03/20/23 Ferrous Sulfate [Iron (65 MG 325 mg PO DAILY 07/23/22 03/20/23 Elemental)] Sennosides [Senokot] 17.2 mg PO HS 07/23/22 03/20/23 Spironolactone [Aldactone] 50 mg PO HS 07/23/22 03/20/23 Venlafaxine HCl [Effexor XR] 75 mg PO HS 07/23/22 03/20/23 Acetaminophen [Tylenol Extra 1,000 mg PO Q4H PRN 03/20/23 03/20/23 Strength] Fluticasone Nasal [place] [Flonase 1 spray EA NOSTRIL DAILY 03/20/23 03/20/23 Nasal [place]] Folic Acid/B-6/B-12 1 tab PO DAILY 03/20/23 03/20/23 Ibuprofen [Advil] 400 mg PO Q6H PRN 03/20/23 03/20/23 Ipratropium-Albuterol Nebulize 3 ml INHALATION RT-QID 03/20/23 03/20/23 [Duoneb 0.5 mg-3 mg/3 ml Soln] Lactulose [Constulose] 20 gm PO BID 03/20/23 03/20/23 Loperamide [Imodium] 2 mg PO DIRECTED PRN 03/20/23 03/20/23 Mucus+Chst 100/5ml Liq 1 dose PO DIRECTED PRN 03/20/23 03/20/23 Neomycin/Polymyxin B/Dexametha 2 drop BOTH EYES TID PRN 03/20/23 03/20/23 [Maxitrol Ophth Susp] bisacodyL [Dulcolax] 10 mg RECTAL DIRECTED PRN 03/20/23 03/20/23 diphenhydrAMINE HCL [Benadryl 25 mg PO DIRECTED PRN 03/20/23 03/20/23 Allergy] fluocinolone acetonide oiL 5 drops LEFT EAR BID 03/20/23 03/20/23 [fluocinolone acetonide oiL 0.01% (Otic)] Previous Rx's Medication Instructions Recorded Aspirin EC [Ecotrin Low Dose] 81 mg PO DAILY #30 tablet. 08/22/16 Allergies Allergy/AdvReac Type Severity Reaction Status Date / Time corn Allergy Unknown Verified 03/20/23 21:43 Sulfa (Sulfonamide Allergy Unknown Verified 03/20/23 21:43 Antibiotics) GI coctail AdvReac Anaphylaxis Uncoded 03/20/23 17:50 Review of Systems ROS Statement: Those systems with pertinent positive or pertinent negative responses have been documented in the HPI. ROS Other: All systems not noted in ROS Statement are negative. Constitutional: Denies: fever, chills Respiratory: Denies: cough, dyspnea Cardiovascular: Denies: chest pain Gastrointestinal: Reports: abdominal pain, constipation. Denies: nausea, vomiting Genitourinary: Denies: dysuria, hematuria Musculoskeletal: Denies: back pain Neurological: Denies: headache Past Medical History Past Medical History: Heart Failure, Pneumonia, Sleep Apnea/CPAP/BIPAP Additional Past Medical History / Comment(s): cog impaired, cerebral palsy, quadriplegia, lower leg and pedal edema, IRCHAR with CPAP use, bronchitis, acute respiratory failure with pneumonia/sepsis. History of Any Multi-Drug Resistant Organisms: None Reported Past Surgical History: Orthopedic Surgery Additional Past Surgical History / Comment(s): L shoulder surgery, L cheek cyst removed, D&C, recent thoracentesis Past Anesthesia/Blood Transfusion Reactions: No Reported Reaction Past Psychological History: Depression Smoking Status: Never smoker Past Alcohol Use History: None Reported Past Drug Use History: None Reported - Past Family History Mother Family Medical History: No Reported History Additional Family Medical History / Comment(s): Mother is healthy. Father Additional Family Medical History / Comment(s): from pulmonary fibrosis General Exam Limitations: physical limitation General appearance: alert, in no apparent distress Head exam: Present: atraumatic, normocephalic Eye exam: Present: normal appearance. Absent: scleral icterus, conjunctival injection ENT exam: Present: normal oropharynx Neck exam: Present: normal inspection Respiratory exam: Present: normal lung sounds bilaterally. Absent: respiratory distress, wheezes, rales, rhonchi, stridor Cardiovascular Exam: Present: regular rate, normal rhythm, normal heart sounds. Absent: systolic murmur, diastolic murmur, rubs, gallop GI/Abdominal exam: Present: soft, tenderness. Absent: distended, guarding, rebound, rigid, mass, hernia Extremities exam: Present: normal capillary refill. Absent: pedal edema, calf tenderness Back exam: Present: normal inspection. Absent: CVA tenderness (R), CVA t enderness (L) Neurological exam: Present: alert Skin exam: Present: warm, dry, intact, normal color. Absent: rash Course Vital Signs 03/20/23 03/20/23 03/20/23 17:43 19:30 21:45 Temperature 96.9 F L Pulse Rate 77 74 80 Respiratory 18 18 18 Rate Blood Pressure 159/91 140/90 138/58 O2 Sat by Pulse 100 100 100 Oximetry 03/20/23 03/21/23 03/21/23 23:10 00:21 00:56 Temperature 98.7 F Pulse Rate 80 80 70 Respiratory 16 16 16 Rate Blood Pressure 113/86 124/90 111/64 O2 Sat by Pulse 100 100 100 Oximetry Medical Decision Making - Medical Decision Making The patient had computed tomography scan of the abdomen which I interpreted to show moderately increased fecal burden/constipation. No acute surgical condition. Was pt. sent in by a medical professional or institution (, PA, PRODUCTION EDITOR, urgent care, hospital, or custodial...) When possible be specific @ -[No] Did you speak to anyone other than the patient for history (EMS, parent, family, police, friend...)? What history was obtained from this source @ -[One of the patient's caregivers did initially provide history, family arrived later and did discuss the case. Did you review nursing and triage notes (agree or disagree)? Why? @ -[I reviewed and agree with nursing and triage notes] Were old charts reviewed (outside hosp., previous admission, EMS record, old EKG, old radiological studies, urgent care reports/EKG's, custodial records)? Report findings @ -[No old charts were reviewed] Differential Diagnosis (chest pain, altered mental status, abdominal pain women, abdominal pain men, vaginal bleeding, weakness, fever, dyspnea, syncope, headache, dizziness, GI bleed, back pain, seizure, CVA, palpatations, mental health, musculoskeletal)? @ -[Differential Abdominal Pain Women: Appendicitis, Cholecystitis, diverticulosis, ischemic bowel, pancreatitis, hepatitis, UTI, gastroenteritis, AAA, incarcerated hernia, bowel obstruction, constipation, inflammatory bowel, hepatitis, peptic ulcer disease, splenic infarction, perforated viscus, vulvitis, ovarian torsion, PID, kidney stone, placenta abruption, this is not meant to be an all-inclusive list EKG interpreted by me (3pts min.). @ -[As above] X-rays interpreted by me (1pt min.). @ -[None done] CT interpreted by me (1pt min.). @ -[I interpreted As above U/S interpreted by me (1pt. min.). @ -[None done] What testing was considered but not performed or refused? (CT, X-rays, U/S, labs)? Why? @ -[None] What meds were considered but not given or refused? Why? @ -[None] Did you discuss the management of the patient with other professionals (professionals i.e. , PA, PRODUCTION EDITOR, lab, RT, psych nurse, bilingual social worker, earth moving machine operator, teacher, accounting officer, porter sample case)? Give summary @ -[No] Was smoking cessation discussed for >3mins.? @ -[No] Was critical care preformed (if so, how long)? @ -[No] Were there social determinants of health that impacted care today? How? (Homelessness, low income, unemployed, alcoholism, drug addiction, transportation, low edu. Level, literacy, decrease access to med. care, nursing home, rehab)? @ -[No] Was there de-escalation of care discussed even if they declined (Discuss DNR or withdrawal of care, Hospice)? DNR status @ -[No] What co-morbidities impacted this encounter? (DM, HTN, Smoking, COPD, CAD, Cancer, CVA, ARF, Chemo, Hep., AIDS, mental health diagnosis, sleep apnea, morbid obesity)? @ -[None] Was patient admitted / discharged? Hospital course, mention meds given and route, prescriptions, significant lab abnormalities, going to OR and other pertinent info. @ -[Patient is 67-year-old woman here with abdominal pain that does appear to be related mainly to constipation. Discussed various options of treatment and the patient in conjunction with family requested to have enema and then want to go home. Undiagnosed new problem with uncertain prognosis? @ -[No] Drug Therapy requiring intensive monitoring for toxicity (Heparin, Nitro, Insulin, Cardizem)? @ -[No] Were any procedures done? @ -[No] Diagnosis/symptom? @ -[Acute abdominal pain Acute on chronic constipation Acute, or Chronic, or Acute on Chronic? @ -[default] Uncomplicated (without systemic symptoms) or Complicated (systemic symptoms)? @ -[Uncomplicated Side effects of treatment? @ -[No] Exacerbation, Progression, or Severe Exacerbation? @ -[No] Poses a threat to life or bodily function? How? (Chest pain, USA, [place], pneumonia, PE, COPD, DKA, ARF, appy, cholecystitis, CVA, Diverticulitis, Homicidal, Suicidal, threat to staff... and all critical care pts) @ -[No] - Lab Data Result diagrams: 03/20/23 18:24 03/20/23 18:24 Lab Results 03/20/23 03/20/23 Range/Units 18:24 18:24 WBC 7.4 (3.8-10.6) k/uL RBC 3.29 L (3.80-5.40) m/uL Hgb 12.3 (11.4-16.0) gm/dL Hct 33.1 L (34.0-46.0) % MCV 100.7 H (80.0-100.0) fL MCH 37.2 H (25.0-35.0) pg MCHC 37.0 (31.0-37.0) g/dL RDW 14.2 (11.5-15.5) % Plt Count 194 (150-450) k/uL MPV 8.7 Neutrophils % 69 % Lymphocytes % 19 % Monocytes % 9 % Eosinophils % 2 % Basophils % 0 % Neutrophils # 5.1 (1.3-7.7) k/uL Lymphocytes # 1.4 (1.0-4.8) k/uL Monocytes # 0.6 (0-1.0) k/uL Eosinophils # 0.1 (0-0.7) k/uL Basophils # 0.0 (0-0.2) k/uL Poikilocytosis Slight Macrocytosis Slight Sodium 133 L (137-145) mmol/L Potassium 4.6 (3.5-5.1) mmol/L Chloride 94 L (98-107) mmol/L Carbon Dioxide 32 H (22-30) mmol/L Anion Gap 7 mmol/L BUN 30 H (7-17) mg/dL Creatinine 0.62 (0.52-1.04) mg/dL Est GFR (CKD-EPI)AfAm >90 (>60 ml/min/1.73 sqM) Est GFR (CKD-EPI)NonAf >90 (>60 ml/min/1.73 sqM) Glucose 110 H (74-99) mg/dL Calcium 9.3 (8.4-10.2) mg/dL Total Bilirubin 0.4 (0.2-1.3) mg/dL AST 36 (14-36) U/L ALT 50 H (4-34) U/L Alkaline Phosphatase 106 (38-126) U/L Total Protein 7.5 (6.3-8.2) g/dL Albumin 4.1 (3.5-5.0) g/dL Amylase 47 (30-110) U/L Lipase 68 (23-300) U/L Disposition Clinical Impression: Abdominal pain, Constipation Disposition: HOME SELF-CARE Condition: Good Instructions (If sedation given, give patient instructions): Constipation (ED) Is patient prescribed a controlled substance at d/c from ED?: No Referrals: Josemanuel Yusuf MD [Primary Care Provider] - 1-2 days
[2023-03-21 00:41] VITALS: RESP 16
[2023-03-21 01:16] VITALS: BP 111/64; PULSE 70; TEMP 98.7
== END 2023-03-21 01:01 | disposition home or self-care (01) ==
LOC: EC 17:36
DX: K59.00 Constipation, unspecified (principal); I50.9 Heart failure, unspecified; G47.30 Sleep apnea, unspecified; F32.A Depression, unspecified; Z79.899 Other long term (current) drug therapy; Z88.2 Allergy status to sulfonamides; Z88.8 Allergy status to other drugs, medicaments and biological substances
CPT/HCPCS: 36415; 80053; 82150; 83690; 85025; 74176; 99285; 96374; J2270

== ENCOUNTER 2023-09-01 11:34 | Inpatient (IN) | payer MEDICARE, OTHER ==
--- NOTE | 2023-09-01 11:50 | ED ---
General Adult HPI - General Chief complaint: Recheck/Abnormal Lab/Rx Stated complaint: abn labs Time Seen by Provider: 09/01/23 11:35 Source: patient, EMS, RN notes reviewed Mode of arrival: EMS Limitations: no limitations - History of Present Illness Initial comments: Patient is a 68-year-old female. Patient presents to emergency department for reported low potassium. Patient reportedly had a recent blood draw. Patient states she feels fine and has no complaints. Patient denies palpitations. - Related Data Home Medications Medication Instructions Recorded Confirmed Bumetanide [BUMEX] 1 mg PO BID 07/23/22 03/20/23 Divalproex Sodium [Depakote] 500 mg PO BID 07/23/22 03/20/23 Ferrous Sulfate [Iron (65 MG 325 mg PO DAILY 07/23/22 03/20/23 Elemental)] Sennosides [Senokot] 17.2 mg PO HS 07/23/22 03/20/23 Spironolactone [Aldactone] 50 mg PO HS 07/23/22 03/20/23 Venlafaxine HCl [Effexor XR] 75 mg PO HS 07/23/22 03/20/23 Acetaminophen [Tylenol Extra 1,000 mg PO Q4H PRN 03/20/23 03/20/23 Strength] Fluticasone Nasal [place] [Flonase 1 spray EA NOSTRIL DAILY 03/20/23 03/20/23 Nasal [place]] Folic Acid/B-6/B-12 1 tab PO DAILY 03/20/23 03/20/23 Ibuprofen [Advil] 400 mg PO Q6H PRN 03/20/23 03/20/23 Ipratropium-Albuterol Nebulize 3 ml INHALATION RT-QID 03/20/23 03/20/23 [Duoneb 0.5 mg-3 mg/3 ml Soln] Lactulose [Constulose] 20 gm PO BID 03/20/23 03/20/23 Loperamide [Imodium] 2 mg PO DIRECTED PRN 03/20/23 03/20/23 Mucus+Chst 100/5ml Liq 1 dose PO DIRECTED PRN 03/20/23 03/20/23 Neomycin/Polymyxin B/Dexametha 2 drop BOTH EYES TID PRN 03/20/23 03/20/23 [Maxitrol Ophth Susp] bisacodyL [Dulcolax] 10 mg RECTAL DIRECTED PRN 03/20/23 03/20/23 diphenhydrAMINE HCL [Benadryl 25 mg PO DIRECTED PRN 03/20/23 03/20/23 Allergy] fluocinolone acetonide oiL 5 drops LEFT EAR BID 03/20/23 03/20/23 [fluocinolone acetonide oiL 0.01% (Otic)] Previous Rx's Medication Instructions Recorded Aspirin EC [Ecotrin Low Dose] 81 mg PO DAILY #30 tablet. 08/22/16 Allergies Allergy/AdvReac Type Severity Reaction Status Date / Time corn Allergy Unknown Verified 09/01/23 11:43 Sulfa (Sulfonamide Allergy Unknown Verified 09/01/23 11:43 Antibiotics) GI coctail AdvReac Anaphylaxis Uncoded 09/01/23 11:43 Review of Systems ROS Statement: Those systems with pertinent positive or pertinent negative responses have been documented in the HPI. ROS Other: All systems not noted in ROS Statement are negative. Constitutional: Denies: fever Eyes: Denies: eye pain ENT: Denies: ear pain Respiratory: Denies: cough Cardiovascular: Denies: chest pain, palpitations Past Medical History Past Medical History: Heart Failure, Pneumonia, Sleep Apnea/CPAP/BIPAP Additional Past Medical History / Comment(s): cog impaired, cerebral palsy, quadriplegia, lower leg and pedal edema, RICHAR with CPAP use, bronchitis, acute respiratory failure with pneumonia/sepsis. History of Any Multi-Drug Resistant Organisms: None Reported Past Surgical History: Orthopedic Surgery Additional Past Surgical History / Comment(s): L shoulder surgery, L cheek cyst removed, D&C, recent thoracentesis Past Anesthesia/Blood Transfusion Reactions: No Reported Reaction Past Psychological History: Depression Smoking Status: Never smoker Past Alcohol Use History: None Reported Past Drug Use History: None Reported - Past Family History Mother Family Medical History: No Reported History Additional Family Medical History / Comment(s): Mother is healthy. Father Additional Family Medical History / Comment(s): from pulmonary fibrosis General Exam Limitations: no limitations General appearance: alert, in no apparent distress Head exam: Present: atraumatic Eye exam: Present: other (Disconjugate gaze) Neck exam: Present: normal inspection Respiratory exam: Present: normal lung sounds bilaterally Cardiovascular Exam: Present: regular rate, normal rhythm GI/Abdominal exam: Present: soft. Absent: tenderness Extremities exam: Present: other (Contracted extremities) Neurological exam: Present: alert Psychiatric exam: Present: normal affect, normal mood Skin exam: Present: normal color Course Vital Signs 09/01/23 11:38 Temperature 97.5 F L Pulse Rate 82 Respiratory 16 Rate Blood Pressure 106/92 O2 Sat by Pulse 98 Oximetry EKG Findings - EKG Results: EKG: interpreted by ERMD (Nonspecific ST-T), sinus rhythm, normal axis, normal QRS Medical Decision Making - Medical Decision Making Was pt. sent in by a medical professional or institution (, PA, PROFESSIONAL POKER PLAYER, urgent care, hospital, or skilled nursing...) When possible be specific @ -Patient was sent in by her primary care physician Did you speak to anyone other than the patient for history (EMS, parent, family, police, friend...)? What history was obtained from this source @ -No Did you review nursing and triage notes (agree or disagree)? Why? @ -I reviewed and agree with nursing and triage notes Were old charts reviewed (outside hosp., previous admission, EMS record, old EKG, old radiological studies, urgent care reports/EKG's, skilled nursing records)? Report findings @ -Previous labs reviewed including electrolytes Differential Diagnosis (chest pain, altered mental status, abdominal pain women, abdominal pain men, vaginal bleeding, weakness, fever, dyspnea, syncope, he adache, dizziness, GI bleed, back pain, seizure, CVA, palpatations, mental health, musculoskeletal)? @ -Differential Weakness: Hypoglycemia, shock, sepsis, hyponatremia, anemia, infection, [place], ETOH, adverse medicine reaction, overdose, stroke, this is not meant to be an all-inclusive list. EKG interpreted by me (3pts min.). @ -As above X-rays interpreted by me (1pt min.). @ -None done CT interpreted by me (1pt min.). @ -None done U/S interpreted by me (1pt. min.). @ -None done What testing was considered but not performed or refused? (CT, X-rays, U/S, labs)? Why? @ -None What meds were considered but not given or refused? Why? @ -None Did you discuss the management of the patient with other professionals (professionals i.e. , PA, PROFESSIONAL POKER PLAYER, lab, RT, psych nurse, social secretary, fiscal analyst, teacher, juvenile justice officer, outsole caser)? Give summary @ -Case was discussed with Dr. Shaw who will admit covering [facility], covering for Dr. Huang, who admits for Dr. Pineda Was smoking cessation discussed for >3mins.? @ -No Was critical care preformed (if so, how long)? @ -No Were there social determinants of health that impacted care today? How? (Homelessness, low income, unemployed, alcoholism, drug addiction, transportation, low edu. Level, literacy, decrease access to med. care, [facility], rehab)? @ -No Was there de-escalation of care discussed even if they declined (Discuss DNR or withdrawal of care, Hospice)? DNR status @ -No What co-morbidities impacted this encounter? (DM, HTN, Smoking, COPD, CAD, Cancer, CVA, ARF, Chemo, Hep., AIDS, mental health diagnosis, sleep apnea, morbid obesity)? @ -None Was patient admitted / discharged? Hospital course, mention meds given and route, prescriptions, significant lab abnormalities, going to OR and other pertinent info. @ -Patient presents with dehydration and electrolyte disorder. Patient will be admitted. Admission orders written. Undiagnosed new problem with uncertain prognosis? @ -No Drug Therapy requiring intensive monitoring for toxicity (Heparin, Nitro, Insulin, Cardizem)? @ -No Were any procedures done? @ -No Diagnosis/symptom? @ -Hyponatremia, dehydration Acute, or Chronic, or Acute on Chronic? @ -Acute, acute Uncomplicated (without systemic symptoms) or Complicated (systemic symptoms)? @ -Default Side effects of treatment? @ -No Exacerbation, Progression, or Severe Exacerbation? @ -No Poses a threat to life or bodily function? How? (Chest pain, [place], [place], pneumonia, PE, COPD, DKA, ARF, appy, cholecystitis, CVA, Diverticulitis, Homicidal, Suicidal, threat to staff... and all critical care pts) @ -Threat to renal function - Lab Data Result diagrams: 09/01/23 11:39 09/01/23 11:39 Lab Results 09/01/23 09/01/23 Range/Units 11:39 11:39 WBC 10.0 (3.8-10.6) k/uL RBC 3.56 L (3.80-5.40) m/uL Hgb 12.6 (11.4-16.0) gm/dL Hct 35.0 (34.0-46.0) % MCV 98.3 (80.0-100.0) fL MCH 35.5 H (25.0-35.0) pg MCHC 36.1 (31.0-37.0) g/dL RDW 13.3 (11.5-15.5) % Plt Count 289 (150-450) k/uL MPV 8.0 Neutrophils % 76 % Lymphocytes % 15 % Monocytes % 6 % Eosinophils % 1 % Basophils % 0 % Neutrophils # 7.6 (1.3-7.7) k/uL Lymphocytes # 1.5 (1.0-4.8) k/uL Monocytes # 0.6 (0-1.0) k/uL Eosinophils # 0.1 (0-0.7) k/uL Basophils # 0.0 (0-0.2) k/uL Hyperchromasia Moderate Poikilocytosis Slight Sodium 125 L (137-145) mmol/L Potassium 3.1 L (3.5-5.1) mmol/L Chloride 74 L* (98-107) mmol/L Carbon Dioxide 39 H (22-30) mmol/L Anion Gap 12 mmol/L BUN 57 H (7-17) mg/dL Creatinine 0.74 (0.52-1.04) mg/dL Est GFR (CKD-EPI)AfAm >90 (>60 ml/min/1.73 sqM) Est GFR (CKD-EPI)NonAf 85 (>60 ml/min/1.73 sqM) Glucose 101 H (74-99) mg/dL Calcium 9.6 (8.4-10.2) mg/dL Magnesium 2.2 (1.6-2.3) mg/dL Total Bilirubin 0.5 (0.2-1.3) mg/dL AST 44 H (14-36) U/L ALT 59 H (4-34) U/L Alkaline Phosphatase 118 (38-126) U/L Total Protein 7.8 (6.3-8.2) g/dL Albumin 4.4 (3.5-5.0) g/dL Disposition Clinical Impression: Hypokalemia, Dehydration, Hyponatremia Disposition: ADMITTED IP TO THIS HOSP Is patient prescribed a controlled substance at d/c from ED?: No Referrals: Josemanuel Yusuf MD [Primary Care Provider] - 1-2 days Time of Disposition: 13:34
[2023-09-01 12:05] LABS: Basophils % (A) 0 %; Eosinophils # (A) 0.1 k/uL (0-0.7); Eosinophils % (A) 1 %; HGB 12.6 gm/dL (11.4-16.0); Hyperchromasia Moderate; Lymphocytes # (A) 1.5 k/uL (1.0-4.8); Lymphocytes % (A) 15 %; MCH 35.5 pg (25.0-35.0); MCHC 36.1 g/dL (31.0-37.0); MCV 98.3 fL (80.0-100.0); Monocytes # (A) 0.6 k/uL (0-1.0); Monocytes % (A) 6 %; Neutrophils # (A) 7.6 k/uL (1.3-7.7); Neutrophils % (A) 76 %; Platelet Count 289 k/uL (150-450); Poikilocytosis Slight; RBC 3.56 m/uL (3.80-5.40); RDW 13.3 % (11.5-15.5)
[2023-09-01 12:21] LABS: ALT 59 U/L (4-34); AST 44 U/L (14-36); African American GFR (CKD) >90 (>60 ml/min/1.73 sqM); Albumin 4.4 g/dL (3.5-5.0); Alkaline Phosphatase 118 U/L (38-126); Blood Urea Nitrogen 57 mg/dL (7-17); Calcium 9.6 mg/dL (8.4-10.2); Glucose 101 mg/dL (74-99); Magnesium 2.2 mg/dL (1.6-2.3); Non-African American GFR(CKD) 85 (>60 ml/min/1.73 sqM); Potassium 3.1 mmol/L (3.5-5.1); Sodium 125 mmol/L (137-145); Total Bilirubin 0.5 mg/dL (0.2-1.3); Total Protein 7.8 g/dL (6.3-8.2)
[2023-09-01 12:28] LABS: Anion Gap 12 mmol/L
[2023-09-01 12:29] LABS: Carbon Dioxide 39 mmol/L (22-30); Chloride 74 mmol/L (98-107)
[2023-09-01] MEDS: SODIUM CHLORIDE 0.9% 1,000 ML IV SCH ×2 (13:06→14:44)
[2023-09-01] MEDS ORDERED: ACETAMINOPHEN TAB 325 MG TAB PO PRN (13:35)
[2023-09-01] MEDS ORDERED: NALOXONE 0.4 MG/ML 1 ML VIAL IV PRN (13:35)
[2023-09-01] MEDS: SODIUM CHLORIDE 0.9% 500 ML 500 ML IV STA (14:43)
[2023-09-01] MEDS: POTASSIUM CHLORIDE ER 20 MEQ TAB.ER PO STA (14:43)
--- NOTE | 2023-09-01 17:37 | P.HPIM ---
History of Present Illness H&P Date: 09/01/23 68 year old F with PMH of mild CHF (per guardian), cerebral palsy with quadriplegia, seizure disorder, GERD, RICHAR with CPAP presents to the ED after being sent in for abnormal lab work. History of the patient is limited and majority of information is obtained from guardian. Guardian reports patient has had a difficult time swallowing solids per her caretakers. She was recently started on Bumex for lower extremity swelling for a week. Guardian reports significant weight gain over the past year. In the ED, vital signs showed BP 102/92, HR 82, T 97.5F, RR 16, 98% on RA. CBC, CMP significant for RBC 3.65, MCH 35.5, Na 125, K 3.1, Cl 74, bicarb 39, BUN 57, glu 101, AST 44, ALT 59. Mag 2.2. EKG sinus rhythm with nonspecific ST-T wave changes. Patient is admitted for further workup and management. General: non toxic, no distress, appears at stated age Derm: warm, dry Head: atraumatic, normocephalic, symmetric Eyes: EOMI, no lid lag, anicteric sclera Mouth: no lip lesion, mucus membranes moist Respiratory: Clear to auscultation bilaterally Cardiovascular: S1S2 reg, no murmur Abdominal: soft, nontender to palpation, no guarding, no appreciable organomegaly Ext: no gross muscle atrophy, no edema, contractured upper extremities Neuro: no focal neuro deficits Psych: Alert, oriented, appropriate affect Based on my assessment of this patient, this patient meets a high complexity level of care. Hyponatremia: Management as below. Hypochloremia: Management as below. Hypokalemia: KCl 40 meq PO x 1. Metabolic alkalosis: Management as below. Prerenal azotemia: Continue NS at 75 cc/hr. Hold Aldactone, Bumex and Metolazone. Dehydration due to overuse of diuretics causing severe electrolyte disturbances Dysphagia: ST consult for formal swallow evaluation. CODE STATUS: NO CODE. DVT Prophylaxis: Lovenox SQ GI Prophylaxis: Protonix PO. Designated medical POA if patient is not able to make medical decisions for themselves: Sister I have reviewed the following method consultant notes: ED note. I have reviewed the results of the following tests: As above. I have ordered the following tests: As above. I have discussed the care of this patient with the following independent historian: Guardian. I have independently interpreted the following test below: EKG I have discussed the management of this patient with the following physician: ED physician. Past Medical History Past Medical History: Heart Failure, Pneumonia, Sleep Apnea/CPAP/BIPAP Additional Past Medical History / Comment(s): cog impaired, cerebral palsy, quadriplegia, lower leg and pedal edema, RICHAR with CPAP use, bronchitis, acute respiratory failure with pneumonia/sepsis. History of Any Multi-Drug Resistant Organisms: None Reported Past Surgical History: Orthopedic Surgery Additional Past Surgical History / Comment(s): L shoulder surgery, L cheek cyst removed, D&C, recent thoracentesis Past Anesthesia/Blood Transfusion Reactions: No Reported Reaction Past Psychological History: Depression Smoking Status: Never smoker Past Alcohol Use History: None Reported Past Drug Use History: None Reported - Past Family History Mother Family Medical History: No Reported History Additional Family Medical History / Comment(s): Mother is healthy. Father Additional Family Medical History / Comment(s): from pulmonary fibrosis Medications and Allergies Home Medications Medication Instructions Recorded Confirmed Type Aspirin EC [Ecotrin Low Dose] 81 mg PO DAILY #30 tablet. 08/22/16 09/01/23 Rx Bumetanide [BUMEX] 2 mg PO BID 07/23/22 09/01/23 History Divalproex Sodium [Depakote] 500 mg PO BID 07/23/22 09/01/23 History Ferrous Sulfate [Iron (65 MG 325 mg PO DAILY 07/23/22 09/01/23 History Elemental)] Sennosides [Senokot] 17.2 mg PO HS 07/23/22 09/01/23 History Spironolactone [Aldactone] 50 mg PO HS 07/23/22 09/01/23 History Venlafaxine HCl [Effexor XR] 75 mg PO HS 07/23/22 09/01/23 History Acetaminophen [Tylenol Extra 1,000 mg PO Q4H PRN 03/20/23 09/01/23 History Strength] Fluticasone Nasal [place] [Flonase 1 spr EA NOSTRIL DAILY 03/20/23 09/01/23 History Nasal [place]] Folic Acid/B-6/B-12 1 tab PO DAILY 03/20/23 09/01/23 History Ibuprofen [Advil] 400 mg PO Q6H PRN 03/20/23 09/01/23 History Ipratropium-Albuterol Nebulize 3 ml INHALATION RT-TID 03/20/23 09/01/23 History [Duoneb 0.5 mg-3 mg/3 ml Soln] Lactulose [Constulose] 20 gm PO BID 03/20/23 09/01/23 History Loperamide [Imodium] 2 mg PO DIRECTED PRN 03/20/23 09/01/23 History Mucus+Chst 100/5ml Liq 1 dose PO DIRECTED PRN 03/20/23 09/01/23 History Neomycin/Polymyxin B/Dexametha 2 drop BOTH EYES TID PRN 03/20/23 09/01/23 History [Maxitrol Ophth Susp] bisacodyL [Dulcolax] 10 mg RECTAL DIRECTED PRN 03/20/23 09/01/23 History diphenhydrAMINE HCL [Benadryl 25 mg PO DIRECTED PRN 03/20/23 09/01/23 History Allergy] fluocinolone acetonide oiL 5 drops LEFT EAR BID 03/20/23 09/01/23 History [fluocinolone acetonide oiL 0.01% (Otic)] Fexofenadine HCl 180 mg PO DAILY 09/01/23 09/01/23 History Na Phos,M-B/Na Phos,Di-Ba [Fleet 230 ml RECTAL Q3D PRN 09/01/23 09/01/23 History Adult] Omeprazole 20 mg PO DAILY 09/01/23 09/01/23 History Replens Long Lasting Moisture 1 applic VAGINAL Q3D 09/01/23 09/01/23 History Simethicone Chew [Mylicon Chew] 80 mg PO QID PRN 09/01/23 09/01/23 History metOLazone [Zaroxolyn] 2.5 mg PO DAILY 09/01/23 09/01/23 History Allergies Allergy/AdvReac Type Severity Reaction Status Date / Time corn Allergy Unknown Verified 09/01/23 14:54 Sulfa (Sulfonamide Allergy Unknown Verified 09/01/23 14:54 Antibiotics) GI coctail AdvReac Anaphylaxis Uncoded 09/01/23 14:54 Physical Exam Vitals: Vital Signs Temp Pulse Resp BP Pulse Ox 07/09/24 16:44 84 14 125/93 99 09/01/23 14:48 80 16 128/92 97 09/01/23 11:38 97.5 F L 82 16 106/92 98 Intake and Output 09/01/23 09/01/23 09/01/23 06:59 14:59 22:59 Other: Weight 77.111 kg Results CBC & Chem 7: 09/01/23 11:39 09/01/23 11:39 Labs: Abnormal Lab Results - Last 24 Hours (Table) 09/01/23 09/01/23 Range/Units 11:39 11:39 RBC 3.56 L (3.80-5.40) m/uL MCH 35.5 H (25.0-35.0) pg Sodium 125 L (137-145) mmol/L Potassium 3.1 L (3.5-5.1) mmol/L Chloride 74 L* (98-107) mmol/L Carbon Dioxide 39 H (22-30) mmol/L BUN 57 H (7-17) mg/dL Glucose 101 H (74-99) mg/dL AST 44 H (14-36) U/L ALT 59 H (4-34) U/L
[2023-09-01] MEDS: DIVALPROEX 500 MG TABLET.DR PO SCH (20:39)
[2023-09-01] MEDS: FAMOTIDINE 20 MG TAB PO SCH (20:39)
[2023-09-01] MEDS: VENLAFAXINE HCL ER 75 MG CAP PO SCH (20:39)
[2023-09-01] MEDS: LACTULOSE 20 GM/30 ML CUP PO SCH (20:41)
[2023-09-01] MEDS: IPRATROPIUM-ALBUTEROL 3 ML NEB INHALATION SCH (21:45)
[2023-09-02] MEDS: PANTOPRAZOLE 40 MG TABLET PO SCH (06:25)
[2023-09-02 08:00] LABS: ALT 52 U/L (4-34); AST 47 U/L (14-36); African American GFR (CKD) >90 (>60 ml/min/1.73 sqM); Albumin 3.6 g/dL (3.5-5.0); Albumin/Globulin Ratio 1.3; Alkaline Phosphatase 93 U/L (38-126); Anion Gap 9 mmol/L; Blood Urea Nitrogen 48 mg/dL (7-17); Calcium 8.8 mg/dL (8.4-10.2); Carbon Dioxide 34 mmol/L (22-30); Chloride 87 mmol/L (98-107); Globulin 2.8 g/dL; Glucose 88 mg/dL (74-99); Non-African American GFR(CKD) >90 (>60 ml/min/1.73 sqM); Potassium 3.4 mmol/L (3.5-5.1); Sodium 130 mmol/L (137-145); Total Bilirubin 0.4 mg/dL (0.2-1.3); Total Protein 6.4 g/dL (6.3-8.2)
[2023-09-02] MEDS: ASPIRIN 81 MG PO SCH (09:44)
[2023-09-02] MEDS: ENOXAPARIN 40 MG/0.4 ML SYRINGE SQ SCH (09:45)
[2023-09-02] MEDS: POTASSIUM CHLORIDE ER 20 MEQ TAB.ER PO STA (10:19)
[2023-09-02 14:08] LABS: Basophils % (A) 0 %; Eosinophils % (A) 1 %; HCT 31.6 % (34.0-46.0); HGB 10.7 gm/dL (11.4-16.0); Lymphocytes # (A) 1.2 k/uL (1.0-4.8); Lymphocytes % (A) 14 %; MCH 34.9 pg (25.0-35.0); MCHC 33.9 g/dL (31.0-37.0); MCV 103.1 fL (80.0-100.0); Macrocytosis Slight; Mean Platelet Volume 8.3; Monocytes # (A) 0.7 k/uL (0-1.0); Monocytes % (A) 8 %; Neutrophils # (A) 6.1 k/uL (1.3-7.7); Neutrophils % (A) 75 %; Platelet Count 249 k/uL (150-450); RBC 3.07 m/uL (3.80-5.40); RDW 13.1 % (11.5-15.5); WBC 8.2 k/uL (3.8-10.6)
--- NOTE | 2023-09-02 17:13 | P.PN ---
Subjective Progress Note Date: 09/02/23 68 year old F with PMH of mild CHF (per guardian), cerebral palsy with quadriplegia, seizure disorder, GERD, RICHAR with CPAP presents to the ED after being sent in for abnormal lab work. History of the patient is limited and majority of information is obtained from guardian. Guardian reports patient has had a difficult time swallowing solids per her caretakers. She was recently started on Bumex for lower extremity swelling for a week. Guardian reports significant weight gain over the past year. In the ED, vital signs showed BP 102/92, HR 82, T 97.5F, RR 16, 98% on RA. CBC, CMP significant for RBC 3.65, MCH 35.5, Na 125, K 3.1, Cl 74, bicarb 39, BUN 57, glu 101, AST 44, ALT 59. Mag 2.2. EKG sinus rhythm with nonspecific ST-T wave changes. Patient is admitted for further workup and management. 09/01 Patient was seen and examined. No complaints. Receiving IV hydration. ST recommends NDD3 with no obvious signs of aspiration. CBC Hg 10.7, Hct 31.6, MCV 103.1. BMP Na 130, K 3.4, Cl 87, bicarb 34, BUN 48, AST 47, ALT 52. General: non toxic, no distress, appears at stated age Derm: warm, dry Head: atraumatic, normocephalic, symmetric Eyes: EOMI, no lid lag, anicteric sclera Mouth: no lip lesion, mucus membranes moist Respiratory: Clear to auscultation bilaterally Cardiovascular: S1S2 reg, no murmur Abdominal: soft, nontender to palpation, no guarding, no appreciable organomegaly Ext: no gross muscle atrophy, no edema, contractured upper extremities Neuro: no focal neuro deficits Psych: Alert, oriented, appropriate affect Based on my assessment of this patient, this patient meets a high complexity level of care. Hyponatremia: Management as below. Hypochloremia: Management as below. Hypokalemia: KCl 40 meq PO x 1. Metabolic alkalosis: Management as below. Prerenal azotemia: Continue NS at 75 cc/hr. Hold Aldactone, Bumex and Metolazone. Dehydration due to overuse of diuretics causing severe electrolyte disturbances Dysphagia: ST recommends NDD3 diet. CODE STATUS: NO CODE. DVT Prophylaxis: Lovenox SQ GI Prophylaxis: Protonix PO. Designated medical POA if patient is not able to make medical decisions for themselves: Sister I have reviewed the following community health consultant notes: I have reviewed the results of the following tests: CBC, BMP. I have ordered the following tests: BMP. I have discussed the care of this patient with the following independent historian: I have independently interpreted the following test below: I have discussed the management of this patient with the following physician: Possible discharge tomorrow if electrolytes continue to improve with IVF. Objective - Vital Signs Vital signs: Vital Signs Temp 98.6 F 09/02/23 14:20 Pulse 79 09/02/23 15:54 Resp 22 09/02/23 14:20 BP 133/75 09/02/23 14:20 Pulse Ox 97 09/02/23 14:20 FiO2 Intake & Output 09/01/23 09/02/23 09/02/23 18:59 06:59 18:59 Output Total 600 Balance -600 Weight 77.111 kg 77.111 kg Output: Urine 600 Other: Voiding Method External Catheter External Catheter - Labs CBC & Chem 7: 09/02/23 12:20 09/02/23 06:21 Labs: Abnormal Lab Results - Last 24 Hours (Table) 09/02/23 09/02/23 Range/Units 06:21 12:20 RBC 3.07 L (3.80-5.40) m/uL Hgb 10.7 L (11.4-16.0) gm/dL Hct 31.6 L (34.0-46.0) % MCV 103.1 H (80.0-100.0) fL Sodium 130 L (137-145) mmol/L Potassium 3.4 L (3.5-5.1) mmol/L Chloride 87 L (98-107) mmol/L Carbon Dioxide 34 H (22-30) mmol/L BUN 48 H (7-17) mg/dL AST 47 H (14-36) U/L ALT 52 H (4-34) U/L
[2023-09-03 08:02] LABS: African American GFR (CKD) >90 (>60 ml/min/1.73 sqM); Anion Gap 5 mmol/L; Blood Urea Nitrogen 26 mg/dL (7-17); Calcium 8.5 mg/dL (8.4-10.2); Carbon Dioxide 32 mmol/L (22-30); Chloride 95 mmol/L (98-107); Glucose 108 mg/dL (74-99); Non-African American GFR(CKD) >90 (>60 ml/min/1.73 sqM); Potassium 3.5 mmol/L (3.5-5.1); Sodium 132 mmol/L (137-145)
[2023-09-03 10:14] VITALS: BP 113/68; RESP 18; TEMP 97.8
--- NOTE | 2023-09-03 10:55 | P.DS ---
Providers Date of admission: 09/01/23 13:37 Expected date of discharge: 09/03/23 Attending physician: Soo Michelle MD Primary care physician: Josemanuel Yusuf MD Hospital Course: 68 year old F with PMH of mild CHF (per guardian), cerebral palsy with quadriplegia, seizure disorder, GERD, RICHAR with CPAP presents to the ED after being sent in for abnormal lab work. History of the patient is limited and majority of information is obtained from guardian. Guardian reports patient has had a difficult time swallowing solids per her caretakers. She was recently started on Bumex for lower extremity swelling for a week. Guardian reports significant weight gain over the past year. In the ED, vital signs showed BP 102/92, HR 82, T 97.5F, RR 16, 98% on RA. CBC, CMP significant for RBC 3.65, MCH 35.5, Na 125, K 3.1, Cl 74, bicarb 39, BUN 57, glu 101, AST 44, ALT 59. Mag 2.2. EKG sinus rhythm with nonspecific ST-T wave changes. Patient is admitted for further workup and management. 09/01 Patient was seen and examined. No complaints. Receiving IV hydration. ST recommends NDD3 with no obvious signs of aspiration. CBC Hg 10.7, Hct 31.6, MCV 103.1. BMP Na 130, K 3.4, Cl 87, bicarb 34, BUN 48, AST 47, ALT 52. 09/02 Patient was seen and examined. No complaints. BMP Na 132, Cl 95, bicarb 32, BUN 26, glu 108. Plans for discharge home today. Reduce Bumex from 2 mg PO BID to 1 mg PO QD and Aldactone from 50 mg PO QD to 25 mg PO QD. Stop Metolazone. Follow up with PCP within 1-2 days of discharge. General: non toxic, no distress, appears at stated age Derm: warm, dry Head: atraumatic, normocephalic, symmetric Eyes: EOMI, no lid lag, anicteric sclera Mouth: no lip lesion, mucus membranes moist Respiratory: Breathing comfortable Cardiovascular: Good distal perfusion in all 4 extremities Ext: no gross muscle atrophy, no edema, contractured upper extremities Neuro: no focal neuro deficits Psych: Alert, oriented, appropriate affect Discharge Diagnosis: Hyponatremia Hypochloremia Hypokalemia Metabolic alkalosis Prerenal azotemia Dehydration due to overuse of diuretics causing severe electrolyte disturbances Dysphagia This complex discharge took 35 minutes to complete. Patient Condition at Discharge: Stable Plan - Discharge Summary New Discharge Prescriptions: Continue Aspirin EC [Ecotrin Low Dose] 81 mg PO DAILY #30 tablet.dr Ferrous Sulfate [Iron (65 MG Elemental)] 325 mg PO DAILY Neomycin/Polymyxin B/Dexametha [Maxitrol Ophth Susp] 2 drop BOTH EYES TID PRN PRN Reason: Eye Irritation Mucus+Chst 100/5ml Liq 1 dose PO DIRECTED PRN PRN Reason: Cough bisacodyL [Dulcolax] 10 mg RECTAL DIRECTED PRN PRN Reason: Constipation Loperamide [Imodium] 2 mg PO DIRECTED PRN PRN Reason: Diarrhea Ibuprofen [Advil] 400 mg PO Q6H PRN PRN Reason: Pain Ipratropium-Albuterol Nebulize [Duoneb 0.5 mg-3 mg/3 ml Soln] 3 ml INHALATION RT-TID fluocinolone acetonide oiL [fluocinolone acetonide oiL 0.01% (Otic)] 5 drops LEFT EAR BID Fluticasone Nasal [place] [Flonase Nasal [place]] 1 spr EA NOSTRIL DAILY Fexofenadine HCl 180 mg PO DAILY Omeprazole 20 mg PO DAILY Replens Long Lasting Moisture 1 applic VAGINAL Q3D Na Phos,M-B/Na Phos,Di-Ba [Fleet Adult] 230 ml RECTAL Q3D PRN PRN Reason: Constipation Simethicone Chew [Mylicon Chew] 80 mg PO QID PRN PRN Reason: gas/bloating Venlafaxine HCl [Effexor XR] 75 mg PO HS Sennosides [Senokot] 17.2 mg PO HS Divalproex Sodium [Depakote] 500 mg PO BID Lactulose [Constulose] 20 gm PO BID Folic Acid/B-6/B-12 1 tab PO DAILY Acetaminophen [Tylenol Extra Strength] 1,000 mg PO Q4H PRN PRN Reason: Fever And/ Or Pain Changed Spironolactone [Aldactone] 25 mg PO HS #0 Bumetanide [BUMEX] 1 mg PO DAILY #0 Discontinued diphenhydrAMINE HCL [Benadryl Allergy] 25 mg PO DIRECTED PRN PRN Reason: Allergy Symptoms metOLazone [Zaroxolyn] 2.5 mg PO DAILY Discharge Medication List Aspirin EC [Ecotrin Low Dose] 81 mg PO DAILY #30 tablet. 08/22/16 [Rx] Divalproex Sodium [Depakote] 500 mg PO BID 07/23/22 [History] Ferrous Sulfate [Iron (65 MG Elemental)] 325 mg PO DAILY 07/23/22 [History] Sennosides [Senokot] 17.2 mg PO HS 07/23/22 [History] Venlafaxine HCl [Effexor XR] 75 mg PO HS 07/23/22 [History] Acetaminophen [Tylenol Extra Strength] 1,000 mg PO Q4H PRN 03/20/23 [History] Fluticasone Nasal [place] [Flonase Nasal [place]] 1 spr EA NOSTRIL DAILY 03/20/23 [History] Folic Acid/B-6/B-12 1 tab PO DAILY 03/20/23 [History] Ibuprofen [Advil] 400 mg PO Q6H PRN 03/20/23 [History] Ipratropium-Albuterol Nebulize [Duoneb 0.5 mg-3 mg/3 ml Soln] 3 ml INHALATION RT-TID 03/20/23 [History] Lactulose [Constulose] 20 gm PO BID 03/20/23 [History] Loperamide [Imodium] 2 mg PO DIRECTED PRN 03/20/23 [History] Mucus+Chst 100/5ml Liq 1 dose PO DIRECTED PRN 03/20/23 [History] Neomycin/Polymyxin B/Dexametha [Maxitrol Ophth Susp] 2 drop BOTH EYES TID PRN 03/20/23 [History] bisacodyL [Dulcolax] 10 mg RECTAL DIRECTED PRN 03/20/23 [History] fluocinolone acetonide oiL [fluocinolone acetonide oiL 0.01% (Otic)] 5 drops LEFT EAR BID 03/20/23 [History] Fexofenadine HCl 180 mg PO DAILY 09/01/23 [History] Na Phos,M-B/Na Phos,Di-Ba [Fleet Adult] 230 ml RECTAL Q3D PRN 09/01/23 [History] Omeprazole 20 mg PO DAILY 07/09/24 [History] Replens Long Lasting Moisture 1 applic VAGINAL Q3D 09/01/23 [History] Simethicone Chew [Mylicon Chew] 80 mg PO QID PRN 09/01/23 [History] Bumetanide [BUMEX] 1 mg PO DAILY #0 09/03/23 [Rx] Spironolactone [Aldactone] 25 mg PO HS #0 09/03/23 [Rx] Follow up Appointment(s)/Referral(s): Josemanuel Yusuf MD [Primary Care Provider] - 1-2 days Activity/Diet/Wound Care/Special Instructions: Diet: NDD3 chopped diet PATIENT IS ON MANY DIURETICS. PLEASE CONSIDER FURTHER DOSE REDUCTION OR DISCONTINUATION. Discharge Disposition: HOME SELF-CARE
[2023-09-03 11:59] VITALS: PULSE 69
== END 2023-09-03 14:33 | disposition home or self-care (01) | DRG 640 ==
LOC: EC 11:34 → 4SSUR 13:37
PROVIDERS: ADMIT Family Medicine; ATTEND Family Medicine
DX: E86.0 Dehydration (principal); G82.50 Quadriplegia, unspecified; E87.1 Hypo-osmolality and hyponatremia; E87.3 Alkalosis; E87.6 Hypokalemia; G80.9 Cerebral palsy, unspecified; G40.909 Epilepsy, unspecified, not intractable, without status epilepticus; E87.8 Other disorders of electrolyte and fluid balance, not elsewhere classified; T50.2X5A Adverse effect of carbonic-anhydrase inhibitors, benzothiadiazides and other diuretics, initial encounter; R13.10 Dysphagia, unspecified; X58.XXXA Exposure to other specified factors, initial encounter; F32.A Depression, unspecified; I11.0 Hypertensive heart disease with heart failure; I50.9 Heart failure, unspecified; G47.33 Obstructive sleep apnea (adult) (pediatric); K21.9 Gastro-esophageal reflux disease without esophagitis; Z79.82 Long term (current) use of aspirin; Z79.899 Other long term (current) drug therapy; Z88.2 Allergy status to sulfonamides; Z91.02 Food additives allergy status; Z87.01 Personal history of pneumonia (recurrent)
CPT/HCPCS: 36415; 80048; 80053; 83735; 85025; 93005; 94640; 94760; 96360; 96361; 99285

== ENCOUNTER 2023-09-19 09:07 | Emergency (ER) | payer MEDICARE, OTHER ==
[2023-09-19 09:22] VITALS: TEMP 97.7
[2023-09-19 10:49] LABS: Basophils % (A) 0 %; Eosinophils # (A) 0.1 k/uL (0-0.7); Eosinophils % (A) 2 %; HCT 30.2 % (34.0-46.0); HGB 10.7 gm/dL (11.4-16.0); Lymphocytes % (A) 16 %; MCH 36.4 pg (25.0-35.0); MCHC 35.3 g/dL (31.0-37.0); Macrocytosis Slight; Mean Platelet Volume 7.1; Monocytes # (A) 0.4 k/uL (0-1.0); Monocytes % (A) 6 %; Neutrophils # (A) 4.7 k/uL (1.3-7.7); Neutrophils % (A) 74 %; Platelet Count 324 k/uL (150-450); Poikilocytosis Slight; RBC 2.93 m/uL (3.80-5.40); WBC 6.3 k/uL (3.8-10.6)
[2023-09-19 11:04] LABS: ALT 63 U/L (4-34); AST 42 U/L (14-36); African American GFR (CKD) >90 (>60 ml/min/1.73 sqM); Albumin 3.8 g/dL (3.5-5.0); Alkaline Phosphatase 78 U/L (38-126); Anion Gap 5 mmol/L; Blood Urea Nitrogen 12 mg/dL (7-17); Calcium 8.9 mg/dL (8.4-10.2); Carbon Dioxide 33 mmol/L (22-30); Chloride 97 mmol/L (98-107); Glucose 109 mg/dL (74-99); Non-African American GFR(CKD) >90 (>60 ml/min/1.73 sqM); Sodium 135 mmol/L (137-145); Total Bilirubin 0.3 mg/dL (0.2-1.3); Total Protein 6.8 g/dL (6.3-8.2)
--- NOTE | 2023-09-19 11:06 | XR ---
EXAMINATION TYPE: XR chest 2V DATE OF EXAM: 09/19/2023 COMPARISON: 10/20/2022 HISTORY: Shortness of breath TECHNIQUE: Frontal and lateral views of the chest are obtained. FINDINGS: The exam is limited by the patient's body habitus and suboptimal inspiration. There is no definite pulmonary vascular congestion. No airspace consolidation. There is no pneumothorax. There is no significant pleural effusion. IMPRESSION: Limited by suboptimal inspiration and the patient's body habitus but no definite acute cardiopulmonary disease.
[2023-09-19 11:07] LABS: INR 0.8 (<1.2); Partial Thromboplastin Time 25.3 sec (22.0-30.0); Prothrombin Time 9.6 sec (10.0-12.5)
[2023-09-19 11:13] LABS: NT-Pro-B-Type Natriuretic Pept 244 pg/mL
--- NOTE | 2023-09-19 12:43 | ED ---
General Adult HPI - General Chief complaint: Extremity Problem,Nontraumatic Stated complaint: Leg Swelling Time Seen by Provider: 09/19/23 09:10 Source: EMS, RN notes reviewed Mode of arrival: EMS Limitations: no limitations - History of Present Illness Initial comments: 68 year old female with past medical history of CHF presents to the emergency department with caregiver for evaluation of bilateral lower extremity edema. Patients caregiver states that she recently was on Bumex and had become too dehydrated. She was hospitalized following this. The medication was stopped at that time about 2 weeks ago. Caregiver notes that since then the swelling in her legs has worsened again. Patient denies any chest pain, shortness of breath. Caregiver denies any distress. Denies changes in overlying skin. - Related Data Home Medications Medication Instructions Recorded Confirmed Divalproex Sodium [Depakote] 500 mg PO BID 07/23/22 09/01/23 Ferrous Sulfate [Iron (65 MG 325 mg PO DAILY 07/23/22 09/01/23 Elemental)] Sennosides [Senokot] 17.2 mg PO HS 07/23/22 09/01/23 Venlafaxine HCl [Effexor XR] 75 mg PO HS 07/23/22 09/01/23 Acetaminophen [Tylenol Extra 1,000 mg PO Q4H PRN 03/20/23 09/01/23 Strength] Fluticasone Nasal [place] [Flonase 1 spr EA NOSTRIL DAILY 03/20/23 09/01/23 Nasal [place]] Folic Acid/B-6/B-12 1 tab PO DAILY 03/20/23 09/01/23 Ibuprofen [Advil] 400 mg PO Q6H PRN 03/20/23 09/01/23 Ipratropium-Albuterol Nebulize 3 ml INHALATION RT-TID 03/20/23 09/01/23 [Duoneb 0.5 mg-3 mg/3 ml Soln] Lactulose [Constulose] 20 gm PO BID 03/20/23 09/01/23 Loperamide [Imodium] 2 mg PO DIRECTED PRN 03/20/23 09/01/23 Mucus+Chst 100/5ml Liq 1 dose PO DIRECTED PRN 03/20/23 09/01/23 Neomycin/Polymyxin B/Dexametha 2 drop BOTH EYES TID PRN 03/20/23 09/01/23 [Maxitrol Ophth Susp] bisacodyL [Dulcolax] 10 mg RECTAL DIRECTED PRN 03/20/23 09/01/23 fluocinolone acetonide oiL 5 drops LEFT EAR BID 03/20/23 09/01/23 [fluocinolone acetonide oiL 0.01% (Otic)] Fexofenadine HCl 180 mg PO DAILY 09/01/23 09/01/23 Na Phos,M-B/Na Phos,Di-Ba [Fleet 230 ml RECTAL Q3D PRN 09/01/23 09/01/23 Adult] Omeprazole 20 mg PO DAILY 09/01/23 09/01/23 Replens Long Lasting Moisture 1 applic VAGINAL Q3D 09/01/23 09/01/23 Simethicone Chew [Mylicon Chew] 80 mg PO QID PRN 09/01/23 09/01/23 Previous Rx's Medication Instructions Recorded Aspirin EC [Ecotrin Low Dose] 81 mg PO DAILY #30 tablet. 08/22/16 Bumetanide [BUMEX] 1 mg PO DAILY #0 09/03/23 Spironolactone [Aldactone] 25 mg PO HS #0 09/03/23 Bumetanide [BUMEX] 0.5 mg PO DAILY #3 tab 09/19/23 Allergies Allergy/AdvReac Type Severity Reaction Status Date / Time corn Allergy Unknown Verified 09/19/23 09:21 Sulfa (Sulfonamide Allergy Unknown Verified 09/19/23 09:21 Antibiotics) GI coctail AdvReac Anaphylaxis Uncoded 09/19/23 09:21 Review of Systems ROS Statement: Those systems with pertinent positive or pertinent negative responses have been documented in the HPI. ROS Other: All systems not noted in ROS Statement are negative. Past Medical History Past Medical History: Heart Failure, Pneumonia, Sleep Apnea/CPAP/BIPAP Additional Past Medical History / Comment(s): cog impaired, cerebral palsy, quadriplegia, lower leg and pedal edema, RICHAR with CPAP use, bronchitis, acute respiratory failure with pneumonia/sepsis. History of Any Multi-Drug Resistant Organisms: None Reported Past Surgical History: Orthopedic Surgery Additional Past Surgical History / Comment(s): L shoulder surgery, L cheek cyst removed, D&C, recent thoracentesis Past Anesthesia/Blood Transfusion Reactions: No Reported Reaction Past Psychological History: Depression Smoking Status: Never smoker Past Alcohol Use History: None Reported Past Drug Use History: None Reported - Past Family History Mother Family Medical History: No Reported History Additional Family Medical History / Comment(s): Mother is healthy. Father Additional Family Medical History / Comment(s): from pulmonary fibrosis General Exam Limitations: no limitations General appearance: alert, in no apparent distress Head exam: Present: atraumatic, normocephalic, normal inspection Eye exam: Present: normal appearance, PERRL, EOMI. Absent: scleral icterus, conjunctival injection, periorbital swelling ENT exam: Present: normal exam, mucous membranes moist Neck exam: Present: normal inspection. Absent: tenderness, meningismus, lymphadenopathy Respiratory exam: Present: normal lung sounds bilaterally. Absent: respiratory distress, wheezes, rales, rhonchi, stridor Cardiovascular Exam: Present: regular rate, normal rhythm, normal heart sounds. Absent: systolic murmur, diastolic murmur, rubs, gallop, clicks Extremities exam: Present: full ROM, normal capillary refill, pedal edema (2+ pitting edema in lower extremities). Absent: tenderness, joint swelling, calf tenderness Neurological exam: Present: alert Psychiatric exam: Present: normal affect, normal mood Skin exam: Present: warm, dry, intact, normal color. Absent: rash Course Vital Signs 09/19/23 09/19/23 09:10 15:35 Temperature 97.7 F Pulse Rate 77 67 Respiratory 18 17 Rate Blood Pressure 123/89 126/78 O2 Sat by Pulse 97 98 Oximetry Medical Decision Making - Medical Decision Making Was pt. sent in by a medical professional or institution (, PA, ADVISORY APPLICATION DEVELOPER, urgent care, hospital, or longterm...) When possible be specific @ -No Did you speak to anyone other than the patient for history (EMS, parent, family, police, friend...)? What history was obtained from this source @ -Caregiver provided history Did you review nursing and triage notes (agree or disagree)? Why? @ -I reviewed and agree with nursing and triage notes Were old charts reviewed (outside hosp., previous admission, EMS record, old EKG, old radiological studies, urgent care reports/EKG's, longterm records)? Report findings @ -No old charts were reviewed Differential Diagnosis (chest pain, altered mental status, abdominal pain women, abdominal pain men, vaginal bleeding, weakness, fever, dyspnea, syncope, headache, dizziness, GI bleed, back pain, seizure, CVA, palpatations, mental health, musculoskeletal)? @ -CHF, fluid retention, cellulitis, DVT, this list is not all inclusive EKG interpreted by me (3pts min.). @ -EKG shows NSR rate 79, [place] 129 X-rays interpreted by me (1pt min.). @ -Chest XR shows no definitive acute process, limited study CT interpreted by me (1pt min.). @ -None done U/S interpreted by me (1pt. min.). @ -None done What testing was considered but not performed or refused? (CT, X-rays, U/S, labs)? Why? @ -None What meds were considered but not given or refused? Why? @ -None Did you discuss the management of the patient with other professionals (professionals i.e. , PA, ADVISORY APPLICATION DEVELOPER, lab, RT, psych nurse, social media project manager, chocolatier, teacher, railway patrol officer, case coordinator)? Give summary @ -No Was smoking cessation discussed for >3mins.? @ -No Was critical care preformed (if so, how long)? @ -No Were there social determinants of health that impacted care today? How? (Homelessness, low income, unemployed, alcoholism, drug addiction, transportation, low edu. Level, literacy, decrease access to med. care, penitentiary, rehab)? @ -No Was there de-escalation of care discussed even if they declined (Discuss DNR or withdrawal of care, Hospice)? DNR status @ -No What co-morbidities impacted this encounter? (DM, HTN, Smoking, COPD, CAD, Cancer, CVA, ARF, Chemo, Hep., AIDS, mental health diagnosis, sleep apnea, morbid obesity)? @ -None Was patient admitted / discharged? Hospital course, mention meds given and route, prescriptions, significant lab abnormalities, going to OR and other pertinent info. @ -Discharged. Patient presented to the emergency department with caregiver for lower extremity edema. Laboratory studies obtained. Significant for macrocytic anemia which is stable for the patient, normal coagulation studies, creatinine 0.44, BNP 244. Patient will be provided a dose of IV Lasix 20 mg and PO bumex 0.5mg x3 days. Patient will be discharged. She has follow up with PCP on . Patient, mother, and caregiver understanding and agreeable with plan. Patient stable at time of discharge. Case discussed with Dr. De La Garza. Undiagnosed new problem with uncertain prognosis? @ -No Drug Therapy requiring intensive monitoring for toxicity (Heparin, Nitro, Insulin, Cardizem)? @ -No Were any procedures done? @ -No Diagnosis/symptom? @ -Fluid retention Acute, or Chronic, or Acute on Chronic? @ -Acute Uncomplicated (without systemic symptoms) or Complicated (systemic symptoms)? @ -Uncomplicated Side effects of treatment? @ -No Exacerbation, Progression, or Severe Exacerbation? @ -No Poses a threat to life or bodily function? How? (Chest pain, USA, CT, pneumonia, PE, COPD, DKA, ARF, appy, cholecystitis, CVA, Diverticulitis, Homicidal, Suicidal, threat to staff... and all critical care pts) @ -No - Lab Data Result diagrams: 09/19/23 10:35 09/19/23 10:35 Lab Results 09/19/23 09/19/23 09/19/23 Range/Units 10:35 10:35 10:35 WBC 6.3 (3.8-10.6) k/uL RBC 2.93 L (3.80-5.40) m/uL Hgb 10.7 L (11.4-16.0) gm/dL Hct 30.2 L (34.0-46.0) % MCV 103.0 H (80.0-100.0) fL MCH 36.4 H (25.0-35.0) pg MCHC 35.3 (31.0-37.0) g/dL RDW 14.0 (11.5-15.5) % Plt Count 324 (150-450) k/uL MPV 7.1 Neutrophils % 74 % Lymphocytes % 16 % Monocytes % 6 % Eosinophils % 2 % Basophils % 0 % Neutrophils # 4.7 (1.3-7.7) k/uL Lymphocytes # 1.0 (1.0-4.8) k/uL Monocytes # 0.4 (0-1.0) k/uL Eosinophils # 0.1 (0-0.7) k/uL Basophils # 0.0 (0-0.2) k/uL Poikilocytosis Slight Macrocytosis Slight PT 9.6 L (10.0-12.5) sec INR 0.8 (<1.2) APTT 25.3 (22.0-30.0) sec Sodium 135 L (137-145) mmol/L Potassium 4.0 (3.5-5.1) mmol/L Chloride 97 L (98-107) mmol/L Carbon Dioxide 33 H (22-30) mmol/L Anion Gap 5 mmol/L BUN 12 (7-17) mg/dL Creatinine 0.44 L (0.52-1.04) mg/dL Est GFR (CKD-EPI)AfAm >90 (>60 ml/min/1.73 sqM) Est GFR (CKD-EPI)NonAf >90 (>60 ml/min/1.73 sqM) Glucose 109 H (74-99) mg/dL Calcium 8.9 (8.4-10.2) mg/dL Total Bilirubin 0.3 (0.2-1.3) mg/dL AST 42 H (14-36) U/L ALT 63 H (4-34) U/L Alkaline Phosphatase 78 (38-126) U/L NT-Pro-B Natriuret Pep 244 pg/mL Total Protein 6.8 (6.3-8.2) g/dL Albumin 3.8 (3.5-5.0) g/dL Disposition Clinical Impression: Lower extremity edema Disposition: HOME SELF-CARE Condition: Stable Instructions (If sedation given, give patient instructions): Leg Edema (ED) Additional Instructions: Please follow up with your primary care provider. Return to the emergency department for new or worsening symptoms. Prescriptions: Bumetanide [BUMEX] 0.5 mg PO DAILY #3 tab Is patient prescribed a controlled substance at d/c from ED?: No Referrals: Josemanuel Yusuf MD [Primary Care Provider] - 1-2 days
[2023-09-19] MEDS: FUROSEMIDE 10 MG/ML 2 ML VIAL IV ONE (13:50)
[2023-09-19 15:37] VITALS: BP 126/78; PULSE 67; RESP 17
== END 2023-09-19 15:37 | disposition home or self-care (01) ==
LOC: EC 09:07
DX: R60.0 Localized edema (principal); Z88.2 Allergy status to sulfonamides; Z91.018 Allergy to other foods; Z88.8 Allergy status to other drugs, medicaments and biological substances
CPT/HCPCS: 36415; 93005; 83880; 80053; 85025; 85610; 85730; 71046; 99284; 96374; J1940

== ENCOUNTER 2023-11-23 14:30 | Emergency (ER) | payer MEDICARE, OTHER ==
[2023-11-23 16:03] LABS: Basophils % (A) 0 %; Eosinophils # (A) 0.1 k/uL (0-0.7); Eosinophils % (A) 2 %; HCT 30.6 % (34.0-46.0); Hypochromasia Slight; Lymphocytes # (A) 0.9 k/uL (1.0-4.8); Lymphocytes % (A) 17 %; MCH 34.6 pg (25.0-35.0); MCHC 32.6 g/dL (31.0-37.0); MCV 106.3 fL (80.0-100.0); Macrocytosis Moderate; Monocytes # (A) 0.4 k/uL (0-1.0); Monocytes % (A) 9 %; Neutrophils # (A) 3.5 k/uL (1.3-7.7); Neutrophils % (A) 68 %; Platelet Count 202 k/uL (150-450); RBC 2.88 m/uL (3.80-5.40); RDW 14.6 % (11.5-15.5); WBC 5.1 k/uL (3.8-10.6)
[2023-11-23 16:15] LABS: ALT 36 U/L (4-34); AST 33 U/L (14-36); African American GFR (CKD) >90 (>60 ml/min/1.73 sqM); Albumin 4.2 g/dL (3.5-5.0); Alkaline Phosphatase 103 U/L (38-126); Anion Gap 6 mmol/L; Blood Urea Nitrogen 30 mg/dL (7-17); Calcium 9.4 mg/dL (8.4-10.2); Carbon Dioxide 34 mmol/L (22-30); Chloride 100 mmol/L (98-107); Glucose 108 mg/dL (74-99); Non-African American GFR(CKD) 83 (>60 ml/min/1.73 sqM); Potassium 4.1 mmol/L (3.5-5.1); Sodium 140 mmol/L (137-145); Total Bilirubin 0.6 mg/dL (0.2-1.3); Total Protein 7.1 g/dL (6.3-8.2)
--- NOTE | 2023-11-23 16:19 | XR ---
EXAMINATION TYPE: XR chest 2V DATE OF EXAM: 11/23/2023 COMPARISON: 09/19/2023 HISTORY: Deep swelling TECHNIQUE: Frontal and lateral views of the chest are obtained. FINDINGS: Exam is limited by the technique but there appears to be diffuse vascular congestion and i nterstitial edema. There is no pleural effusion or pneumothorax. The osseous structures are intact IMPRESSION: Limited study but findings suggest presence of CHF and clinical correlation is recommend ed. [facility], Workstation: BOB 11/23/2023 4:16 PM
[2023-11-23 16:21] LABS: INR 0.9 (<1.2); Prothrombin Time 9.7 sec (10.0-12.5)
[2023-11-23 16:23] LABS: NT-Pro-B-Type Natriuretic Pept 362 pg/mL
[2023-11-23 16:26] LABS: Partial Thromboplastin Time 20.5 sec (22.0-30.0)
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
[2023-11-23 17:45] VITALS: BP 126/80; RESP 18
--- NOTE | 2023-11-23 17:54 | US ---
EXAMINATION TYPE: US venous doppler duplex LE LT DATE OF EXAM: 11/23/2023 5:30 PM COMPARISON: NONE CLINICAL INDICATION: Female, 68 years old with history of swelling; Patients caregiver states left fo ot swelling that is not unusual for patient due to heart disorder. Left toe laceration. No warmth or redness. Takes aspirin. No hx DVT. SIDE PERFORMED: Left TECHNIQUE: The lower extremity deep venous system is examined utilizing real time linear array sonog wayne with graded compression, color doppler sonography, and spectral doppler. VESSELS IMAGED: Common Femoral Vein Deep Femoral Vein Greater Saphenous Vein * Femoral Vein Popliteal Vein Small Saphenous Vein * Proximal Calf Veins (* superficial vessels) Exam limited due to morbidly obese patient/ unable to move leg. Left Leg: Unable to visualize distal femoral vein- pop veins to patient body habitus and unable to m ove leg. Visualized portions appear wnl IMPRESSION: Grayscale, color doppler, spectral doppler imaging performed of the deep veins of the lo wer extremities. There is normal flow, compressibility, vascular waveforms. [facility], , 11/23/2023 5:52 PM
[2023-11-23 18:31] VITALS: PULSE 82; TEMP 97.9
== END 2023-11-23 18:31 | disposition home or self-care (01) ==
LOC: EC 14:30
CPT/HCPCS: 36415; 71046; 80053; 83880; 84484; 85025; 85610; 85730; 93005; 99284